=== PATIENT | female | born 1955 | race Caucasian/White ===

== ENCOUNTER 2019-12-06 20:13 | Emergency (ER) | payer OTHER, SELFPAY ==
[2019-12-06 20:30] VITALS: BP 156/89; PULSE 98; RESP 18; TEMP 37.1; O2SAT 97; BMI 39.6
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
== END 2019-12-06 22:05 | disposition home or self-care (01) ==
LOC: HO.ED 21:39
PROVIDERS: Emergency Provider Emergency Medicine; PCP Internal Medicine Medical Oncology
DX: Z04.1 Encounter for examination and observation following transport accident (principal); E11.9 Type 2 diabetes mellitus without complications; I10 Essential (primary) hypertension
CPT/HCPCS: 99282; 99284

== ENCOUNTER 2020-11-05 08:50 | Outpatient (REF) | payer MEDICARE, SELFPAY ==
[2020-11-05 09:28] LABS: MANUAL DIFF FLAG NO
[2020-11-05 09:35] LABS: Basophils Absolute Auto 0.1 X10*3/uL (0.0-0.2); Basophils Percent Auto 0.8 % (0-2); Eosinophils Absolute Auto 0.4 X10*3/uL (0.0-0.4); Eosinophils Percent Auto 5.4 % (0-4); Hematocrit 39.8 % (37-47); Hemoglobin 12.9 g/dl (12.0-16.0); Imm Gran Abs Auto 0.06 X10*3/uL (0.00-0.03); Imm Gran Pct Auto 0.9 % (0.0-0.4); Lymphocytes Absolute Auto 1.8 X10*3/uL (1.2-4.9); Lymphocytes Percent Auto 27.5 % (20-40); Mean Corpuscular HGB Conc 32.4 g/dl (31.0-35.0); Mean Corpuscular Hemoglobin 29.9 pg (27.0-33.0); Mean Corpuscular Volume 92.3 fL (80-98); Mean Platelet Volume 9.6 fL (9.4-12.3); Monocytes Absolute Auto 0.8 X10*3/uL (0.1-1.2); Monocytes Percent Auto 11.6 % (2-11); Neutrophils Absolute Auto 3.6 X10*3/uL (2.0-8.3); Neutrophils Percent Auto 53.8 % (45-73); Platelet Count 270 X10*3/uL (160-400); Red Blood Count 4.31 X10*6/uL (4.20-5.50); Red Cell Distribution Width 12.9 % (11.0-16.0); White Blood Count 6.6 X10*3/uL (4.8-10.8)
[2020-11-05 09:52] LABS: Alanine Aminotransferase 41 U/L (0-31); Alkaline Phosphatase 96 U/L (39-117); Anion Gap 12 (12-20); Aspartate Amino Transferase 32 U/L (5-31); Bilirubin Total 0.5 mg/dL (0.0-1.0); Blood Urea Nitrogen 18 mg/dL (9-16); Calcium 9.7 mg/dL (8.4-10.2); Carbon Dioxide 27 mmol/L (22-29); Chloride 106 mmol/L (96-108); Cholesterol 277 mg/dL; Estimated Glomerular Filt Rate 45; Glucose Random 110 mg/dL (60-115); HDL Cholesterol 52 mg/dL; LDL Cholesterol Calculated 196 mg/dl; Potassium 4.9 mmol/L (3.3-5.1); Sodium 140 mmol/L (135-145); Total Protein 6.7 g/dL (6.5-8.0); Triglycerides 146 mg/dL
[2020-11-05 10:06] LABS: Free T4 (Free Thyroxine) 1.02 ng/dL (0.71-1.85); Thyroid Stimulating Hormone 2.53 uIU/mL (0.32-4.0)
[2020-11-05 10:08] LABS: Creatinine Urine 146.55 mg/dL
[2020-11-05 10:16] LABS: Estimated Average Glucose 315 mg/dL; Hemoglobin A1c % 12.6 %
[2020-11-05 10:20] LABS: Microalbum/Creatinine Ratio Ur 671.4 ug/mg cr
== END 2020-11-05 08:51 | disposition home or self-care (01) ==
LOC: HO.LAB 08:50
PROVIDERS: PCP Internal Medicine Medical Oncology; Visit Provider Internal Medicine Medical Oncology
DX: E11.9 Type 2 diabetes mellitus without complications (principal); E03.9 Hypothyroidism, unspecified; I10 Essential (primary) hypertension; E78.2 Mixed hyperlipidemia
CPT/HCPCS: 36415; 80053; 80061; 82043; 83036; 84439; 84443; 85025

== ENCOUNTER 2021-02-19 08:21 | Outpatient (REF) | payer MEDICARE, SELFPAY ==
[2021-02-19 08:39] LABS: MANUAL DIFF FLAG NO
[2021-02-19 09:24] LABS: Basophils Absolute Auto 0.1 X10*3/uL (0.0-0.2); Basophils Percent Auto 0.9 % (0-2); Eosinophils Absolute Auto 0.4 X10*3/uL (0.0-0.4); Eosinophils Percent Auto 6.3 % (0-4); Hematocrit 40.6 % (37.0-47.0); Hemoglobin 13.6 g/dl (12.0-16.0); Imm Gran Abs Auto 0.03 X10*3/uL (0.00-0.03); Imm Gran Pct Auto 0.4 % (0.0-0.4); Lymphocytes Absolute Auto 1.7 X10*3/uL (1.2-4.9); Lymphocytes Percent Auto 25.1 % (20-40); Mean Corpuscular HGB Conc 33.5 g/dl (31.0-35.0); Mean Corpuscular Hemoglobin 29.6 pg (27.0-33.0); Mean Corpuscular Volume 88.3 fL (80.0-98.0); Mean Platelet Volume 10.3 fL (9.4-12.3); Monocytes Absolute Auto 0.7 X10*3/uL (0.1-1.2); Monocytes Percent Auto 9.5 % (2-11); Neutrophils Percent Auto 57.8 % (45-73); Platelet Count 262 X10*3/uL (160-400); White Blood Count 6.9 X10*3/uL (4.8-10.8)
[2021-02-19 09:43] LABS: Estimated Average Glucose 220 mg/dL; Hemoglobin A1c % 9.3 %
[2021-02-19 09:49] LABS: Alanine Aminotransferase 27 U/L (0-31); Albumin Level 4.1 g/dL (3.5-5.0); Alkaline Phosphatase 114 U/L (39-117); Anion Gap 15 (12-20); Aspartate Amino Transferase 22 U/L (5-31); Bilirubin Total 0.6 mg/dL (0.0-1.0); Blood Urea Nitrogen 28 mg/dL (9-16); Carbon Dioxide 26 mmol/L (22-29); Chloride 101 mmol/L (96-108); Cholesterol 184 mg/dL; Estimated Glomerular Filt Rate 35; Glucose Fasting 406 mg/dL (60-99); HDL Cholesterol 44 mg/dL; LDL Cholesterol Calculated 107 mg/dl; Sodium 137 mmol/L (135-145); Triglycerides 167 mg/dL
== END 2021-02-19 08:22 | disposition home or self-care (01) ==
LOC: HO.LAB 08:21
PROVIDERS: PCP Internal Medicine Medical Oncology; Visit Provider Internal Medicine Medical Oncology
DX: E11.9 Type 2 diabetes mellitus without complications (principal); E78.2 Mixed hyperlipidemia
CPT/HCPCS: 36415; 80053; 80061; 83036; 85025

== ENCOUNTER 2021-07-29 07:39 | Outpatient (REF) | payer MEDICARE, SELFPAY ==
[2021-07-29 08:02] LABS: MANUAL DIFF FLAG NO
[2021-07-29 08:27] LABS: Basophils Absolute Auto 0.1 X10*3/uL (0.0-0.2); Basophils Percent Auto 0.7 % (0-2); Eosinophils Absolute Auto 0.4 X10*3/uL (0.0-0.4); Eosinophils Percent Auto 5.9 % (0-4); Hematocrit 39.1 % (37.0-47.0); Hemoglobin 13.2 g/dl (12.0-16.0); Imm Gran Abs Auto 0.03 X10*3/uL (0.00-0.03); Imm Gran Pct Auto 0.4 % (0.0-0.4); Lymphocytes Percent Auto 27.7 % (20-40); Mean Corpuscular HGB Conc 33.8 g/dl (31.0-35.0); Mean Corpuscular Hemoglobin 30.4 pg (27.0-33.0); Mean Corpuscular Volume 90.1 fL (80.0-98.0); Mean Platelet Volume 10.1 fL (9.4-12.3); Monocytes Absolute Auto 0.8 X10*3/uL (0.1-1.2); Monocytes Percent Auto 10.9 % (2-11); Neutrophils Percent Auto 54.4 % (45-73); Platelet Count 269 X10*3/uL (160-400); Red Blood Count 4.34 X10*6/uL (4.20-5.50); Red Cell Distribution Width 12.3 % (11.0-16.0); White Blood Count 7.3 X10*3/uL (4.8-10.8)
[2021-07-29 08:44] LABS: Alanine Aminotransferase 25 U/L (0-31); Albumin Level 3.8 g/dL (3.5-5.0); Alkaline Phosphatase 97 U/L (39-117); Anion Gap 12 (12-20); Aspartate Amino Transferase 20 U/L (5-31); Bilirubin Total 0.5 mg/dL (0.0-1.0); Blood Urea Nitrogen 29 mg/dL (9-16); Calcium 9.8 mg/dL (8.4-10.2); Carbon Dioxide 24 mmol/L (22-29); Chloride 107 mmol/L (96-108); Cholesterol 237 mg/dL; Estimated Glomerular Filt Rate 36; Glucose Fasting 104 mg/dL (60-99); HDL Cholesterol 46 mg/dL; LDL Cholesterol Calculated 162 mg/dl; Potassium 4.3 mmol/L (3.3-5.1); Sodium 139 mmol/L (135-145); Total Protein 6.6 g/dL (6.5-8.0); Triglycerides 147 mg/dL
[2021-07-29 08:48] LABS: Estimated Average Glucose 220 mg/dL; Hemoglobin A1c % 9.3 %
[2021-07-29 09:04] LABS: Free T4 (Free Thyroxine) 0.95 ng/dL (0.71-1.85); Thyroid Stimulating Hormone 4.42 uIU/mL (0.32-4.0)
[2021-07-29 10:34] LABS: Creatinine Urine 164.96 mg/dL
[2021-07-29 11:10] LABS: Microalbum/Creatinine Ratio Ur 1049.9 ug/mg cr
== END 2021-07-29 07:40 | disposition home or self-care (01) ==
LOC: HO.LAB 07:39
PROVIDERS: PCP Internal Medicine Medical Oncology; Visit Provider Internal Medicine Medical Oncology
DX: E11.9 Type 2 diabetes mellitus without complications (principal); E03.9 Hypothyroidism, unspecified; I10 Essential (primary) hypertension; E78.2 Mixed hyperlipidemia
CPT/HCPCS: 36415; 80053; 80061; 82043; 83036; 84439; 84443; 85025

== ENCOUNTER 2021-08-19 09:59 | Outpatient (REF) | payer MEDICARE, SELFPAY ==
--- NOTE | ~2021-08-19 | XR_ITS ---
EXAMINATION: XR KNEE, RIGHT CLINICAL INFORMATION: Pain right knee COMPARISON: None TECHNIQUE: Four views of the right knee. FINDINGS: No fracture or dislocation or destructive process. There is mild narrowing medial knee joint compartment with borderline spurring medial femoral condyle and tibial plateau. No erosive change or visible chondrocalcinosis. There is small suprapatellar effusion. Hoffa's fat pad appears normal. Axial view patella shows no lateralization or tilting. Spurring is present at the quadriceps insertion patella, origin patellar tendon, and insertion patella tendon. Deep infrapatellar recess appears preserved. XR/XR knee RT 4V IMPRESSION: -Mild degenerative change medial knee joint compartment. Small suprapatellar effusion. -Spurring extensor mechanism at insertion quadriceps tendon, origin and insertion patella tendon.
== END 2021-08-19 10:00 | disposition home or self-care (01) ==
LOC: HO.XRAY 09:59
PROVIDERS: PCP Internal Medicine Medical Oncology; Visit Provider Internal Medicine Medical Oncology
DX: M25.561 Pain in right knee (principal)
CPT/HCPCS: 73564

== ENCOUNTER 2021-11-12 08:11 | Outpatient (REF) | payer MEDICARE, SELFPAY ==
[2021-11-12 08:34] LABS: MANUAL DIFF FLAG NO
[2021-11-12 09:07] LABS: Basophils Absolute Auto 0.1 X10*3/uL (0.0-0.2); Basophils Percent Auto 0.6 % (0-2); Eosinophils Absolute Auto 0.5 X10*3/uL (0.0-0.4); Eosinophils Percent Auto 6.5 % (0-4); Hematocrit 39.8 % (37.0-47.0); Imm Gran Abs Auto 0.05 X10*3/uL (0.00-0.03); Imm Gran Pct Auto 0.6 % (0.0-0.4); Lymphocytes Percent Auto 25.3 % (20-40); Mean Corpuscular HGB Conc 32.7 g/dl (31.0-35.0); Mean Corpuscular Volume 88.6 fL (80.0-98.0); Mean Platelet Volume 10.1 fL (9.4-12.3); Monocytes Absolute Auto 0.7 X10*3/uL (0.1-1.2); Monocytes Percent Auto 9.6 % (2-11); Neutrophils Absolute Auto 4.4 x10*3/uL (2.0-8.3); Neutrophils Percent Auto 57.4 % (45-73); Platelet Count 254 X10*3/uL (160-400); Red Blood Count 4.49 X10*6/uL (4.20-5.50); Red Cell Distribution Width 12.6 % (11.0-16.0); White Blood Count 7.7 X10*3/uL (4.8-10.8)
[2021-11-12 09:14] LABS: Estimated Average Glucose 240 mg/dL
[2021-11-12 09:40] LABS: Alanine Aminotransferase 21 U/L (0-31); Albumin Level 3.8 g/dL (3.5-5.0); Alkaline Phosphatase 99 U/L (39-117); Anion Gap 15 (12-20); Aspartate Amino Transferase 19 U/L (5-31); Bilirubin Total 0.4 mg/dL (0.0-1.0); Blood Urea Nitrogen 31 mg/dL (9-16); Calcium 9.5 mg/dL (8.4-10.2); Carbon Dioxide 26 mmol/L (22-29); Chloride 103 mmol/L (96-108); Cholesterol 227 mg/dL; Estimated Glomerular Filt Rate 38; Glucose Random 111 mg/dL (60-115); HDL Cholesterol 47 mg/dL; LDL Cholesterol Calculated 155 mg/dl; Potassium 4.4 mmol/L (3.3-5.1); Sodium 140 mmol/L (135-145); Total Protein 6.6 g/dL (6.5-8.0); Triglycerides 128 mg/dL
== END 2021-11-12 08:12 | disposition home or self-care (01) ==
LOC: HO.LAB 08:11
PROVIDERS: PCP Internal Medicine Medical Oncology; Visit Provider Internal Medicine Medical Oncology
DX: I10 Essential (primary) hypertension (principal); E11.9 Type 2 diabetes mellitus without complications; E78.2 Mixed hyperlipidemia
CPT/HCPCS: 36415; 80053; 80061; 83036; 85025

== ENCOUNTER 2022-01-13 07:56 | Outpatient (REF) | payer MEDICARE, SELFPAY ==
[2022-01-13 08:04] LABS: MANUAL DIFF FLAG NO
[2022-01-13 08:21] LABS: Basophils Absolute Auto 0.1 X10*3/uL (0.0-0.2); Basophils Percent Auto 1.1 % (0-2); Eosinophils Absolute Auto 0.4 X10*3/uL (0.0-0.4); Hematocrit 42.2 % (37.0-47.0); Hemoglobin 13.8 g/dl (12.0-16.0); Imm Gran Abs Auto 0.02 X10*3/uL (0.00-0.03); Imm Gran Pct Auto 0.3 % (0.0-0.4); Lymphocytes Absolute Auto 1.4 X10*3/uL (1.2-4.9); Lymphocytes Percent Auto 19.4 % (20-40); Mean Corpuscular HGB Conc 32.7 g/dl (31.0-35.0); Mean Corpuscular Hemoglobin 29.2 pg (27.0-33.0); Mean Corpuscular Volume 89.4 fL (80.0-98.0); Mean Platelet Volume 10.3 fL (9.4-12.3); Monocytes Absolute Auto 0.7 X10*3/uL (0.1-1.2); Monocytes Percent Auto 9.6 % (2-11); Neutrophils Absolute Auto 4.7 x10*3/uL (2.0-8.3); Neutrophils Percent Auto 63.6 % (45-73); Platelet Count 267 X10*3/uL (160-400); Red Blood Count 4.72 X10*6/uL (4.20-5.50); Red Cell Distribution Width 12.4 % (11.0-16.0); White Blood Count 7.4 X10*3/uL (4.8-10.8)
[2022-01-13 08:47] LABS: Alanine Aminotransferase 22 U/L (0-31); Albumin Level 3.8 g/dL (3.5-5.0); Alkaline Phosphatase 115 U/L (39-117); Anion Gap 14 (12-20); Aspartate Amino Transferase 20 U/L (5-31); Bilirubin Total 0.3 mg/dL (0.0-1.0); Blood Urea Nitrogen 27 mg/dL (9-16); Calcium 9.2 mg/dL (8.4-10.2); Carbon Dioxide 26 mmol/L (22-29); Chloride 103 mmol/L (96-108); Estimated Glomerular Filt Rate 34; Glucose Fasting 185 mg/dL (60-99); Potassium 4.5 mmol/L (3.3-5.1); Sodium 138 mmol/L (135-145); Total Protein 6.7 g/dL (6.5-8.0)
[2022-01-13 08:48] LABS: Estimated Average Glucose 235 mg/dL; Hemoglobin A1c % 9.8 %
== END 2022-01-13 07:57 | disposition home or self-care (01) ==
LOC: HO.LAB 07:56
PROVIDERS: PCP Internal Medicine Medical Oncology; Visit Provider Internal Medicine Medical Oncology
DX: Z00.00 Encounter for general adult medical examination without abnormal findings (principal); E11.9 Type 2 diabetes mellitus without complications; E78.5 Hyperlipidemia, unspecified; E66.01 Morbid (severe) obesity due to excess calories
CPT/HCPCS: 36415; 80053; 83036; 85025

== ENCOUNTER 2022-04-08 08:04 | Outpatient (REF) | payer MEDICARE, SELFPAY ==
[2022-04-08 08:18] LABS: MANUAL DIFF FLAG NO
[2022-04-08 08:58] LABS: Basophils Absolute Auto 0.1 X10*3/uL (0.0-0.2); Basophils Percent Auto 0.9 % (0-2); Eosinophils Absolute Auto 0.5 X10*3/uL (0.0-0.4); Eosinophils Percent Auto 6.3 % (0-4); Hematocrit 41.4 % (37.0-47.0); Hemoglobin 13.9 g/dl (12.0-16.0); Imm Gran Abs Auto 0.05 X10*3/uL (0.00-0.03); Imm Gran Pct Auto 0.7 % (0.0-0.4); Lymphocytes Absolute Auto 2.1 X10*3/uL (1.2-4.9); Lymphocytes Percent Auto 27.8 % (20-40); Mean Corpuscular HGB Conc 33.6 g/dl (31.0-35.0); Mean Corpuscular Hemoglobin 29.5 pg (27.0-33.0); Mean Corpuscular Volume 87.9 fL (80.0-98.0); Mean Platelet Volume 10.4 fL (9.4-12.3); Monocytes Absolute Auto 0.8 X10*3/uL (0.1-1.2); Neutrophils Absolute Auto 4.1 x10*3/uL (2.0-8.3); Neutrophils Percent Auto 54.3 % (45-73); Platelet Count 283 X10*3/uL (160-400); Red Blood Count 4.71 X10*6/uL (4.20-5.50); Red Cell Distribution Width 12.5 % (11.0-16.0); White Blood Count 7.5 X10*3/uL (4.8-10.8)
[2022-04-08 09:15] LABS: Estimated Average Glucose 298 mg/dL
[2022-04-08 09:24] LABS: Alanine Aminotransferase 25 U/L (0-31); Albumin Level 3.9 g/dL (3.5-5.0); Alkaline Phosphatase 101 U/L (39-117); Anion Gap 16 (12-20); Aspartate Amino Transferase 23 U/L (5-31); Bilirubin Total 0.4 mg/dL (0.0-1.0); Blood Urea Nitrogen 31 mg/dL (9-16); Calcium 9.7 mg/dL (8.4-10.2); Carbon Dioxide 25 mmol/L (22-29); Chloride 104 mmol/L (96-108); Estimated Glomerular Filt Rate 42; Glucose Fasting 85 mg/dL (60-99); Sodium 141 mmol/L (135-145); Total Protein 6.4 g/dL (6.5-8.0)
[2022-04-08 09:30] LABS: Creatinine Urine 120.46 mg/dL
[2022-04-08 09:40] LABS: Microalbum/Creatinine Ratio Ur 1660.3 ug/mg cr; Microalbumin Urine > 2000.0 mg/L
[2022-04-08 09:41] LABS: Free T4 (Free Thyroxine) 0.83 ng/dL (0.71-1.85); Thyroid Stimulating Hormone 3.96 uIU/mL (0.32-4.0)
== END 2022-04-08 08:05 | disposition home or self-care (01) ==
LOC: HO.LAB 08:04
PROVIDERS: PCP Internal Medicine Medical Oncology; Visit Provider Internal Medicine Medical Oncology
DX: E03.9 Hypothyroidism, unspecified (principal); I10 Essential (primary) hypertension; E66.01 Morbid (severe) obesity due to excess calories; E11.9 Type 2 diabetes mellitus without complications
CPT/HCPCS: 36415; 80053; 82043; 83036; 84439; 84443; 85025

== ENCOUNTER 2022-06-29 01:54 | Inpatient (IN) | payer MEDICARE, SELFPAY ==
[2022-06-29] VITALS (41 sets, daily range): BP systolic 106–248; BP diastolic 46–110; PULSE 67–116; RESP 13–20; TEMP 36.4–37.3; O2SAT 90–97; BMI 43.2; BMI 43.5
--- NOTE | 2022-06-29 | ECG_ITS ---
Test Reason : chest pain Blood Pressure : / mmHG Vent. Rate : 098 BPM Atrial Rate : 098 BPM P-R Int : 184 ms QRS Dur : 072 ms QT Int : 384 ms P-R-T Axes : 051 079 023 degrees QTc Int : 490 ms Sinus rhythm with Premature atrial complexes Prolonged QT Abnormal ECG When compared with ECG of 29-JUN-2022 02:32, Premature atrial complexes are now Present Referred By: Chris Ceron Electronically Signed By:AGUSTIN WHITEHEAD MD
--- NOTE | ~2022-06-29 | CT_ITS ---
EXAMINATION: CT HEAD WITHOUT CONTRAST CLINICAL INFORMATION: Stroke protocol . Left hemiparesis. COMPARISON: None. TECHNIQUE: Contiguous axial imaging was performed from the skull base to vertex without intravenous contrast. This CT examination was performed using dose optimization techniques as appropriate, variously including the following: * Automated exposure control * Adjustment of mA and/or kV according to patient size (this includes techniques or standardized protocols for targeted exams where dose is matched to indication/reason for exam; i.e. extremities or head) Use of iterative reconstruction technique DLP: 569 mGy-cm. FINDINGS: There is no evidence of acute intracranial hemorrhage or territorial infarction. No abnormal mass effect or midline shift is seen. Abreu to white matter differentiation is well preserved. No extra-axial fluid collections are identified. No hydrocephalus. Proportional prominence of the ventricles and sulcal spaces is consistent with mild volume loss. Patchy periventricular and deep white matter hypoattenuation is consistent with mild small vessel ischemic changes. The osseous structures and soft tissues are normal. The mastoid air cells and visualized portions of the paranasal sinuses are well aerated. CT/CT head for stroke IMPRESSION: No acute intracranial pathology. Mild volume loss with small vessel ischemic change. This critical result was discussed with Chris Ceron MD by telephone at 06/29/2022 2:08 AM and it was ascertained that the content and urgency of the report was understood at the time of direct communication.
--- NOTE | ~2022-06-29 | CT_ITS ---
EXAMINATION: CTA OF THE HEAD/NECK CLINICAL INFORMATION: CTA stroke. Left hemiparesis. COMPARISON: None. TECHNIQUE: A routine non contrast head CT was performed immediately prior. This was followed by a 70 mL bolus of Omnipaque 350. Subsequent multidetector helical imaging was performed of the head and neck. Delayed post contrast imaging was also performed through the head. Multiplanar reformats and MIP were also obtained. Internal carotid artery stenoses are assessed in accordance with NASCET criteria unless otherwise indicated. This CT examination was performed using dose optimization techniques as appropriate, variously including the following: *Automated exposure control *Adjustment of mA and/or kV according to patient size (this includes techniques or standardized protocols for targeted exams where dose is matched to indication/reason for exam; i.e. extremities or head) *Use of iterative reconstruction technique DLP: 1425 mGy-cm. FINDINGS: CT HEAD: There is no evidence of acute intracranial hemorrhage or territorial infarction. No abnormal mass effect or midline shift is seen. Abreu to white matter differentiation is well preserved. No extra-axial fluid collections are identified. No suspicious leptomeningeal or parenchymal enhancement on the post-contrast images. No hydrocephalus. Proportional prominence of the ventricles and sulcal spaces is consistent with mild volume loss. Patchy periventricular and deep white matter hypoattenuation is consistent with mild small vessel ischemic changes. The osseous structures and soft tissues are normal. The mastoid air cells and visualized portions of the paranasal sinuses are well aerated. CTA NECK: The aortic arch is of normal caliber and the origins of the great vessels are patent without evidence of significant stenosis. The cervical portion of the vertebral arteries are patent bilaterally. No luminal irregularities in the common carotid arteries and the carotid bifurcations are patent bilaterally. There is some calcified and noncalcified plaque at the origin of both internal carotid arteries, without flow-limiting stenosis. The cervical portion of the internal carotid arteries are of normal caliber. The laryngeal structures and pharyngeal mucosal spaces are unremarkable. The oral cavity appears normal. The parotid and submandibular glands are normal. No pathologically enlarged lymph nodes. The thyroid gland is unremarkable. The lung apices are clear without evidence of pneumothorax. Spinal alignment is maintained. Mild cervical spondylosis is noted. CTA HEAD: The intradural portion of the vertebral arteries are of normal caliber. The basilar, superior cerebellar, and posterior communicating arteries are patent. The posterior, middle, and anterior cerebral arteries are of normal caliber without evidence of significant luminal irregularity. No definite intracranial aneurysms. CT/CT angio head neck stroke IMPRESSION: 1. No acute intracranial finding. 2. No large vessel occlusion or flow-limiting stenosis. This critical result was discussed with Chris Ceron MD by telephone at 06/29/2022 2:28 AM and it was ascertained that the content and urgency of the report was understood at the time of direct communication.
--- NOTE | ~2022-06-29 | MR_ITS ---
EXAMINATION: MR BRAIN WITHOUT CONTRAST CLINICAL INFORMATION: Acute right MCA stroke, status post tPA. COMPARISON: Head CT from 06/29/2022. TECHNIQUE: Multiplanar, multisequence imaging of the brain was performed without contrast. FINDINGS: There is restricted diffusion from an acute infarct involving the right frontoparietal lobes and right insular cortex without hemorrhagic conversion. No significant mass effect or midline shift is seen. Corresponding mild T2 hyperintense signal change noted at this site as well. The ventricles are normal in size. No extra-axial fluid collections are seen. The brainstem and cerebellum are normal. Nonspecific mild scattered white matter signal changes may be due to chronic microangiopathy. The craniovertebral junction, marrow signal, and midline structures are normal. The major intracranial flow voids at the level of the [place] are preserved. The dural venous sinus flow voids are maintained. The mastoid air cells and paranasal sinuses are well aerated. MR/MR head/brain wo con IMPRESSION: Acute right MCA territorial infarction without significant mass effect, midline shift, or hemorrhagic conversion.
--- NOTE | ~2022-06-29 | XR_ITS ---
EXAMINATION: XR CHEST CLINICAL INFORMATION: Change in breathing pattern COMPARISON: None available. TECHNIQUE: Frontal view of the chest was obtained. FINDINGS: Cardiac leads overlie the chest. The lungs are well expanded. Patchy opacity at the left base. No pleural effusion or pneumothorax. The cardiomediastinal silhouette is prominent, with a calcified aorta. XR/XR chest 1V IMPRESSION: 1. Patchy opacity at the left base could represent atelectasis or pneumonia. 2. Prominent cardiac silhouette.
--- NOTE | ~2022-06-29 | CT_ITS ---
EXAMINATION: CT HEAD WITHOUT CONTRAST CLINICAL INFORMATION: Headache post TPA. COMPARISON: 06/29/2022 TECHNIQUE: Contiguous axial imaging was performed from the skull base to vertex without intravenous contrast. This CT examination was performed using dose optimization techniques as appropriate, variously including the following: * Automated exposure control * Adjustment of mA and/or kV according to patient size (this includes techniques or standardized protocols for targeted exams where dose is matched to indication/reason for exam; i.e. extremities or head) Use of iterative reconstruction technique DLP: 609 mGy-cm. FINDINGS: There is no evidence of acute intracranial hemorrhage or territorial infarction. No abnormal mass effect or midline shift is seen. Abreu to white matter differentiation is well preserved. No extra-axial fluid collections are identified. No hydrocephalus. Proportional prominence of the ventricles and sulcal spaces is consistent with mild volume loss. Patchy periventricular and deep white matter hypoattenuation is consistent with mild small vessel ischemic changes. The osseous structures and soft tissues are normal. The mastoid air cells and visualized portions of the paranasal sinuses are well aerated. CT/CT head/brain wo IV con IMPRESSION: No acute intracranial pathology.
--- NOTE | 2022-06-29 01:56 | ECG_ITS ---
Test Reason : stroke Blood Pressure : / mmHG Vent. Rate : 104 BPM Atrial Rate : 104 BPM P-R Int : 172 ms QRS Dur : 076 ms QT Int : 368 ms P-R-T Axes : 062 076 041 degrees QTc Int : 483 ms Sinus tachycardia with Premature atrial complexes Otherwise normal ECG No previous ECGs available Referred By: Chris Ceron Electronically Signed By:AGUSTIN WHITEHEAD MD
--- NOTE | 2022-06-29 01:58 | ED_ITS ---
HPI - Neuro Symptoms/Deficit General Chief Complaint: Stroke Stated Complaint: stroke alert Time Seen by Provider: 06/29/22 01:56 Source: patient and EMS Mode of arrival: EMS Limitations: no limitations History of Present Illness HPI Narrative: Patient history of hypertension went to sleep at 23:00 woke up at 01:00 with dizziness while getting out of the bed felt left-sided week and fell without significant injuries had dizziness blurred vision noticed significant weakness in left arm and heaviness in the left leg no speech problem no facial symmetry blood pressure was 248/110 by EMS. Patient not on any blood thinner Related Data Allergies Allergy/AdvReac Type Severity Reaction Status Date / Time No Known Allergies Allergy Verified 12/06/19 20:33 Review of Systems Review of Systems: Yes all other systems are reviewed and are negative [facility] Past Medical History Medical History Appendicitis Asthma Diabetes High cholesterol HTN (hypertension) Surgical History History of appendectomy Hx of appendectomy Social History Social History Household Members: Family Alcohol intake: never Advance Directives: No Advance Directives Information Provided: No Physical Exam Vital Signs: Vital Signs: Last Vital Signs Temp 97.9 F 06/29/22 02:18 Pulse 96 06/29/22 02:18 Resp 18 06/29/22 02:18 BP 197/71 H 06/29/22 03:23 Pulse Ox 95 06/29/22 02:18 O2 Del Method Room Air 06/29/22 02:18 BMI result Body Mass Index 43.2 Appearance: Alert. Oriented X3. No acute distress. Eyes: PERRLA, No Nystagmus ENT: Pharynx normal. Oral Mucosa moist Neck: Normal inspection. Neck supple. CVS: Normal heart rate and rhythm. Pulses normal. Respiratory: No respiratory distress. Equal air entry bilateral, no wheezing/rales/rhonchi Abdomen: Soft and nontender. Bowel sounds are present, no mass palpable, no CVA tenderness Skin: Skin warm and dry. Normal skin color. Normal skin turgor. Extremities: No lower extremity edema. No calf tenderness Neuro: Oriented X 3. Significant weakness left arm 3/ 5 left leg 4/5 No sensory deficit.No cerebellar signs , cranial nerves II-XII intact speech is normal Course Reevaluation(s) Reevaluation #1: Patient received tPA re-examination revaled patient has left facial droop slight slurred speech also complaining of mild headache on the right side give her Tylenol re-evaluate plan to admit ICU Time: 03:44 Medications Administered Discontinued Medications Generic Name Dose Route Start Last Admin Trade Name Simonq PRN Reason Stop Dose Admin Alteplase, Recombinant 90 mg 06/29/22 02:47 06/29/22 02:53 Alteplase 100 Mg Vial IV 06/29/22 02:48 90 mg ONCE ONE Administration Labetalol HCl 10 mg 06/29/22 02:59 06/29/22 03:02 Labetalol Hcl 100 Mg/20 Ml Vial IVPUSH 06/29/22 03:00 10 mg ONCE ONE Administration Medical Decision Making Medical Decision Making [facility] Narrative: Patient with acute left-sided hemiparesis CT H and CTA head neck was negative for LVO case d/w with Dr. Garcia advised to give tPA in case patient has significant weakness initially patient had only left arm weakness and was told that weakness started at 11:00 infact was 23:00. Hence delay in tPA, re- evaluation revealed and after discussing with patient's son the patient has dysarthria and slight weakness on the left side when she ambulated patient feels that left side is heavy hence tPA was given Lab Data [facility] Lab Attestation statement: I reviewed the patient's lab results. 06/29/22 02:12 06/29/22 02:12 Labs: Lab Results 06/29/22 06/29/22 06/29/22 Range/Units 01:57 01:58 02:12 WBC 8.4 (4.8-10.8) X10*3/uL RBC 4.34 (4.20-5.50) X10*6/uL Hgb 12.7 (12.0-16.0) g/dl Hct 37.8 (37.0-47.0) % MCV 87.1 (80.0-98.0) fL MCH 29.3 (27.0-33.0) pg MCHC 33.6 (31.0-35.0) g/dl RDW 12.6 (11.0-16.0) % Plt Count 293 (160-400) X10*3/uL MPV 9.8 (9.4-12.3) fL Immature Gran % (Auto) 0.2 (0.0-0.4) % Neut % (Auto) 69.5 (45-73) % Lymph % (Auto) 20.4 (20-40) % [place] % (Auto) 7.6 (2-11) % Eos % (Auto) 1.8 (0-4) % Baso % (Auto) 0.5 (0-2) % Lymph # (Auto) 1.7 (1.2-4.9) X10*3/uL [place] # (Auto) 0.6 (0.1-1.2) X10*3/uL Eos # (Auto) 0.2 (0.0-0.4) X10*3/uL Baso # (Auto) 0.0 (0.0-0.2) X10*3/uL Abs Immat Gran (auto) 0.02 (0.00-0.03) X10*3/uL Absolute Neuts (auto) 5.9 (2.0-8.3) x10*3/uL Absolute Nucleated RBC 0.000 (0.0-0.012) X10*3/uL Nucleated RBC % (auto) 0.0 (0.0-0.2) /100WBC PT (10.0-13.1) SEC Whole Blood PT 10.7 L (11.1-13.5) sec INR (0.9-1.1) Whole Blood INR 0.9 (0.9-1.1) APTT (26.0-36.4) SEC Sodium (135-145) mmol/L Potassium (3.3-5.1) mmol/L Chloride (96-108) mmol/L Carbon Dioxide (22-29) mmol/L Anion Gap (12-20) BUN (9-16) mg/dL Creatinine (0.5-1.4) mg/dL Estim Creat Clear Calc Estimated GFR POC Glucose 320 H (60-115) mg/dL Random Glucose (60-115) mg/dL Calcium (8.4-10.2) mg/dL Total Creatine Kinase (26-140) U/L 06/29/22 06/29/22 Range/Units 02:12 02:12 WBC (4.8-10.8) X10*3/uL RBC (4.20-5.50) X10*6/uL Hgb (12.0-16.0) g/dl Hct (37.0-47.0) % MCV (80.0-98.0) fL MCH (27.0-33.0) pg MCHC (31.0-35.0) g/dl RDW (11.0-16.0) % Plt Count (160-400) X10*3/uL MPV (9.4-12.3) fL Immature Gran % (Auto) (0.0-0.4) % Neut % (Auto) (45-73) % Lymph % (Auto) (20-40) % [place] % (Auto) (2-11) % Eos % (Auto) (0-4) % Baso % (Auto) (0-2) % Lymph # (Auto) (1.2-4.9) X10*3/uL [place] # (Auto) (0.1-1.2) X10*3/uL Eos # (Auto) (0.0-0.4) X10*3/uL Baso # (Auto) (0.0-0.2) X10*3/uL Abs Immat Gran (auto) (0.00-0.03) X10*3/uL Absolute Neuts (auto) (2.0-8.3) x10*3/uL Absolute Nucleated RBC (0.0-0.012) X10*3/uL Nucleated RBC % (auto) (0.0-0.2) /100WBC PT 10.5 (10.0-13.1) SEC Whole Blood PT (11.1-13.5) sec INR 0.9 (0.9-1.1) Whole Blood INR (0.9-1.1) APTT 27.6 (26.0-36.4) SEC Sodium 139 (135-145) mmol/L Potassium 3.9 (3.3-5.1) mmol/L Chloride 105 (96-108) mmol/L Carbon Dioxide 24 (22-29) mmol/L Anion Gap 14 (12-20) BUN 27 H (9-16) mg/dL Creatinine 1.44 H (0.5-1.4) mg/dL Estim Creat Clear Calc 42.4 Estimated GFR 36 POC Glucose (60-115) mg/dL Random Glucose 325 H (60-115) mg/dL Calcium 9.4 (8.4-10.2) mg/dL Total Creatine Kinase 326 H (26-140) U/L NIH Stroke Scale Internal: Initial- Upon Arrival Level of Consciousness: Alert Level of Consciousness Questions: Answers both questions correctly Level of Consciousness Commands: Performs both tasks correctly Best Gaze: Normal Visual: No visual loss Facial Palsy: Normal Motor Arm (Right): No drift Motor Arm (Left): Some effort against gravity Motor Leg (Right): No drift Motor Leg (Left): Drift Limb Ataxia: Absent Sensory: Normal Best Language: No aphasia Dysarthia: Normal Extinction and Inattention: No abnormality Score: 3 Discharge Plan Discharge Clinical Impression: Cerebrovascular accident Patient Disposition: Admitted As Inpatient
[2022-06-29 02:02] LABS: Prothrombin Time Whole Bld POC 10.7 sec (11.1-13.5); ~PT, ~INR - Anti Coag Clinic 0.9 (0.9-1.1)
[2022-06-29 02:02] LABS: Glucose, Whole Blood 320 mg/dL (60-115)
[2022-06-29 02:20] LABS: MANUAL DIFF FLAG NO
[2022-06-29 02:21] LABS: Stroke Lab Use COMPLETE
[2022-06-29 02:22] LABS: Basophils Percent Auto 0.5 % (0-2); Eosinophils Absolute Auto 0.2 X10*3/uL (0.0-0.4); Eosinophils Percent Auto 1.8 % (0-4); Hematocrit 37.8 % (37.0-47.0); Hemoglobin 12.7 g/dl (12.0-16.0); Imm Gran Abs Auto 0.02 X10*3/uL (0.00-0.03); Imm Gran Pct Auto 0.2 % (0.0-0.4); Lymphocytes Absolute Auto 1.7 X10*3/uL (1.2-4.9); Lymphocytes Percent Auto 20.4 % (20-40); Mean Corpuscular HGB Conc 33.6 g/dl (31.0-35.0); Mean Corpuscular Hemoglobin 29.3 pg (27.0-33.0); Mean Corpuscular Volume 87.1 fL (80.0-98.0); Mean Platelet Volume 9.8 fL (9.4-12.3); Monocytes Absolute Auto 0.6 X10*3/uL (0.1-1.2); Monocytes Percent Auto 7.6 % (2-11); Neutrophils Absolute Auto 5.9 x10*3/uL (2.0-8.3); Neutrophils Percent Auto 69.5 % (45-73); Platelet Count 293 X10*3/uL (160-400); Red Blood Count 4.34 X10*6/uL (4.20-5.50); Red Cell Distribution Width 12.6 % (11.0-16.0); White Blood Count 8.4 X10*3/uL (4.8-10.8)
[2022-06-29 02:28] LABS: INTERNATIONAL NORM RATIO 0.9 (0.9-1.1); Prothrombin Time 10.5 SEC (10.0-13.1)
[2022-06-29 02:31] LABS: Partial Thromboplastin Time 27.6 SEC (26.0-36.4)
[2022-06-29 02:52] LABS: Anion Gap 14 (12-20); Blood Urea Nitrogen 27 mg/dL (9-16); Calcium 9.4 mg/dL (8.4-10.2); Carbon Dioxide 24 mmol/L (22-29); Chloride 105 mmol/L (96-108); Creatinine Clr Calc Pharmacy 42.4; Estimated Glomerular Filt Rate 36; Glucose Random 325 mg/dL (60-115); Potassium 3.9 mmol/L (3.3-5.1); Sodium 139 mmol/L (135-145)
[2022-06-29] MEDS: Labetalol HCL 100 MG/20 ML VIAL 10 MG IVPUSH ×2 (03:02→06:15)
--- NOTE | 2022-06-29 03:32 | PC.NURSE ---
pt arnoldo as a stroke alert - pt reports she went to bed at 11pm and felt fine, woke up at 0100 am, got out of bed, went to bathroom, felt dizzy and fell to ground. also noticed blurred vision and L sided weakness that was not there when she went to bed per pt. pt also tells this RN that her son said she was talking funny and seemed slightly disoriented. pt went straight to CT scan upon arrival - CTA head/neck done. iv line placed, labs sent, ekg done. pt placed on surveillance system monitor and tpa administered with 2 RN witnesses at bedside. labetalol iv given for BP 220/74. pt speaking clear full sentences, in no apparent distress and offers no current complaints at this time. no slurred speech or facial droop noted. denies dizziness, denies headache, denies blurred vision at this time. only feels dizzy when she gets up to walk. L sided weakness to U/L extremities apparent during assessment. will CTM.
[2022-06-29] MEDS: Acetaminophen 325 MG TABLET 650 MG PO (04:00)
--- NOTE | 2022-06-29 04:12 | PC.NURSE ---
upon reassessment, blood pressure improving but facial droop now more evident. asymmetrical smile noted, pt now leaning toward L side at rest. also now reporting new onset of Right sided headache. MD Ceron notified. tylenol po administered. TPA finished infusing. pt passed swallow eval. will CTM
[2022-06-29 05:27] LABS: Troponin-I High Sensitivity 17.6 ng/L (<3.5-17.0)
[2022-06-29] MEDS: Insulin Lispro 100 UNIT/ML 3 ML VIAL 10 UNIT SUBCUT (06:14)
[2022-06-29 06:16] LABS: Glucose, Whole Blood 314 mg/dL (60-115)
--- NOTE | 2022-06-29 07:00 | CA_ITS ---
Transthoracic Echocardiogram Patient (Last, First, Middle): Kasey Mckeon M Gender: Female Date of : 1955 Age: 67 Procedure Date: 06/29/2022 Procedure Type: Transthoracic Echocardiogram Location: ICU Height: 157.48 cm Weight: 107.5 kg BSA: 2.05 m2 Heart Rate: 71 bpm BP: 144 / 60 mmHg Lye Bath Operator: SB Referring MD: Nelson Liriano MD Prize Fighter: Azam Henley MD Symptoms: s/p CVA Study Quality: Adequate w contrast ECG Rhythm: Sinus Conclusions: - 1. Technically limited study despite use of contrast agent 2. Hyperdynamic LV ejection fraction greater than 70% with suggestion of increased filling pressures 3. Calcific aortic valve changes as well as mitral and calcification noted with increased gradients across aortic valve which could represent mild obstruction either at the LVOT or aortic valve level, unclear on this study Findings Procedure Information Contrast agent, definity, is being given per protocol without apparent complications. The quality of the study was technically difficult. The study quality is limited by patients body habitus. Left Ventricle Normal left ventricular size, thickness, and systolic function. The visually estimated ejection fraction is >70%. Spectral Doppler is indicative of an impaired relaxation filling pattern. Elevated filling pressures. E/E prime ratio is >15, consistent with elevated filling pressures. Right Ventricle The right ventricle was not well visualized. Atria The left atrium is likely dilated. Interatrial shunt cannot be excluded. The right atrium was not well visualized. Aortic Valve There is mild calcification of the aortic valve. There is mild thickening of the aortic valve. The peak aortic gradient is 17 mmHg.The mean gradient is 9 mmHg. Increased gradient through the aortic valve, causing at least mild obstructive physiology, with normal aortic valve opening. Subaortic obstruction cannot be entirely ruled out. Mitral Valve There is mild anterior and posterior mitral leaflet thickening. There is mild mitral annular calcification. There is trace mitral valve regurgitation. There is no mitral valve stenosis. Pulmonic Valve The pulmonic valve was not well visualized. Tricuspid Valve The tricuspid valve was not well visualized. Tricuspid regurgitation envelope is inadequate for calculation of right ventricular systolic pressure. Normal right atrial pressure. Great Vessels The aorta was not well visualized. The pulmonary artery was not well visualized. Venous The inferior vena cava is normal in size and collapses greater than 50% with inspiration. Pericardium/Pleural The pericardium was not well visualized. Prior Study Comparison No prior study available for comparison. Recommendations, Care & Conclusions Consider a LORI if clinically appropriate. Measurements 2D Linear Measurements IVSd: 1.42 0.6-0.9/0.6-1.0 cm LVIDd: 4.40 3.9-5.3/4.2-5.9 cm LVIDd Index: 2.15 2.4-3.2/2.2-3.1 cm/m2 LVIDs: 2.54 2.0-3.6 cm LVPWd: 1.03 0.7-1.1 cm LA Diam: 3.70 2.7-3.8/3.0-4.0 cm LAIDs Index: 1.80 1.5-2.3 cm/m2 LV Mass: 245.68 67-162/88-224 g LV Mass Index: 119.85 43-95/49-115 g/m2 LVOT Diam: 1.80 3.0+(-)1.3 cm 2D Systolic Function EF 4C: 74.70 >55% EF 2C: 78.50 >55% EF BiP: 76.10 >55% Mitral Valve MV Pk E: 1.14 MV PK A: 1.24 MV Decel Time: 201.00 E/A: 0.90 E'Lateral: 4.68 E'Medial: 5.11 E/E' Med: 22.30 E/E' Lat: 24.40 PHT: 59.00 MVA PHT: 3.73 Decel [place]: 5.67 Aortic Valve AoV Pk Sancho: 2.05 AoV Mn Sancho: 1.41 AoV VTI: 0.47 AoV Pk Grad: 17.00 Aov Mn Grad: 9.00 JACQUELINE Cont.VTI: 1.61 LVOT LVOT Pk Sancho: 1.20 LVOT Mn Sancho: 0.88 LVOT VTI: 0.30 LVOT Pk Grad: 6.00 LVOT Mn Grad: 4.00 LVOT Diam: 1.80 LVOT Area: 2.54 Diastolic Function MV Pk E: 1.14 MV Pk A: 1.24 E/A: 0.90 E'Medial: 5.11 E/E' Med: 22.30 E' Laterial: 4.68 E/E' Lat: 24.40 Right Ventricle TAPSE (mm): 16.50 TVS' Sancho: 10.70 Tricuspid Valve RA Press: 3.00 Great Vessels Aorta Sinus of Valsalva: 2.50 2.0-3.5 cm Ao Asc: 2.80 2.1-3.4 cm Pulmonary Veins Pulm Vein S/D 1.40 Pulmonary Valve PV Pk Sancho: 1.09 Peak PV Grad: 5.00 Updated in Other Vendor System with Status of Final Azam Henley MD electronically signed on 06/29/2022 4:14:53 PM with status of Final
[2022-06-29 07:33] LABS: Glucose, Whole Blood 290 mg/dL (60-115)
--- NOTE | 2022-06-29 08:14 | PC.NURSE ---
Pt on stretcher, airway open and patent, no obvious signs of distress, no difficulty/labored breathing. Pt a&ox4, skin normal for ethnicity, warm, and dry. Lung sounds clr and equal bilaterally. Heart sounds normal, normal sinus on monitor. Bowel sounds present all gore, abdomen soft, non-tender. Pt has swelling in left wrist and hand with petechiae, warm to touch. Pt has notable left sided facial droop, clear speech but sounds like thick tongue, left sided weakness. Pt unable to move left side completely, no motor activity. Pt denies having any pain. Daughter at bedside. Keeping pt NPO at this time due to TPA administration.
--- NOTE | 2022-06-29 08:27 | P.CNNE_ITS ---
History of Present Illness Data of Consult Service Date: 06/29/22 Primary Care Provider: Mata Kelley MD HPI Reason for consult: Stroke 67 years old woman with uncontrolled hypertension came to hospital with sudden onset of left-sided weakness. This happened about 1-2 hours before she came to hospital and she was evaluated for acute stroke but her initial systolic blood pressure was 220. Blood pressure management took some time but ultimately, because of persistent left-sided weakness, she was treated with intravenous tPA. CTA did not reveal any significant vascular lesion. There was no headache nausea or vomiting. After tPA age she did not seem to have improved and a CT was done to rule out any complication, which was negative. Review of Systems Review of Systems: No recent cold or flu-like illness or headache PMFSH Past Medical History Medical History Appendicitis Asthma Diabetes High cholesterol HTN (hypertension) Surgical History Surgical History History of appendectomy Hx of appendectomy Social History Social History Household Members: Family Alcohol intake: never Advance Directives: No Advance Directives Information Provided: No Meds Allergies Allergy/AdvReac Type Severity Reaction Status Date / Time No Known Allergies Allergy Verified 12/06/19 20:33 Active Medications: Current Medications Sodium Chloride (0.9 % Sodium Chloride Flush 3 Ml Syringe) 3 ml IVFLUSH QSHIFT JONO Physical Exam Vital Signs: Vital Signs: Last Vital Signs Temp 99.1 F 06/29/22 07:34 Pulse 81 06/29/22 07:34 Resp 20 06/29/22 07:34 BP 161/59 H 06/29/22 07:34 Pulse Ox 94 06/29/22 07:34 O2 Del Method Room Air 06/29/22 07:34 BMI result Body Mass Index 43.2 Neuro: Other: Alert and awake with normal spontaneity of speech fluency comprehension and flat affect. There is moderate left hemiparesis including face arm and leg. Face and arm I involved more than leg. There is no neglect. Visual gore okay. Tongue is slightly deviated to left. But double simultaneous stimulation, she did not perceive on the left side. Plantars are equivocal. Speech is normal. Results Labs 06/29/22 02:12 06/29/22 02:12 Labs: Short CBC 06/29/22 Range/Units 02:12 WBC 8.4 (4.8-10.8) X10*3/uL Hgb 12.7 (12.0-16.0) g/dl Hct 37.8 (37.0-47.0) % Plt Count 293 (160-400) X10*3/uL BMP 06/29/22 02:12 Sodium 139 Potassium 3.9 Chloride 105 Carbon Dioxide 24 BUN 27 H Creatinine 1.44 H Calcium 9.4 Cardiac Enzymes 06/29/22 Range/Units 02:12 Total Creatine Kinase 326 H (26-140) U/L noncontrast head CT did not reveal any significant abnormality. CTA did not reveal any vascular lesion. Blood pressure now was 161/59. Assessment and Plan (1) Acute cerebral infarction: Status: Acute 67 years old woman with uncontrolled hypertension came to hospital with sudden onset of left hemiparesis and was treated with intravenous tPA. Unfortunately recurred, response to tPA was limited and she continues to have of the he miparesis. 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 Mainstay of management at this time is admission to ICU for management of blood pressure and following tPA protocol. Starting tomorrow, anti-platelet agent, statin, and blood pressure control are recommended. An echocardiogram is also recommended. PT OT consultation should be in place Time Spent With Patient Time: Total time managing care of this patient today ____ minutes. Procedures Date of Service Date of Service: 06/29/22
--- NOTE | 2022-06-29 08:56 | PC.NURSE ---
report given to it intern and it intern is taking the pt to mri then straight to icu
[2022-06-29 10:30] LABS: Glucose, Whole Blood 231 mg/dL (60-115)
[2022-06-29] MEDS: Labetalol HCL 100 MG/20 ML VIAL 20 MG IVPUSH ×6 (10:48→20:50)
--- NOTE | 2022-06-29 11:34 | PM.CCHP ---
History of Present Illness Date of Service: 06/29/22 Chief Complaint: CVA status post tPA 67-year-old lady with underlying history of hypertension, hyperlipidemia, diabetes mellitus, asthma admitted on 06/29/2022 with acute onset of left-sided weakness, last known well time at 23:00 on the night before admission, CT head negative for bleed, tPA administered at 4 a.m. Post tPA patient with persistent left-sided paresis. MRI with right MCA CVA. Evaluated by neurology service. Review of Systems Constitutional: Constitutional: Denies daytime sleepiness, Denies excessive sweating, Denies fatigue, Denies fever(s), Denies lethargy, Denies malaise, Denies night sweats, Denies snoring and Denies weight loss ENT: Reports dizziness, Denies nasal congestion, Denies post nasal drip, Denies sinus pain, Denies sinus pressure and Denies other ( Thrush) Cardiovascular: Cardiovascular: Denies chest pain, Denies pedal edema, Denies dyspnea, Denies orthopnea and Denies paroxysmal nocturnal dyspnea Respiratory: Respiratory: Denies cough, Denies hemoptysis, Denies excessive phlegm production, Denies dyspnea, Denies snoring and Denies wheezing Gastrointestinal: Gastrointestinal: Denies abdominal pain and Denies heartburn Musculoskeletal: Musculoskeletal: Denies myalgias, Denies arthralgias and Denies joint swelling Integumentary/Breasts: Skin/Breast: Denies rash Neurologic: Reports dizziness, Reports focal weakness ( Left-sided) and Reports other ( pleural vision on the left) Psychiatric: Psychiatric: Denies abnormal sleep pattern and Denies anxiety Endocrine: Endocrine: Denies excessive sweating, Denies fatigue and Denies heat intolerance Hematologic/Lymphatic: Hematologic/Lymphatic: Denies easy bruising Allergic/Immunologic: Allergic/Immunologic: Denies seasonal rhinorrhea and Denies wheezing PMFSH Past Medical History Medical History (Updated 06/29/22 @ 11:41 by Nelson Liriano MD) Appendicitis Asthma Diabetes High cholesterol HTN (hypertension) Surgical History Surgical History History of appendectomy Hx of appendectomy Social History Social History Household Members: Family Alcohol intake: never Patient Tobacco Use Status: Never used Tobacco Advance Directives: No Advance Directives Information Provided: No Nutrition Risks: On aspiration precautions Meds Allergies Allergy/AdvReac Type Severity Reaction Status Date / Time No Known Allergies Allergy Verified 12/06/19 20:33 Active Medications: Current Medications Fentanyl (Fentanyl Citrate/Pf 100 Mcg/2 Ml Vial) 25 mcg IVPUSH Q2H PRN; Protocol PRN Reason: Pain, Moderate (Pain Scale 4-6 Nicardipine HCl 25 mg/ Sodium (Chloride) 260 mls @ 0 mls/hr IVCONT .Q0M [facility]; Protocol Labetalol HCl (Labetalol Hcl 100 Mg/20 Ml Vial) 20 mg IVPUSH Q10M PRN PRN Reason: SBP > 160 Last Admin: 06/29/22 11:06 Dose: 20 mg Sodium Chloride (0.9 % Sodium Chloride Flush 3 Ml Syringe) [facility] Medications Medication Instructions Recorded Confirmed Last Taken Type insulin glargine 100 unit/mL (3 80 unit subcut BEDTIME 06/29/22 Unknown History mL) subcutaneous pen (Lantus Solostar U-100 Insulin) rosuvastatin 40 mg tablet 40 mg PO DAILY 06/29/22 Unknown History triamcinolone acetonide 0.1 % 1 appl topical BID 06/29/22 Unknown History topical cream Physical Exam Vital Signs: Vital Signs: Last Vital Signs Temp 97.5 F 06/29/22 10:30 Pulse 71 06/29/22 11:29 Resp 18 06/29/22 11:29 BP 160/74 H 06/29/22 11:29 Pulse Ox 95 06/29/22 11:29 O2 Del Method Room Air 06/29/22 11:29 BMI result Body Mass Index 43.2 Const: General: no acute distress, alert and awake HEENT: Head: Yes atraumatic Mouth: no other ( thrush) Throat: No postnasal drainage Eyes: General: appearance normal, both eyes and all related structures Sclerae: sclerae normal EOM: EOMs intact bilaterally Neck: Neck: Yes supple Lymphatic: no lymphadenopathy noted Resp: Effort & Inspection: normal respiratory effort and no use of accessory muscles Auscultation: clear to auscultation bilaterally Cardio: Rate: regular rate Rhythm: regular rhythm Heart sounds: no gallops, no murmurs and no rubs GI: Palpation (GI): Soft to palpation and Other GI palpation findings present ( nontender) Skin: General skin exam: other ( warm) Rashes: no rashes Neuro: Cranial nerves: Yes Other cranial nerve findings present ( tongue deviates to the left) Motor exam (neuro): Other motor observations present ( left-sided paresis, right side 5/5) Extrem: General: No clubbing, No cyanosis and No edema Results Labs 06/29/22 02:12 06/29/22 02:12 Labs: Laboratory Results - last 24 hr 06/29/22 06/29/22 06/29/22 01:57 01:58 02:12 MCV 87.1 MCH 29.3 MCHC 33.6 RDW 12.6 Plt Count 293 MPV 9.8 Immature Gran % (Auto) 0.2 Neut % (Auto) 69.5 Lymph % (Auto) 20.4 Harney % (Auto) 7.6 Eos % (Auto) 1.8 Baso % (Auto) 0.5 Lymph # (Auto) 1.7 Harney # (Auto) 0.6 Eos # (Auto) 0.2 Baso # (Auto) 0.0 Abs Immat Gran (auto) 0.02 Absolute Neuts (auto) 5.9 Absolute Nucleated RBC 0.000 Nucleated RBC % (auto) 0.0 PT Whole Blood PT 10.7 L INR Whole Blood INR 0.9 APTT Anion Gap Estim Creat Clear Calc Estimated GFR POC Glucose 320 H Random Glucose Calcium Total Creatine Kinase Troponin I High Sens 06/29/22 06/29/22 06/29/22 02:12 02:12 05:00 MCV MCH MCHC RDW Plt Count MPV Immature Gran % (Auto) Neut % (Auto) Lymph % (Auto) Harney % (Auto) Eos % (Auto) Baso % (Auto) Lymph # (Auto) Harney # (Auto) Eos # (Auto) Baso # (Auto) Abs Immat Gran (auto) Absolute Neuts (auto) Absolute Nucleated RBC Nucleated RBC % (auto) PT 10.5 Whole Blood PT INR 0.9 Whole Blood INR APTT 27.6 Anion Gap 14 Estim Creat Clear Calc 42.4 Estimated GFR 36 POC Glucose Random Glucose 325 H Calcium 9.4 Total Creatine Kinase 326 H Troponin I High Sens 17.6 H 06/29/22 06/29/22 06/29/22 06:12 07:30 10:27 MCV MCH MCHC RDW Plt Count MPV Immature Gran % (Auto) Neut % (Auto) Lymph % (Auto) [place]ney % (Auto) Eos % (Auto) Baso % (Auto) Lymph # (Auto) Harney # (Auto) Eos # (Auto) Baso # (Auto) Abs Immat Gran (auto) Absolute Neuts (auto) Absolute Nucleated RBC Nucleated RBC % (auto) PT Whole Blood PT INR Whole Blood INR APTT Anion Gap Estim Creat Clear Calc Estimated GFR POC Glucose 314 H 290 H 231 H Random Glucose Calcium Total Creatine Kinase Troponin I High Sens Imaging Radiologist's Impressions: Impressions Head CT 06/29/22 02:06 IMPRESSION: No acute intracranial pathology. Mild volume loss with small vessel ischemic change. This critical result was discussed with Chris Ceron MD by telephone at 06/29/2022 2:08 AM and it was ascertained that the content and urgency of the report was understood at the time of direct communication. Head/Neck CTA 06/29/22 02:25 IMPRESSION: 1. No acute intracranial finding. 2. No large vessel occlusion or flow-limiting stenosis. This critical result was discussed with Chris Ceron MD by telephone at 06/29/2022 2:28 AM and it was ascertained that the content and urgency of the report was understood at the time of direct communication. Head CT 06/29/22 04:56 IMPRESSION: No acute intracranial pathology. Chest X-Ray 06/29/22 06:50 IMPRESSION: 1. Patchy opacity at the left base could represent atelectasis or pneumonia. 2. Prominent cardiac silhouette. Brain MRI 06/29/22 09:52 IMPRESSION: Acute right MCA territorial infarction without significant mass effect, midline shift, or hemorrhagic conversion. Assessment and Plan (1) Cerebrovascular accident: Status: Acute (2) Diabetes: Status: Acute (3) High cholesterol: Status: Acute (4) HTN (hypertension): Status: Acute Plan Assessment: 67-year-old lady admitted with acute CVA, now status post tPA with residual left-sided paresis Plan: Neuro: acute CVA, now status post tPA with residual left-sided paresis. neurology service care appreciated. PT, OT, speech evaluation. MRI with the right MCA territory stroke. Cardiac: No acute issues. Pulmonary: No acute issues. Renal: No acute issues. Endo: No acute issues. Underlying diabetes mellitus. GI: No acute issues. ID: No acute issues Heme/Onc: No acute issues. Psych: No acute issues. Miscellaneous: No acute issues. Prophylaxis: pneumatic compression Diet: pending swallow evaluation Time Spent With Patient Time: Total time managing care of this patient today ____ minutes.
[2022-06-29] MEDS: fentaNYL citrate/PF 100 MCG/2 ML VIAL 25 MCG IVPUSH ×2 (11:49→16:43)
--- NOTE | 2022-06-29 12:04 | MHC.SL.SWA ---
Speech Pathologist Impression: Oral phase dysphagia Risk of Aspiration Due to: Neurological Condition Dysphasia Diet Status: Upgrade from NPO, start on NDD3/thin Liquid Consistency and Strategies for Safe Swallow: Liquid Intake Recommendation: Thin Liquid Intake Strategies: Small Sips No Straws Solid Food Consistency: Dietary Recommendations: Chopped/Advanced (NDD3) Additional Modifications to Solid Foods: Recommend UPGRADE from NPO, start on CHOPPED/ADVANCED (NDD3) solids and THIN liquids (no straws), pills WHOLE in PUREE. 1:1 supervision, assist with tray set up, opening containers, feeding throughout meal as needed. Recommendations written on whiteboard in pt's room, discussed with RN on unit. ORNAMENT STAPLER sent [place] Message w/ update to care Team. ORNAMENT STAPLER will f/u to monitor tolerance, re-assess for potential upgrade. Oral Medication Intake: Whole with Puree Please contact the pharmacy regarding appropriate crushable or liquid drug formulations that are available whenever modified delivery is recommended. Compensatory Strategies and Precautions to be Taken for Safe Swallow: Sitting Upright (90 deg) No Straw Small Bites and Sips Alternate Liquids/Solids Rate of Ingestion Change Oral Check Avoid Specific Foods Supervision While Eating and Drinking for Safe Swallow: Total Supervision (1:1) Foods to Avoid: Hard, tough to chew solids Swallowing Recommended Treatments: Compens. Strategy Educat. Recommendation for Speech: Inpatient Speech Therapy Comment: ORNAMENT STAPLER to f/u as needed Fill Manager Clinican/Clinical Fellow: No Supervisory Statement: I have reviewed and agree with the student/clinical fellow's documentation: N/A Speech Language Pathologist: Catherine Ramírez M.A., CCC-ORNAMENT STAPLER
[2022-06-29 12:07] LABS: Glucose, Whole Blood 232 mg/dL (60-115)
--- NOTE | 2022-06-29 12:07 | PHA.MEDREC ---
Pharmacy Consult ? Medication Reconciliation Pharmacy has completed the medication reconciliation.
[2022-06-29] MEDS: Insulin Lispro 100 UNIT/ML 3 ML VIAL SUBCUT ×2 (12:11→18:21)
--- NOTE | 2022-06-29 14:21 | MHC.STROKE ---
Addendum entered by Asha Manzano RN 07/07/22 12:22: I SPOKE WITH ED MD TO REVIEW DTN > 30, 45 MINUTES, AND HE CONFIRMED THE DELAY WAS DUE TO NEED FOR GETTING HER BP MANAGED PRIOR TO TPA ADMINISTRATION. I MET WITH THE PATIENT TODAY PRIOR TO DISCHARGE AND REOMFPRCED STROKE EDUCATION. SHE IS MUCH MORE AWAKE AND ABLE TO COMMUNICATE. Addendum entered by Asha Manzano RN 06/30/22 13:31: TODAY I MET WITH THE PATIENT AND HER FAMILY, SHE IS VERY SOMNOLENT BUT WAS TAKING IN SOME LIQUIDS BUT FED BY THE NIECE. I REVIEWED HER DIAGNOSIS, AND DEMONSTRATED THE LOCATION OF THE STROKE USING AN MRI SCREENSHOT AND CORRELATING THE LOCATION AND SYMPTOMS WITH DIAGRAMS. I REVIEWED S&S OF STROKE, CALLING 911, THE TPA-ALTEPLASE THAT WAS GIVEN AND WHY. I REVIEWED HER INDIVIDUAL RISK FACTORS, REHAB OPTIONS, WELL SUPPORT AND MOTIVATING HER WHEN IT'S TIME FOR HER REHAB STAY. I ANSWERED ALL OF THEIR QUESTIONS AND REVIEWED THE STROKE EDUCATION BOOKLET AND HANDOUTS. I WILL CONTINUE TO FOLLOW. Original Note: 06/29/22 0149 EMS PRE-NOTIFIED STROKE ALERT . ARRIVED AT [facility] 0154. LEFT SIDED WEAKNESS AND ELEVATED BP. LKW 06/28/22 2300, DISCOVERY OF SYMPTOMS 06/29/22 AT 0100. EXAMINED BY PROVIDER AT 0156 NIHSS = 3, DIRECT TO CT AND CTA, NO BLEED, NO LVO. CASE DISCUSSED WITH NEUROLOGIST, SEE ED MD NOTE. RECEIVED TPA-ALTEPLASE WITHIN 4.5 FROM ONSET. REPEAT CTH FOR NUNEZ, NO BLEED. INITIALLY FAILED SWALLOW SCREEN, THEN PASSED. TRANSFERRED TO ICU. MRI DONE +RIGHT MCA TERRITORY ISCHEMIC STROKE. SEEN BY NEUROLOGY, PT/OT/SPEECH, ECHO DONE. I BRIEFLY MET WITH THE DAUGHTER AND INITIATED STROKE EDUCATION. I HAD GONE BACK TO EDUCATE THE PATIENT SEVERAL TIMES AND I WAS UNABLE TO SEE HER, THE LAST TIME I WENT SHE WAS FAST ASLEEP. I WILL CONTINUE TO FOLLOW AND PROVIDE DETAILED STROKE EDUCATION TOMORROW.
[2022-06-29] MEDS: 0.9 % Sodium Chloride Flush 3 ML SYRINGE IVFLUSH (15:51)
[2022-06-29] MEDS: niCARdipine HCL 25 MG in 0.9 % Sodium Chloride 250 ML 52 MG IVCONT (17:44)
[2022-06-29 17:56] LABS: Glucose, Whole Blood 187 mg/dL (60-115)
[2022-06-30] VITALS (14 sets, daily range): BP systolic 123–186; BP diastolic 53–113; PULSE 86–101; RESP 16–22; TEMP 36.7–38; O2SAT 91–95; BMI 44.8
[2022-06-30] MEDS: Insulin Lispro 100 UNIT/ML 3 ML VIAL SUBCUT ×4 (00:16→21:57)
[2022-06-30] MEDS: niCARdipine HCL 25 MG in 0.9 % Sodium Chloride 250 ML 26 MG IVCONT (00:17)
[2022-06-30 00:18] LABS: Glucose, Whole Blood 287 mg/dL (60-115)
[2022-06-30] MEDS: 0.9 % Sodium Chloride Flush 3 ML SYRINGE IVFLUSH ×3 (00:27→21:57)
--- NOTE | 2022-06-30 05:19 | PC.NURSE ---
ASSUMED CARE OF PT AT 2300. PT IS ORIENTED X. SHE IS DROWSY BUT AROUSABLE TO NAME. LEFT HEMIPARESIS NOTED. VERY SLIGHT MOVEMENT OF LEFT LEG. SPEECH IS SLURRED BUT UNDERSTANDABLE. LEFT SIDED FACIAL DROOP NOTED. PERRLA. S/P TPA JUST OVER 24 HOURS AGO. NO S/S OF BLEEDING. ON CARDENE DRIP FOR HIGH BP; WAS AT 5 MG/HR BUT DECREASED TO 2.5 MG/HR. BP CURRENTLY 155/59. TURNED AND REPOS Q2HRS. PURE WICK IN PLACE WITH APPROX 400 ML CLEAR URINE. SKIN IS INTACT.
[2022-06-30 05:34] LABS: MANUAL DIFF FLAG NO
[2022-06-30 05:45] LABS: Basophils Absolute Auto 0.1 X10*3/uL (0.0-0.2); Basophils Percent Auto 0.5 % (0-2); Eosinophils Percent Auto 0.3 % (0-4); Imm Gran Abs Auto 0.04 X10*3/uL (0.00-0.03); Imm Gran Pct Auto 0.4 % (0.0-0.4); Lymphocytes Absolute Auto 1.6 X10*3/uL (1.2-4.9); Lymphocytes Percent Auto 14.9 % (20-40); Mean Corpuscular HGB Conc 33.3 g/dl (31.0-35.0); Mean Corpuscular Hemoglobin 29.3 pg (27.0-33.0); Mean Platelet Volume 9.7 fL (9.4-12.3); Monocytes Percent Auto 9.2 % (2-11); Neutrophils Absolute Auto 7.9 x10*3/uL (2.0-8.3); Neutrophils Percent Auto 74.7 % (45-73); Platelet Count 279 X10*3/uL (160-400); Red Blood Count 4.09 X10*6/uL (4.20-5.50); White Blood Count 10.5 X10*3/uL (4.8-10.8)
[2022-06-30 06:13] LABS: Albumin Level 3.2 g/dL (3.5-5.0); Anion Gap 13 (12-20); Blood Urea Nitrogen 22 mg/dL (9-16); Calcium 9.4 mg/dL (8.4-10.2); Carbon Dioxide 24 mmol/L (22-29); Chloride 108 mmol/L (96-108); Creatinine Clr Calc Pharmacy 46.9; Estimated Glomerular Filt Rate 40; Glucose Random 236 mg/dL (60-115); Phosphorus 3.8 mg/dL (2.7-4.5); Potassium 4.3 mmol/L (3.3-5.1); Sodium 141 mmol/L (135-145)
[2022-06-30 06:16] LABS: Cholesterol 336 mg/dL; HDL Cholesterol 47 mg/dL; LDL Cholesterol Calculated 256 mg/dl; Triglycerides 169 mg/dL
[2022-06-30] MEDS: amLODIPine Besylate 10 MG TABLET PO (08:38)
[2022-06-30] MEDS: Insulin Glargine,Hum.rec.anlog 100 UNIT/ML 10 ML VIAL 30 UNIT SUBCUT (08:38)
--- NOTE | 2022-06-30 09:59 | MHC.CM.PN ---
Pt ready to transfer from ICU to C: s/p tPA for CVA: pt somewhat sleepy and responses are slow and a bit muffled. Pt lives w/adult son and has a dtr Mary Ellen who assists with all transportation and care needs. No services or DME used at this time. Pt's functional abilities are not yet known: pt may require STR - offered no specific choices if needed. Referred to [facility] should pt be able to d/c to home. PLAN: Await PT eval and refer to STR if needed: HCP form on chart waiting for pt signature (was in the process of transfer [place] [facility] and didn't sign)
[2022-06-30 11:37] LABS: Glucose, Whole Blood 247 mg/dL (60-115)
--- NOTE | 2022-06-30 12:38 | P.PNCC_ITS ---
Subjective Subjective Date of Service: 06/30/22 Interval History: 67-year-old lady with underlying history of hypertension, hyperlipidemia, diabetes mellitus, asthma admitted on 06/29/2022 with acute onset of left-sided weakness, last known well time at 23:00 on the night before admission, CT head negative for bleed, tPA administered at 4 a.m. Post tPA patient with persistent left-sided paresis. MRI with right MCA CVA. Evaluated by neurology service. Passed swallow evaluation. No events overnight. Titrated off Cardene drip. Critical Care Time (minutes): 0 Physical Exam Vital Signs: Vital Signs: Last Vital Signs Temp 98.8 F 06/30/22 11:27 Pulse 95 06/30/22 11:27 Resp 16 06/30/22 11:27 BP 146/62 H 06/30/22 11:27 Pulse Ox 92 06/30/22 11:27 O2 Del Method Room Air 06/30/22 11:27 BMI result Body Mass Index 44.8 Const: General: no acute distress, alert and awake Eyes: Sclerae: sclerae normal EOM: EOMs intact bilaterally Neck: Neck: Yes no lymphadenopathy, Yes trachea midline and Yes supple Resp: Effort & Inspection: normal respiratory effort and no respiratory distress Auscultation: clear to auscultation bilaterally Cardio: Rate: regular rate Rhythm: regular rhythm Heart sounds: no gallops, no murmurs and no rubs GI: Palpation (GI): Soft to palpation and Other GI palpation findings present ( Nontender) Auscultation: normal bowel sounds Neuro: General: other (left-sided paresis, right-sided 5/5 motor strength) Extrem: General: Yes no pedal edema, No clubbing and No cyanosis Objective Data Labs 06/30/22 05:26 06/30/22 05:26 Labs: Laboratory Results - last 24 hr 06/29/22 06/30/22 06/30/22 17:52 00:12 05:26 WBC RBC Hgb Hct MCV MCH MCHC RDW Plt Count MPV Immature Gran % (Auto) Neut % (Auto) Lymph % (Auto) [place] % (Auto) Eos % (Auto) Baso % (Auto) Lymph # (Auto) [place] # (Auto) Eos # (Auto) Baso # (Auto) Abs Immat Gran (auto) Absolute Neuts (auto) Absolute Nucleated RBC Nucleated RBC % (auto) Sodium Potassium Chloride Carbon Dioxide Anion Gap BUN Creatinine Estim Creat Clear Calc Estimated GFR POC Glucose 187 H 287 H Random Glucose Calcium Phosphorus Magnesium Albumin Triglycerides 169 Cholesterol 336 LDL Cholesterol, Calc 256 HDL Cholesterol 47 06/30/22 06/30/22 06/30/22 05:26 05:26 11:26 WBC 10.5 RBC 4.09 L Hgb 12.0 Hct 36.0 L MCV 88.0 MCH 29.3 MCHC 33.3 RDW 13.0 Plt Count 279 MPV 9.7 Immature Gran % (Auto) 0.4 Neut % (Auto) 74.7 H Lymph % (Auto) 14.9 L [place] % (Auto) 9.2 Eos % (Auto) 0.3 Baso % (Auto) 0.5 Lymph # (Auto) 1.6 [place] # (Auto) 1.0 Eos # (Auto) 0.0 Baso # (Auto) 0.1 Abs Immat Gran (auto) 0.04 H Absolute Neuts (auto) 7.9 Absolute Nucleated RBC 0.000 Nucleated RBC % (auto) 0.0 Sodium 141 Potassium 4.3 Chloride 108 Carbon Dioxide 24 Anion Gap 13 BUN 22 H Creatinine 1.33 Estim Creat Clear Calc 46.9 Estimated GFR 40 POC Glucose 247 H Random Glucose 236 H Calcium 9.4 Phosphorus 3.8 Magnesium 2.0 Albumin 3.2 L Triglycerides Cholesterol LDL Cholesterol, Calc HDL Cholesterol Progress Note: A&P Assessment and plan (1) HTN (hypertension): Status: Acute (2) High cholesterol: Status: Acute (3) Diabetes: Status: Acute (4) Cerebrovascular accident: Status: Acute Plan Assessment: 67-year-old lady admitted with acute CVA, now status post tPA with residual left-sided paresis Plan: Neuro: acute CVA, now status post tPA with residual left-sided paresis. neurology service care appreciated. PT, OT, speech evaluation. MRI with the right MCA territory stroke. Start aspirin today. Passed swallow evaluation. Cardiac: No acute issues. Pulmonary: No acute issues. Renal: No acute issues. Endo: No acute issues. Underlying diabetes mellitus. GI: No acute issues. ID: No acute issues Heme/Onc: No acute issues. Psych: No acute issues. Miscellaneous: No acute issues. Prophylaxis: pneumatic compression Diet: Ground/diabetic At this time patient is stable for transfer to telemetry wagner. Transfer discussed with Dr. Mckeon. Quality Stroke Does the patient have a stroke diagnosis?: Yes Reason for No Anti-thrombotic by Day Two: N/A - Med Ordered VTE Prior VTE?: No VTE Risk Level:: Medical - moderate - high VTE Device Contraindication: N/A - Device Ordered VTE Drug Contraindication: N/A - Med Ordered
--- NOTE | 2022-06-30 13:08 | P.CDIM_ITS ---
PROVIDER RESPONSE TEXT: To clarify, the appropriate diagnosis supported by the clinical indicators: Obesity Due to excess calories QUERY TEXT: PHYSICIAN'S DOCUMENTATION REQUEST Date of Query: 06/30/2022 08:56 AM EDT Patient Name: Kasey Mckeon Admit Date: 06/29/2022 Dear Nelson Liriano, A review of the medical record indicates additional documentation may be needed. Please review below and update the documentation accordingly. Clinical Indicators: Height: ( ) 5'2 Weight: ( ) 111.2 kg BMI: ( ) 44.8 Other Clinical Notes Supporting Significance of the BMI: If possible, please provide an associated diagnosis related to the abnormal BMI, such as: Overweight Obesity Due to excess calories Obesity Drug induced Obesity Due to other cause Specify the other cause Severe or Morbid Obesity With alveolar hypoventilation Severe or Morbid Obesity Without alveolar hypoventilation BMI is not significant Other (explain) Clinically unable to determine (explain) Thank you, Gabriela Barry RN Use of terms such as suspected, likely, concern for, or probable (associated with a specific diagnosi s that is being evaluated, monitored, or treated as if it exists) are acceptable and can be coded in the inpatient se tting, when documented at the time of discharge. Please use your independent medical judgment in providing your response. THIS QUERY IS PART OF THE PERMANENT MEDICAL RECORD
[2022-06-30] MEDS: Aspirin Enteric Coated 81 MG TABLET.DR PO (13:29)
[2022-06-30 15:39] LABS: Glucose, Whole Blood 255 mg/dL (60-115)
[2022-06-30 21:00] LABS: Glucose, Whole Blood 340 mg/dL (60-115)
[2022-06-30] MEDS: Atorvastatin Calcium 80 MG TABLET PO (21:57)
[2022-07-01] VITALS (7 sets, daily range): BP systolic 138–197; BP diastolic 56–86; PULSE 78–96; RESP 14–20; TEMP 36.1–37.6; O2SAT 91–94
[2022-07-01] MEDS: fentaNYL citrate/PF 100 MCG/2 ML VIAL 25 MCG IVPUSH (00:46)
[2022-07-01 01:10] LABS: Glucose, Whole Blood 221 mg/dL (60-115)
[2022-07-01 06:53] LABS: Glucose, Whole Blood 275 mg/dL (60-115)
[2022-07-01 08:06] LABS: Glucose, Whole Blood 290 mg/dL (60-115)
[2022-07-01 08:21] LABS: MANUAL DIFF FLAG NO
[2022-07-01 08:26] LABS: Basophils Absolute Auto 0.1 X10*3/uL (0.0-0.2); Basophils Percent Auto 0.5 % (0-2); Eosinophils Absolute Auto 0.1 X10*3/uL (0.0-0.4); Hematocrit 37.1 % (37.0-47.0); Hemoglobin 12.4 g/dl (12.0-16.0); Imm Gran Abs Auto 0.12 X10*3/uL (0.00-0.03); Lymphocytes Absolute Auto 1.8 X10*3/uL (1.2-4.9); Lymphocytes Percent Auto 15.6 % (20-40); Mean Corpuscular HGB Conc 33.4 g/dl (31.0-35.0); Mean Corpuscular Volume 89.6 fL (80.0-98.0); Mean Platelet Volume 10.2 fL (9.4-12.3); Monocytes Absolute Auto 1.3 X10*3/uL (0.1-1.2); Monocytes Percent Auto 11.6 % (2-11); Neutrophils Absolute Auto 8.1 x10*3/uL (2.0-8.3); Neutrophils Percent Auto 70.3 % (45-73); Platelet Count 290 X10*3/uL (160-400); Red Blood Count 4.14 X10*6/uL (4.20-5.50); Red Cell Distribution Width 12.8 % (11.0-16.0); White Blood Count 11.5 X10*3/uL (4.8-10.8)
[2022-07-01 08:40] LABS: Anion Gap 11 (12-20); Blood Urea Nitrogen 20 mg/dL (9-16); Carbon Dioxide 27 mmol/L (22-29); Chloride 104 mmol/L (96-108); Creatinine Clr Calc Pharmacy 44.6; Estimated Glomerular Filt Rate 37; Glucose Random 284 mg/dL (60-115); Phosphorus 3.6 mg/dL (2.7-4.5); Potassium 4.1 mmol/L (3.3-5.1); Sodium 138 mmol/L (135-145)
[2022-07-01] MEDS: Insulin Glargine,Hum.rec.anlog 100 UNIT/ML 10 ML VIAL 30 UNIT SUBCUT (09:25)
[2022-07-01] MEDS: 0.9 % Sodium Chloride Flush 3 ML SYRINGE IVFLUSH (09:26)
[2022-07-01] MEDS: Aspirin Enteric Coated 81 MG TABLET.DR PO (09:26)
[2022-07-01] MEDS: Insulin Lispro 100 UNIT/ML 3 ML VIAL SUBCUT ×4 (09:26→20:57)
[2022-07-01] MEDS: amLODIPine Besylate 10 MG TABLET PO (09:26)
[2022-07-01 12:00] LABS: Glucose, Whole Blood 252 mg/dL (60-115)
[2022-07-01] MEDS: Acetaminophen 325 MG TABLET 650 MG PO (12:25)
--- NOTE | 2022-07-01 13:29 | MHC.SL.SWA ---
Speech Pathologist Impression: Oral phase dysphagia Risk of Aspiration Due to: Neurological Condition Dysphasia Diet Status: DOWNGRADE solids Liquid Consistency and Strategies for Safe Swallow: Liquid Intake Recommendation: Thin Liquid Intake Strategies: Small Sips Solid Food Consistency: Dietary Recommendations: Grnd/Mech Altered (NDD2) Additional Modifications to Solid Foods: Avoid hard or tough to chew solids Oral Medication Intake: Whole with Puree Please contact the pharmacy regarding appropriate crushable or liquid drug formulations that are available whenever modified delivery is recommended. Compensatory Strategies and Precautions to be Taken for Safe Swallow: Sitting Upright (90 deg) Small Bites and Sips Alternate Liquids/Solids Oral Check Avoid Specific Foods Supervision While Eating and Drinking for Safe Swallow: Total Assistance (1:1) Foods to Avoid: Hard, tough to chew solids Swallowing Recommended Treatments: Compens. Strategy Educat. Recommendation for Speech: Inpatient Speech Therapy Pt presents w/ mild oral phase dysphagia and w/ tongue sounding heavy. Pt presented with difficulty chewing chopped pork chops; spit out onto tray. Recommend DOWNGRADE to GROUND/MECH ALTERED solids (NDD2). Continue with THIN liquids. Pt requires 1-1 assistance for feeding and cueing to chew well and swallow. Do not feed if pt is too lethargic and/or not engaging with PO. RN updated on floor. RN, MD, and RD updated via [employer]. Pt's board in room updated. Conduit Worker Clinican/Clinical Fellow: No Supervisory Statement: I have reviewed and agree with the student/clinical fellow's documentation: N/A Speech Language Pathologist: Nereida Dinh M.A., SENIOR HRIS ANALYST
--- NOTE | 2022-07-01 13:53 | P.PNIM_ITS ---
Subjective Subjective Date of Service: 07/01/22 Interval History: Seen and evaluated this morning alert and interactive left sided weakness Tolerating diet No reported overnight events Review of Systems Review of Systems: Yes all other systems are reviewed and are negative Physical Exam Vital Signs: Vital Signs: Last Vital Signs Temp 98.6 F 07/01/22 11:53 Pulse 92 07/01/22 11:53 Resp 20 07/01/22 11:53 BP 167/76 H 07/01/22 11:53 Pulse Ox 94 07/01/22 11:53 O2 Del Method Room Air 07/01/22 11:53 BMI result Body Mass Index 44.8 Const: Other: Constitutional : Awake, interactive with stimulation, not in distress Neck : Normal inspection, Supple Cardiovascular : RRR, no JVP, no lower extremity edema Respiratory : good bilateral air entry, no crackles, wheezes or rhonchi Gastrointestinal: soft, lax, Normal bowel sounds, Non tender Skin : Warm, Dry Neurological : Alert & oriented x3, left sided hemiparesis more noted in upper extremity Objective Data Active Medications Acetaminophen (Acetaminophen 325 Mg Tablet) 650 mg PO Q6H PRN PRN Reason: Headache Last Admin: 07/01/22 12:25 Dose: 650 mg Documented By: PAULA Amlodipine Besylate (Amlodipine Besylate 10 Mg Tablet) 10 mg PO DAILY [facility]; Protocol Last Admin: 07/01/22 09:26 Dose: 10 mg Documented By: PAULA Aspirin (Aspirin Enteric Coated 81 Mg Tablet.) 81 mg PO DAILY [facility] Last Admin: 07/01/22 09:26 Dose: 81 mg Documented By: PAULA Atorvastatin Calcium (Atorvastatin Calcium 80 Mg Tablet) 80 mg PO BEDTIME [facility] Last Admin: 06/30/22 21:57 Dose: 80 mg Documented By: JONH Fentanyl (Fentanyl Citrate/Pf 100 Mcg/2 Ml Vial) 25 mcg IVPUSH Q2H PRN; Protocol PRN Reason: Pain, Moderate(Pain Scale 4-6) Last Admin: 07/01/22 00:46 Dose: 25 mcg Documented By: JONH Insulin Glargine (Insulin Glargine,Hum.Rec.Anlog 100 Unit/Ml 10 Ml Vial) 30 unit SUBCUT DAILY [facility] Last Admin: 07/01/22 09:25 Dose: 30 unit Documented By: PAULA Insulin Human Lispro (Insulin Lispro 100 Unit/Ml 3 Ml Vial) 0 unit SUBCUT QIDACHS [facility]; Protocol Last Admin: 07/01/22 12:25 Dose: 6 unit Documented By: PAULA Labetalol HCl (Labetalol Hcl 100 Mg/20 Ml Vial) 20 mg IVPUSH Q10M PRN PRN Reason: SBP > 160 Last Admin: 06/29/22 20:50 Dose: 20 mg Documented By: ANIKET Comments: SBP 190's Sodium Chloride (0.9 % Sodium Chloride Flush 3 Ml Syringe) 3 ml IVFLUSH PSYCHIATRIC Last Admin: 07/01/22 09:26 Dose: 3 ml Documented By: PAULA Labs 07/01/22 07:46 07/01/22 07:46 Labs: Laboratory Results - last 24 hr 06/30/22 06/30/22 07/01/22 15:35 20:13 01:02 MCV MCH MCHC RDW Plt Count MPV Immature Gran % (Auto) Neut % (Auto) Lymph % (Auto) [place] % (Auto) Eos % (Auto) Baso % (Auto) Lymph # (Auto) [place] # (Auto) Eos # (Auto) Baso # (Auto) Abs Immat Gran (auto) Absolute Neuts (auto) Absolute Nucleated RBC Nucleated RBC % (auto) Anion Gap Estim Creat Clear Calc Estimated GFR POC Glucose 255 H 340 H 221 H Random Glucose Calcium Phosphorus Magnesium 07/01/22 07/01/22 07/01/22 06:47 07:46 07:46 MCV 89.6 MCH 30.0 MCHC 33.4 RDW 12.8 Plt Count 290 MPV 10.2 Immature Gran % (Auto) 1.0 H Neut % (Auto) 70.3 Lymph % (Auto) 15.6 L [place] % (Auto) 11.6 H Eos % (Auto) 1.0 Baso % (Auto) 0.5 Lymph # (Auto) 1.8 [place] # (Auto) 1.3 H Eos # (Auto) 0.1 Baso # (Auto) 0.1 Abs Immat Gran (auto) 0.12 H Absolute Neuts (auto) 8.1 Absolute Nucleated RBC 0.000 Nucleated RBC % (auto) 0.0 Anion Gap 11 L Estim Creat Clear Calc 44.6 Estimated GFR 37 POC Glucose 275 H Random Glucose 284 H Calcium 9.0 Phosphorus 3.6 Magnesium 2.0 07/01/22 07/01/22 07:54 11:52 MCV MCH MCHC RDW Plt Count MPV Immature Gran % (Auto) Neut % (Auto) Lymph % (Auto) [place] % (Auto) Eos % (Auto) Baso % (Auto) Lymph # (Auto) [place] # (Auto) Eos # (Auto) Baso # (Auto) Abs Immat Gran (auto) Absolute Neuts (auto) Absolute Nucleated RBC Nucleated RBC % (auto) Anion Gap Estim Creat Clear Calc Estimated GFR POC Glucose 290 H 252 H Random Glucose Calcium Phosphorus Magnesium Assessment and Plan (1) Acute cerebral infarction: Status: Acute Plan 67-year-old lady with underlying history of hypertension, hyperlipidemia, diabetes mellitus, asthma admitted on 06/29/2022 with acute onset of left-sided weakness, last known well time at 23:00 on the night before admission, CT head negative for bleed, tPA administered at 4 a.m. Post tPA patient with persistent left-sided paresis.? MRI with right MCA CVA.? 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 Quality Stroke Does the patient have a stroke diagnosis?: Yes Reason for No Anti-thrombotic by Day Two: N/A - Med Ordered VTE Prior VTE?: No VTE Risk Level:: Medical - moderate - high VTE Device Contraindication: N/A - Device Ordered VTE Drug Contraindication: N/A - Med Ordered
--- NOTE | 2022-07-01 13:57 | MHC.CM.PN ---
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 RESPIRATORY ALSO CAME TO CM OFFICE TO REPORT PT WAS GOING TO BE TRANSFERRED BACK TO ICU. [facility] UPDATED VIA [facility]. CM WILL CONT TO FOLLOW D/C NEEDS.
--- NOTE | 2022-07-01 14:18 | MHC.CM.PN ---
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 CM ALSO MET W/PT TO COMPLETE A HCP, PT NAMED HER DTR JUANCHO HOOKS [phone] HER [facility], NO ALTERNATE AT THIS TIME, PT PROVIDED W/EDUCATIONAL HANDOUT, ORIGINAL AND 2 COPIES, COPY UPLOADED TO [facility] AND PLACED IN CHART.
[2022-07-01 16:39] LABS: Glucose, Whole Blood 237 mg/dL (60-115)
[2022-07-01] MEDS: Enoxaparin Sodium 40 MG/0.4 ML SYRINGE SUBCUT (16:44)
[2022-07-01] MEDS: Atorvastatin Calcium 80 MG TABLET PO (19:45)
[2022-07-01 20:42] LABS: Glucose, Whole Blood 248 mg/dL (60-115)
[2022-07-02] MEDS: hydrALAZINE HCl 20 MG/ML VIAL 5 MG IVPUSH (00:24)
[2022-07-02] MEDS: Acetaminophen 325 MG TABLET 650 MG PO ×3 (00:29→16:58)
[2022-07-02 00:40] LABS: Glucose, Whole Blood 204 mg/dL (60-115)
[2022-07-02 01:59] VITALS: BP 146/62
[2022-07-02 04:00] VITALS: BP 161/66; PULSE 87; RESP 18; TEMP 36.8; O2SAT 93
[2022-07-02 06:00] VITALS: BMI 45.3
[2022-07-02 06:07] LABS: Glucose, Whole Blood 257 mg/dL (60-115)
[2022-07-02 08:00] VITALS: BP 181/78; PULSE 88; RESP 17; TEMP 36.4; O2SAT 94
[2022-07-02 08:07] LABS: Glucose, Whole Blood 300 mg/dL (60-115)
[2022-07-02] MEDS: Losartan Potassium 25 MG TABLET PO (08:58)
[2022-07-02] MEDS: 0.9 % Sodium Chloride Flush 3 ML SYRINGE IVFLUSH ×3 (08:58→19:48)
[2022-07-02] MEDS: amLODIPine Besylate 10 MG TABLET PO (08:58)
[2022-07-02] MEDS: Aspirin Enteric Coated 81 MG TABLET.DR PO (08:58)
[2022-07-02] MEDS: Insulin Lispro 100 UNIT/ML 3 ML VIAL SUBCUT ×4 (08:58→19:48)
[2022-07-02] MEDS: Insulin Glargine,Hum.rec.anlog 100 UNIT/ML 10 ML VIAL 45 UNIT SUBCUT (08:59)
[2022-07-02 09:15] LABS: Hematocrit 42.2 % (37.0-47.0); Hemoglobin 14.2 g/dl (12.0-16.0); Mean Corpuscular HGB Conc 33.6 g/dl (31.0-35.0); Mean Corpuscular Hemoglobin 29.5 pg (27.0-33.0); Mean Corpuscular Volume 87.7 fL (80.0-98.0); Mean Platelet Volume 10.4 fL (9.4-12.3); Platelet Count 263 X10*3/uL (160-400); Red Blood Count 4.81 X10*6/uL (4.20-5.50); Red Cell Distribution Width 12.6 % (11.0-16.0); White Blood Count 9.9 X10*3/uL (4.8-10.8)
[2022-07-02 11:42] LABS: Glucose, Whole Blood 283 mg/dL (60-115)
[2022-07-02 11:50] VITALS: BP 133/64; PULSE 82; RESP 17; TEMP 37.1; O2SAT 95
[2022-07-02 12:29] LABS: Anion Gap 12 (12-20); Blood Urea Nitrogen 23 mg/dL (9-16); Calcium 8.8 mg/dL (8.4-10.2); Carbon Dioxide 25 mmol/L (22-29); Chloride 101 mmol/L (96-108); Creatinine Clr Calc Pharmacy 45.2; Estimated Glomerular Filt Rate 38; Glucose Random 297 mg/dL (60-115); Potassium 4.5 mmol/L (3.3-5.1); Sodium 133 mmol/L (135-145)
--- NOTE | 2022-07-02 13:06 | PC.NURSE ---
Patient A&OX3 speech clear soft spoken, left droop and tongue deviation noted. Flat affect noted. MUELLER RUE 4/5, RLE 3/5, right side 1/5 to tactile stimuli, +pp bilat feet. LUE hand with edema and dark purple ecchymosis and varying to upper arm from dark purple to light green. Bilat upper extremities elevated on pillows. Left neglect noted. c/o headache 09/07 this am medicated with tylenol with good effect. Denies dizziness or vision changes pupils PERRL 4B left field cut noted. LSCTA denies chest pain or shortness of breath. NSR on tele. BS+X4 abdomen soft non-tender denies nausea/vomiting. Purewick in place with concentrated urine. 1:1 with meals fair appetite. Repos side to side for comfort. Awaiting insurance for rehab transfer, daughter updated this am. Will continue to monitor and report changes
--- NOTE | 2022-07-02 14:35 | HO.PM.IMPN ---
Subjective Subjective Date of Service: 07/02/22 Interval History: Seen and evaluated this morning more alert and interactive significant left sided weakness Tolerating diet No reported overnight events Review of Systems Review of Systems: Yes all other systems are reviewed and are negative Physical Exam Vital Signs: Vital Signs: Last Vital Signs Temp 98.7 F 07/02/22 11:50 Pulse 82 07/02/22 11:50 Resp 17 07/02/22 11:50 BP 133/64 07/02/22 11:50 Pulse Ox 95 07/02/22 11:50 O2 Del Method Room Air 07/02/22 11:50 BMI result Body Mass Index 45.3 Const: Other: Constitutional : Awake, interactive with stimulation, not in distress Neck : Normal inspection, Supple Cardiovascular : RRR, no JVP, no lower extremity edema Respiratory : good bilateral air entry, no crackles, wheezes or rhonchi Gastrointestinal: soft, lax, Normal bowel sounds, Non tender Skin : Warm, Dry Neurological : Alert & oriented x3, left sided hemiparesis more noted in upper extremity, 4-/5 LLE, normal speech, mild left sided facial drop Objective Data Active Medications Acetaminophen (Acetaminophen 325 Mg Tablet) 650 mg PO Q6H PRN PRN Reason: Headache Last Admin: 07/02/22 09:42 Dose: 650 mg Documented By: ELMIRA Amlodipine Besylate (Amlodipine Besylate 10 Mg Tablet) 10 mg PO DAILY [facility]; Protocol Last Admin: 07/02/22 08:58 Dose: 10 mg Documented By: ELMIRA Aspirin (Aspirin Enteric Coated 81 Mg Tablet.) 81 mg PO DAILY [facility] Last Admin: 07/02/22 08:58 Dose: 81 mg Documented By: ELMIRA Atorvastatin Calcium (Atorvastatin Calcium 80 Mg Tablet) 80 mg PO BEDTIME [facility] Last Admin: 07/01/22 19:45 Dose: 80 mg Documented By: ROD Enoxaparin Sodium (Enoxaparin Sodium 40 Mg/0.4 Ml Syringe) 40 mg SUBCUT Q24H [facility] Last Admin: 07/01/22 16:44 Dose: 40 mg Documented By: PAULA Insulin Glargine (Insulin Glargine,Hum.Rec.Anlog 100 Unit/Ml 10 Ml Vial) 45 unit SUBCUT DAILY [facility] Last Admin: 07/02/22 08:59 Dose: 45 unit Documented By: ELMIRA Insulin Human Lispro (Insulin Lispro 100 Unit/Ml 3 Ml Vial) 0 unit SUBCUT QIDACHS [facility]; Protocol Last Admin: 07/02/22 12:12 Dose: 6 unit Documented By: ELMIRA Losartan Potassium (Losartan Potassium 25 Mg Tablet) 25 mg PO DAILY [facility]; Protocol Last Admin: 07/02/22 08:58 Dose: 25 mg Documented By: ELMIRA Sodium Chloride (0.9 % Sodium Chloride Flush 3 Ml Syringe) 3 ml IVFLUSH QSHIFT [facility] Last Admin: 07/02/22 08:58 Dose: 3 ml Documented By: ELMIRA Labs 07/02/22 08:58 07/02/22 08:24 Labs: Laboratory Results - last 24 hr 07/01/22 07/01/22 07/02/22 16:35 20:39 00:34 MCV MCH MCHC RDW Plt Count MPV Absolute Nucleated RBC Nucleated RBC % (auto) Anion Gap Estim Creat Clear Calc Estimated GFR POC Glucose 237 H 248 H 204 H Random Glucose Calcium 07/02/22 07/02/22 07/02/22 05:59 07:38 08:24 MCV MCH MCHC RDW Plt Count MPV Absolute Nucleated RBC Nucleated RBC % (auto) Anion Gap 12 Estim Creat Clear Calc 45.2 Estimated GFR 38 POC Glucose 257 H 300 H Random Glucose 297 H Calcium 8.8 07/02/22 07/02/22 08:58 11:27 MCV 87.7 MCH 29.5 MCHC 33.6 RDW 12.6 Plt Count 263 MPV 10.4 Absolute Nucleated RBC 0.000 Nucleated RBC % (auto) 0.0 Anion Gap Estim Creat Clear Calc Estimated GFR POC Glucose 283 H Random Glucose Calcium Assessment and Plan (1) HTN (hypertension): Status: Acute (2) Acute cerebral infarction: Status: Acute Plan 67-year-old lady with underlying history of hypertension, hyperlipidemia, diabetes mellitus, asthma admitted on 06/29/2022 with acute onset of left-sided weakness, last known well time at 23:00 on the night before admission, CT head negative for bleed, tPA administered at 4 a.m. Post tPA patient with persistent left-sided paresis.? MRI with right MCA CVA.? 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 Quality Stroke Does the patient have a stroke diagnosis?: Yes Reason for No Anti-thrombotic by Day Two: N/A - Med Ordered VTE Prior VTE?: No VTE Risk Level:: Medical - moderate - high VTE Device Contraindication: N/A - Device Ordered VTE Drug Contraindication: N/A - Med Ordered
[2022-07-02 15:31] VITALS: BP 150/70; PULSE 76; RESP 14; TEMP 36.1; O2SAT 98
[2022-07-02] MEDS: Enoxaparin Sodium 40 MG/0.4 ML SYRINGE SUBCUT (16:19)
[2022-07-02 16:46] LABS: Glucose, Whole Blood 234 mg/dL (60-115)
[2022-07-02 19:39] LABS: Glucose, Whole Blood 227 mg/dL (60-115)
[2022-07-02] MEDS: Atorvastatin Calcium 80 MG TABLET PO (19:48)
[2022-07-02 20:00] VITALS: BP 129/59; PULSE 73; RESP 13; TEMP 37.1; O2SAT 93
[2022-07-03] VITALS (9 sets, daily range): BP systolic 147–197; BP diastolic 54–87; PULSE 75–90; RESP 14–20; TEMP 36.2–37.1; O2SAT 93–97; BMI 44.3
[2022-07-03 00:25] LABS: Glucose, Whole Blood 197 mg/dL (60-115)
[2022-07-03] MEDS: Acetaminophen 325 MG TABLET 650 MG PO ×3 (03:51→23:39)
[2022-07-03 05:48] LABS: Glucose, Whole Blood 200 mg/dL (60-115)
[2022-07-03] MEDS: Insulin Glargine,Hum.rec.anlog 100 UNIT/ML 10 ML VIAL 45 UNIT SUBCUT (08:53)
[2022-07-03] MEDS: Insulin Lispro 100 UNIT/ML 3 ML VIAL SUBCUT ×4 (08:54→21:12)
[2022-07-03] MEDS: Aspirin Enteric Coated 81 MG TABLET.DR PO (08:57)
[2022-07-03] MEDS: 0.9 % Sodium Chloride Flush 3 ML SYRINGE IVFLUSH (08:57)
[2022-07-03] MEDS: Losartan Potassium 25 MG TABLET PO (08:57)
[2022-07-03] MEDS: amLODIPine Besylate 10 MG TABLET PO (08:58)
--- NOTE | 2022-07-03 09:08 | MHC.CM.PN ---
Addendum entered by Sandra Resendiz RN 07/03/22 11:19: [facility] REQUESTING PEER TO PEER FROM [facility], INFOMATION SENT TO [facility] VIA [employer]. Original Note: EMR REVIEWED, CM RECEIVED MESSAGE FROM [facility] WHO REPORTED PT'S INSURANCE HAS BEEN TAKING ABOUT 3 DAYS TO GIVE AUTH, ANTIC PT WILL D/C LATER TODAY VS OVER W/E, CM WILL CONT TO FOLLOW D/C NEEDS. DTR/HCP JUANCHO [phone] WILL BE UPDATED ONCE AUTH IS RECEIVED.
[2022-07-03 12:04] LABS: Glucose, Whole Blood 229 mg/dL (60-115)
--- NOTE | 2022-07-03 12:28 | MHC.CM.PN ---
PT'S [employer] REFUSING AUTH FOR ACUTE REHAB EVEN AFTER PEER TO PEER, CM CONTACTED PT'S DTR JUANCHO TO DISCUSS DISPO AND SNF REFERRALS SENT TO [facility], [facility]... CM WILL REVIEW BED OFFERS W/JUANCHO ONCE RECEIVED.
[2022-07-03] MEDS: Lactulose 20 GM/30 ML SOLUTION PO ×2 (12:32→21:12)
--- NOTE | 2022-07-03 13:50 | HO.PM.IMPN ---
Subjective Subjective Date of Service: 07/03/22 Interval History: Seen and evaluated this morning more alert and interactive significant left sided weakness with twitching movement to LLE Tolerating diet No reported overnight events Review of Systems Review of Systems: Yes all other systems are reviewed and are negative Physical Exam Vital Signs: Vital Signs: Last Vital Signs Temp 97.9 F 07/03/22 12:00 Pulse 90 07/03/22 12:00 Resp 20 07/03/22 12:00 BP 168/73 H 07/03/22 12:00 Pulse Ox 96 07/03/22 12:00 O2 Del Method Room Air 07/03/22 12:00 BMI result Body Mass Index 44.3 Const: Other: Constitutional : Awake, interactive with stimulation, not in distress Neck : Normal inspection, Supple Cardiovascular : RRR, no JVP, no lower extremity edema Respiratory : good bilateral air entry, no crackles, wheezes or rhonchi Gastrointestinal: soft, lax, Normal bowel sounds, Non tender Skin : Warm, Dry Neurological : Alert & oriented x3, left sided hemiparesis more noted in upper extremity, 4-/5 LLE, normal speech, mild left sided facial drop Objective Data Active Medications Acetaminophen (Acetaminophen 325 Mg Tablet) 650 mg PO Q6H PRN PRN Reason: Headache Last Admin: 07/03/22 12:33 Dose: 650 mg Documented By: ELMIRA Amlodipine Besylate (Amlodipine Besylate 10 Mg Tablet) 10 mg PO DAILY [facility]; Protocol Last Admin: 07/03/22 08:58 Dose: 10 mg Documented By: ELMIRA Aspirin (Aspirin Enteric Coated 81 Mg Tablet.) 81 mg PO DAILY [facility] Last Admin: 07/03/22 08:57 Dose: 81 mg Documented By: ELMIRA Atorvastatin Calcium (Atorvastatin Calcium 80 Mg Tablet) 80 mg PO BEDTIME [facility] Last Admin: 07/02/22 19:48 Dose: 80 mg Documented By: FRANKO Enoxaparin Sodium (Enoxaparin Sodium 40 Mg/0.4 Ml Syringe) 40 mg SUBCUT Q24H [facility] Last Admin: 07/02/22 16:19 Dose: 40 mg Documented By: ELMIRA Insulin Glargine (Insulin Glargine,Hum.Rec.Anlog 100 Unit/Ml 10 Ml Vial) 45 unit SUBCUT DAILY [facility] Last Admin: 07/03/22 08:53 Dose: 45 unit Documented By: ELMIRA Insulin Human Lispro (Insulin Lispro 100 Unit/Ml 3 Ml Vial) 0 unit SUBCUT QIDACHS [facility]; Protocol Last Admin: 07/03/22 12:32 Dose: 4 unit Documented By: ELMIRA Lactulose (Lactulose 20 Gm/30 Ml Solution) 20 gm PO BID [facility] Last Admin: 07/03/22 12:32 Dose: 20 gm Documented By: ELMIRA Losartan Potassium (Losartan Potassium 25 Mg Tablet) 25 mg PO DAILY [facility]; Protocol Last Admin: 07/03/22 08:57 Dose: 25 mg Documented By: ELMIRA Sodium Chloride (0.9 % Sodium Chloride Flush 3 Ml Syringe) 3 ml IVFLUSH QSHIFT [facility] Last Admin: 07/03/22 08:57 Dose: 3 ml Documented By: ELMIRA Labs 07/02/22 08:58 07/02/22 08:24 Labs: Laboratory Results - last 24 hr 07/02/22 07/02/22 07/03/22 16:42 19:35 00:20 POC Glucose 234 H 227 H 197 H 07/03/22 07/03/22 05:44 11:56 POC Glucose 200 H 229 H Assessment and Plan (1) Acute cerebral infarction: Status: Acute Plan 67-year-old lady with underlying history of hypertension, hyperlipidemia, diabetes mellitus, asthma admitted on 06/29/2022 with acute onset of left-sided weakness, last known well time at 23:00 on the night before admission, CT head negative for bleed, tPA administered at 4 a.m. Post tPA patient with persistent left-sided paresis.? MRI with right MCA CVA.? 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 Quality Stroke Does the patient have a stroke diagnosis?: Yes Reason for No Anti-thrombotic by Day Two: N/A - Med Ordered VTE Prior VTE?: No VTE Risk Level:: Medical - moderate - high VTE Device Contraindication: N/A - Device Ordered VTE Drug Contraindication: N/A - Med Ordered
--- NOTE | 2022-07-03 15:13 | MHC.CM.PN ---
PT/DTR ACCEPTING BED AT [facility], [facility] TO GO FOR INS AUTH AND WILL TAKE PT ONCE AUTH GRANTED, CM WILL CONT TO FOLLOW D/C NEEDS.
[2022-07-03 16:16] LABS: Glucose, Whole Blood 290 mg/dL (60-115)
[2022-07-03] MEDS: Enoxaparin Sodium 40 MG/0.4 ML SYRINGE SUBCUT (16:51)
--- NOTE | 2022-07-03 18:22 | MHC.SLORD ---
Speech Language Pathology Order Status: Pt not seen this date by [facility] [employer] d/t reported d/c. Per RN, pt tolerating diet of ground solids (NDD2) and thin liquids. Pt continues to require 1-1 feed. [employer] [employer] to continue to follow.
[2022-07-03 20:25] LABS: Glucose, Whole Blood 219 mg/dL (60-115)
[2022-07-03] MEDS: Atorvastatin Calcium 80 MG TABLET PO (21:12)
[2022-07-03 23:55] LABS: Glucose, Whole Blood 222 mg/dL (60-115)
[2022-07-04] MEDS: 0.9 % Sodium Chloride Flush 3 ML SYRINGE IVFLUSH ×4 (01:06→21:21)
[2022-07-04 03:38] VITALS: BP 142/80; PULSE 75; RESP 20; TEMP 37.1; O2SAT 94
[2022-07-04 06:00] VITALS: BMI 45.2
[2022-07-04 06:34] LABS: Glucose, Whole Blood 204 mg/dL (60-115)
[2022-07-04 07:45] VITALS: BP 147/60; PULSE 81; RESP 16; TEMP 37.3; O2SAT 92
[2022-07-04] MEDS: Insulin Glargine,Hum.rec.anlog 100 UNIT/ML 10 ML VIAL 45 UNIT SUBCUT (09:35)
[2022-07-04] MEDS: Aspirin Enteric Coated 81 MG TABLET.DR PO (09:36)
[2022-07-04] MEDS: amLODIPine Besylate 10 MG TABLET PO (09:36)
[2022-07-04] MEDS: Losartan Potassium 25 MG TABLET PO (09:36)
[2022-07-04] MEDS: Lactulose 20 GM/30 ML SOLUTION PO ×2 (09:36→21:14)
--- NOTE | 2022-07-04 11:08 | HO.PM.IMPN ---
Subjective Subjective Date of Service: 07/04/22 Interval History: Seen and evaluated this morning alert and interactive significant left sided weakness with twitching movement to LLE Tolerating diet No reported overnight events Review of Systems Review of Systems: Yes all other systems are reviewed and are negative Physical Exam Vital Signs: Vital Signs: Last Vital Signs Temp 99.1 F 07/04/22 07:45 Pulse 81 07/04/22 07:45 Resp 16 07/04/22 07:45 BP 147/60 H 07/04/22 07:45 Pulse Ox 92 07/04/22 07:45 O2 Del Method Room Air 07/04/22 07:45 BMI result Body Mass Index 45.2 Const: Other: Constitutional : Awake, interactive with stimulation, not in distress Neck : Normal inspection, Supple Cardiovascular : RRR, no JVP, no lower extremity edema Respiratory : good bilateral air entry, no crackles, wheezes or rhonchi Gastrointestinal: soft, lax, Normal bowel sounds, Non tender Skin : Warm, Dry Neurological : Alert & oriented x3, left sided hemiparesis more noted in upper extremity, 4-/5 LLE, normal speech, mild left sided facial drop Objective Data Active Medications Acetaminophen (Acetaminophen 325 Mg Tablet) 650 mg PO Q6H PRN PRN Reason: Headache Last Admin: 07/03/22 23:39 Dose: 650 mg Documented By: LESLIE Amlodipine Besylate (Amlodipine Besylate 10 Mg Tablet) 10 mg PO DAILY [facility]; Protocol Last Admin: 07/04/22 09:36 Dose: 10 mg Documented By: LEÓN Aspirin (Aspirin Enteric Coated 81 Mg Tablet.) 81 mg PO DAILY [facility] Last Admin: 07/04/22 09:36 Dose: 81 mg Documented By: LEÓN Atorvastatin Calcium (Atorvastatin Calcium 80 Mg Tablet) 80 mg PO BEDTIME [facility] Last Admin: 07/03/22 21:12 Dose: 80 mg Documented By: LESLIE Enoxaparin Sodium (Enoxaparin Sodium 40 Mg/0.4 Ml Syringe) 40 mg SUBCUT Q24H [facility] Last Admin: 07/03/22 16:51 Dose: 40 mg Documented By: ELMIRA Insulin Glargine (Insulin Glargine,Hum.Rec.Anlog 100 Unit/Ml 10 Ml Vial) 45 unit SUBCUT DAILY [facility] Last Admin: 07/04/22 09:35 Dose: 45 unit Documented By: LEÓN Insulin Human Lispro (Insulin Lispro 100 Unit/Ml 3 Ml Vial) 0 unit SUBCUT QIDACHS [facility]; Protocol Last Admin: 07/04/22 07:44 Dose: Not Given Documented By: LEÓN Non-Admin Reason: Not In Room Comments: poc 134 Lactulose (Lactulose 20 Gm/30 Ml Solution) 20 gm PO BID [facility] Last Admin: 07/04/22 09:36 Dose: 20 gm Documented By: LEÓN Losartan Potassium (Losartan Potassium 25 Mg Tablet) 25 mg PO DAILY [facility]; Protocol Last Admin: 07/04/22 09:36 Dose: 25 mg Documented By: LEÓN Sodium Chloride (0.9 % Sodium Chloride Flush 3 Ml Syringe) 3 ml IVFLUSH QSHIFT [facility] Last Admin: 07/04/22 09:36 Dose: 3 ml Documented By: LEÓN Labs 07/02/22 08:58 07/02/22 08:24 Labs: Laboratory Results - last 24 hr 07/03/22 07/03/22 07/03/22 11:56 16:12 19:51 POC Glucose 229 H 290 H 219 H 07/03/22 07/04/22 23:26 06:25 POC Glucose 222 H 204 H Assessment and Plan (1) HTN (hypertension): Status: Acute (2) Acute cerebral infarction: Status: Acute Plan 67-year-old lady with underlying history of hypertension, hyperlipidemia, diabetes mellitus, asthma admitted on 06/29/2022 with acute onset of left-sided weakness, last known well time at 23:00 on the night before admission, CT head negative for bleed, tPA administered at 4 a.m. Post tPA patient with persistent left-sided paresis.? MRI with right MCA CVA.? 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 Quality Stroke Does the patient have a stroke diagnosis?: Yes Reason for No Anti-thrombotic by Day Two: N/A - Med Ordered VTE Prior VTE?: No VTE Risk Level:: Medical - moderate - high VTE Device Contraindication: N/A - Device Ordered VTE Drug Contraindication: N/A - Med Ordered
[2022-07-04 11:17] LABS: Glucose, Whole Blood 313 mg/dL (60-115)
--- NOTE | 2022-07-04 11:17 | P.DS_ITS ---
DS: Providers Provider Date of Service: 07/07/22 Date of admission: 06/29/22 08:22 Primary care physician: Mata Kelley MD Consults: 06/29/22 08:22 Consult to Neurology Routine Consulting Provider: [facility] Reason for consultation: CVA s/p tPA Has provider been notified: No DS: Diagnosis Discharge Diagnosis (1) HTN (hypertension): Status: Acute (2) Acute cerebral infarction: Status: Acute DS: Summary Hospital Course Hospital Course: Admission note HPI from ICU provider ?67-year-old lady with underlying history of hypertension, hyperlipidemia, diabetes mellitus, asthma admitted on 06/29/2022 with acute onset of left-sided weakness, last known well time at 23:00 on the night before admission, CT head negative for bleed, tPA administered at 4 a.m. Post tPA patient with persistent left-sided paresis.? MRI with right MCA CVA.? Evaluated by neurology service. Hospital course The patient was admitted to ICU post tPA for Acute stroke w left sided Hemiparesis with no speech abnormalities. residual left sided paresis as the patient was evaluated by Neurology who recommended ASA, statin, BP control. allowed permissve hypertension first 48 hours with no notable improvement in weakness. MRI showed an evidence of right MCA territory stroke. evaluated by PT\OT who recommended STR. speech team following, recommended modified diet of NDD2 with thin liquids ordered. Started on Amlodipine and Losartan with fair BP control. Noted to have acute kidney injury with Cr of 2.3 from baseline of 1.4. likely prerenal with decrease fluid intake after stroke. Losartan was discontinued as BP was better controlled. Started on IVF with good response as Xr improved down to 2. advised to increase water intake and to repeat the test as outpatient in 1 week. Continue ASA and Atorvastatin as prescribed Start Amlodipine and Monitor BP and report 1 week readings to PCP continue physical therapy To repeat kidney function test as outpatient Follow with dr Garcia from neurology as outpatient Time Spent with Patient Time attestation: Total time managing care of this patient today ____ minutes. Discharge coordination time: Greater than 30 minutes Quality: Safe Use of Opioids Does Pt have an Active Cancer Diagnosis on the Problem List?: No Quality: Stroke Does the patient have a stroke diagnosis?: Yes Reason for No Anti-thrombotic at DC: N/A - Med Ordered Reason for No Anticoagulant at DC: Not indicated Reason Not Initiating IV-Tpa: N/A - Med Ordered Reason for No Anti-thrombotic by Day Two: N/A - Med Ordered Reason for No Statin at DC: N/A - Med Ordered Physical Exam Vital Signs: Vital Signs: Last Vital Signs Temp 99.1 F 07/04/22 07:45 Pulse 81 07/04/22 07:45 Resp 16 07/04/22 07:45 BP 147/60 H 07/04/22 07:45 Pulse Ox 92 07/04/22 07:45 O2 Del Method Room Air 07/04/22 07:45 BMI result Body Mass Index 45.2 Const: Other: Constitutional : Awake, interactive with stimulation, not in distress Neck : Normal inspection, Supple Cardiovascular : RRR, no JVP, no lower extremity edema Respiratory : good bilateral air entry, no crackles, wheezes or rhonchi Gastrointestinal: soft, lax, Normal bowel sounds, Non tender Skin : Warm, Dry Neurological : Alert & oriented x3, left sided hemiparesis more noted in upper extremity, 4-/5 LLE, normal speech, mild left sided facial drop DS: Data Data Completed and Pending Labs on day of discharge: Laboratory Results - last 24 hr 07/03/22 07/03/22 07/03/22 11:56 16:12 19:51 POC Glucose 229 H 290 H 219 H 07/03/22 07/04/22 23:26 06:25 POC Glucose 222 H 204 H Imaging MRI - head: Radiologist's impression: ITS Impressions Head CT 06/29/22 02:06 IMPRESSION: No acute intracranial pathology. Mild volume loss with small vessel ischemic change. This critical result was discussed with Chris Ceron MD by telephone at 06/29/2022 2:08 AM and it was ascertained that the content and urgency of the report was understood at the time of direct communication. Head/Neck CTA 06/29/22 02:25 IMPRESSION: 1. No acute intracranial finding. 2. No large vessel occlusion or flow-limiting stenosis. This critical result was discussed with Chris Ceron MD by telephone at 06/29/2022 2:28 AM and it was ascertained that the content and urgency of the report was understood at the time of direct communication. Head CT 06/29/22 04:56 IMPRESSION: No acute intracranial pathology. Chest X-Ray 06/29/22 06:50 IMPRESSION: 1. Patchy opacity at the left base could represent atelectasis or pneumonia. 2. Prominent cardiac silhouette. Brain MRI 06/29/22 09:52 IMPRESSION: Acute right MCA territorial infarction without significant mass effect, midline shift, or hemorrhagic conversion. Discharge Plan Discharge Anticipated Discharge Date/Time: 07/04/22 11:20 Patient Disposition: Xfer SNF Discharge Diagnosis: Acute stroke with left sided weakness Acute kidney injury Referrals: Mata Kelley MD [Primary Care Provider] - 1 Week Discharge Medications: New atorvastatin 80 mg Tablet 80 mg PO BEDTIME Qty: 30 0RF aspirin 81 mg Tablet,Delayed Release (Dr/Ec) 81 mg PO DAILY Qty: 30 0RF amlodipine 10 mg Tablet 10 mg PO DAILY Qty: 30 0RF Protocol: Hold for SBP< HOLD for SBP < : 90 Continued triamcinolone acetonide 0.1 % cream 1 appl topical BID Changed insulin glargine [Lantus Solostar U-100 Insulin] 100 unit/mL (3 mL) insulin pen 70 unit subcut BEDTIME Qty: 15 0RF Discontinued rosuvastatin 40 mg tablet 40 mg PO DAILY Discharge Orders: Discharge Order (Routine); Ordered 07/07/22 Ordered By: Luisa Davidson Diet: NDD2 diet w thin liquids Activity on Discharge: As tolerated Stand Alone Forms: Patient Portal Discharge page Other Ambulatory Orders: Basic Metabolic Panel (Routine) Timeframe: 1 Week Facility: [facility] - Location: Laboratory Ordered By: Luisa Davidson Care Plan Goals: Read below Health Concerns: Read below Plan of Treatment: Read below Assessment: You were admitted for evaluation of left sided weakness. received tPA with no significant improvement in weakness as you were evaluated by neurology team who recommended Aspirin, statin and better blood pressure control. Started on Amlodipine and Losartan with fair BP control. Continue ASA and Atorvastatin as prescribed Start Amlodipine and Monitor BP and report 1 week readings to PCP continue physical therapy To repeat kidney function test as outpatient Follow with dr Garcia from neurology as outpatient
[2022-07-04 11:21] VITALS: BP 142/62; PULSE 86; RESP 16; TEMP 37; O2SAT 91
[2022-07-04] MEDS: Insulin Lispro 100 UNIT/ML 3 ML VIAL SUBCUT ×3 (11:50→23:29)
[2022-07-04] MEDS: Acetaminophen 325 MG TABLET 650 MG PO ×2 (12:19→19:32)
[2022-07-04] MEDS: ondansetron HCL 4 MG/2 ML VIAL IVPUSH (14:44)
[2022-07-04] MEDS: Enoxaparin Sodium 40 MG/0.4 ML SYRINGE SUBCUT (14:45)
[2022-07-04 15:07] VITALS: BP 131/60; PULSE 82; RESP 20; TEMP 36.7; O2SAT 98
[2022-07-04 16:24] LABS: Glucose, Whole Blood 248 mg/dL (60-115)
[2022-07-04 20:00] VITALS: BP 157/72; PULSE 82; RESP 20; TEMP 36.4; O2SAT 94
[2022-07-04] MEDS: Atorvastatin Calcium 80 MG TABLET PO (21:14)
[2022-07-04 22:35] LABS: Glucose, Whole Blood 258 mg/dL (60-115)
[2022-07-04 23:33] VITALS: BP 166/72; PULSE 79; RESP 18; TEMP 36.2; O2SAT 94
[2022-07-05] MEDS: oxyCODONE HCl Immed Release 5 MG TABLET PO (00:13)
[2022-07-05] MEDS: ondansetron HCL 4 MG/2 ML VIAL IVPUSH ×2 (00:57→11:36)
[2022-07-05 02:23] LABS: Glucose, Whole Blood 199 mg/dL (60-115)
[2022-07-05 02:51] VITALS: BP 153/68; PULSE 75; RESP 18; TEMP 36.6; O2SAT 92
[2022-07-05 08:00] VITALS: BP 144/61; PULSE 86; RESP 20; TEMP 36.7; O2SAT 95
[2022-07-05 08:08] LABS: Glucose, Whole Blood 183 mg/dL (60-115)
[2022-07-05] MEDS: Lactulose 20 GM/30 ML SOLUTION PO ×2 (08:47→21:18)
[2022-07-05] MEDS: 0.9 % Sodium Chloride Flush 3 ML SYRINGE IVFLUSH ×2 (08:47→17:15)
[2022-07-05] MEDS: amLODIPine Besylate 10 MG TABLET PO (08:50)
[2022-07-05] MEDS: Insulin Lispro 100 UNIT/ML 3 ML VIAL SUBCUT ×4 (08:50→21:18)
[2022-07-05] MEDS: Acetaminophen 325 MG TABLET 650 MG PO ×2 (08:50→17:14)
[2022-07-05] MEDS: Insulin Glargine,Hum.rec.anlog 100 UNIT/ML 10 ML VIAL 45 UNIT SUBCUT (08:51)
[2022-07-05] MEDS: Aspirin Enteric Coated 81 MG TABLET.DR PO (08:51)
[2022-07-05] MEDS: Losartan Potassium 25 MG TABLET PO (08:51)
--- NOTE | 2022-07-05 10:09 | HO.PM.IMPN ---
Subjective Subjective Date of Service: 07/05/22 Interval History: Seen and evaluated this morning alert and interactive significant left sided weakness with twitching movement to LLE Tolerating diet No reported overnight events Physical Exam Vital Signs: Vital Signs: Last Vital Signs Temp 98.1 F 07/05/22 08:00 Pulse 86 07/05/22 08:00 Resp 20 07/05/22 08:00 BP 144/61 H 07/05/22 08:00 Pulse Ox 95 07/05/22 08:00 O2 Del Method Room Air 07/05/22 08:00 BMI result Body Mass Index 45.2 Const: Other: Constitutional : Awake, interactive with stimulation, not in distress Neck : Normal inspection, Supple Cardiovascular : RRR, no JVP, no lower extremity edema Respiratory : good bilateral air entry, no crackles, wheezes or rhonchi Gastrointestinal: soft, lax, Normal bowel sounds, Non tender Skin : Warm, Dry Neurological : Alert & oriented x3, left sided hemiparesis more noted in upper extremity, 4-/5 LLE, normal speech, mild left sided facial drop Objective Data Active Medications Acetaminophen (Acetaminophen 325 Mg Tablet) 650 mg PO Q6H PRN PRN Reason: Headache Last Admin: 07/05/22 08:50 Dose: 650 mg Documented By: LEÓN Amlodipine Besylate (Amlodipine Besylate 10 Mg Tablet) 10 mg PO DAILY [facility]; Protocol Last Admin: 07/05/22 08:50 Dose: 10 mg Documented By: LEÓN Aspirin (Aspirin Enteric Coated 81 Mg Tablet.) 81 mg PO DAILY [facility] Last Admin: 07/05/22 08:51 Dose: 81 mg Documented By: LEÓN Atorvastatin Calcium (Atorvastatin Calcium 80 Mg Tablet) 80 mg PO BEDTIME [facility] Last Admin: 07/04/22 21:14 Dose: 80 mg Documented By: LESLIE Enoxaparin Sodium (Enoxaparin Sodium 40 Mg/0.4 Ml Syringe) 40 mg SUBCUT Q24H [facility] Last Admin: 07/04/22 14:45 Dose: 40 mg Documented By: LEÓN Insulin Glargine (Insulin Glargine,Hum.Rec.Anlog 100 Unit/Ml 10 Ml Vial) 45 unit SUBCUT DAILY [facility] Last Admin: 07/05/22 08:51 Dose: 45 unit Documented By: LEÓN Insulin Human Lispro (Insulin Lispro 100 Unit/Ml 3 Ml Vial) 0 unit SUBCUT QIDACHS [facility]; Protocol Last Admin: 07/05/22 08:50 Dose: 2 unit Documented By: LEÓN Lactulose (Lactulose 20 Gm/30 Ml Solution) 20 gm PO BID [facility] Last Admin: 07/05/22 08:47 Dose: 20 gm Documented By: LEÓN Losartan Potassium (Losartan Potassium 25 Mg Tablet) 25 mg PO DAILY [facility]; Protocol Last Admin: 07/05/22 08:51 Dose: 25 mg Documented By: LEÓN Ondansetron HCl (Ondansetron Hcl 4 Mg/2 Ml Vial) 4 mg IVPUSH Q8H PRN PRN Reason: Nausea and Vomiting Last Admin: 07/05/22 00:57 Dose: 4 mg Documented By: LESLIE Sodium Chloride (0.9 % Sodium Chloride Flush 3 Ml Syringe) 3 ml IVFLUSH QSHIFT [facility] Last Admin: 07/05/22 08:47 Dose: 3 ml Documented By: LEÓN Labs 07/02/22 08:58 07/02/22 08:24 Labs: Laboratory Results - last 24 hr 07/04/22 07/04/22 07/04/22 11:05 16:10 22:31 POC Glucose 313 H 248 H 258 H 07/05/22 07/05/22 02:19 08:04 POC Glucose 199 H 183 H Assessment and Plan (1) Acute cerebral infarction: Status: Acute Plan 67-year-old lady with underlying history of hypertension, hyperlipidemia, diabetes mellitus, asthma admitted on 06/29/2022 with acute onset of left-sided weakness, last known well time at 23:00 on the night before admission, CT head negative for bleed, tPA administered at 4 a.m. Post tPA patient with persistent left-sided paresis.? MRI with right MCA CVA.? 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 Quality Stroke Does the patient have a stroke diagnosis?: Yes Reason for No Anti-thrombotic by Day Two: N/A - Med Ordered VTE Prior VTE?: No VTE Risk Level:: Medical - moderate - high VTE Device Contraindication: N/A - Device Ordered VTE Drug Contraindication: N/A - Med Ordered
[2022-07-05 11:31] VITALS: BP 163/69; PULSE 84; RESP 20; TEMP 36.5; O2SAT 92
[2022-07-05 11:41] LABS: Glucose, Whole Blood 245 mg/dL (60-115)
--- NOTE | 2022-07-05 14:37 | MHC.CM.PN ---
[facility] REVIEWED, CM RECEIVED MESSAGE FROM [facility] REPORTING THEY ARE STILL WAITING FOR INSURANCE AUTH, CM WILL CONT TO FOLLOW.
[2022-07-05 15:49] VITALS: BP 148/67; PULSE 78; RESP 19; TEMP 37.7; O2SAT 92
[2022-07-05 16:26] LABS: Glucose, Whole Blood 245 mg/dL (60-115)
[2022-07-05] MEDS: Enoxaparin Sodium 40 MG/0.4 ML SYRINGE SUBCUT (17:15)
[2022-07-05 20:00] VITALS: BP 155/69; PULSE 83; RESP 21; TEMP 37.7; O2SAT 94
[2022-07-05 20:08] LABS: Glucose, Whole Blood 245 mg/dL (60-115)
[2022-07-05 21:00] LABS: Glucose, Whole Blood 236 mg/dL (60-115)
[2022-07-05] MEDS: Atorvastatin Calcium 80 MG TABLET PO (21:18)
[2022-07-05 23:49] VITALS: BP 169/73; PULSE 84; RESP 18; TEMP 36.9; O2SAT 91
[2022-07-05 23:55] LABS: Glucose, Whole Blood 212 mg/dL (60-115)
[2022-07-06] VITALS (7 sets, daily range): BP systolic 122–183; BP diastolic 50–76; PULSE 70–87; RESP 14–20; TEMP 36.1–36.9; O2SAT 91–94; BMI 46.0
[2022-07-06] MEDS: 0.9 % Sodium Chloride Flush 3 ML SYRINGE IVFLUSH ×3 (00:04→20:53)
[2022-07-06] MEDS: Acetaminophen 325 MG TABLET 650 MG PO (04:32)
--- NOTE | 2022-07-06 06:39 | PC.NURSE ---
Pt c/o itchiness all over her body. MD notified.
[2022-07-06 06:55] LABS: Hematocrit 36.4 % (37.0-47.0); Hemoglobin 12.2 g/dl (12.0-16.0); Mean Corpuscular HGB Conc 33.5 g/dl (31.0-35.0); Mean Corpuscular Hemoglobin 29.5 pg (27.0-33.0); Mean Corpuscular Volume 88.1 fL (80.0-98.0); Mean Platelet Volume 10.6 fL (9.4-12.3); Platelet Count 351 X10*3/uL (160-400); Red Blood Count 4.13 X10*6/uL (4.20-5.50); Red Cell Distribution Width 12.5 % (11.0-16.0); White Blood Count 16.1 X10*3/uL (4.8-10.8)
[2022-07-06 07:26] LABS: Anion Gap 16 (12-20); Blood Urea Nitrogen 57 mg/dL (9-16); Calcium 8.8 mg/dL (8.4-10.2); Carbon Dioxide 24 mmol/L (22-29); Chloride 95 mmol/L (96-108); Glucose Random 198 mg/dL (60-115); Potassium 4.6 mmol/L (3.3-5.1); Sodium 130 mmol/L (135-145)
[2022-07-06 07:44] LABS: Creatinine Clr Calc Pharmacy 26.9; Estimated Glomerular Filt Rate 21
[2022-07-06 07:57] LABS: Glucose, Whole Blood 197 mg/dL (60-115)
[2022-07-06] MEDS: 0.9 % Sodium Chloride 1,000 ML 125 ML IVCONT ×2 (08:19→17:44)
[2022-07-06] MEDS: Insulin Lispro 100 UNIT/ML 3 ML VIAL SUBCUT ×4 (08:20→21:20)
[2022-07-06] MEDS: Insulin Glargine,Hum.rec.anlog 100 UNIT/ML 10 ML VIAL 60 UNIT SUBCUT (08:20)
[2022-07-06] MEDS: Aspirin Enteric Coated 81 MG TABLET.DR PO (08:21)
[2022-07-06] MEDS: Lactulose 20 GM/30 ML SOLUTION PO ×2 (08:21→20:57)
[2022-07-06] MEDS: amLODIPine Besylate 10 MG TABLET PO (08:21)
--- NOTE | 2022-07-06 09:20 | P.PNIM_ITS ---
Subjective Subjective Date of Service: 07/06/22 Interval History: Seen and evaluated this morning alert and interactive Cr went up to 2.3 , decreased PO water intake still with significant left sided weakness with weak movement to LLE Tolerating diet No reported overnight events Review of Systems Review of Systems: Yes all other systems are reviewed and are negative Physical Exam Vital Signs: Vital Signs: Last Vital Signs Temp 98.3 F 07/06/22 07:45 Pulse 83 07/06/22 07:45 Resp 20 07/06/22 07:45 BP 136/62 07/06/22 07:45 Pulse Ox 92 07/06/22 07:45 O2 Del Method Room Air 07/06/22 07:45 BMI result Body Mass Index 46.0 Const: Other: Constitutional : Awake, interactive with stimulation, not in distress Neck : Normal inspection, Supple Cardiovascular : RRR, no JVP, no lower extremity edema Respiratory : good bilateral air entry, no crackles, wheezes or rhonchi Gastrointestinal: soft, lax, Normal bowel sounds, Non tender Skin : Warm, Dry Neurological : Alert & oriented x3, left sided hemiparesis more noted in upper extremity, 4-/5 LLE, normal speech, mild left sided facial drop Objective Data Active Medications Acetaminophen (Acetaminophen 325 Mg Tablet) 650 mg PO Q6H PRN PRN Reason: Headache Last Admin: 07/06/22 04:32 Dose: 650 mg Documented By: JAILENE Amlodipine Besylate (Amlodipine Besylate 10 Mg Tablet) 10 mg PO DAILY [facility]; Protocol Last Admin: 07/06/22 08:21 Dose: 10 mg Documented By: DUSTIN Aspirin (Aspirin Enteric Coated 81 Mg Tablet.) 81 mg PO DAILY [facility] Last Admin: 07/06/22 08:21 Dose: 81 mg Documented By: DUSTIN Atorvastatin Calcium (Atorvastatin Calcium 80 Mg Tablet) 80 mg PO BEDTIME [facility] Last Admin: 07/05/22 21:18 Dose: 80 mg Documented By: JAILENE Enoxaparin Sodium (Enoxaparin Sodium 40 Mg/0.4 Ml Syringe) 40 mg SUBCUT Q24H [facility] Last Admin: 07/05/22 17:15 Dose: 40 mg Documented By: LEÓN Sodium Chloride (Ns) 1,000 mls @ 125 mls/hr IVCONT .Q8H [facility] Last Admin: 07/06/22 08:19 Dose: 125 mls/hr Documented By: DUSTIN Insulin Glargine (Insulin Glargine,Hum.Rec.Anlog 100 Unit/Ml 10 Ml Vial) 60 unit SUBCUT DAILY [facility] Last Admin: 07/06/22 08:20 Dose: 60 unit Documented By: DUSTIN Insulin Human Lispro (Insulin Lispro 100 Unit/Ml 3 Ml Vial) 0 unit SUBCUT QIDACHS [facility]; Protocol Last Admin: 07/06/22 08:20 Dose: 2 unit Documented By: DUSTIN Lactic Acid (Ammonium Lactate 12 % Lotion 226 Gm Bottle) 1 appl TOPICAL BID [facility]; Protocol Lactulose (Lactulose 20 Gm/30 Ml Solution) 20 gm PO BID [facility] Last Admin: 07/06/22 08:21 Dose: 20 gm Documented By: DUSTIN Losartan Potassium (Losartan Potassium 25 Mg Tablet) 25 mg PO DAILY [facility]; Protocol Last Admin: 07/05/22 08:51 Dose: 25 mg Documented By: LEÓN Ondansetron HCl (Ondansetron Hcl 4 Mg/2 Ml Vial) 4 mg IVPUSH Q8H PRN PRN Reason: Nausea and Vomiting Last Admin: 07/05/22 11:36 Dose: 4 mg Documented By: LEÓN Sodium Chloride (0.9 % Sodium Chloride Flush 3 Ml Syringe) 3 ml IVFLUSH QSHIFT [facility] Last Admin: 07/06/22 08:21 Dose: 3 ml Documented By: DUSTIN Labs 07/06/22 06:39 07/06/22 06:39 Labs: Laboratory Results - last 24 hr 07/05/22 07/05/22 07/05/22 11:33 16:11 19:08 MCV MCH MCHC RDW Plt Count MPV Absolute Nucleated RBC Nucleated RBC % (auto) Anion Gap Estim Creat Clear Calc Estimated GFR POC Glucose 245 H 245 H 245 H Random Glucose Calcium 07/05/22 07/05/22 07/06/22 20:51 23:51 06:39 MCV 88.1 MCH 29.5 MCHC 33.5 RDW 12.5 Plt Count 351 D MPV 10.6 Absolute Nucleated RBC 0.000 Nucleated RBC % (auto) 0.0 Anion Gap Estim Creat Clear Calc Estimated GFR POC Glucose 236 H 212 H Random Glucose Calcium 07/06/22 07/06/22 06:39 07:48 MCV MCH MCHC RDW Plt Count MPV Absolute Nucleated RBC Nucleated RBC % (auto) Anion Gap 16 Estim Creat Clear Calc 26.9 Estimated GFR 21 POC Glucose 197 H Random Glucose 198 H Calcium 8.8 Assessment and Plan (1) Acute kidney injury: Status: Acute (2) Acute cerebral infarction: Status: Acute (3) Leukocytosis: Status: Acute Plan 67-year-old lady with underlying history of hypertension, hyperlipidemia, diabetes mellitus, asthma admitted on 06/29/2022 with acute onset of left-sided weakness, last known well time at 23:00 on the night before admission, CT head negative for bleed, tPA administered at 4 a.m. Post tPA patient with persistent left-sided paresis.? MRI with right MCA CVA.? 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 Quality Stroke Does the patient have a stroke diagnosis?: Yes Reason for No Anti-thrombotic by Day Two: N/A - Med Ordered VTE Prior VTE?: No VTE Risk Level:: Medical - moderate - high VTE Device Contraindication: N/A - Device Ordered VTE Drug Contraindication: N/A - Med Ordered
[2022-07-06 11:46] LABS: Glucose, Whole Blood 269 mg/dL (60-115)
--- NOTE | 2022-07-06 11:52 | MHC.SL.SWA ---
Speech Pathologist Impression: Oral phase dysphagia, risk of aspiration Risk of Aspiration Due to: Neurological Condition Dysphasia Diet Status: Pt presents w/ mild oral phase dysphagia and w/ tongue sounding heavy. Recommend continue on GROUND/MECH ALTERED solids NDD2) and THIN liquids. Pt requires 1-1 assistance for feeding and cueing to chew well and swallow. Do not feed if pt is too lethargic and/or not engaging with PO. Liquid Consistency and Strategies for Safe Swallow: Liquid Intake Recommendation: Thin Liquid Intake Strategies: Small Sips Solid Food Consistency: Dietary Recommendations: Grnd/Mech Altered (NDD2) Additional Modifications to Solid Foods: Avoid hard or tough to chew solids Oral Medication Intake: Whole with Puree Please contact the pharmacy regarding appropriate crushable or liquid drug formulations that are available whenever modified delivery is recommended. Compensatory Strategies and Precautions to be Taken for Safe Swallow: Sitting Upright (90 deg) Small Bites and Sips Alternate Liquids/Solids Oral Check Avoid Specific Foods Supervision While Eating and Drinking for Safe Swallow: Total Assistance (1:1) Foods to Avoid: Hard, tough to chew solids Swallowing Recommended Treatments: Compens. Strategy Educat. Recommendation for Speech: Inpatient Speech Therapy Comment: CONTINUOUS MINER OPERATOR to f/u to monitor tolerance and re-assess for potential upgrade in solid textures Tailor Helper Clinican/Clinical Fellow: No Supervisory Statement: I have reviewed and agree with the student/clinical fellow's documentation: N/A Speech Language Pathologist: Catherine Ramírez M.A., [facility]-CONTINUOUS MINER OPERATOR
[2022-07-06] MEDS: Enoxaparin Sodium 40 MG/0.4 ML SYRINGE SUBCUT (14:06)
[2022-07-06] MEDS: Labetalol HCL 100 MG TABLET PO (14:06)
[2022-07-06] MEDS: Ammonium Lactate 12 % Lotion 226 GM BOTTLE 1 APPL TOPICAL ×2 (14:06→20:56)
--- NOTE | 2022-07-06 15:02 | MHC.CM.PN ---
EMR REVIEWED AND PER MD ROUNDS, PT NOT MEDICALLY CLEARED FOR DC. [facility] HAS OBTAINED INSURANCE AUTH AND IT WILL BE GOOD FOR 07/07, PER LIAISON, THEY WILL HOLD THE BED FOR 07/07 ADMISSION IF READY. CM WILL CONTINUE TO FOLLOW FOR DC NEEDS.
[2022-07-06 17:09] LABS: Glucose, Whole Blood 195 mg/dL (60-115)
[2022-07-06] MEDS: diphenhydrAMINE HCL 50 MG/ML VIAL IVPUSH (20:53)
[2022-07-06] MEDS: Atorvastatin Calcium 80 MG TABLET PO (20:59)
[2022-07-06 21:16] LABS: Glucose, Whole Blood 171 mg/dL (60-115)
[2022-07-07 00:12] LABS: Glucose, Whole Blood 124 mg/dL (60-115)
[2022-07-07] MEDS: ondansetron HCL 4 MG/2 ML VIAL IVPUSH (00:36)
[2022-07-07] MEDS: 0.9 % Sodium Chloride 1,000 ML 125 ML IVCONT ×2 (00:39→10:16)
[2022-07-07 03:59] LABS: Hematocrit 36.2 % (37.0-47.0); Hemoglobin 12.1 g/dl (12.0-16.0); Mean Corpuscular HGB Conc 33.4 g/dl (31.0-35.0); Mean Corpuscular Hemoglobin 29.3 pg (27.0-33.0); Mean Corpuscular Volume 87.7 fL (80.0-98.0); Mean Platelet Volume 10.4 fL (9.4-12.3); Platelet Count 358 X10*3/uL (160-400); Red Blood Count 4.13 X10*6/uL (4.20-5.50); Red Cell Distribution Width 12.6 % (11.0-16.0); White Blood Count 14.5 X10*3/uL (4.8-10.8)
[2022-07-07 04:00] VITALS: BP 138/62; PULSE 86; RESP 18; TEMP 36.9; O2SAT 96
[2022-07-07 04:15] LABS: Anion Gap 15 (12-20); Blood Urea Nitrogen 60 mg/dL (9-16); Calcium 8.2 mg/dL (8.4-10.2); Carbon Dioxide 23 mmol/L (22-29); Chloride 102 mmol/L (96-108); Creatinine Clr Calc Pharmacy 31.7; Estimated Glomerular Filt Rate 25; Glucose Random 132 mg/dL (60-115); Potassium 4.7 mmol/L (3.3-5.1); Sodium 135 mmol/L (135-145)
[2022-07-07] MEDS: diphenhydrAMINE HCL 50 MG/ML VIAL IVPUSH (04:49)
[2022-07-07 05:59] VITALS: BMI 45.5
[2022-07-07 06:02] LABS: Glucose, Whole Blood 112 mg/dL (60-115)
[2022-07-07 07:12] LABS: Glucose, Whole Blood 138 mg/dL (60-115)
[2022-07-07 07:16] VITALS: BP 143/65; PULSE 81; RESP 20; TEMP 37; O2SAT 94
[2022-07-07] MEDS: amLODIPine Besylate 10 MG TABLET PO (10:16)
[2022-07-07] MEDS: Aspirin Enteric Coated 81 MG TABLET.DR PO (10:16)
[2022-07-07] MEDS: Lactulose 20 GM/30 ML SOLUTION PO (10:17)
[2022-07-07] MEDS: Insulin Glargine,Hum.rec.anlog 100 UNIT/ML 10 ML VIAL 60 UNIT SUBCUT (10:17)
--- NOTE | 2022-07-07 10:27 | MHC.CM.PN ---
EMR REVIEWED, PER HOSPITALIST PT WILL NEED AN ADDITIONAL LAB DRAW AROUND NOON PRIOR TO BEING CLEARED FOR D/C, TRANSPORT RESCHEDULED FOR 4PM PER [facility]. PT'S DTR/HCP JUANCHO [phone] NOTIFIED OF POSSIBLE D/C, CM WILL CONT TO FOLLOW.
[2022-07-07] MEDS: Acetaminophen 325 MG TABLET 650 MG PO (10:48)
[2022-07-07 11:18] LABS: Glucose, Whole Blood 246 mg/dL (60-115)
[2022-07-07 11:22] LABS: Anion Gap 14 (12-20); Blood Urea Nitrogen 61 mg/dL (9-16); Calcium 8.1 mg/dL (8.4-10.2); Carbon Dioxide 22 mmol/L (22-29); Chloride 103 mmol/L (96-108); Creatinine Clr Calc Pharmacy 30.4; Estimated Glomerular Filt Rate 24; Glucose Random 254 mg/dL (60-115); Potassium 4.7 mmol/L (3.3-5.1); Sodium 134 mmol/L (135-145)
[2022-07-07 11:31] VITALS: BP 136/63; PULSE 85; RESP 20; TEMP 37.1; O2SAT 92
--- NOTE | 2022-07-07 11:50 | MHC.CM.PN ---
PT MEDICALLY CLEARED FOR D/C TO STR AT [facility], [facility] FOR TRANSPORT AT 4PM, DTR/HCP JUANCHO AWARE AND IMM DELIVERED TO BEDSIDE.
[2022-07-07] MEDS: Insulin Lispro 100 UNIT/ML 3 ML VIAL SUBCUT (12:34)
[2022-07-07] MEDS: Enoxaparin Sodium 40 MG/0.4 ML SYRINGE SUBCUT (14:10)
[2022-07-07 14:23] LABS: COVID-19 Test Negative (Negative); IDNOW Serial# 9DB6401D
== END 2022-07-07 16:20 | disposition skilled nursing facility (03) | DRG 62 ==
LOC: HO.ED 03:46 → HO.EDOVER 08:30 → HO.ICU 10:38 → HO.IMC 06-30 09:00
PROVIDERS: Internal Medicine; Admitting Provider Internal Medicine Pulmonary Disease; Emergency Provider Internal Medicine; PCP Internal Medicine Medical Oncology; Visit Provider Student in an Organized Health Care Education/Training Program
DX: I63.513 Cerebral infarction due to unspecified occlusion or stenosis of bilateral middle cerebral arteries (principal); G81.94 Hemiplegia, unspecified affecting left nondominant side; Z68.42 Body mass index [BMI] 45.0-49.9, adult; N17.9 Acute kidney failure, unspecified; E86.0 Dehydration; E66.09 Other obesity due to excess calories; R29.703 NIHSS score 3; E78.5 Hyperlipidemia, unspecified; J45.909 Unspecified asthma, uncomplicated; I10 Essential (primary) hypertension; Z79.4 Long term (current) use of insulin
CPT/HCPCS: 36415; 70450; 70496; 70498; 70551; 71045; 80048; 80061; 82040; 82550; 82947; 83735; 84100; 84484; 85025; 85027; 85610; 85730; 87635; 92526; 92610; 93005; 93306; 97112; 97162; 97166; 97530; 99285; J1200; J1650; J2405; J2997; J3010

== ENCOUNTER 2023-08-03 13:49 | Emergency (ER) | payer MEDICARE, SELFPAY ==
[2023-08-03 13:51] VITALS: BP 102/56; PULSE 92; O2SAT 94
[2023-08-03 14:09] VITALS: BP 115/45; PULSE 95; RESP 18; TEMP 36.7; O2SAT 97; BMI 32.7
--- NOTE | 2023-08-03 14:30 | ED_ITS ---
HPI - General Adult General Chief complaint: Wound/Laceration Stated complaint: WOUNDS ON COCCYX PER EMS Time Seen by Provider: 08/03/23 14:30 History of Present Illness HPI narrative: The patient is a 68-year-old female with a history of a stroke that left her with left-sided weakness. The stroke occurred in June of 2022, approximately 1 year ago. She was treated with thrombolytic therapy of the time but nevertheless was left with significant left-sided hemiparesis. She went to a nursing facility after her acute your hospitalization. She was in a senior care until about a month ago when she returned home where her son has been looking after her with visiting nurses. According to the patient's daughter the patient had initially been receiving physical therapy at the rehab facility but physical therapy was discontinued and for several months the patient was merely receiving nursing care. It was apparently the patient's decision to leave the nursing facility. She wanted to return home to her condominium even though she has remained bedridden since the stroke. Her son moved into her condominium to help look after her. Visiting nurses as well as occupational and physical therapy has been engaged for help at home. Today an occupational therapist and a physical therapist arrived to do work with the patient found the patient to have a soiled diaper. In addressing the soiled diaper they discovered some very mild skin breakdown in the region of the left sacral skin. They contacted the patient's PCP who contacted the patient's daughter. Ultimately the patient's PCP advised the daughter to have the patient seen in the emergency room and an ambulance was called and she was brought here. The daughter says that her brother must have failed to change the diaper this morning. The patient denies any chest pain or shortness of breath. No cough or sputum. The patient thinks that she might have had a fever 2 days ago but has not had persistent symptoms. No abdominal pain. No urinary discomfort. She reports some discomfort with stooling. The patient reports that she has a essentially no function of the left arm or the left leg and that this has been the case since the stroke. Related Data Home Medications ?Medication ?Instructions ?Recorded ?Confirmed triamcinolone acetonide 0.1 % 1 appl topical BID 06/29/22 06/29/22 topical cream Previous Rx's ?Medication ?Instructions ?Recorded amlodipine 10 mg tablet 10 mg PO DAILY #30 tabs 07/04/22 aspirin 81 mg tablet,delayed 81 mg PO DAILY #30 tabs 07/04/22 release atorvastatin 80 mg tablet 80 mg PO BEDTIME #30 tabs 07/04/22 insulin glargine 100 unit/mL (3 70 unit (0.7 mL) subcut BEDTIME 07/07/22 mL) subcutaneous pen (Lantus #15 mL Solostar U-100 Insulin) Allergies Allergy/AdvReac Type Severity Reaction Status Date / Time No Known Allergies Allergy Verified 08/03/23 14:20 Review of Systems 2 Review of Systems: Yes all other systems are reviewed and are negative [facility] Past Medical History Medical History (Updated 08/03/23 @ 19:07 by Dk Smiley MD) Acute cerebral infarction Cerebrovascular accident Appendicitis Asthma HTN (hypertension) High cholesterol Diabetes Surgical History History of appendectomy Hx of appendectomy Social History Social History Household Members: Children Household Members Other:: Son Housing: House Do you presently have visiting nurse or other home services: No Alcohol intake: never Patient Tobacco Use Status: Never used Tobacco Advance Directives: Yes Advance Directives Information Provided: Yes Advance Directives on File: No service: No Current occupational status: unemployed Physical Exam ED Vital Signs: Vital Signs - 24 hr 08/03/23 14:09 08/03/23 17:36 08/03/23 20:09 Temperature 98.0 F 98.5 F Pulse Rate 95 82 82 Respiratory Rate 18 16 18 Blood Pressure 115/45 L 136/54 L 145/57 H Pulse Oximetry 97 98 95 Oxygen Delivery Method Room Air Room Air Room Air BMI result Body Mass Index 32.7 Const Other: The patient is awake and alert. She looks somewhat chronically ill but not obviously acutely ill. She has obvious left-sided weakness. She is well- groomed and looks well cared for. HENMT Other: There is some mild left-sided facial weakness. Mucous membranes moist. Eyes Other: Pupils are round equal, conjunctivae are clear, extraocular movements intact Neck Other: No JVD Resp Effort & Inspection: normal respiratory effort Auscultation: clear to auscultation bilaterally Cardio Rate: regular rate Rhythm: regular rhythm Heart sounds: S1 normal heart sound present and S2 normal heart sound present GI Other: The abdomen is soft and nontender. The patient had a fair amount of stool in the rectum. No particular tenderness. Back/Spine/Pelvis Other: The patient has a small area of mild skin breakdown in the left sacral area. Skin Other: There is some mild generalized erythema to the lower back and upper buttocks. Within this generalized area of erythema there is some minimal focal very mild skin breakdown in the region of the left sacrum. Neuro Other: The patient is awake and alert. She has some mild left-sided facial weakness. She has profound weakness of the left arm in the left leg. The left arm seems contracted. She does not really seem to have any strength in the left arm or the left leg. Extrem Other: The left arm is contracted with the left arm bent at the elbow. There is no calf swelling or tenderness or asymmetry. No pitting edema. Medications Administered Discontinued Medications Generic Name Dose Route Start Last Admin Trade Name Freq PRN Reason Stop Dose Admin Bisacodyl 10 mg 08/03/23 15:21 08/03/23 15:36 Bisacodyl 10 Mg Supp.Rect TN 08/03/23 15:22 10 mg ONCE ONE Administration Sodium Biphosphate/Sodium Phosphate 133 ml 08/03/23 15:19 08/03/23 15:28 Sodium Phosphate,Tyrrell-Dibasic 133 Ml Enema TN 08/03/23 15:20 Not Given ONCE ONE Medical Decision Making Medical Decision Making MDM Narrative: The patient is a 68-year-old woman who has been bed ridden since his stroke a year ago. She has had left-sided weakness. The patient seems to have ongoing profound weakness of the left arm in the left leg. On exam her skin breakdown is mild and in a very small area on the left sacral skin. She also seemed to be possibly mildly constipated. The patient's labs are unremarkable. She does not seem toxic or septic in any way. The patient was given a Dulcolax suppository after which she had a big bowel movement. I consulted case management. We agree that the patient's skin condition seems non severe and that home with ongoing VNA services to focus on positioning in the bed is probably the most appropriate initial step. The daughter was comfortable with the patient returning home. Lab Data 08/03/23 15:35 06/04/24 15:35 Labs: Lab Results 08/03/23 Range/Units 15:35 WBC 8.2 (4.8-10.8) X10*3/uL RBC 3.97 L (4.20-5.50) X10*6/uL Hgb 12.3 (12.0-16.0) g/dl Hct 36.7 L (37.0-47.0) % MCV 92.4 (80.0-98.0) fL MCH 31.0 (27.0-33.0) pg MCHC 33.5 (31.0-35.0) g/dl RDW 12.3 (11.0-16.0) % Plt Count 331 (160-400) X10*3/uL MPV 9.4 (9.4-12.3) fL Immature Gran % (Auto) 0.2 (0.0-0.4) % Neut % (Auto) 54.1 (45-73) % Lymph % (Auto) 25.4 (20-40) % Tyrrell % (Auto) 10.7 (2-11) % Eos % (Auto) 8.9 H (0-4) % Baso % (Auto) 0.7 (0-2) % Lymph # (Auto) 2.1 (1.2-4.9) X10*3/uL Tyrrell # (Auto) 0.9 (0.1-1.2) X10*3/uL Eos # (Auto) 0.7 H (0.0-0.4) X10*3/uL Baso # (Auto) 0.1 (0.0-0.2) X10*3/uL Abs Immat Gran (auto) 0.02 (0.00-0.03) X10*3/uL Absolute Neuts (auto) 4.5 (2.0-8.3) x10*3/uL Absolute Nucleated RBC 0.000 (0.0-0.012) X10*3/uL Nucleated RBC % (auto) 0.0 (0.0-0.2) /100WBC Sodium 142 (135-145) mmol/L Potassium 3.9 (3.3-5.1) mmol/L Chloride 108 (96-108) mmol/L Carbon Dioxide 28 (22-29) mmol/L Anion Gap 10 L (12-20) BUN 22 H (9-16) mg/dL Creatinine 0.97 (0.5-1.4) mg/dL Estim Creat Clear Calc 53.2 Estimated GFR 57 Random Glucose 89 (60-115) mg/dL Calcium 10.5 H D (8.4-10.2) mg/dL Total Bilirubin 0.2 (0.0-1.0) mg/dL Direct Bilirubin < 0.2 (0.0-0.5) mg/dL AST 13 (5-31) U/L ALT 12 (0-31) U/L Alkaline Phosphatase 99 (39-117) U/L Total Protein 7.0 (6.5-8.0) g/dL Albumin 3.6 (3.5-5.0) g/dL Independent Interpretation I performed an independent interpretation of an: EKG Interpretation: EKG at 15:23 shows sinus rhythm with premature atrial complexes at 81 beats per minute. No acute ischemic changes. Discharge Plan Discharge Clinical Impression: Pressure injury of back, stage 1, Constipation Patient Disposition: Home, Self-Care Additional Instructions: There is a mild skin injury in the region of the left sacrum. I think this can most likely be addressed by the visiting nurses with recommendations for position changes. I think there may also be some element of constipation. This may also be discussed with the visiting nurses. In the short run I would recommend using MiraLax daily soft stools. Please follow up with your regular doctor soon. Return to the emergency room if worse. Prescriptions: No Action triamcinolone acetonide 0.1 % cream 1 appl topical BID atorvastatin 80 mg Tablet 80 mg PO BEDTIME Qty: 30 0RF aspirin 81 mg Tablet,Delayed Release (Dr/Ec) 81 mg PO DAILY Qty: 30 0RF amlodipine 10 mg Tablet 10 mg PO DAILY Qty: 30 0RF Protocol: Hold for SBP< HOLD for SBP < : 90 insulin glargine [Lantus Solostar U-100 Insulin] 100 unit/mL (3 mL) insulin pen 70 unit subcut BEDTIME Qty: 15 0RF Referrals: Mata Kelley MD [Primary Care Provider] - (Mild pressure sore, constipation) Print Language: Jamaican
--- NOTE | 2023-08-03 14:48 | ECG_ITS ---
Test Reason : WEAKNESS Blood Pressure : / mmHG Vent. Rate : 081 BPM Atrial Rate : 081 BPM P-R Int : 196 ms QRS Dur : 062 ms QT Int : 350 ms P-R-T Axes : 049 068 069 degrees QTc Int : 406 ms Sinus rhythm with Premature atrial complexes Low voltage QRS Cannot rule out Anterior infarct , age undetermined Abnormal ECG When compared with ECG of 29-JUN-2022 04:20, Minimal criteria for Anterior infarct are now Present Inverted T waves have replaced nonspecific T wave abnormality in Anterior leads QT has shortened Referred By: Dk Smiley Electronically Signed By:AGUSTIN WHITEHEAD MD
[2023-08-03] MEDS: bisacodyL 10 MG SUPP.RECT PR (15:36)
[2023-08-03 15:43] LABS: MANUAL DIFF FLAG NO
[2023-08-03 15:48] LABS: Basophils Absolute Auto 0.1 X10*3/uL (0.0-0.2); Basophils Percent Auto 0.7 % (0-2); Eosinophils Absolute Auto 0.7 X10*3/uL (0.0-0.4); Eosinophils Percent Auto 8.9 % (0-4); Hematocrit 36.7 % (37.0-47.0); Hemoglobin 12.3 g/dl (12.0-16.0); Imm Gran Abs Auto 0.02 X10*3/uL (0.00-0.03); Imm Gran Pct Auto 0.2 % (0.0-0.4); Lymphocytes Absolute Auto 2.1 X10*3/uL (1.2-4.9); Lymphocytes Percent Auto 25.4 % (20-40); Mean Corpuscular HGB Conc 33.5 g/dl (31.0-35.0); Mean Corpuscular Volume 92.4 fL (80.0-98.0); Mean Platelet Volume 9.4 fL (9.4-12.3); Monocytes Absolute Auto 0.9 X10*3/uL (0.1-1.2); Monocytes Percent Auto 10.7 % (2-11); Neutrophils Absolute Auto 4.5 x10*3/uL (2.0-8.3); Neutrophils Percent Auto 54.1 % (45-73); Platelet Count 331 X10*3/uL (160-400); Red Blood Count 3.97 X10*6/uL (4.20-5.50); Red Cell Distribution Width 12.3 % (11.0-16.0); White Blood Count 8.2 X10*3/uL (4.8-10.8)
[2023-08-03 16:07] LABS: Alanine Aminotransferase 12 U/L (0-31); Albumin Level 3.6 g/dL (3.5-5.0); Alkaline Phosphatase 99 U/L (39-117); Anion Gap 10 (12-20); Aspartate Amino Transferase 13 U/L (5-31); Bilirubin Direct < 0.2 mg/dL (0.0-0.5); Bilirubin Total 0.2 mg/dL (0.0-1.0); Blood Urea Nitrogen 22 mg/dL (9-16); Calcium 10.5 mg/dL (8.4-10.2); Carbon Dioxide 28 mmol/L (22-29); Chloride 108 mmol/L (96-108); Creatinine Clr Calc Pharmacy 53.2; Estimated Glomerular Filt Rate 57; Glucose Random 89 mg/dL (60-115); Potassium 3.9 mmol/L (3.3-5.1); Sodium 142 mmol/L (135-145)
[2023-08-03 17:36] VITALS: BP 136/54; PULSE 82; RESP 16; TEMP 36.9; O2SAT 98
--- NOTE | 2023-08-03 18:22 | MHC.EDTECH ---
Patient had a BM, patient is cleaned up, repositioned, purewic in place.
--- NOTE | 2023-08-03 18:31 | MHC.CM.ED ---
Addendum entered by Rosalia Shaw 08/03/23 18:46: Received a call from [facility] with concerns about care at home. CM explained that family is caring for her. Son is the primary caregiver and daughter sees her daily. Patient was at [facility] from 07/28/22-07/08/2023. They have TRANSMISSION CALIBRATION ENGINEER services from [facility] 2h/d/7 days. The family is working with to obtain a SIEBEL DEVELOPER. Explained that patient is well kept and that sl red skin noted on buttocks and provider does not recommend any wound care, but frequent position changes, as patient is bed bound. Explained that there does not appear to be any neglect. Also explained that CM has contacted [facility] with request for services provided. Drum Tender notified that patient will return home with family. Dr. Tobin aware. Addendum entered by Rosalia Shaw 08/03/23 18:46: Dr. Smiley aware that patient will need BLS transport home. Original Note: CM received a consult for this patient from Dr. Tobin. Pt had a CVA over a year ago and has been at [facility] from 07/28/22 to 07/08/2023. She has L sided paralysis and is essentially bedbound. Pt was discharged with [facility]. [facility] referral to [facility] with regards to services. Her son, Rudolph Mckeon ([phone]) is the primary product management specialist. Pt is active with [facility] and has a TRANSMISSION CALIBRATION ENGINEER 2 hours/day/7 days a week. According to daughter/HCP Mary Ellen Mane ([phone]), PT/OT came to the home today and her brother did not change her brief and they felt the patient should come to the ED to have some coccyx skin redness evaluated. Mary Ellen tells CM that she did speak with her brother about changing the brief more often. Mary Ellen tells CM that are working with to obtain the frail elder waiver so her mother can have a SIEBEL DEVELOPER. Her brother has taken [place] to care for her. Mary Ellen sees her mother daily after work and arranges all of her appointments and insurance concerns. Pt will be discharged home tonight. Will BLS transport.
--- NOTE | 2023-08-03 19:28 | PC.NURSE ---
Assumed care of pt. pt lying on stretcher, cristhian vazquez distress. preparing for discharge home via ambulance.
[2023-08-03 20:09] VITALS: BP 145/57; PULSE 82; RESP 18; O2SAT 95
[2023-08-03 22:03] VITALS: BP 167/62; PULSE 94; O2SAT 96
[2023-08-03 23:23] VITALS: BP 158/68; PULSE 88; RESP 16; TEMP 36.7; O2SAT 96
== END 2023-08-03 23:24 | disposition home or self-care (01) ==
PROVIDERS: Emergency Provider Emergency Medicine; PCP Internal Medicine Medical Oncology
DX: L89.121 Pressure ulcer of left upper back, stage 1 (principal); K59.00 Constipation, unspecified; I69.354 Hemiplegia and hemiparesis following cerebral infarction affecting left non-dominant side; I10 Essential (primary) hypertension; E11.9 Type 2 diabetes mellitus without complications; Z74.01 Bed confinement status
CPT/HCPCS: 36415; 80048; 80076; 85025; 93005; 99284

== ENCOUNTER → 2023-08-03 14:48 | Outpatient (BNV) | payer MEDICARE, SELFPAY | PROVIDERS: Emergency Provider Emergency Medicine; PCP Internal Medicine Medical Oncology; Visit Provider Internal Medicine Cardiovascular Disease | DX: R94.31 Abnormal electrocardiogram [ECG] [EKG] (principal) | CPT/HCPCS: 93010 ==

== ENCOUNTER 2023-08-04 11:32 | Inpatient (IN) | payer MEDICARE, MEDICAID, SELFPAY ==
[2023-08-04] VITALS (7 sets, daily range): BP systolic 81–130; BP diastolic 37–62; PULSE 49–95; RESP 13–20; TEMP 34.9–36.4; O2SAT 95–98; BMI 31.7
--- NOTE | ~2023-08-04 | XR_ITS ---
EXAMINATION: XR CHEST CLINICAL INFORMATION: Patient unable to lift arm, best images possible at this time. Emergency Room patient. No additional clinical history provided at the time this STAT exam was presented for interpretation. COMPARISON: June 29, 2022 TECHNIQUE: 2 views of the chest were obtained. FINDINGS: Lung volumes are low. There is no gross pneumothorax. Cardiac silhouette is likely enlarged, allowing for low lung volumes. Moderate to large left pleural effusion with left basilar consolidation. Large air-fluid level in the left upper quadrant of the abdomen is likely collections representative of gastric bubble. There is a small crescentic lucency along the medial aspect on the frontal view, possibly related to gastric bubble, however, if there is clinical concern for free intraperitoneal air , then dedicated abdominal imaging should be obtained. Degenerative changes in the thoracic spine. XR/XR chest 2V IMPRESSION: Moderate to large left pleural effusion with left basilar consolidation. Large air-fluid level in the left upper quadrant of the abdomen is likely collections representative of gastric bubble. There is a small crescentic lucency along the medial aspect on the frontal view, possibly related to gastric bubble, however, if there is clinical concern for free intraperitoneal air , then dedicated abdominal imaging should be obtained. This study was presented today August 04, 2023 for interpretation. STAT results provided at this time as requested by referring provider.
--- NOTE | ~2023-08-04 | CT_ITS ---
EXAMINATION: CT ABDOMEN AND PELVIS WITH CONTRAST CLINICAL INFORMATION: Abdominal pain and vomiting COMPARISON: None available. TECHNIQUE: Multidetector volumetric images were obtained from the superior aspect of the liver through the pubic symphysis following administration 85 mL of Omnipaque 350 intravenous contrast. Sagittal and coronal reformatted images were obtained on the technologist's workstation. Oral contrast: No This CT examination was performed using dose optimization techniques as appropriate, variously including the following: *Automated exposure control *Adjustment of mA and/or kV according to patient size (this includes techniques or standardized protocols for targeted exams where dose is matched to indication/reason for exam; i.e. extremities or head) *Use of iterative reconstruction technique DLP: 717 mGy-cm FINDINGS: LUNG BASES: The visualized lung bases are unremarkable. LIVER, GALLBLADDER, AND BILIARY TREE: The liver is normal in size, shape, and attenuation. No focal hepatic lesion or biliary ductal dilatation is present. Status post cholecystectomy. Extrahepatic CBD mildly dilated measuring 0.8 cm. No calcified gallstone in the bile ducts. PANCREAS: Mild prominence of the proximal pancreatic duct measuring 0.4 cm. Pancreas is atrophic. No inflammation or mass. SPLEEN: Unremarkable. ADRENAL GLANDS: Unremarkable. KIDNEYS AND URETERS: There is no renal or ureteral calculus. No hydronephrosis. Kidneys of normal size and contour with normal cortical thickness BLADDER: Diffuse bladder wall thickening of the bladder however the bladder is only slightly distended. No edema around the bladder. No bladder calculus or mass. GASTROINTESTINAL TRACT: There are scattered diverticula of the sigmoid and descending colon. There is no diverticulitis. Large volume of stool in the rectum and distal sigmoid. Rectum/distal sigmoid is distended to a diameter of 9 cm. There is edema in the presacral space and mild bowel wall thickening. Changes consistent with impaction and stercoral colitis. The appendix is nonvisualized . 2 cm diverticulum at the third portion of the duodenum. No inflammation around the diverticulum. Small bowel loops are otherwise normal. The stomach is normal. There is no hiatal hernia. ABDOMINAL WALL: No significant hernia is appreciated. LYMPH NODES: Normal. VASCULAR: Scattered vascular wall calcifications of the abdominal aorta. No aneurysm. PELVIC VISCERA: Unremarkable. OSSEOUS STRUCTURES: Multilevel degenerative spondylosis spine. CT/CT abdomen pelvis w IV con IMPRESSION: 1. Large volume of stool in the rectum and distal sigmoid with bowel wall thickening and edema in the presacral space consistent with impaction and stercoral colitis. 2. Status post cholecystectomy. Fleischner guidelines were followed.
--- NOTE | ~2023-08-04 | XR_ITS ---
EXAMINATION: XR ABDOMEN KUB CLINICAL INDICATION: Abdominal pain, vomiting COMPARISON: CT scan abdomen and pelvis 08/04/2023 TECHNIQUE: AP view of the abdomen. FINDINGS: There is a 14.6 x 12.1 cm well-circumscribed area of increased density which likely represents contrast enhanced urine in the bladder from the CT scan of the abdomen and pelvis 1 day ago.. This raises concern regarding urinary retention. This obscures the distal sigmoid colon and rectum. There is a large amount stool within the descending colon and proximal sigmoid colon. A distended air-filled stomach is seen. There is no dilatation of large or small bowel to suggest obstruction. Surgical clips are seen in the right upper quadrant consistent with prior cholecystectomy. Multilevel degenerative changes of the lumbar spine are seen. XR/XR KUB IMPRESSION: 1. No evidence of obstruction of small or large bowel. 2. Findings suggestive of urinary retention with contrast-enhanced urine from yesterday's CT scan of the abdomen and pelvis. This obscures the distal sigmoid colon and rectum. 3. Distended air-filled stomach.
--- NOTE | 2023-08-04 12:09 | ECG_ITS ---
Test Reason : ABDOMINAL PAIN Blood Pressure : / mmHG Vent. Rate : 041 BPM Atrial Rate : 041 BPM P-R Int : 180 ms QRS Dur : 078 ms QT Int : 558 ms P-R-T Axes : 041 032 078 degrees QTc Int : 460 ms Marked sinus bradycardia Possible Inferior infarct , age undetermined Cannot rule out Anterior infarct (cited on or before 03-AUG-2023) Abnormal ECG When compared with ECG of 03-AUG-2023 15:23, Premature atrial complexes are no longer Present Vent. rate has decreased BY 40 BPM QT has lengthened Referred By: Cory Eisenberg Electronically Signed By:AGUSTIN WHITEHEAD MD
--- NOTE | 2023-08-04 12:11 | ED_ITS ---
HPI - General Adult General Chief complaint: General Medical Stated complaint: ABD PAIN,N/V,LOW BP 98/52 PER EMS Time Seen by Provider: 08/04/23 12:08 Source: patient Mode of arrival: ambulatory Limitations: no limitations History of Present Illness ED Provider: 68 year odl female PMH: Stroke with left sided deficits at baseline June HPI narrative: 68 year old female PMH: Stroke with left sided deficits since June 2022 bedridden seen here yesterday for likely case management placement. She had been in a jail until one month ago and found to have care issues with skin breakdown and not changing mother when the occupational and physical therapists went to see her yesterday. Workup was okay case management and thought was appropriate to return to home. She arrives with nausea vomiting hypotension. Related Data Home Medications ?Medication ?Instructions ?Recorded ?Confirmed triamcinolone acetonide 0.1 % 1 appl topical BID 06/29/22 06/29/22 topical cream Previous Rx's ?Medication ?Instructions ?Recorded amlodipine 10 mg tablet 10 mg PO DAILY #30 tabs 07/04/22 aspirin 81 mg tablet,delayed 81 mg PO DAILY #30 tabs 07/04/22 release atorvastatin 80 mg tablet 80 mg PO BEDTIME #30 tabs 07/04/22 insulin glargine 100 unit/mL (3 70 unit (0.7 mL) subcut BEDTIME 07/07/22 mL) subcutaneous pen (Lantus #15 mL Solostar U-100 Insulin) Allergies Allergy/AdvReac Type Severity Reaction Status Date / Time No Known Allergies Allergy Verified 08/04/23 12:05 Review of Systems 2 Review of Systems: Review of systems: General: Patient denies any fever chills recent illness or falls Musculoskeletal: Denies back pain or body aches or other injuries HEENT: denies headache, runny nose, ear pain Respiratory: denies shortness of breath, cough Cardiovascular: no chest pain or palpitations : denies dysuria, frequency Abdomen: no nausea vomiting denies abdominal pain Extremities: no swelling, no pain Skin: no diaphoresis Yes all other systems are reviewed and are negative [facility] Past Medical History Medical History (Updated 08/04/23 @ 15:10 by Cory Eisenberg DO) Acute cerebral infarction Cerebrovascular accident Appendicitis Asthma HTN (hypertension) High cholesterol Diabetes Surgical History History of appendectomy Hx of appendectomy Social History Social History Household Members: Children Household Members Other:: Son Housing: House Do you presently have visiting nurse or other home services: No Alcohol intake: never Patient Tobacco Use Status: Never used Tobacco Smoked in Last 30 Days: No Use of substances other than those prescribed or required for medical reasons: No Advance Directives: No service: No Current occupational status: unemployed Physical Exam ED Vital Signs: Vital Signs - 24 hr 08/04/23 12:02 08/04/23 14:00 08/04/23 15:17 Temperature 97.6 F 95.1 F L Pulse Rate 49 L 86 78 Respiratory Rate 16 13 15 Blood Pressure 81/58 L 130/39 L 122/41 L Pulse Oximetry 95 98 98 Oxygen Delivery Method Room Air Room Air Room Air BMI result Body Mass Index 31.7 Neurological exam: CN II- XII tested. Patient is alert and oriented to person place and time. Patient has no dysphagia or dysarthia, denies good vision in all four vision gore no nystagmus on exam, good strength to upper and lower extremities with normal reflexes to brachioradialis, wrist, patella and achilles. Negative romberg, good finger to nose and heel to rpieto. General: Well-appearing well-nourished in no signs of distress HEENT: Normocephalic atraumatic Neck: No signs of JVD, no masses no tenderness or lymphadenopathy Cardiovascular: Regular rate and rhythm Respiratory: Clear to auscultation bilaterally Abdomen: Soft nontender no masses Extremities: Normal pedal pulses no signs of edema Skin: Dry warm no rashes Back: No tenderness full ROM Skin Other: Please review images from yesterday that show the stage 2 to 3 ulcers Course Course Course Narrative: After seeing the patient EKG did show a heart rate of 41 I did give the patient some atropine patient was responsive heart rate went into the 120s patient was a little bit more alert after getting some fluids I will continue to monitor the patient continue with workup so far white count is little bit more elevated than previous XR read as likely pneumonia with effusion. I will give rocephin and doxycycline at this time. Reevaluation(s) Reevaluation #1: Patient responded well to 2 liters of fluid. Labs show mildly elevated WBC count since she is bed bound and responsive to fluids I will hold off more fluids. I will get a 3rd liter of fluid patient needs admission. I did speak with Dr. Mckeon seen by Jimy. No obvious sepsis but has pneumonia was hypotensive which I feel was more likely related to dehydration and vomiting that has improved. IN addition not bacterial source likely covid related and very responsive to fluids. Medications Administered Discontinued Medications Generic Name Dose Route Start Last Admin Trade Name Daphne PRN Reason Stop Dose Admin Atropine Sulfate 0.5 mg 08/04/23 12:57 08/04/23 13:15 Atropine Sulfate 1 Mg/10 Ml Syringe IVPUSH 08/04/23 12:58 0.5 mg ONCE ONE Administration Sodium Chloride 1,000 mls @ 999 mls/hr 08/04/23 12:15 08/04/23 14:31 Ns IV 08/04/23 13:15 Infused .Q1H1M JONO Infusion Lactated Ringer's 1,000 mls @ 999 mls/hr 08/04/23 12:15 08/04/23 14:20 Lr IV 08/04/23 13:15 Infused .Q1H1M JONO Infusion Ceftriaxone Sodium 1 gm/ 50 mls @ 100 mls/hr 08/04/23 14:25 08/04/23 15:17 Sodium Chloride IV 08/04/23 14:54 Infused ONCE ONE Infusion Iohexol 100 ml 08/04/23 14:13 08/04/23 14:13 Iohexol 350 Mg/Ml 100 Ml Infus..Btl IV 08/04/23 14:14 85 ml ONCE ONE Administration Medical Decision Making Medical Decision Making [facility] Narrative: Concern for sepsis UTI altered mental status dehydration electrolyte abnormality I will start the patient on fluids who complete septic workup x-ray CT abdomen and pelvis and reassess Differential Diagnosis Differential Diagnoses: The differential diagnosis associated with the presentation includes Dehydration electrolyte abnormality weakness acute surgical abdomen small bowel obstruction nausea vomiting Admission/Observation Consideration of admission/observation: Escalation of care including admission/observation considered Consult Healthcare Provider Management of the patient was discussed with: Hospitalist Lab Data [facility] Lab Attestation statement: I reviewed the patient's lab results. 08/04/23 12:18 08/04/23 12:18 Labs: Lab Results 08/04/23 08/04/23 Range/Units 12:18 13:38 WBC 12.3 H (4.8-10.8) X10*3/uL RBC 4.10 L (4.20-5.50) X10*6/uL Hgb 12.6 (12.0-16.0) g/dl Hct 37.9 (37.0-47.0) % MCV 92.4 (80.0-98.0) fL MCH 30.7 (27.0-33.0) pg MCHC 33.2 (31.0-35.0) g/dl RDW 12.4 (11.0-16.0) % Plt Count 422 H D (160-400) X10*3/uL MPV 9.9 (9.4-12.3) fL Immature Gran % (Auto) 0.4 (0.0-0.4) % Neut % (Auto) 60.9 (45-73) % Lymph % (Auto) 29.3 (20-40) % [place] % (Auto) 6.3 (2-11) % Eos % (Auto) 2.5 (0-4) % Baso % (Auto) 0.6 (0-2) % Lymph # (Auto) 3.6 (1.2-4.9) X10*3/uL [place] # (Auto) 0.8 (0.1-1.2) X10*3/uL Eos # (Auto) 0.3 (0.0-0.4) X10*3/uL Baso # (Auto) 0.1 (0.0-0.2) X10*3/uL Abs Immat Gran (auto) 0.05 H (0.00-0.03) X10*3/uL Absolute Neuts (auto) 7.5 (2.0-8.3) x10*3/uL Absolute Nucleated RBC 0.000 (0.0-0.012) X10*3/uL Nucleated RBC % (auto) 0.0 (0.0-0.2) /100WBC PT 11.9 (11.1-13.3) SEC INR 1.0 (0.9-1.1) Sodium 145 (135-145) mmol/L Potassium 3.4 (3.3-5.1) mmol/L Chloride 110 H (96-108) mmol/L Carbon Dioxide 22 (22-29) mmol/L Anion Gap 16 (12-20) BUN 24 H (9-16) mg/dL Creatinine 1.30 (0.5-1.4) mg/dL Estim Creat Clear Calc 39.1 Estimated GFR 40 Random Glucose 131 H (60-115) mg/dL Lactic Acid 2.7 H* (0.5-2.0) mmol/L Calcium 11.2 H D (8.4-10.2) mg/dL Magnesium 2.2 (1.6-2.6) mg/dL Total Bilirubin 0.3 (0.0-1.0) mg/dL Direct Bilirubin 0.1 (0.0-0.5) mg/dL AST 15 (5-31) U/L ALT 13 (0-31) U/L Alkaline Phosphatase 106 (39-117) U/L Troponin I High Sens 3.7 D (<3.5-17.0) ng/L Total Protein 7.6 (6.5-8.0) g/dL Albumin 3.9 (3.5-5.0) g/dL Lipase 15 (8-78) U/L Urine Color Yellow Urine Appearance Clear Urine pH 5.0 (5.0-9.0) Ur Specific [employer] 1.015 (1.005-1.025) Urine Protein 100 (2+) H (Neg-Trace) mg/dL Urine Glucose (UA) Negative (Negative) mg/dL Urine Ketones Negative (Negative) mg/dL Urine Blood Negative (Negative) Urine Nitrite Negative (Negative) Ur Leukocyte Esterase Negative (Negative) Urine RBC 0-2 (0-2) /HPF Urine WBC 0-5 (0-5) /HPF Ur Squamous Epith Cells 11-20 (0-2) /HPF Urine Bacteria None Seen (None Seen) Hyaline Casts 6-10 (0-2) /LPF Urine Opiates Screen Not Detected (Not Detect) Ur Buprenorphine Scrn Not Detected (Not Detect) ng/mL Ur Oxycodone Screen Not Detected (Not Detect) ng/mL Urine Methadone Screen Not Detected (Not Detect) ng/mL Urine Fentanyl Screen Not Detected (Not Detect) Ur Barbiturates Screen Not Detected (Not Detect) Ur Phencyclidine Scrn Not Detected (Not Detect) Ur Amphetamines Screen Not Detected (Not Detect) U Benzodiazepines Scrn Not Detected (Not Detect) Urine Cocaine Screen Not Detected (Not Detect) U Marijuana (THC) Screen Not Detected (Not Detect) Ethyl Alcohol < 10 mg/dL Influenza Type A (PCR) NEGATIVE (Negative) Influenza Type B (PCR) NEGATIVE (Negative) RSV RNA Qual (PCR) NEGATIVE (Negative) SARS-CoV-2 RNA (RT-PCR) POSITIVE A (Negative) Independent Interpretation I performed an independent interpretation of an: EKG, Rhythm Strip and CT Scan Interpretation: EKG rate 41 sinus bradycardia no signs of ischemia unchanged from previous interpreted by me no block Radiology Impression Discussion of test interpretation with radiology: I have reviewed the radiologist's reading. External Record Review External record reviewed: Inpatient record, Office record and Outpatient record Chronic Conditions Previous stroke bed bound Social Determinants Patient?s care significantly limited by Social Determinants of Health including: Inadequate housing Core Measures AMI core measures followed: Yes Discharge Plan Discharge Clinical Impression: Weakness, Vomiting, Acute dehydration, Acute hypotension, Bradycardia, Pneumonia, COVID-19 Patient Disposition: Admitted As Inpatient Print Language: Citizen Of [place]
[2023-08-04 12:36] LABS: MANUAL DIFF FLAG NO
[2023-08-04 12:43] LABS: Basophils Absolute Auto 0.1 X10*3/uL (0.0-0.2); Basophils Percent Auto 0.6 % (0-2); Eosinophils Absolute Auto 0.3 X10*3/uL (0.0-0.4); Eosinophils Percent Auto 2.5 % (0-4); Hematocrit 37.9 % (37.0-47.0); Hemoglobin 12.6 g/dl (12.0-16.0); Imm Gran Abs Auto 0.05 X10*3/uL (0.00-0.03); Imm Gran Pct Auto 0.4 % (0.0-0.4); Lymphocytes Absolute Auto 3.6 X10*3/uL (1.2-4.9); Lymphocytes Percent Auto 29.3 % (20-40); Mean Corpuscular HGB Conc 33.2 g/dl (31.0-35.0); Mean Corpuscular Hemoglobin 30.7 pg (27.0-33.0); Mean Corpuscular Volume 92.4 fL (80.0-98.0); Mean Platelet Volume 9.9 fL (9.4-12.3); Monocytes Absolute Auto 0.8 X10*3/uL (0.1-1.2); Monocytes Percent Auto 6.3 % (2-11); Neutrophils Absolute Auto 7.5 x10*3/uL (2.0-8.3); Neutrophils Percent Auto 60.9 % (45-73); Platelet Count 422 X10*3/uL (160-400); Red Cell Distribution Width 12.4 % (11.0-16.0); White Blood Count 12.3 X10*3/uL (4.8-10.8)
[2023-08-04 12:46] LABS: Prothrombin Time 11.9 SEC (11.1-13.3)
[2023-08-04] MEDS: 0.9 % Sodium Chloride 1,000 ML 999 ML IV ×2 (12:50→16:11)
[2023-08-04] MEDS: Lactated Ringers 1,000 ML 999 ML IV (12:50)
[2023-08-04 13:00] LABS: Lactic Acid 2.7 mmol/L (0.5-2.0)
[2023-08-04 13:04] LABS: Alanine Aminotransferase 13 U/L (0-31); Albumin Level 3.9 g/dL (3.5-5.0); Alkaline Phosphatase 106 U/L (39-117); Anion Gap 16 (12-20); Aspartate Amino Transferase 15 U/L (5-31); Bilirubin Direct 0.1 mg/dL (0.0-0.5); Bilirubin Total 0.3 mg/dL (0.0-1.0); Blood Urea Nitrogen 24 mg/dL (9-16); Calcium 11.2 mg/dL (8.4-10.2); Carbon Dioxide 22 mmol/L (22-29); Chloride 110 mmol/L (96-108); Creatinine Clr Calc Pharmacy 39.1; Estimated Glomerular Filt Rate 40; Ethanol < 10 mg/dL; Glucose Random 131 mg/dL (60-115); Lipase 15 U/L (8-78); Magnesium 2.2 mg/dL (1.6-2.6); Potassium 3.4 mmol/L (3.3-5.1); Sodium 145 mmol/L (135-145); Total Protein 7.6 g/dL (6.5-8.0)
[2023-08-04 13:10] LABS: Troponin-I High Sensitivity 3.7 ng/L (<3.5-17.0)
[2023-08-04] MEDS: Atropine Sulfate 1 MG/10 ML SYRINGE 0.5 MG IVPUSH (13:15)
[2023-08-04 13:18] LABS: Influenza A PCR NEGATIVE (Negative); Influenza B PCR NEGATIVE (Negative); Resp Syncy Virus RNA Qual PCR NEGATIVE (Negative); SARS COV2 PCR INHOUSE POSITIVE (Negative)
[2023-08-04 13:50] LABS: Appearance Urine Clear; Color Urine Yellow; Glucose Urine UA Negative (Negative); Leukocyte Esterase Urine Negative (Negative); Nitrite Urine Negative (Negative); Specific Gravity - Urine 1.015 (1.005-1.025); UMIC TRIGGER UACC YES; Urine Blood Negative (Negative); Urine Ketones Negative (Negative); Urine Protein 100 (2+) mg/dL (Neg-Trace)
[2023-08-04 13:58] LABS: Bacteria Urine None Seen (None Seen); RBC Urine 0-2 /HPF (0-2); WBC Urine 0-5 /HPF (0-5)
[2023-08-04 14:00] LABS: Amphetamine Screen Urine Not Detected (Not Detect); Barbiturates, Urine Not Detected (Not Detect); Benzodiazepines Screen Urine Not Detected (Not Detect); Buprenorphine Scr Not Detected (Not Detect); Cannabinoid Screen Urine Not Detected (Not Detect); Cocaine Screen Urine Not Detected (Not Detect); Fentanyl, urine Not Detected (Not Detect); Methadone Screen, Urine Not Detected (Not Detect); Opiate Screen Urine Not Detected (Not Detect); Oxycodone Screen Urine Not Detected (Not Detect); Phencyclidine Screen Urine Not Detected (Not Detect)
[2023-08-04] MEDS: iohexoL 350 MG/ML 100 ML INFUS..BTL IV (14:13)
--- NOTE | 2023-08-04 14:28 | PC.NURSE ---
pt comes in via EMS with complaints of vomiting since this morning. pt was pale and diaphoretic. Left sided paralysis post CVA. hypertensive on arrival 80s/50. Two IVs started and fluids infused. urine sample obtained via straight cath. Pt alert, oriented though slow to respond and answers questions minimally. Reports abd pain and foot cramping. Pt HR in the 40s on EKG and dipped to 35 on tele. MD notified and atropine given via IV push. HR increased to about 120 and is now in the 80s.
[2023-08-04 14:33] LABS: Reflex Lactate? Lactic Acid Added
[2023-08-04] MEDS: cefTRIAXone sodium 1 GM in 0.9 % Sodium Chloride 50 ML IV (14:43)
--- NOTE | 2023-08-04 16:16 | P.HPHOSP_ITS ---
History of Present Illness Date of Service: 08/04/23 Chief Complaint: hypoglycemia 68-year-old woman with a history of CVA, left-sided hemiparesis presenting to the ER with nausea, vomiting and hypotension. According to the patient's daughter she was hypoglycemic this morning with blood sugar of 67. Patient had a stroke in June of 2022 and has been bed ridden ever since she was recently discharged from the alf facility in June of 2023 and has been living with her son ever since. Apparently she has had some issues with skin breakdown at home seen by Occupational all and physical therapists. According to the patient's daughter the patient's while taking care of at home. Patient presents with hypothermia, bradycardia, hypotension, leukocytosis, elevated lactic acid, calcium of 11.2 and positive for COVID-19. No hypoxia noted. She was given a dose of Rocephin and doxycycline, 3 L of IV fluid and atropine. She will be admitted for further management and treatment of viral sepsis secondary to COVID-19. Review of Systems 2 Review of Systems: Yes Unobtainable due to mental condition (Aphagia ) [facility] Medical History (Updated 08/04/23 @ 16:31 by Verona Ahn NP) Cerebrovascular accident Appendicitis Asthma HTN (hypertension) High cholesterol Diabetes Surgical History History of appendectomy Hx of appendectomy Social History Household Members: Children Household Members Other:: Son Housing: House Do you presently have visiting nurse or other home services: No Alcohol intake: never Patient Tobacco Use Status: Never used Tobacco Smoked in Last 30 Days: No Use of substances other than those prescribed or required for medical reasons: No Advance Directives: No service: No Current occupational status: unemployed Meds Allergies Allergy/AdvReac Type Severity Reaction Status Date / Time No Known Allergies Allergy Verified 08/04/23 12:05 Active Medications: Current Medications Sodium Chloride (Ns) 1,000 mls @ 999 mls/hr IV .Q1H1M JONO Stop: 08/04/23 16:45 Last Admin: 08/04/23 16:11 Dose: 999 mls/hr Home Medications ?Medication ?Instructions ?Recorded ?Confirmed ?Last Taken ?Type triamcinolone acetonide 0.1 % 1 appl topical BID 06/29/22 06/29/22 06/28/22 History topical cream Physical Exam 2 Vital Signs and Narrative: Vital Signs: Last Vital Signs Temp 95.1 F L 08/04/23 14:00 Pulse 75 08/04/23 16:03 Resp 18 08/04/23 16:03 BP 128/62 08/04/23 16:03 Pulse Ox 96 08/04/23 16:03 O2 Del Method Room Air 08/04/23 15:17 BMI result Body Mass Index 31.7 Appearing in no acute distress head is normocephalic atraumatic eyes pupils are PERRLA sclera is anicteric mouth throat mucous membranes are intact and moist neck is supple no lymphadenopathy, no JVD noted lung sounds are clear to auscultation heart regular rate rhythm, clear S1, S2 positive bowel sounds, abdomen is soft, nontender neuro patient is alert x3, left-sided hemiparesis and neglect, aphasia, dysphagia Results Labs 08/04/23 12:18 08/04/23 12:18 Labs: Laboratory Results - last 24 hr 08/04/23 08/04/23 08/04/23 12:18 13:38 14:54 MCV 92.4 MCH 30.7 MCHC 33.2 RDW 12.4 Plt Count 422 H D MPV 9.9 Immature Gran % (Auto) 0.4 Neut % (Auto) 60.9 Lymph % (Auto) 29.3 [place] % (Auto) 6.3 Eos % (Auto) 2.5 Baso % (Auto) 0.6 Lymph # (Auto) 3.6 [place] # (Auto) 0.8 Eos # (Auto) 0.3 Baso # (Auto) 0.1 Abs Immat Gran (auto) 0.05 H Absolute Neuts (auto) 7.5 Absolute Nucleated RBC 0.000 Nucleated RBC % (auto) 0.0 PT 11.9 INR 1.0 Anion Gap 16 Estim Creat Clear Calc 39.1 Estimated GFR 40 Random Glucose 131 H Lactic Acid 2.7 H* Calcium 11.2 H D Magnesium 2.2 Total Bilirubin 0.3 Direct Bilirubin 0.1 AST 15 ALT 13 Alkaline Phosphatase 106 Troponin I High Sens 3.7 D Total Protein 7.6 Albumin 3.9 Lipase 15 Urine Color Yellow Urine Appearance Clear Urine pH 5.0 Ur Specific [place] 1.015 Urine Protein 100 (2+) H Urine Glucose (UA) Negative Urine Ketones Negative Urine Blood Negative Urine Nitrite Negative Ur Leukocyte Esterase Negative Urine RBC 0-2 Urine WBC 0-5 Ur Squamous Epith Cells 11-20 Urine Bacteria None Seen Hyaline Casts 6-10 Urine Opiates Screen Not Detected Ur Buprenorphine Scrn Not Detected Ur Oxycodone Screen Not Detected Urine Methadone Screen Not Detected Urine Fentanyl Screen Not Detected Ur Barbiturates Screen Not Detected Ur Phencyclidine Scrn Not Detected Ur Amphetamines Screen Not Detected U Benzodiazepines Scrn Not Detected Urine Cocaine Screen Not Detected U Marijuana (THC) Screen Not Detected Ethyl Alcohol < 10 Influenza Type A (PCR) NEGATIVE Influenza Type B (PCR) NEGATIVE RSV RNA Qual (PCR) NEGATIVE SARS-CoV-2 RNA (RT-PCR) POSITIVE A Blood Type B Positive Antibody Screen NEGATIVE Imaging Radiologist's Impressions: Impressions Chest X-Ray 08/04/23 12:45 IMPRESSION: Moderate to large left pleural effusion with left basilar consolidation. Large air-fluid level in the left upper quadrant of the abdomen is likely pest control service representative of gastric bubble. There is a small crescentic lucency along the medial aspect on the frontal view, possibly related to gastric bubble, however, if there is clinical concern for free intraperitoneal air , then dedicated abdominal imaging should be obtained. This study was presented today August 04, 2023 for interpretation. STAT results provided at this time as requested by referring provider. Abdomen/Pelvis CT 08/04/23 14:02 IMPRESSION: 1. Large volume of stool in the rectum and distal sigmoid with bowel wall thickening and edema in the presacral space consistent with impaction and stercoral colitis. 2. Status post cholecystectomy. Fleischner guidelines were followed. Assessment and Plan (1) COVID-19: Status: Acute Plan 68 year old women admitted with viral covid, with hx of CVA Viral sepsis secondary to covid 19 hypothermia, lactic acidosis, leukocytosis bear hugger for hyperthermia, check rectal temps no hypoxia ID consult supplemental oxygen as needed Hypercalcemia Possibly related to dehydration Received 3 L of IV fluid Recheck BMP Diabetes mellitus type 2 Sliding scale, ada diet Stercoral colitis Stool impaction noted on abdominal CT fleets enema, miralax Hypertension with hypotension likely secondary to dehydration received 3 liters of IV fluids hold antihypertensives for now Hx of CVA left sided neglect and hemiparesis with aphagia and dysphagia continue asa and statin case management to follow DVT prophylaxis with Heparin Full code Patient required least 48 hours of hospitalization for treatment of viral sepsis secondary to COVID-19 with close monitoring. Due to patient's age and other comorbidities she is at high risk for decompensation Quality Stroke Does the patient have a stroke diagnosis?: No VTE Prior VTE?: No VTE Risk Level:: Medical - moderate - high VTE Device Contraindication: Treatment Not Indicated VTE Drug Contraindication: N/A - Med Ordered
[2023-08-04] MEDS: Doxycycline Monohydrate 100 MG CAPSULE PO (16:30)
--- NOTE | 2023-08-04 16:48 | PC.NURSE ---
temp 94.9 rectal, hospitalist notified. kristina mendoza
--- NOTE | 2023-08-04 17:05 | MHC.CM.PN ---
Addendum entered by Rosalia Shaw 08/04/23 17:52: IMM reviewed with HCP/daughter Mary Ellen Mane ([phone]). Original left at bedside per daughter's request. Copy to Medical Records Original Note: CM met with patient and daughter yesterday and patient was discharged home. Returned today. CM spoke with daughter/HCP Mary Ellen Mane ([phone]). Patient was vomiting today at home. Returned to ED. Covid positive and sepsis. Will be admitted. Pt lives at home with her son since 07/08/2023. Pt suffered a CVA with left sided paralysis and was living at [facility] form -07/08/23. Per daughter, patient requested to come home and family is trying to care for her. Rudolph Mckeon (son, primary caregiver) [phone] has taken FMLA to care for her. Daughter see her mother daily. Daughter organizes health appointments and insurance issues. Waiting for frail elder waiver so they can obtain a ELECTRICAL LINE WORKER to care for her mother. [facility] provides 2 hours daily for BRAND MARKETING INTERN. Pt is bed bound and has a specialized wheelchair. Pt is active with [facility]. CM spoke with agency via [employer] yesterday to confirm services. They responded today that they have concerns about the families ability to care for her at home. [employer] message left today with request for a call back regarding concerns. [facility] called yesterday with concerns about neglect. Patient updates given to [facility] yesterday. Daughter left. CM will call her to review IMM, as patient is confused. Daughter tells CM her mother told the CURING PRESS OPERATOR that she wanted to return to the [facility] and then she told the daughter she wants to go home. D/C plan: home vs LTC. Will need to speak with [facility] and [facility].
--- NOTE | 2023-08-04 17:06 | PC.NURSE ---
pt had a large soft bowel movement. per COMPANY ACCOUNTANT hold enema for now.
--- NOTE | 2023-08-04 17:11 | PHA.MEDREC ---
Pharmacy Consult ? Medication Reconciliation Pharmacy has completed the medication reconciliation. Confirmed medications with list provided by [facility] and daughter.
[2023-08-04 17:28] LABS: ~Lactic Acid-LAB USE ONLY 2.9 mmol/L (0.5-2.0)
--- NOTE | 2023-08-04 17:28 | PC.NURSE ---
critical lab value - lactic of 2.[address] velazquez notified/aware.
[2023-08-04 17:35] LABS: Anion Gap 16 (12-20); Blood Urea Nitrogen 24 mg/dL (9-16); Calcium 10.8 mg/dL (8.4-10.2); Carbon Dioxide 20 mmol/L (22-29); Chloride 112 mmol/L (96-108); Creatinine Clr Calc Pharmacy 44.5; Estimated Glomerular Filt Rate 47; Glucose Random 150 mg/dL (60-115); Sodium 144 mmol/L (135-145)
[2023-08-04 17:51] LABS: Thyroid Stimulating Hormone 3.76 uIU/mL (0.32-4.0)
--- NOTE | 2023-08-04 18:15 | PC.NURSE ---
pt was incontinent of another large loose bowel movement. bed changed
[2023-08-04] MEDS: Heparin Sodium,Porcine 5,000 UNIT/ML VIAL 5000 UNIT SUBCUT (18:22)
[2023-08-04 19:13] LABS: Reflex Lactate? 2 Y
[2023-08-04 20:04] LABS: Glucose, Whole Blood 140 mg/dL (60-115)
--- NOTE | 2023-08-04 20:08 | PC.NURSE ---
pt incontinent of large amount of very loose stool
--- NOTE | 2023-08-04 20:14 | PC.NURSE ---
pt additionally had firm bowel movement
--- NOTE | 2023-08-04 20:35 | PC.NURSE ---
pt temp VANNAL. kristina seals set to lower setting.
[2023-08-04] MEDS: levETIRAcetam 250 MG TABLET 750 MG PO (21:00)
[2023-08-04] MEDS: Gabapentin 300 MG CAPSULE PO (22:26)
[2023-08-04] MEDS: polyethylene glycoL 3350 17 GM POWD.PACK PO (22:26)
--- NOTE | 2023-08-04 22:40 | PC.NURSE ---
temp 98.0, bear arnel removed.
[2023-08-04] MEDS: 0.9 % Sodium Chloride Flush 3 ML SYRINGE IVFLUSH (23:11)
[2023-08-04] MEDS: ondansetron HCL 4 MG/2 ML VIAL IVPUSH (23:11)
[2023-08-05] VITALS (7 sets, daily range): BP systolic 124–179; BP diastolic 41–99; PULSE 80–105; RESP 15–20; TEMP 36.3–37.2; O2SAT 91–100; BMI 31.9
--- NOTE | 2023-08-05 01:20 | PC.NURSE ---
Patient incontinent of moderate BM, bed linens changed, kathy care provided. VSS. Patient denies any pain. Call guerra in reach, plan of care ongoing.
[2023-08-05] MEDS: Metoclopramide HCl 10 MG/2 ML VIAL 5 MG IVPUSH (01:34)
[2023-08-05] MEDS: Heparin Sodium,Porcine 5,000 UNIT/ML VIAL 5000 UNIT SUBCUT ×2 (04:28→17:00)
--- NOTE | 2023-08-05 04:38 | PC.NURSE ---
Patient resting in a hospital bed, even chest wall rise and fall, RR 14. Patient denies feeling nauseous at this time. Call guerra in patient's reach.
[2023-08-05 05:21] LABS: Basophils Absolute Auto 0.1 X10*3/uL (0.0-0.2); Basophils Percent Auto 0.7 % (0-2); Hematocrit 37.2 % (37.0-47.0); Hemoglobin 12.6 g/dl (12.0-16.0); Imm Gran Abs Auto 0.04 X10*3/uL (0.00-0.03); Imm Gran Pct Auto 0.3 % (0.0-0.4); Lymphocytes Absolute Auto 1.4 X10*3/uL (1.2-4.9); Lymphocytes Percent Auto 11.8 % (20-40); MANUAL DIFF FLAG SCAN; Mean Corpuscular HGB Conc 33.9 g/dl (31.0-35.0); Mean Corpuscular Hemoglobin 30.5 pg (27.0-33.0); Mean Corpuscular Volume 90.1 fL (80.0-98.0); Mean Platelet Volume 10.1 fL (9.4-12.3); Monocytes Absolute Auto 0.9 X10*3/uL (0.1-1.2); Monocytes Percent Auto 7.2 % (2-11); Neutrophils Absolute Auto 9.6 x10*3/uL (2.0-8.3); PLT CLUMP 1; Platelet Count 316 X10*3/uL (160-400); Red Blood Count 4.13 X10*6/uL (4.20-5.50); Red Cell Distribution Width 12.5 % (11.0-16.0); SCAN SMEAR FLAG 1
[2023-08-05 05:31] LABS: Alanine Aminotransferase 11 U/L (0-31); Albumin Level 3.4 g/dL (3.5-5.0); Alkaline Phosphatase 91 U/L (39-117); Anion Gap 16 (12-20); Aspartate Amino Transferase 14 U/L (5-31); Bilirubin Total 0.2 mg/dL (0.0-1.0); Blood Urea Nitrogen 26 mg/dL (9-16); Calcium 10.3 mg/dL (8.4-10.2); Carbon Dioxide 21 mmol/L (22-29); Chloride 117 mmol/L (96-108); Creatinine Clr Calc Pharmacy 47.5; Estimated Glomerular Filt Rate 51; Glucose Random 109 mg/dL (60-115); Potassium 5.1 mmol/L (3.3-5.1); Sodium 149 mmol/L (135-145); Total Protein 6.5 g/dL (6.5-8.0)
[2023-08-05 05:43] LABS: SLIDE REVIEW VERIFIED
[2023-08-05 07:21] LABS: Glucose, Whole Blood 87 mg/dL (60-115)
--- NOTE | 2023-08-05 10:31 | HO.PM.IMPN ---
Subjective Subjective Date of Service: 08/05/23 Interval History: Seen and examined this morning Follow-up for COVID-19/viral sepsis, fecal impaction Have small bowel movement but multiple episodes of vomiting this morning Review of Systems Review of Systems: Yes all other systems are reviewed and are negative Constitutional Constitutional: Denies fever(s) Cardiovascular Cardiovascular: Denies chest pain and Denies dyspnea Respiratory Respiratory: Denies dyspnea Physical Exam Vital Signs: Vital Signs: Last Vital Signs Temp 97.4 F 08/05/23 09:57 Pulse 101 H 08/05/23 10:23 Resp 18 08/05/23 09:57 BP 149/54 H 08/05/23 10:23 Pulse Ox 96 08/05/23 09:57 O2 Del Method Room Air 08/05/23 09:57 BMI result Body Mass Index 31.9 Const: Other: awake, sleepy; answering all questions appropriately. Nutritional Appearance: overweight Resp: Effort & Inspection: normal respiratory effort, able to speak in complete sentences, no respiratory distress and no use of accessory muscles Cardio: Rate: regular rate GI: Palpation (GI): Soft to palpation Neuro: Other: chronic left hemiparesis Extrem: General: Yes no pedal edema Objective Data Active Medications Acetaminophen (Acetaminophen 325 Mg Tablet) 650 mg PO Q6H PRN PRN Reason: Pain, Mild (Pain Scale 1-3) Gabapentin (Gabapentin 300 Mg Capsule) 300 mg PO TID [facility] Last Admin: 08/04/23 22:26 Dose: 300 mg Documented By: JCARLOS Glucose (Glucose Gel 15 Gm Gel..Gram.) 15 gm PO Q15M PRN; Protocol PRN Reason: per Hypoglycemia Standing Ord. Heparin Sodium (Porcine) (Heparin Sodium,Porcine 5,000 Unit/Ml Vial) 5,000 unit SUBCUT Q12H [facility] Last Admin: 08/05/23 04:28 Dose: 5,000 unit Documented By: JCARLOS Dextrose (D10) 250 mls @ 750 mls/hr IV Q15M PRN; Protocol PRN Reason: per Hypoglycemia Standing Ord. Dextrose (D5w) 1,000 mls @ 75 mls/hr IVCONT .[id number] [facility] Levetiracetam 750 mg/ Sodium (Chloride) 107.5 mls @ 430 mls/hr IV Q12H [facility] Insulin Human Lispro (Insulin Lispro 100 Unit/Ml 3 Ml Vial) 0 unit SUBCUT QIDACHS [facility]; Protocol Last Admin: 08/05/23 07:37 Dose: Not Given Documented By: NICK Non-Admin Reason: No Insulin Coverage Metoclopramide HCl (Metoclopramide Hcl 10 Mg/2 Ml Vial) 5 mg IVPUSH Q6H PRN PRN Reason: Nausea and Vomiting Last Admin: 08/05/23 01:34 Dose: 5 mg Documented By: JCARLOS Ondansetron HCl (Ondansetron Hcl 4 Mg/2 Ml Vial) 4 mg IVPUSH Q8H PRN PRN Reason: Nausea and Vomiting Last Admin: 08/04/23 23:11 Dose: 4 mg Documented By: JCARLOS Polyethylene Glycol (Polyethylene Glycol 3350 17 Gm Powd.Pack) 17 gm PO BID [facility] Last Admin: 08/04/23 22:26 Dose: 17 gm Documented By: JCARLOS Sodium Chloride (0.9 % Sodium Chloride Flush 3 Ml Syringe) 3 ml IVFLUSH QSHIFT [facility] Last Admin: 08/04/23 23:11 Dose: 3 ml Documented By: JCARLOS Labs 08/05/23 05:03 08/05/23 05:03 Labs: Laboratory Results - last 24 hr 08/04/23 08/04/23 08/04/23 12:18 13:38 14:54 MCV 92.4 MCH 30.7 MCHC 33.2 RDW 12.4 Plt Count 422 H D MPV 9.9 Immature Gran % (Auto) 0.4 Neut % (Auto) 60.9 Lymph % (Auto) 29.3 [place] % (Auto) 6.3 Eos % (Auto) 2.5 Baso % (Auto) 0.6 Lymph # (Auto) 3.6 [place] # (Auto) 0.8 Eos # (Auto) 0.3 Baso # (Auto) 0.1 Abs Immat Gran (auto) 0.05 H Absolute Neuts (auto) 7.5 Absolute Nucleated RBC 0.000 Nucleated RBC % (auto) 0.0 Smear Tech's Comments PT 11.9 INR 1.0 Anion Gap 16 Estim Creat Clear Calc 39.1 Estimated GFR 40 POC Glucose Random Glucose 131 H Lactic Acid 2.7 H* Lactic Acid F/U @ 2Hr Lactic Acid F/U @ 4Hr Calcium 11.2 H D Magnesium 2.2 Total Bilirubin 0.3 Direct Bilirubin 0.1 AST 15 ALT 13 Alkaline Phosphatase 106 Troponin I High Sens 3.7 D Total Protein 7.6 Albumin 3.9 Lipase 15 TSH Urine Color Yellow Urine Appearance Clear Urine pH 5.0 Ur Specific [place] 1.015 Urine Protein 100 (2+) H Urine Glucose (UA) Negative Urine Ketones Negative Urine Blood Negative Urine Nitrite Negative Ur Leukocyte Esterase Negative Urine RBC 0-2 Urine WBC 0-5 Ur Squamous Epith Cells 11-20 Urine Bacteria None Seen Hyaline Casts 6-10 Urine Opiates Screen Not Detected Ur Buprenorphine Scrn Not Detected Ur Oxycodone Screen Not Detected Urine Methadone Screen Not Detected Urine Fentanyl Screen Not Detected Ur Barbiturates Screen Not Detected Ur Phencyclidine Scrn Not Detected Ur Amphetamines Screen Not Detected U Benzodiazepines Scrn Not Detected Urine Cocaine Screen Not Detected U Marijuana (THC) Screen Not Detected Ethyl Alcohol < 10 Influenza Type A (PCR) NEGATIVE Influenza Type B (PCR) NEGATIVE RSV RNA Qual (PCR) NEGATIVE SARS-CoV-2 RNA (RT-PCR) POSITIVE A Blood Type B Positive Antibody Screen NEGATIVE 08/04/23 08/04/23 08/04/23 17:07 17:08 19:49 MCV MCH MCHC RDW Plt Count MPV Immature Gran % (Auto) Neut % (Auto) Lymph % (Auto) [place] % (Auto) Eos % (Auto) Baso % (Auto) Lymph # (Auto) [place] # (Auto) Eos # (Auto) Baso # (Auto) Abs Immat Gran (auto) Absolute Neuts (auto) Absolute Nucleated RBC Nucleated RBC % (auto) Smear Tech's Comments PT INR Anion Gap 16 Estim Creat Clear Calc 44.5 Estimated GFR 47 POC Glucose Random Glucose 150 H Lactic Acid Lactic Acid F/U @ 2Hr 2.9 H* Lactic Acid F/U @ 4Hr 2.0 Calcium 10.8 H Magnesium Total Bilirubin Direct Bilirubin AST ALT Alkaline Phosphatase Troponin I High Sens Total Protein Albumin Lipase TSH 3.76 Urine Color Urine Appearance Urine pH Ur Specific [place] Urine Protein Urine Glucose (UA) Urine Ketones Urine Blood Urine Nitrite Ur Leukocyte Esterase Urine RBC Urine WBC Ur Squamous Epith Cells Urine Bacteria Hyaline Casts Urine Opiates Screen Ur Buprenorphine Scrn Ur Oxycodone Screen Urine Methadone Screen Urine Fentanyl Screen Ur Barbiturates Screen Ur Phencyclidine Scrn Ur Amphetamines Screen U Benzodiazepines Scrn Urine Cocaine Screen U Marijuana (THC) Screen Ethyl Alcohol Influenza Type A (PCR) Influenza Type B (PCR) RSV RNA Qual (PCR) SARS-CoV-2 RNA (RT-PCR) Blood Type Antibody Screen 08/04/23 08/05/23 08/05/23 20:00 05:03 07:14 MCV 90.1 MCH 30.5 MCHC 33.9 RDW 12.5 Plt Count 316 D MPV 10.1 Immature Gran % (Auto) 0.3 Neut % (Auto) 80.0 H Lymph % (Auto) 11.8 L [place] % (Auto) 7.2 Eos % (Auto) 0.0 Baso % (Auto) 0.7 Lymph # (Auto) 1.4 [place] # (Auto) 0.9 Eos # (Auto) 0.0 Baso # (Auto) 0.1 Abs Immat Gran (auto) 0.04 H Absolute Neuts (auto) 9.6 H Absolute Nucleated RBC 0.000 Nucleated RBC % (auto) 0.0 Smear Tech's Comments VERIFIED PT INR Anion Gap 16 Estim Creat Clear Calc 47.5 Estimated GFR 51 POC Glucose 140 H 87 Random Glucose 109 Lactic Acid Lactic Acid F/U @ 2Hr Lactic Acid F/U @ 4Hr Calcium 10.3 H Magnesium Total Bilirubin 0.2 Direct Bilirubin AST 14 ALT 11 Alkaline Phosphatase 91 Troponin I High Sens Total Protein 6.5 Albumin 3.4 L Lipase TSH Urine Color Urine Appearance Urine pH Ur Specific [place] Urine Protein Urine Glucose (UA) Urine Ketones Urine Blood Urine Nitrite Ur Leukocyte Esterase Urine RBC Urine WBC Ur Squamous Epith Cells Urine Bacteria Hyaline Casts Urine Opiates Screen Ur Buprenorphine Scrn Ur Oxycodone Screen Urine Methadone Screen Urine Fentanyl Screen Ur Barbiturates Screen Ur Phencyclidine Scrn Ur Amphetamines Screen U Benzodiazepines Scrn Urine Cocaine Screen U Marijuana (THC) Screen Ethyl Alcohol Influenza Type A (PCR) Influenza Type B (PCR) RSV RNA Qual (PCR) SARS-CoV-2 RNA (RT-PCR) Blood Type Antibody Screen Assessment and Plan (1) COVID-19: Status: Acute (2) Fecal impaction: Status: Acute Plan This is a 68 year old women with history of stroke and residual left-sided hemiparesis admitted with viral covid, with hx of CVA Viral sepsis secondary to covid 19 hypothermia, lactic acidosis, leukocytosis Hypothermia improved with bear hugger no hypoxia, no indication for steroids at this time ID consult pending supportive care Hypercalcemia Possibly related to dehydration Received 3 L of IV fluid improving Diabetes mellitus type 2 Sliding scale, ada diet Stercoral colitis Stool impaction noted on abdominal CT now with vomiting will obtain KUB to eval for obstruction NPO surgical consult fleets enema, miralax Hypernatremia Likely due to fluid, decreased p.o. intake Start D5W Follow BMP Hypertension with hypotension likely secondary to dehydration received 3 liters of IV fluids bp improving, will resume home meds when able to take p.o. Losartan, Norvasc on hold Hx of CVA left sided neglect and hemiparesis with aphagia and dysphagia continue asa and zetia when able to take po case management to follow Seizure disorder We will convert Keppra to IV as patient is NPO DVT prophylaxis with Heparin Full code Requires ongoing inpatient stay for treatment of viral sepsis secondary to COVID-19 with close monitoring. Due to patient's age and other comorbidities she is at high risk for decompensation Quality Stroke Does the patient have a stroke diagnosis?: No VTE Prior VTE?: No VTE Risk Level:: Medical - moderate - high VTE Device Contraindication: Treatment Not Indicated VTE Drug Contraindication: N/A - Med Ordered
--- NOTE | 2023-08-05 11:18 | MHC.CM.PN ---
CM received a call from Terri RN from [facility], she was assigned to the pt when she was at home. Pt lives with her son and her dtr and son care for her. She requires 24/7 care and 2 people to assist for all ADL's. In the home she only had 2 people there together for a short period of time. Terri said that each time she visited, pt was covered in feces and urine. She reported that she had spoken to family about pt needing increased level of care that she can get in a SNF. Family responded that they want to keep her home and are pursuing getting more care. Terri reported to CM that both she and pt.'s PCP have submitted Elder at Risk referrals to [facility]. CM called [facility] to speak with care manager cna, Pro, ext. [phone], Left VM message. CM to follow and assist with DCP.
--- NOTE | 2023-08-05 11:36 | P.CONGS_ITS ---
History of Present Illness Consult details Consult date: 08/05/23 Narrative: 68-year-old female admitted yesterday because of nausea, vomiting and viral sepsis secondary to COVID. She is bed-bound because of a CVA last Jun, 2022. She has had left hemiparesis. She denies any abdominal pain. She had a CAT scan last night showing fecal impaction so I was consulted . She was reported to have 3 episodes of vomiting this morning. She seems to be passing liquids stools after being given enemas. She had been noted to be hypotensive as well on admission clinically volume depleted. She had been resuscitated with IV fluids since yesterday. Review of Systems 2 Constitutional: Constitutional: Denies chills and Reports weakness Cardiovascular: Cardiovascular: Denies chest pain and Denies dyspnea Respiratory: Respiratory: Denies cough and Denies dyspnea Gastrointestinal: Gastrointestinal: Reports vomiting Genitourinary: Genitourinary: Denies difficulty voiding Neurologic: Reports weakness Comments: Left-sided hemiparesis from CVA [facility] Past Medical History Medical History Cerebrovascular accident Appendicitis Asthma HTN (hypertension) High cholesterol Diabetes Surgical History Surgical History History of appendectomy Hx of appendectomy Social History Social History Household Members: Children Household Members Other:: Son [facility] Do you presently have visiting nurse or other home services: No Alcohol intake: never Patient Tobacco Use Status: Never used Tobacco service: No Current occupational status: unemployed Meds Allergies Allergy/AdvReac Type Severity Reaction Status Date / Time No Known Allergies Allergy Verified 08/04/23 12:05 Active Medications: Current Medications Acetaminophen (Acetaminophen 325 Mg Tablet) 650 mg PO Q6H PRN PRN Reason: Pain, Mild (Pain Scale 1-3) Gabapentin (Gabapentin 300 Mg Capsule) 300 mg PO TID [facility] Last Admin: 08/04/23 22:26 Dose: 300 mg Glucose (Glucose Gel 15 Gm Gel..Gram.) 15 gm PO Q15M PRN; Protocol PRN Reason: per Hypoglycemia Standing Ord. Heparin Sodium (Porcine) (Heparin Sodium,Porcine 5,000 Unit/Ml Vial) 5,000 unit SUBCUT Q12H [facility] Last Admin: 08/05/23 04:28 Dose: 5,000 unit Dextrose (D10) 250 mls @ 750 mls/hr IV Q15M PRN; Protocol PRN Reason: per Hypoglycemia Standing Ord. Dextrose (D5w) 1,000 mls @ 75 mls/hr IVCONT .[id number] [facility] Levetiracetam 750 mg/ Sodium (Chloride) 107.5 mls @ 430 mls/hr IV Q12H [facility] Insulin Human Lispro (Insulin Lispro 100 Unit/Ml 3 Ml Vial) 0 unit SUBCUT QIDACHS [facility]; Protocol Last Admin: 08/05/23 07:37 Dose: Not Given Metoclopramide HCl (Metoclopramide Hcl 10 Mg/2 Ml Vial) 5 mg IVPUSH Q6H PRN PRN Reason: Nausea and Vomiting Last Admin: 08/05/23 01:34 Dose: 5 mg Ondansetron HCl (Ondansetron Hcl 4 Mg/2 Ml Vial) 4 mg IVPUSH Q8H PRN PRN Reason: Nausea and Vomiting Last Admin: 08/04/23 23:11 Dose: 4 mg Polyethylene Glycol (Polyethylene Glycol 3350 17 Gm Powd.Pack) 17 gm PO BID [facility] Last Admin: 08/04/23 22:26 Dose: 17 gm Sodium Chloride (0.9 % Sodium Chloride Flush 3 Ml Syringe) [facility] Last Admin: 08/04/23 23:11 Dose: 3 ml Home Medications ?Medication ?Instructions ?Recorded ?Confirmed ?Last Taken ?Type ammonium lactate 12 % topical cream 1 appl topical BEDTIME 08/04/23 08/04/23 Unknown History bethanechol chloride 25 mg tablet 25 mg PO TID 08/04/23 08/04/23 Unknown History ezetimibe 10 mg tablet (Zetia) 10 mg PO DAILY 08/04/23 08/04/23 Unknown History gabapentin 300 mg capsule 300 mg PO TID 08/04/23 08/04/23 Unknown History insulin glargine 100 unit/mL (3 See Rx Instructions .Route .COMPLEX 08/04/23 08/04/23 Unknown History mL) subcutaneous pen (Lantus Solostar U-100 Insulin) levetiracetam 750 mg tablet 750 mg PO BID 08/04/23 08/04/23 Unknown History losartan 50 mg tablet 50 mg PO DAILY 08/04/23 08/04/23 Unknown History potassium chloride 10 mEq 10 meq PO DAILY 08/04/23 08/04/23 Unknown History tablet,extended release (Klor-Con) tamsulosin 0.4 mg capsule (Flomax) 0.8 mg PO DAILY 08/04/23 08/04/23 Unknown History tramadol 50 mg tablet 50 mg PO BID PRN Pain 08/04/23 08/04/23 Unknown History Physical Exam 2 Vital Signs: Vital Signs: Last Vital Signs Temp 97.4 F 08/05/23 09:57 Pulse 101 H 08/05/23 10:23 Resp 18 08/05/23 09:57 BP 149/54 H 08/05/23 10:23 Pulse Ox 96 08/05/23 09:57 O2 Del Method Room Air 08/05/23 09:57 BMI result Body Mass Index 31.9 Const: Other: Answers questions General: no acute distress Resp: Effort & Inspection: abnormal respiratory effort Cardio: Rhythm: regular rhythm GI: Inspection: No distended Palpation (GI): Soft to palpation, not firm, nontender and no guarding Neuro: Other: Left-sided weakness Results Labs 08/07/23 06:20 08/07/23 06:20 Labs: Abnormal lab results 08/04/23 08/04/23 08/04/23 Range/Units 12:18 13:38 17:07 WBC 12.3 H (4.8-10.8) X10*3/uL RBC 4.10 L (4.20-5.50) X10*6/uL Plt Count 422 H D (160-400) X10*3/uL Neut % (Auto) (45-73) % Lymph % (Auto) (20-40) % Abs Immat Gran (auto) 0.05 H (0.00-0.03) X10*3/uL Absolute Neuts (auto) (2.0-8.3) x10*3/uL Sodium (135-145) mmol/L Chloride 110 H 112 H (96-108) mmol/L Carbon Dioxide 20 L (22-29) mmol/L BUN 24 H 24 H (9-16) mg/dL POC Glucose (60-115) mg/dL Random Glucose 131 H 150 H (60-115) mg/dL Lactic Acid 2.7 H* (0.5-2.0) mmol/L Lactic Acid F/U @ 2Hr (0.5-2.0) mmol/L Calcium 11.2 H D 10.8 H (8.4-10.2) mg/dL Albumin (3.5-5.0) g/dL Urine Protein 100 (2+) H (Neg-Trace) mg/dL SARS-CoV-2 RNA (RT-PCR) POSITIVE A (Negative) 08/04/23 08/04/23 08/05/23 Range/Units 17:08 20:00 05:03 WBC 12.0 H (4.8-10.8) X10*3/uL RBC 4.13 L (4.20-5.50) X10*6/uL Plt Count (160-400) X10*3/uL Neut % (Auto) 80.0 H (45-73) % Lymph % (Auto) 11.8 L (20-40) % Abs Immat Gran (auto) 0.04 H (0.00-0.03) X10*3/uL Absolute Neuts (auto) 9.6 H (2.0-8.3) x10*3/uL Sodium 149 H (135-145) mmol/L Chloride 117 H (96-108) mmol/L Carbon Dioxide 21 L (22-29) mmol/L BUN 26 H (9-16) mg/dL POC Glucose 140 H (60-115) mg/dL Random Glucose (60-115) mg/dL Lactic Acid (0.5-2.0) mmol/L Lactic Acid F/U @ 2Hr 2.9 H* (0.5-2.0) mmol/L Calcium 10.3 H (8.4-10.2) mg/dL Albumin 3.4 L (3.5-5.0) g/dL Urine Protein (Neg-Trace) mg/dL SARS-CoV-2 RNA (RT-PCR) (Negative) Short CBC 08/04/23 08/05/23 Range/Units 12:18 05:03 WBC 12.3 H 12.0 H (4.8-10.8) X10*3/uL Hgb 12.6 12.6 (12.0-16.0) g/dl Hct 37.9 37.2 (37.0-47.0) % Plt Count 422 H D 316 D (160-400) X10*3/uL BMP 08/04/23 08/04/23 08/05/23 12:18 17:07 05:03 Sodium 145 144 149 H Potassium 3.4 4.0 5.1 D Chloride 110 H 112 H 117 H Carbon Dioxide 22 20 L 21 L BUN 24 H 24 H 26 H Creatinine 1.30 1.14 1.07 Calcium 11.2 H D 10.8 H 10.3 H Liver Function 08/04/23 08/05/23 Range/Units 12:18 05:03 Total Bilirubin 0.3 0.2 (0.0-1.0) mg/dL Direct Bilirubin 0.1 (0.0-0.5) mg/dL AST 15 14 (5-31) U/L ALT 13 11 (0-31) U/L Alkaline Phosphatase 106 91 (39-117) U/L Albumin 3.9 3.4 L (3.5-5.0) g/dL Urine 08/04/23 Range/Units 13:38 Urine Color Yellow Urine Appearance Clear Urine pH 5.0 (5.0-9.0) Ur Specific Shirley 1.015 (1.005-1.025) Urine Protein 100 (2+) H (Neg-Trace) mg/dL Urine Glucose (UA) Negative (Negative) mg/dL All other labs normal. Laboratory Results WBC 12.0 X10*3/uL (4.8-10.8) H 08/05/23 05:03 RBC 4.13 X10*6/uL (4.20-5.50) L 08/05/23 05:03 Hgb 12.6 g/dl (12.0-16.0) 08/05/23 05:03 Hct 37.2 % (37.0-47.0) 08/05/23 05:03 MCV 90.1 fL (80.0-98.0) 08/05/23 05:03 MCH 30.5 pg (27.0-33.0) 08/05/23 05:03 MCHC 33.9 g/dl (31.0-35.0) 08/05/23 05:03 RDW 12.5 % (11.0-16.0) 08/05/23 05:03 Plt Count 316 X10*3/uL (160-400) D 08/05/23 05:03 MPV 10.1 fL (9.4-12.3) 08/05/23 05:03 Immature Gran % (Auto) 0.3 % (0.0-0.4) 08/05/23 05:03 Neut % (Auto) 80.0 % (45-73) H 08/05/23 05:03 Lymph % (Auto) 11.8 % (20-40) L 08/05/23 05:03 Wolfe % (Auto) 7.2 % (2-11) 08/05/23 05:03 Eos % (Auto) 0.0 % (0-4) 08/05/23 05:03 Baso % (Auto) 0.7 % (0-2) 08/05/23 05:03 Lymph # (Auto) 1.4 X10*3/uL (1.2-4.9) 08/05/23 05:03 Wolfe # (Auto) 0.9 X10*3/uL (0.1-1.2) 08/05/23 05:03 Eos # (Auto) 0.0 X10*3/uL (0.0-0.4) 08/05/23 05:03 Baso # (Auto) 0.1 X10*3/uL (0.0-0.2) 08/05/23 05:03 Abs Immat Gran (auto) 0.04 X10*3/uL (0.00-0.03) H 08/05/23 05:03 Absolute Neuts (auto) 9.6 x10*3/uL (2.0-8.3) H 08/05/23 05:03 Absolute Nucleated RBC 0.000 X10*3/uL (0.0-0.012) 08/05/23 05:03 Nucleated RBC % (auto) 0.0 /100WBC (0.0-0.2) 08/05/23 05:03 Smear Tech's Comments VERIFIED 08/05/23 05:03 PT 11.9 SEC (11.1-13.3) 08/04/23 12:18 INR 1.0 (0.9-1.1) 08/04/23 12:18 Sodium 149 mmol/L (135-145) H 08/05/23 05:03 Potassium 5.1 mmol/L (3.3-5.1) D 08/05/23 05:03 Chloride 117 mmol/L (96-108) H 08/05/23 05:03 Carbon Dioxide 21 mmol/L (22-29) L 08/05/23 05:03 Anion Gap 16 (12-20) 08/05/23 05:03 BUN 26 mg/dL (9-16) H 08/05/23 05:03 Creatinine 1.07 mg/dL (0.5-1.4) 08/05/23 05:03 Estim Creat Clear Calc 47.5 08/05/23 05:03 Estimated GFR 51 08/05/23 05:03 POC Glucose 87 mg/dL (60-115) 08/05/23 07:14 Random Glucose 109 mg/dL (60-115) 08/05/23 05:03 Lactic Acid 2.7 mmol/L (0.5-2.0) H* 08/04/23 12:18 Lactic Acid F/U @ 2Hr 2.9 mmol/L (0.5-2.0) H* 08/04/23 17:08 Lactic Acid F/U @ 4Hr 2.0 mmol/L (0.5-2.0) 08/04/23 19:49 Calcium 10.3 mg/dL (8.4-10.2) H 08/05/23 05:03 Magnesium 2.2 mg/dL (1.6-2.6) 08/04/23 12:18 Total Bilirubin 0.2 mg/dL (0.0-1.0) 08/05/23 05:03 Direct Bilirubin 0.1 mg/dL (0.0-0.5) 08/04/23 12:18 AST 14 U/L (5-31) 08/05/23 05:03 ALT 11 U/L (0-31) 08/05/23 05:03 Alkaline Phosphatase 91 U/L (39-117) 08/05/23 05:03 Troponin I High Sens 3.7 ng/L (<3.5-17.0) D 08/04/23 12:18 Total Protein 6.5 g/dL (6.5-8.0) 08/05/23 05:03 Albumin 3.4 g/dL (3.5-5.0) L 08/05/23 05:03 Lipase 15 U/L (8-78) 08/04/23 12:18 TSH 3.76 uIU/mL (0.32-4.0) 08/04/23 17:07 Urine Color Yellow 08/04/23 13:38 Urine Appearance Clear 08/04/23 13:38 Urine pH 5.0 (5.0-9.0) 08/04/23 13:38 Ur Specific Shirley 1.015 (1.005-1.025) 08/04/23 13:38 Urine Protein 100 (2+) mg/dL (Neg-Trace) H 08/04/23 13:38 Urine Glucose (UA) Negative mg/dL (Negative) 08/04/23 13:38 Urine Ketones Negative mg/dL (Negative) 08/04/23 13:38 Urine Blood Negative (Negative) 08/04/23 13:38 Urine Nitrite Negative (Negative) 08/04/23 13:38 Ur Leukocyte Esterase Negative (Negative) 08/04/23 13:38 Urine RBC 0-2 /HPF (0-2) 08/04/23 13:38 Urine WBC 0-5 /HPF (0-5) 08/04/23 13:38 Ur Squamous Epith Cells 11-20 /HPF (0-2) 08/04/23 13:38 Urine Bacteria None Seen (None Seen) 08/04/23 13:38 Hyaline Casts 6-10 /LPF (0-2) 08/04/23 13:38 Urine Opiates Screen Not Detected (Not Detect) 08/04/23 13:38 Ur Buprenorphine Scrn Not Detected ng/mL (Not Detect) 08/04/23 13:38 Ur Oxycodone Screen Not Detected ng/mL (Not Detect) 08/04/23 13:38 Urine Methadone Screen Not Detected ng/mL (Not Detect) 08/04/23 13:38 Urine Fentanyl Screen Not Detected (Not Detect) 08/04/23 13:38 Ur Barbiturates Screen Not Detected (Not Detect) 08/04/23 13:38 Ur Phencyclidine Scrn Not Detected (Not Detect) 08/04/23 13:38 Ur Amphetamines Screen Not Detected (Not Detect) 08/04/23 13:38 U Benzodiazepines Scrn Not Detected (Not Detect) 08/04/23 13:38 Urine Cocaine Screen Not Detected (Not Detect) 08/04/23 13:38 U Marijuana (THC) Screen Not Detected (Not Detect) 08/04/23 13:38 Ethyl Alcohol < 10 mg/dL 08/04/23 12:18 Influenza Type A (PCR) NEGATIVE (Negative) 08/04/23 12:18 Influenza Type B (PCR) NEGATIVE (Negative) 08/04/23 12:18 RSV RNA Qual (PCR) NEGATIVE (Negative) 08/04/23 12:18 SARS-CoV-2 RNA (RT-PCR) POSITIVE (Negative) A 08/04/23 12:18 Blood Type B Positive 08/04/23 14:54 Antibody Screen NEGATIVE 08/04/23 14:54 Impressions Chest X-Ray 08/04/23 12:45 IMPRESSION: Moderate to large left pleural effusion with left basilar consolidation. Large air-fluid level in the left upper quadrant of the abdomen is likely pharmaceutical sales representative of gastric bubble. There is a small crescentic lucency along the medial aspect on the frontal view, possibly related to gastric bubble, however, if there is clinical concern for free intraperitoneal air , then dedicated abdominal imaging should be obtained. This study was presented today August 04, 2023 for interpretation. STAT results provided at this time as requested by referring provider. Abdomen/Pelvis CT 08/04/23 14:02 IMPRESSION: 1. Large volume of stool in the rectum and distal sigmoid with bowel wall thickening and edema in the presacral space consistent with impaction and stercoral colitis. 2. Status post cholecystectomy. Fleischner guidelines were followed. Imaging Abdominal x-ray: image reviewed Abdomen CT scan report/results: report reviewed and image reviewed CT scan - pelvis: report reviewed and image reviewed Assessment and Plan (1) Fecal impaction: Status: Resolved I have reviewed her CAT scan. There was note of a lot of stool in the rectal vault the appears to be impacted. I therefore proceeded to do a manual digital disimpaction. Large amount of very thick, pasty stools were evacuated from the rectal vault. There was no blood. There has no palpable mass. She tolerated procedure well. (2) Vomiting: Status: Inactive Review of her CT scan and KUB shows the stomach to be distended but with good amounts of air distally including the colon. Clinically, she has not obstructed. I have some gastric ileus secondary to her acute illness. Her abdominal exam is very benign I would keep her on clear liquids for now. Her electrolytes should also be followed closely. She should be adequately hydrated I will follow along while she has in the hospital. Procedures Date of Service Date of Service: 08/14/23
--- NOTE | 2023-08-05 13:11 | PC.NURSE ---
Attempted IV access via ultrasound bilat arms - unable to obtain access with ultrasound 1x attempt. Stephanie JAMES made aware - midline ordered.
[2023-08-05] MEDS: Gabapentin 300 MG CAPSULE PO (13:32)
[2023-08-05] MEDS: levETIRAcetam 250 MG TABLET PO (13:32)
[2023-08-05] MEDS: levETIRAcetam 500 MG TABLET PO (13:32)
[2023-08-05 13:36] LABS: Glucose, Whole Blood 110 mg/dL (60-115)
--- NOTE | 2023-08-05 15:43 | PC.NURSE ---
#20 Angio placed to left cephalic vein. Blood return and flushing well.
[2023-08-05 16:28] LABS: Glucose, Whole Blood 104 mg/dL (60-115)
[2023-08-05] MEDS: Dextrose 5 % 1,000 ML 75 ML IVCONT (17:01)
[2023-08-05] MEDS: 0.9 % Sodium Chloride Flush 3 ML SYRINGE IVFLUSH ×2 (17:08→21:41)
[2023-08-05 21:25] LABS: Glucose, Whole Blood 131 mg/dL (60-115)
[2023-08-05] MEDS: levETIRAcetam 750 MG in 0.9 % Sodium Chloride 100 ML 430 MG IV (21:29)
[2023-08-05] MEDS: Ammonium Lactate 12 % Cream 140 GM TUBE 1 APPL TOPICAL (21:36)
--- NOTE | 2023-08-05 23:34 | P.CNID_ITS ---
History of Present Illness Data of Consult Service Date: 08/05/23 Requesting physician: Stephanie Rees Primary Care Provider: Mata Kelley MD HPI Reason for consult: COVID She was brought in for fatigue and weakness. COVID test positive,no hypoxia. Duration unknown. brought in from facility Review of Systems 2 Review of Systems: Yes all other systems are reviewed and are negative [facility] Past Medical History Medical History Cerebrovascular accident Appendicitis Asthma HTN (hypertension) High cholesterol Diabetes Surgical History Surgical History History of appendectomy Hx of appendectomy Social History Social History Household Members: Children Household Members Other:: [facility] Do you presently have visiting nurse or other home services: No Alcohol intake: never Patient Tobacco Use Status: Never used Tobacco service: No Current occupational status: unemployed Meds Allergies Allergy/AdvReac Type Severity Reaction Status Date / Time No Known Allergies Allergy Verified 08/04/23 12:05 Active Medications: Current Medications Acetaminophen (Acetaminophen 325 Mg Tablet) 650 mg PO Q6H PRN PRN Reason: Pain, Mild (Pain Scale 1-3) Amlodipine Besylate (Amlodipine Besylate 10 Mg Tablet) 10 mg PO DAILY [facility]; Protocol Aspirin (Aspirin Enteric Coated 81 Mg Tablet.Dr) 81 mg PO DAILY [facility] Bethanechol Chloride (Bethanechol Chloride 25 Mg Tablet) 25 mg PO TID [facility] Last Admin: 08/05/23 21:40 Dose: Not Given Gabapentin (Gabapentin 300 Mg Capsule) 300 mg PO TID [facility] Last Admin: 08/05/23 21:40 Dose: Not Given Gabapentin (Gabapentin 300 Mg Capsule) 300 mg PO TID [facility] Last Admin: 08/05/23 21:40 Dose: Not Given Glucose (Glucose Gel 15 Gm Gel..Gram.) 15 gm PO Q15M PRN; Protocol PRN Reason: per Hypoglycemia Standing Ord. Heparin Sodium (Porcine) (Heparin Sodium,Porcine 5,000 Unit/Ml Vial) 5,000 unit SUBCUT Q12H [facility] Last Admin: 08/05/23 17:00 Dose: 5,000 unit Dextrose (D10) 250 mls @ 750 mls/hr IV Q15M PRN; Protocol PRN Reason: per Hypoglycemia Standing Ord. Dextrose (D5w) 1,000 mls @ 75 mls/hr IVCONT .[id number] [facility] Last Admin: 08/05/23 17:01 Dose: 75 mls/hr Levetiracetam 750 mg/ Sodium (Chloride) 107.5 mls @ 430 mls/hr IV Q12H [facility] Last Admin: 08/05/23 21:29 Dose: 430 mls/hr Insulin Human Lispro (Insulin Lispro 100 Unit/Ml 3 Ml Vial) 0 unit SUBCUT QIDACHS [facility]; Protocol Last Admin: 08/05/23 16:56 Dose: Not Given Lactic Acid (Ammonium Lactate 12 % Cream 140 Gm Tube) 1 appl TOPICAL BEDTIME [facility]; Protocol Last Admin: 08/05/23 21:36 Dose: 1 appl Losartan Potassium (Losartan Potassium 50 Mg Tablet) 50 mg PO DAILY [facility]; Protocol Metoclopramide HCl (Metoclopramide Hcl 10 Mg/2 Ml Vial) 5 mg IVPUSH Q6H PRN PRN Reason: Nausea and Vomiting Last Admin: 08/05/23 01:34 Dose: 5 mg Ondansetron HCl (Ondansetron Hcl 4 Mg/2 Ml Vial) 4 mg IVPUSH Q8H PRN PRN Reason: Nausea and Vomiting Last Admin: 08/04/23 23:11 Dose: 4 mg Polyethylene Glycol (Polyethylene Glycol 3350 17 Gm Powd.Pack) 17 gm PO BID [facility] Last Admin: 08/05/23 21:41 Dose: Not Given Sodium Chloride (0.9 % Sodium Chloride Flush 3 Ml Syringe) 3 ml IVFLUSH QSHIFT [facility] Last Admin: 08/05/23 21:41 Dose: 3 ml Tamsulosin HCl (Tamsulosin Hcl 0.4 Mg Capsule) 0.8 mg PO DAILY [facility] Home Medications ?Medication ?Instructions ?Recorded ?Confirmed ?Last Taken ?Type ammonium lactate 12 % topical cream 1 appl topical BEDTIME 08/04/23 08/04/23 Unknown History bethanechol chloride 25 mg tablet 25 mg PO TID 08/04/23 08/04/23 Unknown History ezetimibe 10 mg tablet (Zetia) 10 mg PO DAILY 08/04/23 08/04/23 Unknown History gabapentin 300 mg capsule 300 mg PO TID 08/04/23 08/04/23 Unknown History insulin glargine 100 unit/mL (3 See Rx Instructions .Route .COMPLEX 08/04/23 08/04/23 Unknown History mL) subcutaneous pen (Lantus Solostar U-100 Insulin) levetiracetam 750 mg tablet 750 mg PO BID 08/04/23 08/04/23 Unknown History losartan 50 mg tablet 50 mg PO DAILY 08/04/23 08/04/23 Unknown History potassium chloride 10 mEq 10 meq PO DAILY 08/04/23 08/04/23 Unknown History tablet,extended release (Klor-Con) tamsulosin 0.4 mg capsule (Flomax) 0.8 mg PO DAILY 08/04/23 08/04/23 Unknown History tramadol 50 mg tablet 50 mg PO BID PRN Pain 08/04/23 08/04/23 Unknown History Physical Exam 2 Vital Signs: Vital Signs: Last Vital Signs Temp 99 F 08/05/23 20:00 Pulse 105 H 08/05/23 20:00 Resp 18 08/05/23 20:00 BP 154/73 H 08/05/23 20:00 Pulse Ox 100 08/05/23 20:00 O2 Del Method Room Air 08/05/23 20:00 BMI result Body Mass Index 31.9 Const: General: cooperative HEENT: Head: Yes normal to inspection Face and sinus: Yes normal facial exam Mouth: Normal oral and palatal mucosa present Teeth and gingiva: d entition normal Eyes: General: appearance normal, both eyes and all related structures P upils: Equal, round and reactive pupils present Resp: Effort & Inspection: normal respiratory effort Cardio: Rate: regular rate Rhythm: regular rhythm GI: Palpation (GI): Soft to palpation and nontender : General: Yes no CVA tenderness Back/Spine/Pelvis: Back: no CVA tenderness Skin: General skin exam: no rashes or lesions noted Neuro: General: moves all extremities Cranial nerves: Yes Equal, round and reactive pupils present Extrem: General: Yes normal to inspection Psych: Appearance: grossly normal Results Labs 08/05/23 05:03 08/05/23 05:03 Labs: Short CBC 08/05/23 Range/Units 05:03 WBC 12.0 H (4.8-10.8) X10*3/uL Hgb 12.6 (12.0-16.0) g/dl Hct 37.2 (37.0-47.0) % Plt Count 316 D (160-400) X10*3/uL BMP 08/05/23 05:03 Sodium 149 H Potassium 5.1 D Chloride 117 H Carbon Dioxide 21 L BUN 26 H Creatinine 1.07 Calcium 10.3 H Liver Function 08/05/23 Range/Units 05:03 Total Bilirubin 0.2 (0.0-1.0) mg/dL AST 14 (5-31) U/L ALT 11 (0-31) U/L Alkaline Phosphatase 91 (39-117) U/L Albumin 3.4 L (3.5-5.0) g/dL Microbiology Microbiology Results: Microbiology 08/04/23 12:17 Blood - Venous Blood Culture - Preliminary No growth after 24 hours. 08/04/23 12:18 Blood - Venous Blood Culture - Preliminary No growth after 24 hours. Assessment and Plan (1) COVID-19: Status: Acute (2) Fecal impaction: Status: Acute Plan COVID unknown duration Woud not give steroids ,patient not hypoxic No Remdesivir ,unknown duration and not hypoxic. No antibiotics indication at this time.
[2023-08-06] VITALS: BP 157/63; PULSE 93; RESP 17; TEMP 36.1; O2SAT 99
[2023-08-06 04:00] VITALS: BP 156/61; PULSE 92; RESP 17; TEMP 36.8; O2SAT 97
[2023-08-06] MEDS: Heparin Sodium,Porcine 5,000 UNIT/ML VIAL 5000 UNIT SUBCUT ×2 (05:59→16:31)
[2023-08-06 06:56] LABS: Blood Urea Nitrogen 25 mg/dL (9-16); Calcium 9.8 mg/dL (8.4-10.2); Creatinine Clr Calc Pharmacy 42.4; Estimated Glomerular Filt Rate 44; Glucose Random 137 mg/dL (60-115)
[2023-08-06 07:13] LABS: Anion Gap 15 (12-20); Carbon Dioxide 23 mmol/L (22-29); Chloride 110 mmol/L (96-108); Potassium 3.6 mmol/L (3.3-5.1); Sodium 144 mmol/L (135-145)
[2023-08-06 07:54] VITALS: BP 165/66; PULSE 99; RESP 20; TEMP 36.2; O2SAT 96
[2023-08-06 08:25] LABS: MANUAL DIFF FLAG NO
[2023-08-06 08:32] LABS: Basophils Absolute Auto 0.1 X10*3/uL (0.0-0.2); Basophils Percent Auto 0.4 % (0-2); Eosinophils Absolute Auto 1.6 X10*3/uL (0.0-0.4); Eosinophils Percent Auto 9.4 % (0-4); Hematocrit 35.4 % (37.0-47.0); Hemoglobin 11.8 g/dl (12.0-16.0); Imm Gran Abs Auto 0.09 X10*3/uL (0.00-0.03); Imm Gran Pct Auto 0.5 % (0.0-0.4); Lymphocytes Absolute Auto 1.8 X10*3/uL (1.2-4.9); Lymphocytes Percent Auto 10.7 % (20-40); Mean Corpuscular HGB Conc 33.3 g/dl (31.0-35.0); Mean Corpuscular Hemoglobin 31.2 pg (27.0-33.0); Mean Corpuscular Volume 93.7 fL (80.0-98.0); Mean Platelet Volume 10.3 fL (9.4-12.3); Monocytes Percent Auto 6.2 % (2-11); Neutrophils Absolute Auto 12.2 x10*3/uL (2.0-8.3); Neutrophils Percent Auto 72.8 % (45-73); Platelet Count 352 X10*3/uL (160-400); Red Blood Count 3.78 X10*6/uL (4.20-5.50); Red Cell Distribution Width 12.9 % (11.0-16.0); White Blood Count 16.7 X10*3/uL (4.8-10.8)
[2023-08-06] MEDS: Gabapentin 300 MG CAPSULE PO ×3 (08:48→22:11)
[2023-08-06] MEDS: Tamsulosin HCL 0.4 MG CAPSULE 0.8 MG PO (08:48)
[2023-08-06] MEDS: Losartan Potassium 50 MG TABLET PO (08:48)
[2023-08-06] MEDS: levETIRAcetam 750 MG in 0.9 % Sodium Chloride 100 ML 430 MG IV ×2 (08:48→22:11)
[2023-08-06] MEDS: Aspirin Enteric Coated 81 MG TABLET.DR PO (08:48)
[2023-08-06] MEDS: polyethylene glycoL 3350 17 GM POWD.PACK PO ×2 (08:49→22:12)
[2023-08-06] MEDS: amLODIPine Besylate 10 MG TABLET PO (08:49)
[2023-08-06] MEDS: Metoclopramide HCl 10 MG/2 ML VIAL 5 MG IVPUSH (08:49)
[2023-08-06] MEDS: Bethanechol Chloride 25 MG TABLET PO ×3 (08:49→22:11)
[2023-08-06] MEDS: Dextrose 5 % 1,000 ML 75 ML IVCONT (08:51)
[2023-08-06 09:04] LABS: Glucose, Whole Blood 140 mg/dL (60-115)
[2023-08-06] MEDS: 0.9 % Sodium Chloride Flush 3 ML SYRINGE IVFLUSH (09:09)
[2023-08-06 11:19] VITALS: BP 111/52; PULSE 90; RESP 20; TEMP 36.2; O2SAT 92
[2023-08-06 11:26] LABS: Glucose, Whole Blood 132 mg/dL (60-115)
--- NOTE | 2023-08-06 11:52 | P.PNIM_ITS ---
Subjective Subjective Date of Service: 08/06/23 Interval History: Seen and examined this morning Follow-up for viral sepsis due to COVID-19, fecal impaction, nausea/vomiting Patient awake alert, sitting up in bed, reports feeling better. No vomiting this morning, denies abdominal pain Review of Systems Review of Systems: Yes all other systems are reviewed and are negative Constitutional Constitutional: Denies fever(s) Cardiovascular Cardiovascular: Denies chest pain and Denies dyspnea Respiratory Respiratory: Denies dyspnea Physical Exam 2 Vital Signs: Vital Signs: Last Vital Signs Temp 97.1 F 08/06/23 11:19 Pulse 90 08/06/23 11:19 Resp 20 08/06/23 11:19 BP 111/52 L 08/06/23 11:19 Pulse Ox 92 08/06/23 11:19 O2 Del Method Room Air 08/06/23 07:54 BMI result Body Mass Index 31.9 Const: Other: awake, sleepy; answering all questions appropriately. Nutritional Appearance: overweight Resp: Effort & Inspection: normal respiratory effort, able to speak in complete sentences, no respiratory distress and no use of accessory muscles Cardio: Rate: regular rate GI: Palpation (GI): Soft to palpation Neuro: Other: chronic left hemiparesis Extrem: General: Yes no pedal edema Objective Data Active Medications Acetaminophen (Acetaminophen 325 Mg Tablet) 650 mg PO Q6H PRN PRN Reason: Pain, Mild (Pain Scale 1-3) Amlodipine Besylate (Amlodipine Besylate 10 Mg Tablet) 10 mg PO DAILY [facility]; Protocol Last Admin: 08/06/23 08:49 Dose: 10 mg Documented By: BLAIR Aspirin (Aspirin Enteric Coated 81 Mg Tablet.) 81 mg PO DAILY [facility] Last Admin: 08/06/23 08:48 Dose: 81 mg Documented By: BLAIR Bethanechol Chloride (Bethanechol Chloride 25 Mg Tablet) 25 mg PO TID [facility] Last Admin: 08/06/23 08:49 Dose: 25 mg Documented By: BLAIR Gabapentin (Gabapentin 300 Mg Capsule) 300 mg PO TID [facility] Last Admin: 08/06/23 08:48 Dose: 300 mg Documented By: BLAIR Glucose (Glucose Gel 15 Gm Gel..Gram.) 15 gm PO Q15M PRN; Protocol PRN Reason: per Hypoglycemia Standing Ord. Heparin Sodium (Porcine) (Heparin Sodium,Porcine 5,000 Unit/Ml Vial) 5,000 unit SUBCUT Q12H [facility] Last Admin: 08/06/23 05:59 Dose: 5,000 unit Documented By: ANTONIO Dextrose (D10) 250 mls @ 750 mls/hr IV Q15M PRN; Protocol PRN Reason: per Hypoglycemia Standing Ord. Dextrose (D5w) 1,000 mls @ 75 mls/hr IVCONT .[id number] [facility] Last Admin: 08/06/23 08:51 Dose: 75 mls/hr Documented By: BLAIR Levetiracetam 750 mg/ Sodium (Chloride) 107.5 mls @ 430 mls/hr IV Q12H [facility] Last Infusion: 08/06/23 09:14 Dose: Infused Documented By: BLAIR Insulin Human Lispro (Insulin Lispro 100 Unit/Ml 3 Ml Vial) 0 unit SUBCUT QIDACHS [facility]; Protocol Last Admin: 08/06/23 08:37 Dose: Not Given Documented By: BLAIR Non-Admin Reason: No Insulin Coverage Lactic Acid (Ammonium Lactate 12 % Cream 140 Gm Tube) 1 appl TOPICAL BEDTIME [facility]; Protocol Last Admin: 08/05/23 21:36 Dose: 1 appl Documented By: ANTONIO Losartan Potassium (Losartan Potassium 50 Mg Tablet) 50 mg PO DAILY [facility]; Protocol Last Admin: 08/06/23 08:48 Dose: 50 mg Documented By: BLAIR Metoclopramide HCl (Metoclopramide Hcl 10 Mg/2 Ml Vial) 5 mg IVPUSH Q6H PRN PRN Reason: Nausea and Vomiting Last Admin: 08/06/23 08:49 Dose: 5 mg Documented By: BLAIR Ondansetron HCl (Ondansetron Hcl 4 Mg/2 Ml Vial) 4 mg IVPUSH Q8H PRN PRN Reason: Nausea and Vomiting Last Admin: 08/04/23 23:11 Dose: 4 mg Documented By: JCARLOS Polyethylene Glycol (Polyethylene Glycol 3350 17 Gm Powd.Pack) 17 gm PO BID [facility] Last Admin: 08/06/23 08:49 Dose: 17 gm Documented By: BLAIR Sodium Chloride (0.9 % Sodium Chloride Flush 3 Ml Syringe) 3 ml IVFLUSH QSHIFT [facility] Last Admin: 08/06/23 09:09 Dose: 3 ml Documented By: BLAIR Tamsulosin HCl (Tamsulosin Hcl 0.4 Mg Capsule) 0.8 mg PO DAILY [facility] Last Admin: 08/06/23 08:48 Dose: 0.8 mg Documented By: BLAIR Labs 08/06/23 06:26 08/06/23 06:26 Labs: Laboratory Results - last 24 hr 08/05/23 08/05/23 08/05/23 13:27 16:07 21:21 MCV MCH MCHC RDW Plt Count MPV Immature Gran % (Auto) Neut % (Auto) Lymph % (Auto) [place] % (Auto) Eos % (Auto) Baso % (Auto) Lymph # (Auto) [place] # (Auto) Eos # (Auto) Baso # (Auto) Abs Immat Gran (auto) Absolute Neuts (auto) Absolute Nucleated RBC Nucleated RBC % (auto) Hold Purple Top Anion Gap Estim Creat Clear Calc Estimated GFR POC Glucose 110 104 131 H Random Glucose Calcium 08/06/23 08/06/23 08/06/23 06:26 08:00 11:18 MCV 93.7 MCH 31.2 MCHC 33.3 RDW 12.9 Plt Count 352 MPV 10.3 Immature Gran % (Auto) 0.5 H Neut % (Auto) 72.8 Lymph % (Auto) 10.7 L [place] % (Auto) 6.2 Eos % (Auto) 9.4 H Baso % (Auto) 0.4 Lymph # (Auto) 1.8 [place] # (Auto) 1.0 Eos # (Auto) 1.6 H Baso # (Auto) 0.1 Abs Immat Gran (auto) 0.09 H Absolute Neuts (auto) 12.2 H Absolute Nucleated RBC 0.000 Nucleated RBC % (auto) 0.0 Hold Purple Top SEE NOTE Anion Gap 15 Estim Creat Clear Calc 42.4 Estimated GFR 44 POC Glucose 140 H 132 H Random Glucose 137 H Calcium 9.8 Microbiology Microbiology Results: Microbiology 08/04/23 12:17 Blood Culture - Preliminary Blood - Venous No growth after 24 hours. 08/04/23 12:18 Blood Culture - Preliminary Blood - Venous No growth after 24 hours. Assessment and Plan (1) Fecal impaction: Status: Acute (2) COVID-19: Status: Acute (3) Pneumonia: Status: Acute Plan This is a 68 year old women with history of stroke and residual left-sided hemiparesis admitted with viral sepsis due to COVID-19, fecal impaction and nausea/vomiting. Viral sepsis secondary to covid 19 hypothermia, lactic acidosis, leukocytosis. Hypothermia improved with bear hugger. Persistent leukocytosis. no hypoxia, no indication for steroids at this time. seen by ID, no further treatment indicated continue supportive care Blood cultures negative to date Stercoral colitis/ fecal impaction KUB negative for obstruction Seen by General surgery and manually disimpacted at the bedside Continue bowel regimen Nausea/vomiting Likely secondary to fecal impaction KUB negative for bowel obstruction Initial imaging with gastric distention. Symptoms improving after disimpaction Will add advanced diet to clear liquids, advance as tolerated Hypernatremia Likely due to fluid, decreased p.o. intake Resolved with D5W Hypercalcemia Likely related to dehydration. Resolved with hydration Diabetes mellitus type 2 Sliding scale, ada diet Hypertension with hypotension likely secondary to dehydration received 3 liters of IV fluids bp improving, home losartan, Norvasc resumed Hx of CVA left sided neglect and hemiparesis with aphagia and dysphagia continue asa and zetia Seizure disorder We will convert Keppra to IV until able to take po meds consistently, then can change back to po DVT prophylaxis with Heparin Full code Disposition-TBD, elder at risk assessment/CM involved Requires ongoing inpatient stay for treatment of viral sepsis secondary to COVID-19 with close monitoring. Due to patient's age and other comorbidities she is at high risk for decompensation Quality Stroke Does the patient have a stroke diagnosis?: No VTE Prior VTE?: No VTE Risk Level:: Medical - moderate - high VTE Device Contraindication: Treatment Not Indicated VTE Drug Contraindication: N/A - Med Ordered
[2023-08-06] MEDS: Sodium Chloride 0.45 % 1,000 ML 100 ML IVCONT ×2 (12:02→23:35)
--- NOTE | 2023-08-06 12:18 | P.PNGS_ITS ---
Subjective Subjective Date of Service: 08/06/23 Interval history: No events reported As per nurse, vomited with clear liquids yesterday No pain reported Physical Exam 2 Vital Signs: Vital Signs: Last Vital Signs Temp 97.1 F 08/06/23 11:19 Pulse 90 08/06/23 11:19 Resp 20 08/06/23 11:19 BP 111/52 L 08/06/23 11:19 Pulse Ox 92 08/06/23 11:19 O2 Del Method Room Air 08/06/23 07:54 BMI result Body Mass Index 31.9 Const: Other: Asleep, does not answer questions at this time Resp: Effort & Inspection: normal respiratory effort Cardio: Rate: regular rate GI: Inspection: No distended Palpation (GI): Soft to palpation, not firm, nontender and no guarding Objective Data Active Medications Acetaminophen (Acetaminophen 325 Mg Tablet) 650 mg PO Q6H PRN PRN Reason: Pain, Mild (Pain Scale 1-3) Amlodipine Besylate (Amlodipine Besylate 10 Mg Tablet) 10 mg PO DAILY [facility]; Protocol Last Admin: 08/06/23 08:49 Dose: 10 mg Documented By: BLAIR Aspirin (Aspirin Enteric Coated 81 Mg Tablet.Dr) 81 mg PO DAILY [facility] Last Admin: 08/06/23 08:48 Dose: 81 mg Documented By: BLAIR Bethanechol Chloride (Bethanechol Chloride 25 Mg Tablet) 25 mg PO TID [facility] Last Admin: 08/06/23 08:49 Dose: 25 mg Documented By: BLAIR Bisacodyl (Bisacodyl 10 Mg Supp.Rect) 10 mg PA BEDTIME PRN PRN Reason: Constipation Docusate Sodium (Docusate Sodium 100 Mg Capsule) 100 mg PO BID [facility] Gabapentin (Gabapentin 300 Mg Capsule) 300 mg PO TID [facility] Last Admin: 08/06/23 08:48 Dose: 300 mg Documented By: BLAIR Glucose (Glucose Gel 15 Gm Gel..Gram.) 15 gm PO Q15M PRN; Protocol PRN Reason: per Hypoglycemia Standing Ord. Heparin Sodium (Porcine) (Heparin Sodium,Porcine 5,000 Unit/Ml Vial) 5,000 unit SUBCUT Q12H [facility] Last Admin: 08/06/23 05:59 Dose: 5,000 unit Documented By: ANTONIO Dextrose (D10) 250 mls @ 750 mls/hr IV Q15M PRN; Protocol PRN Reason: per Hypoglycemia Standing Ord. Levetiracetam 750 mg/ Sodium (Chloride) 107.5 mls @ 430 mls/hr IV Q12H [facility] Last Infusion: 08/06/23 09:14 Dose: Infused Documented By: BLAIR Sodium Chloride (Sodium Chloride 0.45 %) 1,000 mls @ 100 mls/hr IVCONT .Q10H [facility] Last Admin: 08/06/23 12:02 Dose: 100 mls/hr Documented By: BLAIR Insulin Human Lispro (Insulin Lispro 100 Unit/Ml 3 Ml Vial) 0 unit SUBCUT QIDACHS [facility]; Protocol Last Admin: 08/06/23 11:53 Dose: Not Given Documented By: BLAIR Non-Admin Reason: No Insulin Coverage Lactic Acid (Ammonium Lactate 12 % Cream 140 Gm Tube) 1 appl TOPICAL BEDTIME [facility]; Protocol Last Admin: 08/05/23 21:36 Dose: 1 appl Documented By: ANTONIO Losartan Potassium (Losartan Potassium 50 Mg Tablet) 50 mg PO DAILY [facility]; Protocol Last Admin: 08/06/23 08:48 Dose: 50 mg Documented By: BLAIR Metoclopramide HCl (Metoclopramide Hcl 10 Mg/2 Ml Vial) 5 mg IVPUSH Q6H PRN PRN Reason: Nausea and Vomiting Last Admin: 08/06/23 08:49 Dose: 5 mg Documented By: BLAIR Ondansetron HCl (Ondansetron Hcl 4 Mg/2 Ml Vial) 4 mg IVPUSH Q8H PRN PRN Reason: Nausea and Vomiting Last Admin: 08/04/23 23:11 Dose: 4 mg Documented By: JCARLOS Polyethylene Glycol (Polyethylene Glycol 3350 17 Gm Powd.Pack) 17 gm PO BID [facility] Last Admin: 08/06/23 08:49 Dose: 17 gm Documented By: BLAIR Sodium Chloride (0.9 % Sodium Chloride Flush 3 Ml Syringe) 3 ml IVFLUSH QSHIFT [facility] Last Admin: 08/06/23 09:09 Dose: 3 ml Documented By: BLAIR Tamsulosin HCl (Tamsulosin Hcl 0.4 Mg Capsule) 0.8 mg PO DAILY [facility] Last Admin: 08/06/23 08:48 Dose: 0.8 mg Documented By: BLAIR Labs 08/06/23 06:26 08/06/23 06:26 Labs: Laboratory Results - last 24 hr 08/05/23 08/05/23 08/05/23 13:27 16:07 21:21 MCV MCH MCHC RDW Plt Count MPV Immature Gran % (Auto) Neut % (Auto) Lymph % (Auto) [place] % (Auto) Eos % (Auto) Baso % (Auto) Lymph # (Auto) [place] # (Auto) Eos # (Auto) Baso # (Auto) Abs Immat Gran (auto) Absolute Neuts (auto) Absolute Nucleated RBC Nucleated RBC % (auto) Hold Purple Top Anion Gap Estim Creat Clear Calc Estimated GFR POC Glucose 110 104 131 H Random Glucose Calcium 08/06/23 08/06/23 08/06/23 06:26 08:00 11:18 MCV 93.7 MCH 31.2 MCHC 33.3 RDW 12.9 Plt Count 352 MPV 10.3 Immature Gran % (Auto) 0.5 H Neut % (Auto) 72.8 Lymph % (Auto) 10.7 L [place] % (Auto) 6.2 Eos % (Auto) 9.4 H Baso % (Auto) 0.4 Lymph # (Auto) 1.8 [place] # (Auto) 1.0 Eos # (Auto) 1.6 H Baso # (Auto) 0.1 Abs Immat Gran (auto) 0.09 H Absolute Neuts (auto) 12.2 H Absolute Nucleated RBC 0.000 Nucleated RBC % (auto) 0.0 Hold Purple Top SEE NOTE Anion Gap 15 Estim Creat Clear Calc 42.4 Estimated GFR 44 POC Glucose 140 H 132 H Random Glucose 137 H Calcium 9.8 Microbiology Microbiology Results: Microbiology 08/04/23 12:17 Blood Culture - Preliminary Blood - Venous No growth after 24 hours. 08/04/23 12:18 Blood Culture - Preliminary Blood - Venous No growth after 24 hours. Procedures Date of Service Date of Service: 08/06/23 Progress Note: A&P Assessment and plan (1) Fecal impaction: Status: Acute Assessment and Plan: Abdomen remained soft, benign, nondistended Vomiting unlikely to be related to fecal impaction Imaging does not suggest obstruction Like has some degree of gastric ileus from ongoing illness Diet as tolerated No surgical intervention necessary at this time Time Spent With Patient Time: Total time managing care of this patient today ____ minutes. Quality Stroke Does the patient have a stroke diagnosis?: No VTE Prior VTE?: No VTE Risk Level:: Medical - moderate - high VTE Device Contraindication: Treatment Not Indicated VTE Drug Contraindication: N/A - Med Ordered
--- NOTE | 2023-08-06 12:45 | MHC.CM.PN ---
Pt is not yet ready for DC, she reqires ongoing acute care for sepsis due to Covid 19. CM left a message for [facility] [employer] CM, and attempted to meet with pt., who was asleep, will re-approach. CM to follow for DC needs.
[2023-08-06 13:31] VITALS: BMI 31.9
--- NOTE | 2023-08-06 13:35 | MHC.CLN ---
RE: CONSULT PT IS MODERATELY MALNOURISHED PT WITH MILDLY DEPLETED SUBCUTANEOUS FAT AND TRIGGERS FOR 26% SIGNIFICANT WT LOSS X 1 YEAR WITH CHRONIC POOR PO INTAKE S/P CVA WITH L SIDED MAC 07/21 WITH OVERALL DECLINE IN ADLS AND BED BOUND. DIET RX: C/L-APPROPRIATE RECOMMEND ADDING ENSURE CLEAR TID TO INCREASE KCALS SUPP TO PROVIDE 720KCALS, 24G PROTEIN MONITOR PO INTAKE AND ENCOURAGE SUPPLEMENTS SEE ALSO FULL CLINICAL NUTRITION ASSESSMENT
[2023-08-06 15:49] VITALS: BP 114/58; PULSE 84; RESP 20; TEMP 37.2; O2SAT 94
[2023-08-06 16:04] LABS: Glucose, Whole Blood 156 mg/dL (60-115)
[2023-08-06] MEDS: Insulin Lispro 100 UNIT/ML 3 ML VIAL SUBCUT ×2 (16:31→22:12)
[2023-08-06 20:00] VITALS: BP 139/53; PULSE 84; RESP 20; TEMP 37.2; O2SAT 95
[2023-08-06 20:27] LABS: Glucose, Whole Blood 184 mg/dL (60-115)
[2023-08-06] MEDS: Docusate Sodium 100 MG CAPSULE PO (22:10)
[2023-08-06] MEDS: Ammonium Lactate 12 % Cream 140 GM TUBE 1 APPL TOPICAL (22:11)
[2023-08-07] VITALS: BP 146/55; PULSE 78; RESP 18; TEMP 37; O2SAT 95
[2023-08-07] MEDS: 0.9 % Sodium Chloride Flush 3 ML SYRINGE IVFLUSH (00:50)
[2023-08-07 03:57] VITALS: BP 154/60; PULSE 104; RESP 20; TEMP 36.9; O2SAT 97
[2023-08-07] MEDS: Heparin Sodium,Porcine 5,000 UNIT/ML VIAL 5000 UNIT SUBCUT (05:05)
[2023-08-07 06:40] LABS: MANUAL DIFF FLAG NO
[2023-08-07 06:49] LABS: Basophils Percent Auto 0.1 % (0-2); Eosinophils Percent Auto 14.9 % (0-4); Hematocrit 30.7 % (37.0-47.0); Hemoglobin 10.4 g/dl (12.0-16.0); Imm Gran Abs Auto 0.07 X10*3/uL (0.00-0.03); Imm Gran Pct Auto 0.5 % (0.0-0.4); Lymphocytes Absolute Auto 2.1 X10*3/uL (1.2-4.9); Lymphocytes Percent Auto 15.7 % (20-40); Mean Corpuscular HGB Conc 33.9 g/dl (31.0-35.0); Mean Corpuscular Hemoglobin 30.8 pg (27.0-33.0); Mean Corpuscular Volume 90.8 fL (80.0-98.0); Mean Platelet Volume 9.8 fL (9.4-12.3); Monocytes Absolute Auto 0.9 X10*3/uL (0.1-1.2); Monocytes Percent Auto 6.4 % (2-11); Neutrophils Absolute Auto 8.4 x10*3/uL (2.0-8.3); Neutrophils Percent Auto 62.4 % (45-73); Platelet Count 271 X10*3/uL (160-400); Red Blood Count 3.38 X10*6/uL (4.20-5.50); Red Cell Distribution Width 12.3 % (11.0-16.0); White Blood Count 13.4 X10*3/uL (4.8-10.8)
[2023-08-07 07:08] LABS: Anion Gap 9 (12-20); Blood Urea Nitrogen 14 mg/dL (9-16); Carbon Dioxide 26 mmol/L (22-29); Chloride 109 mmol/L (96-108); Creatinine Clr Calc Pharmacy 62.9; Estimated Glomerular Filt Rate > 60; Glucose Random 120 mg/dL (60-115); Potassium 3.2 mmol/L (3.3-5.1); Sodium 141 mmol/L (135-145)
[2023-08-07 08:00] VITALS: BP 142/63; PULSE 81; RESP 16; TEMP 36.2; O2SAT 95
[2023-08-07 08:26] LABS: Glucose, Whole Blood 111 mg/dL (60-115)
[2023-08-07 08:42] VITALS: BP 142/63
[2023-08-07] MEDS: amLODIPine Besylate 10 MG TABLET PO (08:42)
[2023-08-07] MEDS: Aspirin Enteric Coated 81 MG TABLET.DR PO (08:42)
[2023-08-07 08:43] VITALS: BP 142/63
[2023-08-07] MEDS: Tamsulosin HCL 0.4 MG CAPSULE 0.8 MG PO (08:43)
[2023-08-07] MEDS: polyethylene glycoL 3350 17 GM POWD.PACK PO (08:43)
[2023-08-07] MEDS: Docusate Sodium 100 MG CAPSULE PO (08:43)
[2023-08-07] MEDS: Bethanechol Chloride 25 MG TABLET PO ×2 (08:43→16:01)
[2023-08-07] MEDS: Gabapentin 300 MG CAPSULE PO ×2 (08:43→16:01)
[2023-08-07] MEDS: Losartan Potassium 50 MG TABLET PO (08:43)
[2023-08-07] MEDS: levETIRAcetam 750 MG in 0.9 % Sodium Chloride 100 ML 430 MG IV (10:19)
[2023-08-07] MEDS: Sodium Chloride 0.45 % 1,000 ML 100 ML IVCONT (10:20)
[2023-08-07 12:00] VITALS: BP 150/67; PULSE 68; RESP 20; TEMP 36.4; O2SAT 95
[2023-08-07 12:22] LABS: Glucose, Whole Blood 165 mg/dL (60-115)
--- NOTE | 2023-08-07 14:33 | P.DS_ITS ---
DS: Providers Provider Date of Service: 08/07/23 Date of admission: 08/04/23 16:33 Primary care physician: Mata Kelley MD Consults: 08/04/23 16:35 Consult to Infectious Diseases Routine Consulting Provider: [facility] [place] [facility] Reason for consultation: covid 19 08/05/23 09:52 Consult to General Surgery Routine Consulting Provider: [facility] [place] [facility] Sur[facility] Reason for consultation: fecal impaction, vomiting Has provider been notified: No 08/05/23 15:45 Consult to Wound Care Routine Reason for consultation: Wound to coccyx DS: Diagnosis Discharge Diagnosis (1) Fecal impaction: Status: Acute DS: Summary Hospital Course Hospital Course: HPI from admission H&P 68-year-old woman with a history of CVA, left-sided hemiparesis presenting to the ER with nausea, vomiting and hypotension. According to the patient's daughter she was hypoglycemic this morning with blood sugar of 67. Patient had a stroke in June of 2022 and has been bed ridden ever since she was recently discharged from the sn[facility] facility in June of 2023 and has been living with her son ever since. Apparently she has had some issues with skin breakdown at home seen by Occupational all and physical therapists. According to the patient's daughter the patient's while taking care of at home. Patient presents with hypothermia, bradycardia, hypotension, leukocytosis, elevated lactic acid, calcium of 11.2 and positive for COVID-19. No hypoxia noted. She was given a dose of Rocephin and doxycycline, 3 L of IV fluid and atropine. She will be admitted for further management and treatment of viral sepsis secondary to COVID-19. Hospital Course: Patient was treated with supportive care for her COVID-19 infection. She did not have hypoxia and hence Decadron. Id was consulted and given unknown du ration of her positivity remdesivir was also held. For her fecal impaction, general surgery was consulted and did a manual disimpaction. She was started on a bowel regimen. She was initially placed on clear liquids which has been now advanced to solids that she has tolerated. She has not required any antiemetics for greater than 24 hours prior to discharge. She will be discharged home with a bowel regimen consisting of senna, Colace and MiraLax otherwise no changes to her chronic medications have been made. Time Attestation Discharge Coordination Time (in mins): 35 minutes Quality: Safe Use of Opioids Does Pt have an Active Cancer Diagnosis on the Problem List?: No Quality: Stroke Does the patient have a stroke diagnosis?: No Physical Exam Vital Signs: Vital Signs: Last Vital Signs Temp 97.6 F 08/07/23 12:00 Pulse 68 08/07/23 12:00 Resp 20 08/07/23 12:00 BP 150/67 H 08/07/23 12:00 Pulse Ox 95 08/07/23 12:00 O2 Del Method Room Air 08/07/23 12:00 BMI result Body Mass Index 31.9 Const: Other: awake and alert abd soft nt cvs s1s2 lung breathing comfortably DS: Data Data Completed and Pending Completed studies during hospitalization [Text1]: Procedures Introduction of Other Thrombolytic into Peripheral Vein, Percutaneous Approach (06/29/22) Labs on day of discharge: Laboratory Results - last 24 hr 08/06/23 08/06/23 08/07/23 15:45 20:17 06:20 WBC 13.4 H RBC 3.38 L Hgb 10.4 L Hct 30.7 L MCV 90.8 MCH 30.8 MCHC 33.9 RDW 12.3 Plt Count 271 MPV 9.8 Immature Gran % (Auto) 0.5 H Neut % (Auto) 62.4 Lymph % (Auto) 15.7 L [place] % (Auto) 6.4 Eos % (Auto) 14.9 H Baso % (Auto) 0.1 Lymph # (Auto) 2.1 [place] # (Auto) 0.9 Eos # (Auto) 2.0 H Baso # (Auto) 0.0 Abs Immat Gran (auto) 0.07 H Absolute Neuts (auto) 8.4 H Absolute Nucleated RBC 0.000 Nucleated RBC % (auto) 0.0 Sodium 141 Potassium 3.2 L Chloride 109 H Carbon Dioxide 26 Anion Gap 9 L BUN 14 Creatinine 0.81 Estim Creat Clear Calc 62.9 Estimated GFR > 60 POC Glucose 156 H 184 H Random Glucose 120 H Calcium 9.0 D 08/07/23 08/07/23 08:22 12:18 WBC RBC Hgb Hct MCV MCH MCHC RDW Plt Count MPV Immature Gran % (Auto) Neut % (Auto) Lymph % (Auto) [place] % (Auto) Eos % (Auto) Baso % (Auto) Lymph # (Auto) [place] # (Auto) Eos # (Auto) Baso # (Auto) Abs Immat Gran (auto) Absolute Neuts (auto) Absolute Nucleated RBC Nucleated RBC % (auto) Sodium Potassium Chloride Carbon Dioxide Anion Gap BUN Creatinine Estim Creat Clear Calc Estimated GFR POC Glucose 111 165 H Random Glucose Calcium Preliminary micro results at discharge 08/04/23 12:17 Blood Culture - Preliminary Blood - Venous No growth after 48 hours. 08/04/23 12:18 Blood Culture - Preliminary Blood - Venous No growth after 48 hours. Discharge Plan Discharge Anticipated Discharge Date/Time: 08/07/23 14:22 Patient Disposition: Home Health Service Discharge Diagnosis: Fecal Impaction Referrals: Mata Kelley MD [Primary Care Provider] - 1 Week Discharge Medications: New polyethylene glycol 3350 [Miralax] 17 gram/dose powder 17 g PO DAILY Qty: 238 2RF senna 8.6 mg capsule 17.2 mg PO DAILY Qty: 60 2RF docusate sodium [Colace] 100 mg capsule 100 mg PO DAILY Qty: 30 2RF Continued aspirin 81 mg Tablet,Delayed Release (Dr/Ec) 81 mg PO DAILY Qty: 30 0RF amlodipine 10 mg Tablet 10 mg PO DAILY Qty: 30 0RF Protocol: Hold for SBP< HOLD for SBP < : 90 insulin glargine [Lantus Solostar U-100 Insulin] 100 unit/mL (3 mL) insulin pen See Rx Instructions .ROUTE .COMPLEX Rx Instructions: INJECT 30 UNITS SUBCUTANEOUS EVERY MORNING AND 7 UNITS EVERY NIGHT AT BEDTIME losartan 50 mg tablet 50 mg PO DAILY potassium chloride [Klor-Con 10] 10 mEq tablet extended release 10 meq PO DAILY tramadol 50 mg tablet 50 mg PO BID PRN (Reason: Pain) bethanechol chloride 25 mg tablet 25 mg PO TID tamsulosin [Flomax] 0.4 mg capsule 0.8 mg PO DAILY gabapentin 300 mg capsule 300 mg PO TID ammonium lactate 12 % cream 1 appl TOPICAL BEDTIME levetiracetam 750 mg tablet 750 mg PO BID ezetimibe [Zetia] 10 mg tablet 10 mg PO DAILY Discharge Orders: Discharge Order (Routine); Ordered 08/07/23 Ordered By: Avni Gates Diet: Advance to usual diet Activity on Discharge: As tolerated Stand Alone Forms: Patient Portal Discharge page Print Language: Bengali Care Plan Goals: To stay healthy and out of the hospital. Health Concerns: Constipation COVID-19 Plan of Treatment: For constipation -- take bowel regiment as prescribed. For COVID-19 -- follow CDC guidelines Assessment: See d/c summary
--- NOTE | 2023-08-07 15:59 | MHC.CM.PN ---
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 RETURN REFERRAL SENT TO [facility] PT WILL DC VIA BLS TRANSPORT WITH [facility] THIS EVENING, FAMILY IS AWARE PT WILL LIKELY BE HOME AROUND 1900 HOURS DC PLANS DISCUSSED WITH PTS DAUGHTER / HCP, JUANCHO [phone]
[2023-08-07 17:13] LABS: Glucose, Whole Blood 151 mg/dL (60-115)
== END 2023-08-07 19:52 | disposition home health service (06) | DRG 871 ==
LOC: HO.ED 14:27 → HO.EDOVER 16:38 → HO.IMC 08-05 07:24
PROVIDERS: Physician Assistant Medical; Admitting Provider Nurse Practitioner Acute Care; Emergency Provider Student in an Organized Health Care Education/Training Program; PCP Internal Medicine Medical Oncology; Visit Provider Family Medicine
DX: A41.89 Other specified sepsis (principal); J18.9 Pneumonia, unspecified organism; U07.1 COVID-19; G40.509 Epileptic seizures related to external causes, not intractable, without status epilepticus; I69.354 Hemiplegia and hemiparesis following cerebral infarction affecting left non-dominant side; K56.7 Ileus, unspecified; I69.391 Dysphagia following cerebral infarction; R13.10 Dysphagia, unspecified; E11.9 Type 2 diabetes mellitus without complications; K56.41 Fecal impaction; E83.52 Hypercalcemia; K52.89 Other specified noninfective gastroenteritis and colitis; I69.398 Other sequelae of cerebral infarction; I10 Essential (primary) hypertension; Z74.01 Bed confinement status; I95.9 Hypotension, unspecified; E86.0 Dehydration; Z79.4 Long term (current) use of insulin; Z79.82 Long term (current) use of aspirin; Z79.899 Other long term (current) drug therapy
CPT/HCPCS: 0241U; 36415; 71046; 74018; 74177; 80048; 80053; 80076; 80307; 81001; 82947; 83605; 83690; 83735; 84443; 84484; 85025; 85610; 86850; 86900; 86901; 87040; 93005; 99222; 99285; J0461; J0696; J1644; J1953; J2405; J2765; J7120; Q9967

== ENCOUNTER → 2023-08-04 12:09 | Outpatient (BNV) | payer MEDICARE, SELFPAY | PROVIDERS: Admitting Provider Nurse Practitioner Acute Care; Emergency Provider Student in an Organized Health Care Education/Training Program; PCP Internal Medicine Medical Oncology; Visit Provider Internal Medicine Cardiovascular Disease | DX: R94.31 Abnormal electrocardiogram [ECG] [EKG] (principal) | CPT/HCPCS: 93010 ==

== ENCOUNTER → 2023-08-04 16:33 | Outpatient (BNV) | payer MEDICARE, SELFPAY | PROVIDERS: Admitting Provider Nurse Practitioner Acute Care; Emergency Provider Student in an Organized Health Care Education/Training Program; PCP Internal Medicine Medical Oncology; Visit Provider Surgery | DX: K56.41 Fecal impaction (principal) | CPT/HCPCS: 99222; 99232 ==

== ENCOUNTER → 2023-08-04 16:33 | Outpatient (BNV) | payer MEDICARE, SELFPAY | PROVIDERS: Admitting Provider Nurse Practitioner Acute Care; Emergency Provider Student in an Organized Health Care Education/Training Program; PCP Internal Medicine Medical Oncology; Visit Provider Internal Medicine | DX: U07.1 COVID-19 (principal); K56.41 Fecal impaction | CPT/HCPCS: 99222 ==

== ENCOUNTER → 2023-08-04 16:33 | Outpatient (BNV) | payer MEDICARE, SELFPAY | PROVIDERS: Admitting Provider Nurse Practitioner Acute Care; Emergency Provider Student in an Organized Health Care Education/Training Program; PCP Internal Medicine Medical Oncology; Visit Provider Nurse Practitioner Acute Care | DX: K56.41 Fecal impaction (principal) | CPT/HCPCS: 99223; 99232; 99233; 99239 ==

== ENCOUNTER 2024-02-03 10:38 | Outpatient (REF) | payer MEDICARE, MEDICAID, SELFPAY ==
[2024-02-03 12:58] LABS: MANUAL DIFF FLAG NO
[2024-02-03 13:09] LABS: Basophils Absolute Auto 0.1 X10*3/uL (0.0-0.2); Eosinophils Absolute Auto 0.9 X10*3/uL (0.0-0.4); Eosinophils Percent Auto 11.8 % (0-4); Estimated Average Glucose 126 mg/dL; Hematocrit 35.6 % (37.0-47.0); Hemoglobin 11.8 g/dl (12.0-16.0); Hemoglobin A1C 127.0922 umol/L; Imm Gran Abs Auto 0.04 X10*3/uL (0.00-0.03); Imm Gran Pct Auto 0.5 % (0.0-0.4); Lymphocytes Absolute Auto 2.1 X10*3/uL (1.2-4.9); Lymphocytes Percent Auto 26.3 % (20-40); Mean Corpuscular HGB Conc 33.1 g/dl (31.0-35.0); Mean Corpuscular Hemoglobin 30.2 pg (27.0-33.0); Mean Platelet Volume 9.8 fL (9.4-12.3); Monocytes Absolute Auto 0.6 X10*3/uL (0.1-1.2); Monocytes Percent Auto 7.6 % (2-11); Neutrophils Absolute Auto 4.1 x10*3/uL (2.0-8.3); Neutrophils Percent Auto 52.8 % (45-73); Platelet Count 276 X10*3/uL (160-400); Red Blood Count 3.91 X10*6/uL (4.20-5.50); Red Cell Distribution Width 12.3 % (11.0-16.0); White Blood Count 7.8 X10*3/uL (4.8-10.8)
[2024-02-03 13:22] LABS: Alanine Aminotransferase 20 U/L (0-31); Albumin Level 3.7 g/dL (3.5-5.0); Alkaline Phosphatase 98 U/L (39-117); Anion Gap 10 (12-20); Aspartate Amino Transferase 19 U/L (5-31); Bilirubin Total 0.2 mg/dL (0.0-1.0); Blood Urea Nitrogen 27 mg/dL (9-16); Calcium 10.4 mg/dL (8.4-10.2); Carbon Dioxide 27 mmol/L (22-29); Chloride 109 mmol/L (96-108); Cholesterol 231 mg/dL (<200); Estimated Glomerular Filt Rate 50; Glucose Fasting 112 mg/dL (60-99); HDL Cholesterol 36 mg/dL (>40); LDL Cholesterol Calculated 167 mg/dL (<100); Potassium 4.5 mmol/L (3.3-5.1); Sodium 141 mmol/L (135-145); Total Protein 7.2 g/dL (6.5-8.0); Triglycerides 143 mg/dL (<150)
[2024-02-03 13:39] LABS: Vitamin D 25-OH Total 37.7 ng/mL (>30)
--- OUTSIDE RECORDS SUMMARY | 2024-02-09 01:39 | XMS_ITS | Patient Health Record ---
Author Organization Mata Kelley III, MD Address [address] [place] [address] Care Team Providers Care Design Assembler Name Role Phone Mata Kelley Primary Care Provider Allergies Allergen (clinical drug ingredient) Drug/Non Drug Allergy documented on EMR Reaction Allergy Type Onset Date Status No Known Drug Allergy Unknown Drug Allergy Active Results Component Value Reference Range Notes Complete Blood Count Auto Di ff Reviewed date:08/07/2023 05:31:51 AM Interpretation: Performing Lab:[facility], [address] [place] [phone] Notes/Report: White Blood Count 8.2 4.8-10.8 X10*3/uL Red Blood Count 3.97 4.20-5.50 X10*6/uL Hemoglobin 12.3 12.0-16.0 g/dl Hematocrit 36.7 37.0-47.0 % Mean Corpuscular Volume 92.4 80.0-98.0 fL Mean Corpuscular Hemoglobin 31.0 27.0-33.0 pg Mean Corpuscular HGB Conc 33.5 31.0-35.0 g/dl Red Cell Distribution Width 12.3 11.0-16.0 % Platelet Count 331 160-400 X10*3/uL Mean Platelet Volume 9.4 9.4-12.3 fL Neutrophils Percent Auto 54.1 45-73 % Imm Gran Pct Auto 0.2 0.0-0.4 % Lymphocytes Percent Auto 25.4 20-40 % Monocytes Percent Auto 10.7 2-11 % Eosinophils Percent Auto 8.9 0-4 % Basophils Percent Auto 0.7 0-2 % NRBC Pct Auto 0.0 0.0-0.2 /100WBC Neutrophils Absolute Auto 4.5 2.0-8.3 x10*3/uL Imm Gran Abs Auto 0.02 0.00-0.03 X10*3/uL Lymphocytes Absolute Auto 2.1 1.2-4.9 X10*3/uL Monocytes Absolute Auto 0.9 0.1-1.2 X10*3/uL Eosinophils Absolute Auto 0.7 0.0-0.4 X10*3/uL Basophils Absolute Auto 0.1 0.0-0.2 X10*3/uL NRBC Abs Auto 0.000 0.0-0.012 X10*3/uL Liver Panel Reviewed date:08/07/2023 05:31:51 AM Interpretation: Performing Lab:[address] [phone] Notes/Report: Bilirubin Total 0.2 0.0-1.0 mg/dL Bilirubin Direct < 0.2 0.0-0.5 mg/dL Aspartate Amino Transferase 13 5-31 U/L Alanine Aminotransferase 12 0-31 U/L Total Protein 7.0 6.5-8.0 g/dL Albumin Level 3.6 3.5-5.0 g/dL Alkaline Phosphatase 99 39-117 U/L Basic Metabolic Panel Reviewed date:08/07/2023 05:31:51 AM Interpretation: Performing Lab:[address] [phone] Notes/Report: Sodium 142 135-145 mmol/L Potassium 3.9 3.3-5.1 mmol/L Chloride 108 96-108 mmol/L Carbon Dioxide 28 22-29 mmol/L Anion Gap 10 12-20 Blood Urea Nitrogen 22 9-16 mg/dL Creatinine 0.97 0.5-1.4 mg/dL Creatinine Clr Calc Pharmacy 53.2 Provided height and weight: 157.48 cm, 81 kg. eGFR (calculated from the MDRD study equation) and eCrCl (calculated from the Cockcroft-Gault equation) are based on different parameters and may not yield comparable results. If eCrCl result is absurd, please check patient's height/weight. Estimated Glomerular Filt Rate 57 NOTE: For -Emirati individuals, multiply the result by 1.210. Chronic Kidney Disease: Estimated GFR < 60 mL/min/1.73m2 Severe Kidney Disease: Estimated GFR < 15 mL/min/1.73m2 Glucose Random 89 60-115 mg/dL Calcium 10.5 8.4-10.2 mg/dL Basic Metabolic Panel Reviewed date:08/07/2023 05:31:51 AM Interpretation: Performing Lab:[facility], [address] [place] [phone] Notes/Report: Sodium 144 135-145 mmol/L Potassium 4.0 3.3-5.1 mmol/L Chloride 112 96-108 mmol/L Carbon Dioxide 20 22-29 mmol/L Anion Gap 16 12-20 Blood Urea Nitrogen 24 9-16 mg/dL Creatinine 1.14 0.5-1.4 mg/dL Creatinine Clr Calc Pharmacy 44.5 Provided height and weight: 157.48 cm, 78.7 kg. eGFR (calculated from the MDRD study equation) and eCrCl (calculated from the Cockcroft-Gault equation) are based on different parameters and may not yield comparable results. If eCrCl result is absurd, please check patient's height/weight. Estimated Glomerular Filt Rate 47 NOTE: For -Emirati individuals, multiply the result by 1.210. Chronic Kidney Disease: Estimated GFR < 60 mL/min/1.73m2 Severe Kidney Disease: Estimated GFR < 15 mL/min/1.73m2 Glucose Random 150 60-115 mg/dL Calcium 10.8 8.4-10.2 mg/dL Thyroid Stimulating Hormone Reviewed date:08/07/2023 05:31:51 AM Interpretation: Performing Lab:[facility], [address] [place] [phone] Notes/Report: Thyroid Stimulating Hormone 3.76 0.32-4.0 uIU/mL Note: A sustained TSH level above 2.5 uIU/mL may warrant further investigation. TSH 3rd Generation ([facility]) Glucose, Whole Blood Reviewed date:08/07/2023 05:31:51 AM Interpretation: Performing Lab:[facility], [address] [place] [phone] Notes/Report: Glucose, Whole Blood 140 60-115 mg/dL METER # : [id number] Drug Screen Urine Reviewed date:08/07/2023 05:31:51 AM Interpretation: Performing Lab:[facility], [address] [place] [phone] Notes/Report: Opiate Screen Urine Not Detected Not Detect Opiate cut-off is 300 ng/mL. Positive results are unconfirmed and should not be used for non-medical purposes. Barbiturates, Urine Not Detected Not Detect Barbiturate cut-off is 200 ng/mL. Positive results are unconfirmed and should not be used for non-medical purposes. Phencyclidine Screen Urine Not Detected Not Detect Phencyclidine cut-off is 25 ng/mL. Positive results are unconfirmed and should not be used for non-medical purposes. Amphetamine Screen Urine Not Detected Not Detect Amphetamine cut-off is 1000 ng/mL. Positive results are unconfirmed and should not be used for non-medical purposes. Benzodiazepines Screen Urine Not Detected Not Detect Benzodiazepine cut-off is 200 ng/mL. Positive results are unconfirmed and should not be used for non-medical purposes. Cocaine Screen Urine Not Detected Not Detect Cocaine cut-off is 300 ng/mL. Positive results are unconfirmed and should not be used for non-medical purposes. Cannabinoid Screen Urine Not Detected Not Detect Cannabinoid cut-off is 50 ng/mL. Positive results are unconfirmed and should not be used for non-medical purposes. Methadone Screen, Urine Not Detected Not Detect ng/mL Methadone cut-off is 300 ng/mL. Positive results are unconfirmed and should not be used for non-medical purposes. Fentanyl, urine Not Detected Not Detect Fentanyl cut-off is 1 ng/mL. Positive results are unconfirmed and should not be used for non-medical purposes. Oxycodone Screen Urine Not Detected Not Detect ng/mL Oxycodone cut-off is 100 ng/mL. Positive results are unconfirmed and should not be used for non-medical purposes. Buprenorphine Scr Not Detected Not Detect ng/mL Buprenorphine cut-off is 5 ng/mL. Positive results are unconfirmed and should not be used for non-medical purposes. Type and Screen Reviewed date:08/07/2023 05:31:51 AM Interpretation: Performing Lab:[facility], [address] [place] [phone] Notes/Report: Blood Type BP Antibody Screen NEGATIVE UA ClnCatch+Micro w/rflx Cul t Reviewed date:08/07/2023 05:31:51 AM Interpretation: Performing Lab:[facility], [address] [place] [phone] Notes/Report: Urine, Catheterized Color Urine Yellow Appearance Urine Clear PH 5.0 5.0-9.0 Glucose Urine UA Negative Negative mg/dL Urine Blood Negative Negative Specific [place] - Urine 1.015 1.005-1.025 Urine Protein 100 (2+) Neg-Trace mg/dL Urine Ketones Negative Negative mg/dL Nitrite Urine Negative Negative Leukocyte Esterase Urine Negative Negative RBC Urine 0-2 0-2 /HPF WBC Urine 0-5 0-5 /HPF Squamous Epithelial Cell Urine 11-20 0-2 /HPF Bacteria Urine None Seen None Seen Hyaline Casts Urine 6-10 0-2 /LPF Lactic Acid-LAB USE ONLY Reviewed date:08/07/2023 05:31:51 AM Interpretation: Performing Lab:[facility], [address] [place] [phone] Notes/Report: Lactic Acid-LAB USE ONLY 2.9 0.5-2.0 mmol/L Critical value for LACTIC: Results called to and read back by: BARBARA Person calling: KINDRA Date: 08/04/23 Time: 1728 Lactic Acid-LAB USE ONLY Reviewed date:08/07/2023 05:31:51 AM Interpretation: Performing Lab:[facility], [address] [place] [phone] Notes/Report: Lactic Acid-LAB USE ONLY 2.0 0.5-2.0 mmol/L CT abdomen pelvis w con Reviewed date:08/07/2023 05:31:51 AM Interpretation: Performing Lab: Notes/Report: [address] [address] [address] Scan Report Signed Patient: Kasey Mckeon MR#: [id number] 6 : 1955 Acct:[id number] Age/Sex: 68 / F ADM Date: 08/04/23 Loc: HO.ED Attending Dr: Ordering Physician: Cory Eisenberg DO Date of Service: 08/04/23 Procedure(s): CT abdomen pelvis w IV con Accession Number(s): [id number] cc: Mata Kelley MD; Cory Eisenberg DO EXAMINATION: CT ABDOMEN AND PELVIS WITH CONTRAST CLINICAL INFORMATION: Abdominal pain and vomiting COMPARISON: None available. TECHNIQUE: Multidetector volumetric images were obtained from the superior aspect of the liver through the pubic symphysis following administration 85 mL of Omnipaque 350 intravenous contrast. Sagittal and coronal reformatted images were obtained on the technologist's workstation. Oral contrast: No This CT examination was performed using dose optimization techniques as appropriate, variously including the following: *Automated exposure control *Adjustment of mA and/or kV according to patient size (this includes techniques or standardized protocols for targeted exams where dose is matched to indication/reason for exam; i.e. extremities or head) *Use of iterative reconstruction technique DLP: 717 mGy-cm FINDINGS: LUNG BASES: The visualized lung bases are unremarkable. LIVER, GALLBLADDER, AND BILIARY TREE: The liver is normal in size, shape, and attenuation. No focal hepatic lesion or biliary ductal dilatation is present. Status post cholecystectomy. Extrahepatic CBD mildly dilated measuring 0.8 cm. No calcified gallstone in the bile ducts. PANCREAS: Mild prominence of the proximal pancreatic duct measuring 0.4 cm. Pancreas is atrophic. No inflammation or mass. SPLEEN: Unremarkable. ADRENAL GLANDS: Unremarkable. KIDNEYS AND URETERS: There is no renal or ureteral calculus. No hydronephrosis. Kidneys of normal size and contour with normal cortical thickness BLADDER: Diffuse bladder wall thickening of the bladder however the bladder is only slightly distended. No edema around the bladder. No bladder calculus or mass. GASTROINTESTINAL TRACT: There are scattered diverticula of the sigmoid and descending colon. There is no diverticulitis. Large volume of stool in the rectum and distal sigmoid. Rectum/distal sigmoid is distended to a diameter of 9 cm. There is edema in the presacral space and mild bowel wall thickening. Changes consistent with impaction and stercoral colitis. The appendix is nonvisualized . 2 cm diverticulum at the third portion of the duodenum. No inflammation around the diverticulum. Small bowel loops are otherwise normal. The stomach is normal. There is no hiatal hernia. ABDOMINAL WALL: No significant hernia is appreciated. LYMPH NODES: Normal. VASCULAR: Scattered vascular wall calcifications of the abdominal aorta. No aneurysm. PELVIC VISCERA: Unremarkable. OSSEOUS STRUCTURES: Multilevel degenerative spondylosis spine. CT/CT abdomen pelvis w IV con IMPRESSION: 1. Large volume of stool in the rectum and distal sigmoid with bowel wall thickening and edema in the presacral space consistent with impaction and stercoral colitis. 2. Status post cholecystectomy. Fleischner guidelines were followed. Dictated By: Horacio Brooks MD Signed By: <Electronically signed by Horacio Brooks MD in [place]> 08/04/23 1523 DD/ 1402 TD/TT: Farm Butcher: [address] [address] [address] Scan Report Signed Patient: Kasey Mckeon MR#: [id number] 6 : 1955 Acct:[id number] Age/Sex: 68 / F ADM Date: 08/04/23 Loc: HO.ED Attending Dr: Ordering Physician: Cory Eisenberg DO Date of Service: 08/04/23 Procedure(s): CT abd omen pelvis w IV con Accession Number(s): [id number] cc: Mata Kelley MD; Cory Eisenberg DO EXAMINATION: CT ABDOMEN AND PELVI S WITH CONTRAST CLINICAL INFORMATION: Abdominal pain and vomiting COMPARISON: None available. TECHNIQUE: Multidetector volume tric images were obtained from the superior aspect of the liver through the pubic symphysis following administration 85 mL of Omnipaque 350 intravenous contrast. Sagittal and coronal reformatted images were obtained on the technologist's workstation. Oral contrast: No This CT examination was performed using dose optimization techniques as appropriate, various ly including the following: *Automated exposure control *Adjustment of mA an d/or kV according to patient size (this includes techniques or standardized protocols for targeted exams where dose is matched to indication/reason for exam; i.e. extremities or head) *Use of iterative reconstruction technique DLP: 717 mGy-cm FINDINGS: LUNG BASES: The visualized lung bases are unremarkable. LIVER, GALLBLADDER, AND BILIARY TREE: The liver is normal in size, shape, and attenuati on. No focal hepatic lesion or biliary ductal dilatation is presen t. Status post cholecystectomy. Extrahepatic CBD mildly dilated measu ring 0.8 cm. No calcified gallstone in the bile ducts. PANCREAS: Mild prominence of the proximal pancreatic duct measuring 0.4 cm. Pancreas is atrophic. No inflammation or mass. SPLEEN: Unremarkable. ADRENAL GLANDS: Unremarkable. KIDNEYS AND URETERS: There is no renal or ureteral calculus. No hydronephrosis. Kidn eys of normal size and contour with normal cortical thickness BLADDER: Diffuse suzanne dder wall thickening of the bladder however the bladder is only slig htly distended. No edema around the bladder. No bladder calculus or mass. GASTROINTESTINAL TRACT: There are scattered diverticula of the sigmoid and descending colon. There is no diverticulitis. Large volume of stoo l in the rectum and distal sigmoid. Rectum/distal sigmoid is distended to a diameter of 9 cm. There is edema in the presacral space and mild bowel wall thickening. Changes consistent with impaction and sterco ral colitis. The appendix is nonvisualized . 2 cm diverticulum at the third portion of the duodenum. No inflammation around the diverticu lum. Small bowel loops are otherwise normal. The stomach is normal. There is no hiatal hernia. ABDOMINAL WALL: No significant hernia is appreciated. LYMPH NODES: Normal. VASCULAR: Scattered vascular wall calcifications of the abdominal aorta. No aneurysm. PELVIC VISCERA: Unremarkable. OSSEOUS STRUCTURES: Multilevel degenerative spondylosis spine. C T/CT abdomen pelvis w IV con IMPRESSION: 1. Large volume of s tool in the rectum and distal sigmoid with bowel wall thickening and edema in the presacral space consistent with impaction and sterco ral colitis. 2. Status post cholecystectomy. Fleischner guideline s were followed. Dictated By: Arely Brooks MD Signed By: <Electronically signed by Horacio Brooks MD in OV> 08/04/23 1523 DD/ 1402 TD/TT: Industrial Manufacturing Technician ist: BRITTANI XR chest 2V Reviewed date:08/07/2023 05:31:51 AM Interpretation: Performing Lab: Notes/Report: [address] [address] XRay Report Signed Patient: Kasey Mckeon MR#: [id number] 6 : 1955 Acct:[id number] Age/Sex: 68 / F ADM Date: 08/04/23 Loc: HO.ED Attending Dr: Ordering Physician: Cory Eisenberg DO Date of Service: 08/04/23 Procedure(s): XR chest 2V Accession Number(s): [id number] cc: Mata Kelley MD; Cory Eisenberg DO EXAMINATION: XR CHEST CLINICAL INFORMATION: Patient unable to lift arm, best images possible at this time. Emergency Room patient. No additional clinical history provided at the time this STAT exam was presented for interpretation. COMPARISON: June 29, 2022 TECHNIQUE: 2 views of the chest were obtained. FINDINGS: Lung volumes are low. There is no gross pneumothorax. Cardiac silhouette is likely enlarged, allowing for low lung volumes. Moderate to large left pleural effusion with left basilar consolidation. Large air-fluid level in the left upper quadrant of the abdomen is likely off premise service representative of gastric bubble. There is a small crescentic lucency along the medial aspect on the frontal view, possibly related to gastric bubble, however, if there is clinical concern for free intraperitoneal air , then dedicated abdominal imaging should be obtained. Degenerative changes in the thoracic spine. XR/XR chest 2V IMPRESSION: Moderate to large left pleural effusion with left basilar consolidation. Large air-fluid level in the left upper quadrant of the abdomen is likely off premise service representative of gastric bubble. There is a small crescentic lucency along the medial aspect on the frontal view, possibly related to gastric bubble, however, if there is clinical concern for free intraperitoneal air , then dedicated abdominal imaging should be obtained. This study was presented today August 04, 2023 for interpretation. STAT results provided at this time as requested by referring provider. Dictated By: Roseann Jerome MD Signed By: <Electronically signed by Roseann Jerome MD in [place]> 08/04/23 1418 DD/ 1245 TD/TT: Farm [employer]cher: [address] [address] XRay Report Signed Patient: Kasey Mckeon MR#: [id number] 6 : 1955 Acct:[id number] Age/Sex: 68 / F ADM Date: 08/04/23 Loc: HO.ED Attending Dr: Ordering Physician: Cory Eisenberg DO Date of Service: 08/04/23 Procedure(s): XR chasity st 2V Accession Number(s): [id number] cc: Mata Kelley MD; Cory Eisenberg DO EXAMINATION: XR CHEST CLINICAL INFORMATION: Patient unable to li ft arm, best images possible at this time. Emergency Room patie nt. No additional clinical history provided at the time this STAT exam was presented for interpretation. COMPARISON: June 29, 2022 TECHNIQUE: 2 views of the chest were obtained. FINDINGS: Lung volumes are low . There is no gross pneumothorax. Cardiac silhouette i s likely enlarged, allowing for low lung volumes. Moderate to large le ft pleural effusion with left basilar consolidation. Large air-fluid level in the left upper quadrant of the abdomen is likely off premise service representative of gastric bubble. There is a small crescentic lucency a long the medial aspect on the frontal view, possibly related to gastric bubble, however, if there is clinical concern for free intraperitoneal air , then dedicated abdominal imaging should be obtained. Degenerative changes in the thoracic spine. X R/XR chest 2V IMPRESSION: Moderate to large le ft pleural effusion with left basilar consolidation. Large air-fluid level in the left upper quadrant of the abdomen is likely off premise service representative of gastric bubble. There is a small crescentic lucency a long the medial aspect on the frontal view, possibly related to gastric bubble, however, if there is clinical concern for free intraperitoneal air , then dedicated abdominal imaging should be obtained. This study was prese nted today August 04, 2023 for interpretation. STAT results provided at this time as requested by referring provider. Dictated By: Roseann Jerome MD Signed By: <Electronically signed by Roseann Jerome MD in [place]> 08/04/23 1418 DD/ 1245 TD/TT: Farm [employer]cher: Complete Blood Count Auto Di ff Reviewed date:08/07/2023 05:31:51 AM Interpretation: Performing Lab:[facility], [address] [place] [phone] Notes/Report: White Blood Count 12.0 4.8-10.8 X10*3/uL Red Blood Count 4.13 4.20-5.50 X10*6/uL Hemoglobin 12.6 12.0-16.0 g/dl Hematocrit 37.2 37.0-47.0 % Mean Corpuscular Volume 90.1 80.0-98.0 fL Mean Corpuscular Hemoglobin 30.5 27.0-33.0 pg Mean Corpuscular HGB Conc 33.9 31.0-35.0 g/dl Red Cell Distribution Width 12.5 11.0-16.0 % Platelet Count 316 160-400 X10*3/uL Mean Platelet Volume 10.1 9.4-12.3 fL Neutrophils Percent Auto 80.0 45-73 % Imm Gran Pct Auto 0.3 0.0-0.4 % Lymphocytes Percent Auto 11.8 20-40 % Monocytes Percent Auto 7.2 2-11 % Eosinophils Percent Auto 0.0 0-4 % Basophils Percent Auto 0.7 0-2 % NRBC Pct Auto 0.0 0.0-0.2 /100WBC Neutrophils Absolute Auto 9.6 2.0-8.3 x10*3/uL Imm Gran Abs Auto 0.04 0.00-0.03 X10*3/uL Lymphocytes Absolute Auto 1.4 1.2-4.9 X10*3/uL Monocytes Absolute Auto 0.9 0.1-1.2 X10*3/uL Eosinophils Absolute Auto 0.0 0.0-0.4 X10*3/uL Basophils Absolute Auto 0.1 0.0-0.2 X10*3/uL NRBC Abs Auto 0.000 0.0-0.012 X10*3/uL White Blood Count 12.0 4.8-10.8 X10*3/uL Red Blood Count 4.13 4.20-5.50 X10*6/uL Hemoglobin 12.6 12.0-16.0 g/dl Hematocrit 37.2 37.0-47.0 % Mean Corpuscular Volume 90.1 80.0-98.0 fL Mean Corpuscular Hemoglobin 30.5 27.0-33.0 pg Mean Corpuscular HGB Conc 33.9 31.0-35.0 g/dl Red Cell Distribution Width 12.5 11.0-16.0 % Platelet Count 316 160-400 X10*3/uL Mean Platelet Volume 10.1 9.4-12.3 fL Neutrophils Percent Auto 80.0 45-73 % Imm Gran Pct Auto 0.3 0.0-0.4 % Lymphocytes Percent Auto 11.8 20-40 % Monocytes Percent Auto 7.2 2-11 % Eosinophils Percent Auto 0.0 0-4 % Basophils Percent Auto 0.7 0-2 % NRBC Pct Auto 0.0 0.0-0.2 /100WBC Neutrophils Absolute Auto 9.6 2.0-8.3 x10*3/uL Imm Gran Abs Auto 0.04 0.00-0.03 X10*3/uL Lymphocytes Absolute Auto 1.4 1.2-4.9 X10*3/uL Monocytes Absolute Auto 0.9 0.1-1.2 X10*3/uL Eosinophils Absolute Auto 0.0 0.0-0.4 X10*3/uL Basophils Absolute Auto 0.1 0.0-0.2 X10*3/uL NRBC Abs Auto 0.000 0.0-0.012 X10*3/uL CO RRECTED REPORT CO RRECTED REPORT Comprehensive Met. Panel Reviewed date:08/07/2023 05:31:51 AM Interpretation: Performing Lab:[facility], [address] [place] [phone] Notes/Report: Sodium 149 135-145 mmol/L Potassium 5.1 3.3-5.1 mmol/L Chloride 117 96-108 mmol/L Carbon Dioxide 21 22-29 mmol/L Anion Gap 16 12-20 Blood Urea Nitrogen 26 9-16 mg/dL Creatinine 1.07 0.5-1.4 mg/dL Creatinine Clr Calc Pharmacy 47.5 Provided height and weight: 157.48 cm, 78.7 kg. eGFR (calculated from the MDRD study equation) and eCrCl (calculated from the Cockcroft-Gault equation) are based on different parameters and may not yield comparable results. If eCrCl result is absurd, please check patient's height/weight. Estimated Glomerular Filt Rate 51 NOTE: For -Emirati individuals, multiply the result by 1.210. Chronic Kidney Disease: Estimated GFR < 60 mL/min/1.73m2 Severe Kidney Disease: Estimated GFR < 15 mL/min/1.73m2 Glucose Random 109 60-115 mg/dL Calcium 10.3 8.4-10.2 mg/dL Bilirubin Total 0.2 0.0-1.0 mg/dL Aspartate Amino Transferase 14 5-31 U/L Alanine Aminotransferase 11 0-31 U/L Total Protein 6.5 6.5-8.0 g/dL Albumin Level 3.4 3.5-5.0 g/dL Alkaline Phosphatase 91 39-117 U/L Glucose, Whole Blood Reviewed date:08/07/2023 05:31:51 AM Interpretation: Performing Lab:[facility], [address] [place] [phone] Notes/Report: Glucose, Whole Blood 87 60-115 mg/dL METER # : [id number] SLIDE REVIEW Reviewed date:08/07/2023 05:31:51 AM Interpretation: Performing Lab:[facility], [address] [place] [phone] Notes/Report: SLIDE REVIEW VERIFIED XR KUB Reviewed date:08/07/2023 05:31:51 AM Interpretation: Performing Lab: Notes/Report: [address] [address] XRay Report Signed Patient: Kasey Mckeon MR#: [id number] 6 : 1955 Acct:[id number] Age/Sex: 68 / F ADM Date: 08/04/23 Loc: [facility] 478-[address]: Stephanie JAMES Ordering Physician: Stephanie Rees Date of Service: 08/05/23 Procedure(s): XR KUB Accession Number(s): [id number] cc: Stephanie Rees; Mata Kelley MD EXAMINATION: XR ABDOMEN KUB CLINICAL INDICATION: Abdominal pain, vomiting COMPARISON: CT scan abdomen and pelvis 08/04/2023 TECHNIQUE: AP view of the abdomen. FINDINGS: There is a 14.6 x 12.1 cm well-circumscribed area of increased density which likely represents contrast enhanced urine in the bladder from the CT scan of the abdomen and pelvis 1 day ago.. This raises concern regarding urinary retention. This obscures the distal sigmoid colon and rectum. There is a large amount stool within the descending colon and proximal sigmoid colon. A distended air-filled stomach is seen. There is no dilatation of large or small bowel to suggest obstruction. Surgical clips are seen in the right upper quadrant consistent with prior cholecystectomy. Multilevel degenerative changes of the lumbar spine are seen. XR/XR KUB IMPRESSION: 1. No evidence of obstruction of small or large bowel. 2. Findings suggestive of urinary retention with contrast-enhanced urine from yesterday's CT scan of the abdomen and pelvis. This obscures the distal sigmoid colon and rectum. 3. Distended air-filled stomach. Dictated By: Farrah Wells MD Signed By: <Electronically signed by Farrah Wells MD in [place]> 08/05/23 1323 DD/ 1107 TD/TT: Farm [employer]cher: [place] [address] XRay Report Signed Patient: Kasey Mckeon MR#: [id number] 6 : 1955 Acct:[id number] Age/Sex: 68 / F ADM Date: 08/04/23 Loc: [facility] 478-[address]: Mel JAMES Ordering Physician: Stephanie Rees Date of Service: 08/05/23 Procedure(s): XR KUB Accession Number(s): [id number] cc: Ritu Rees; Mata Kelley MD EXAMINATION: XR ABDOMEN KUB CLINICAL INDICATION: Abdominal pain, vomiting COMPARISON: CT scan abdomen and pelvis 08/04/2023 TECHNIQUE: AP view of the abdomen. FINDINGS: There is a 14.6 x 12 .1 cm well-circumscribed area of increased density which likely represe nts contrast enhanced urine in the bladder from the CT scan of the abdom en and pelvis 1 day ago.. This raises concern regarding urinary retention. This obscures the distal sigmoid colon and rectum. There is a l arge amount stool within the descending colon and proximal sigmoid col on. A distended air-filled stomach is seen. There is no dilatation of large or small bowel to suggest obstruction. Surgical clips are s een in the right upper quadrant consistent with prior cholecystectom y. Multilevel degenerative changes of the lumbar spine are seen. X R/XR KUB IMPRESSION: 1. No evidence of obstruction of small or large bowel. 2. Findings suggesti ve of urinary retention with contrast-enhanced urine from yesterday 's CT scan of the abdomen and pelvis. This obscures the distal sigmoid c olon and rectum. 3. Distended air-alfredo led stomach. Dictated By: Deidra Wells MD Signed By: <Electronically signed by Farrah Wells MD in OV> 08/05/23 1323 DD/ 1107 TD/TT: Farm Butcher: Glucose, Whole Blood Reviewed date:08/07/2023 05:31:51 AM Interpretation: Performing Lab:[facility], [address] [place] [phone] Notes/Report: Glucose, Whole Blood 110 60-115 mg/dL METER # : [id number] Glucose, Whole Blood Reviewed date:08/07/2023 05:31:51 AM Interpretation: Performing Lab:[facility], [address] [place] [address] Notes/Report: Glucose, Whole Blood 104 60-115 mg/dL METER # : [id number] Glucose, Whole Blood Reviewed date:08/07/2023 05:31:51 AM Interpretation: Performing Lab:[facility], [address] [place] [phone] Notes/Report: Glucose, Whole Blood 131 60-115 mg/dL METER # : [id number] Complete Blood Count Auto Di ff Reviewed date:08/07/2023 05:31:51 AM Interpretation: Performing Lab:[facility], [address] [place] [phone] Notes/Report: White Blood Count 16.7 4.8-10.8 X10*3/uL Red Blood Count 3.78 4.20-5.50 X10*6/uL Hemoglobin 11.8 12.0-16.0 g/dl Hematocrit 35.4 37.0-47.0 % Mean Corpuscular Volume 93.7 80.0-98.0 fL Mean Corpuscular Hemoglobin 31.2 27.0-33.0 pg Mean Corpuscular HGB Conc 33.3 31.0-35.0 g/dl Red Cell Distribution Width 12.9 11.0-16.0 % Platelet Count 352 160-400 X10*3/uL Mean Platelet Volume 10.3 9.4-12.3 fL Neutrophils Percent Auto 72.8 45-73 % Imm Gran Pct Auto 0.5 0.0-0.4 % Lymphocytes Percent Auto 10.7 20-40 % Monocytes Percent Auto 6.2 2-11 % Eosinophils Percent Auto 9.4 0-4 % Basophils Percent Auto 0.4 0-2 % NRBC Pct Auto 0.0 0.0-0.2 /100WBC Neutrophils Absolute Auto 12.2 2.0-8.3 x10*3/uL Imm Gran Abs Auto 0.09 0.00-0.03 X10*3/uL Lymphocytes Absolute Auto 1.8 1.2-4.9 X10*3/uL Monocytes Absolute Auto 1.0 0.1-1.2 X10*3/uL Eosinophils Absolute Auto 1.6 0.0-0.4 X10*3/uL Basophils Absolute Auto 0.1 0.0-0.2 X10*3/uL NRBC Abs Auto 0.000 0.0-0.012 X10*3/uL Hold Lav - Possible Hematolo gy Reviewed date:08/07/2023 05:31:51 AM Interpretation: Performing Lab:[facility], [address] [place] [phone] Notes/Report: Hold Lav - Possible Hematology SEE NOTE Specimen will be held untested for 8 hours. Call Hematology if testing is desired. Basic Metabolic Panel Reviewed date:08/07/2023 05:31:51 AM Interpretation: Performing Lab:[facility], [address] [place] [phone] Notes/Report: Sodium 144 135-145 mmol/L Potassium 3.6 3.3-5.1 mmol/L Test was veri fied by repeat analysis. Chloride 110 96-108 mmol/L Carbon Dioxide 23 22-29 mmol/L Anion Gap 15 12-20 Blood Urea Nitrogen 25 9-16 mg/dL Creatinine 1.20 0.5-1.4 mg/dL Creatinine Clr Calc Pharmacy 42.4 Provided height and weight: 157.48 cm, 79 kg. eGFR (calculated from the MDRD study equation) and eCrCl (calculated from the Cockcroft-Gault equation) are based on different parameters and may not yield comparable results. If eCrCl result is absurd, please check patient's height/weight. Estimated Glomerular Filt Rate 44 NOTE: For -Emirati individuals, multiply the result by 1.210. Chronic Kidney Disease: Estimated GFR < 60 mL/min/1.73m2 Severe Kidney Disease: Estimated GFR < 15 mL/min/1.73m2 Glucose Random 137 60-115 mg/dL Calcium 9.8 8.4-10.2 mg/dL Glucose, Whole Blood Reviewed date:08/07/2023 05:31:51 AM Interpretation: Performing Lab:[facility], [address] [place] [phone] Notes/Report: Glucose, Whole Blood 140 60-115 mg/dL METER # : [id number] Glucose, Whole Blood Reviewed date:08/07/2023 05:31:51 AM Interpretation: Performing Lab:[facility], [address] [place] [phone] Notes/Report: Glucose, Whole Blood 132 60-115 mg/dL METER # : [id number] Glucose, Whole Blood Reviewed date:08/07/2023 05:31:51 AM Interpretation: Performing Lab:[facility], [address] [place] [phone] Notes/Report: Glucose, Whole Blood 156 60-115 mg/dL METER # : [id number] Glucose, Whole Blood Reviewed date:08/07/2023 05:31:51 AM Interpretation: Performing Lab:[facility], [address] [place] [phone] Notes/Report: Glucose, Whole Blood 184 60-115 mg/dL METER # : [id number] Complete Blood Count Auto Di ff Reviewed date:08/08/2023 09:09:12 AM Interpretation: Performing Lab:[facility], [address] [place] [phone] Notes/Report: White Blood Count 13.4 4.8-10.8 X10*3/uL Red Blood Count 3.38 4.20-5.50 X10*6/uL Hemoglobin 10.4 12.0-16.0 g/dl Hematocrit 30.7 37.0-47.0 % Mean Corpuscular Volume 90.8 80.0-98.0 fL Mean Corpuscular Hemoglobin 30.8 27.0-33.0 pg Mean Corpuscular HGB Conc 33.9 31.0-35.0 g/dl Red Cell Distribution Width 12.3 11.0-16.0 % Platelet Count 271 160-400 X10*3/uL Mean Platelet Volume 9.8 9.4-12.3 fL Neutrophils Percent Auto 62.4 45-73 % Imm Gran Pct Auto 0.5 0.0-0.4 % Lymphocytes Percent Auto 15.7 20-40 % Monocytes Percent Auto 6.4 2-11 % Eosinophils Percent Auto 14.9 0-4 % Basophils Percent Auto 0.1 0-2 % NRBC Pct Auto 0.0 0.0-0.2 /100WBC Neutrophils Absolute Auto 8.4 2.0-8.3 x10*3/uL Imm Gran Abs Auto 0.07 0.00-0.03 X10*3/uL Lymphocytes Absolute Auto 2.1 1.2-4.9 X10*3/uL Monocytes Absolute Auto 0.9 0.1-1.2 X10*3/uL Eosinophils Absolute Auto 2.0 0.0-0.4 X10*3/uL Basophils Absolute Auto 0.0 0.0-0.2 X10*3/uL NRBC Abs Auto 0.000 0.0-0.012 X10*3/uL Basic Metabolic Panel Reviewed date:08/08/2023 09:09:12 AM Interpretation: Performing Lab:[facility], [address] [place] [phone] Notes/Report: Sodium 141 135-145 mmol/L Potassium 3.2 3.3-5.1 mmol/L Chloride 109 96-108 mmol/L Carbon Dioxide 26 22-29 mmol/L Anion Gap 9 12-20 Blood Urea Nitrogen 14 9-16 mg/dL Creatinine 0.81 0.5-1.4 mg/dL Creatinine Clr Calc Pharmacy 62.9 Provided height and weight: 157.48 cm, 79 kg. eGFR (calculated from the MDRD study equation) and eCrCl (calculated from the Cockcroft-Gault equation) are based on different parameters and may not yield comparable results. If eCrCl result is absurd, please check patient's height/weight. Estimated Glomerular Filt Rate > 60 NOTE: For -Emirati individuals, multiply the result by 1.210. Chronic Kidney Disease: Estimated GFR < 60 mL/min/1.73m2 Severe Kidney Disease: Estimated GFR < 15 mL/min/1.73m2 Glucose Random 120 60-115 mg/dL Calcium 9.0 8.4-10.2 mg/dL Glucose, Whole Blood Reviewed date:08/08/2023 09:09:12 AM Interpretation: Performing Lab:[facility], [address] [place] [phone] Notes/Report: Glucose, Whole Blood 111 60-115 mg/dL METER # : [id number] Glucose, Whole Blood Reviewed date:08/08/2023 09:09:12 AM Interpretation: Performing Lab:[facility], [address] [place] [phone] Notes/Report: Glucose, Whole Blood 165 60-115 mg/dL METER # : [id number] Glucose, Whole Blood Reviewed date:08/08/2023 09:09:12 AM Interpretation: Performing Lab:[facility], [address] [place] [phone] Notes/Report: Glucose, Whole Blood 151 60-115 mg/dL METER # : [id number] Complete Blood Count Auto Di ff Reviewed date:02/05/2024 06:58:55 AM Interpretation: Performing Lab:[facility], [address] [place] [phone] Notes/Report: White Blood Count 7.8 4.8-10.8 X10*3/uL Red Blood Count 3.91 4.20-5.50 X10*6/uL Hemoglobin 11.8 12.0-16.0 g/dl Hematocrit 35.6 37.0-47.0 % Mean Corpuscular Volume 91.0 80.0-98.0 fL Mean Corpuscular Hemoglobin 30.2 27.0-33.0 pg Mean Corpuscular HGB Conc 33.1 31.0-35.0 g/dl Red Cell Distribution Width 12.3 11.0-16.0 % Platelet Count 276 160-400 X10*3/uL Mean Platelet Volume 9.8 9.4-12.3 fL Neutrophils Percent Auto 52.8 45-73 % Imm Gran Pct Auto 0.5 0.0-0.4 % Lymphocytes Percent Auto 26.3 20-40 % Monocytes Percent Auto 7.6 2-11 % Eosinophils Percent Auto 11.8 0-4 % Basophils Percent Auto 1.0 0-2 % NRBC Pct Auto 0.0 0.0-0.2 /100WBC Neutrophils Absolute Auto 4.1 2.0-8.3 x10*3/uL Imm Gran Abs Auto 0.04 0.00-0.03 X10*3/uL Lymphocytes Absolute Auto 2.1 1.2-4.9 X10*3/uL Monocytes Absolute Auto 0.6 0.1-1.2 X10*3/uL Eosinophils Absolute Auto 0.9 0.0-0.4 X10*3/uL Basophils Absolute Auto 0.1 0.0-0.2 X10*3/uL NRBC Abs Auto 0.000 0.0-0.012 X10*3/uL Comprehensive Menan. Panel Fa st Reviewed date:02/05/2024 06:58:55 AM Interpretation: Performing Lab:[address] [phone] Notes/Report: Sodium 141 135-145 mmol/L Potassium 4.5 3.3-5.1 mmol/L Chloride 109 96-108 mmol/L Carbon Dioxide 27 22-29 mmol/L Anion Gap 10 12-20 Blood Urea Nitrogen 27 9-16 mg/dL Creatinine 1.08 0.5-1.4 mg/dL Estimated Glomerular Filt Rate 50 Chronic Kidney Disease: Estimated GFR < 60 mL/min/1.73m2 Severe Kidney Disease: Estimated GFR < 15 mL/min/1.73m2 Glucose Fasting 112 60-99 mg/dL A fasting glucose from 100-125 mg/dl is considered impaired (pre-diabetes). Calcium 10.4 8.4-10.2 mg/dL Bilirubin Total 0.2 0.0-1.0 mg/dL Aspartate Amino Transferase 19 5-31 U/L Alanine Aminotransferase 20 0-31 U/L Total Protein 7.2 6.5-8.0 g/dL Albumin Level 3.7 3.5-5.0 g/dL Alkaline Phosphatase 98 39-117 U/L Cancelled Chem Reviewed date:02/05/2024 06:58:55 AM Interpretation: Performing Lab:[address] [phone] Notes/Report: Cancelled Chem SEE NOTE URINE MICRO A LBUMIN; NO URINE SPECIMEN RECEIVED Lipid Panel Reviewed date:02/05/2024 06:58:55 AM Interpretation: Performing Lab:[facility], [address] [place] [phone] Notes/Report: Triglycerides 143 <150 mg/dL Desirable Triglyceride: less than 150 mg/dL Borderline High Triglyceride 150-199 mg/dL High Triglyceride: 200-499 mg/dL Very High Triglyceride: greater than or equal to 5OO mg/dL Cholesterol 231 <200 mg/dL Desirable Cholesterol: less than 200 mg/dL Borderline High Cholesterol: 200-239 mg/dL High Cholesterol: greater than 239 mg/dL LDL Cholesterol Calculated 167 <100 mg/dL Desirable LDL: less than 100 mg/dL Near Optimal/Above Optimal LDL: 110-129 mg/dL Borderline High LDL: 130-159 mg/dL High LDL: 160-189 mg/dL Very High LDL: greater than or equal to 190 mg/dL HDL Cholesterol 36 >40 mg/dL Desirable HDL: greater than 40 mg/dL Note: This HDL assay may give artificially low results in patients with liver disease. Vitamin D 25-OH Total Reviewed date:02/05/2024 06:58:55 AM Interpretation: Performing Lab:[facility], [address] [place] [phone] Notes/Report: Vitamin D 25-OH Total 37.7 >30 ng/mL Health Based Reference Values* < 20 ng/mL Deficient 20-30 ng/mL Insufficient > 30 ng/mL Sufficient *Brooke STEVENSON. N Engl J Med. 2007;357:266-280 Care must be taken in interpreting Vitamin D results from different laboratories and methodologies. Published data demonstrated that results from patients undergoing hemodialysis may show a negative bias when tested with various automated 25-OH vitamin D assays when compared to LC-MS/MS. When testing samples from patients whose predominant form of Vitamin D is Vitamin D2, such as patients receiving Vitamin D2 supplementation, results that are subtherapeutic should be confirmed with another method such as LC-MS/MS. Hemoglobin A1c Reviewed date:02/05/2024 06:58:55 AM Interpretation: Performing Lab:[facility], [address] [place] [phone] Notes/Report: Hemoglobin A1c % 6.0 <6.0 % Hemoglobin A1C Reference Range Adults: 4.8 - 6.0 % Non diabetic: < 6.0 % Goal: < 7.0 % Additional Action Suggested: > 8.0 % Note: Hemoglobin A1c results are invalid for patients with abnormal amounts of HbF. Blood transfusions may impact the HbA1c concentration in the patient sample. Estimated Average Glucose 126 eAG = Estimated average glucose which is %A1C expressed as average glucose, using the formula of the R6T-Shtqdnr Average Glucose study (ADAG), Diabetes Care, Vol.31,#8, Sep. 2007 Reason For Referral Reason Consult and Treat In need of Transportation issues Diagnosis 1 Cerebral infarction due to unspecified occlusion or stenosis of right middle cerebral artery (I63.511) Referral Organization Mata Kelley III, MD Referring Provider First Name Mata Referring Provider Last Name Allie Referring Provider Speciality Internal M edicine Referred Organization [facility] Referred Provider Cassidy Cook Referred Address [address] [place] [address],[place], [id number], Referred Provider Specialty Nurse Melissa paul General Notes DNicole 01/18/2024 10:27:42 AM > Faxed referral and progress note. Referral Priority Routine Medications Medication SIG (Take, Route, Frequency, Duration) Notes Start Date End Date Status Lantus SoloStar 100 UNIT/ML INJECT 30 UNITS SUBCUTANEOUS EVERY MORNING AND 7 UNITS EVERY NIGHT AT BEDTIME Subcutaneous Active Senna 8.6 MG 2 tablets in morning Orally Once a day Active Florastor 250 MG as directed Orally 09/14/2023 Active amLODIPine Besylate 10 MG 1 tablet Orally Once a day Active Hydrocortisone 1 % 1 application Externally Once a day 11/26/2023 Active traMADol HCl 50 MG 1 tablet Orally twice a day as needed for moderate or severe pain 08/09/2023 Active Docusate Sodium 100 MG 1 Capsule Orally Once a day for 90 days Active Vitamin D3 250 MCG (94040 UT) 1 capsule Orally Once a day Active BD Pen Needle Sofi U/F 32G X 4 MM use to inject three times a day DX: E11.9 Diabetes Active Acetaminophen 325 MG 1 tablet as needed Orally every 4 hrs 07/16/2022 Active Gabapentin 300 MG 1 capsule Orally three times a day Active Losartan Potassium 50 MG 1 tablet Orally Once a day 08/30/2023 Active Bethanechol Chloride 25 MG 1 tablet Orally Three times a day Active Ezetimibe 10 MG 1 tablet Orally Once a day 08/30/2023 Active Aspirin 81 MG 1 chewable Orally Once a day Active Klor-Con 10 10 MEQ TAKE 1 TABLET BY MOUTH DAILY Oral once a day Active levETIRAcetam 750 MG 1 tablet Orally Twice a day Active Polyethylene Glycol 3350 17 GM/SCOOP 1 scoop mixed with 8 ounces of fluid Orally Once a day 09/17/2023 Active Ammonium Lactate 12 % APPLY TO RIGHT LEG AT BEDTIME DAILY External Active Flomax 0.4 MG 2 capsule Orally Once at night time Active GaviLAX 17 GM/SCOOP DISSOLVE 17 GRAMS (1 CAPFUL) INTO BEVERAGE & DRINK ONCE DAILY Oral Active Immunizations Vaccine Route Administration Date Status Comme nts Influenza, quad IM Intramuscular 12/25/2020 Administered Tetanus and Diphtheria Toxoids Adsorbed IM Intramuscular 08/18/2021 Administered COVID PFIZER Unknown 03/20/2020 Administered COVID PFIZER Unknown 01/06/2021 Administered COVID PFIZER Unknown 02/28/2020 Administered Influenza no Preserv 3 and > Unknown 11/25/2015 Administered Influenza no Preserv 3 and > Unknown 11/09/2016 Administered Social History Tobacco Use: Social History Observation Description Date Details (start date - stop date) Never Smoker NA - NA Tobacco Use/Smoking Question Answer Notes Patient is a nonsmoker Additional Findings: Tobacco Non-User Aggressive non-smoker Alcohol Screen Question Answer Notes Did you have a drink containing alcohol in the p ast year? No Points 0 Interpretation Negative Problems Problem Type SNOMED Code ICD Code Onset Dates Problem Status W/U Status Risk Notes Problem Vitamin D deficiency (84436983) Vitamin D deficiency, unspecified (E55.9) Active confirmed Continue her vitamin D supplements. Problem 723257495 Mixed hyperlipidemia (E78.2) Active confirmed Her total cholesterol was 231.She is not taking a statin according to my records. She has been prescribed rosuvastatin in the past. Statin therapy is indicated. The reason for this will be pursued and if she is able to take a statin I will prescribe 1. Problem Cerebral infarction due to cerebral artery occlusion (315904542278313) Cerebral infarction due to unspecified occlusion or stenosis of right middle cerebral artery (I63.511) Active confirmed Problem 626138012 GERD without esophagitis (K21.9) Active confirmed Her heartburn has been well controlled with current medications. We reviewed her therapy and the options for lifestyle modification. Problem 478553764 Obesity (BMI 30-39.9) (E66.9) Active confirmed She was encouraged to restrict calories. Her last weight was 183 pounds. We are unable to weigh her as she comes in strapped into a stretcher due to her inability to bear weight. She does not appear to have gained or lost significant weight. Problem Acquired hypothyroidism (891119588) Acquired hypothyroidism (E03.9) Active confirmed The thyroid function tests show that she is euthyroid. No change in her regimen was made today. She has been compliant with her medications and is free of thyroid symptoms. Problem 27732679 Essential hypertension (I10) Active confirmed Her blood pressure today is 138/60. I recommended aggressive weight loss and sodium restriction, but made no change in her medications today. Problem 210674806 Onychomycosis (B35.1) Active confirmed The onychomycosis is mild. Is waiting to see the acoustic intelligence specialist. Problem 938619964 Primary osteoarthritis involving multiple joints (M15.0) Active confirmed I have asked her to avoid nonsteroidal anti-inflammat ory medications. Fortunately, the arthritis is mild. Problem 14827237421420035 Cerebrovascula r accident (CVA) due to occlusion of right middle cerebral artery (I63.511) Active confirmed She is medically stable with a left hemiplegia. She denies any pain. She says she has had no skin breakdown. Her medications were continued. She will be seen periodically.S he is coping well with the stroke sequela. Problem Type II diabetes mellitus without complication (674912647) Type 2 diabetes mellitus without complication, unspecified whether termite exterminator insulin use (E11.9) Active confirmed She was continued on current medication without change. She says her medicall condition and glucose levels have been stable.Her hemoglobin A1c is 6.0 and her fasting glucose 112. Her glomerular filtration rate has increased from 40 to 50. Problem 073231662 History of asthma (Z87.09) Active confirmed She has had no wheezing recently. No change in her regimen was needed. Vital Signs Heart Rate 72 /min 02/03/2024 Temperature 97.1 degrees Fahrenheit 02/03/2024 Respiratory Rate 16 /min 02/03/2024 Blood pressure diastolic 60 mm Hg 02/03/2024 Height 62 in 02/03/2024 Blood pressure systolic 138 mm Hg 02/03/2024 Weight 183 lbs 11/26/2023 BMI 33.47 kg/m2 11/26/2023 Encounters Encounter Location Date Provider Diagnosis Mata Kelley III, MD [address] [place] [address] [place] [address] 08/30/2023 Mata Kelley Cerebrovascular acci dent (CVA) due to occlusion of right middle cerebral artery I63.511 ; Acquired hypothyroidism E03.9 ; History of asthma Z87.09 ; Essential hypertension I10 ; GERD without esophagitis K21.9 ; Type 2 diabetes mellitus without complication, unspecified whether termite exterminator insulin use E11.9 ; Mixed hyperlipidemia E78.2 ; Onychomycosis B35.1 and Obesity (BMI 30-39.9) E66.9 Mata Kelley III, MD [address] [place] [address] [place] [phone] 10/01/2023 Mata Kelley Cerebrovascular acci dent (CVA) due to occlusion of right middle cerebral artery I63.511 ; History of asthma Z87.09 ; Acquired hypothyroidism E03.9 ; GERD without esophagitis K21.9 ; Primary osteoarthritis involving multiple joints M15.0 ; Mixed hyperlipidemia E78.2 and Obesity (BMI 30-39.9) E66.9 Mata Kelley III, MD [address] [place] [address] [place] [address] 11/26/2023 Mata Kelley Cerebrovascular acci dent (CVA) due to occlusion of right middle cerebral artery I63.511 ; Acquired hypothyroidism E03.9 ; History of asthma Z87.09 ; Essential hypertension I10 ; GERD without esophagitis K21.9 ; Mixed hyperlipidemia E78.2 ; Type 2 diabetes mellitus without complication, unspecified whether mcfp insulin use E11.9 ; Primary osteoarthritis involving multiple joints M15.0 ; Skin rash R21 and Obesity (BMI 30-39.9) E66.9 Mata Kelley III, MD [address] [place] [address] [place] [phone] 01/07/2024 Mata Kelley Cerebrovascular acci dent (CVA) due to occlusion of right middle cerebral artery I63.511 ; Obesity (BMI 30-39.9) E66.9 ; Type 2 diabetes mellitus without complication, unspecified whether mcfp insulin use E11.9 and Vitamin D deficiency, unspecified E55.9 Mata Kelley III, MD [address] [place] [address] [place] [address] 02/03/2024 Mata Kelley Cerebrovascular acci dent (CVA) due to occlusion of right middle cerebral artery I63.511 ; Acquired hypothyroidism E03.9 ; Type 2 diabetes mellitus without complication, unspecified whether mcfp insulin use E11.9 ; Essential hypertension I10 ; GERD without esophagitis K21.9 ; History of asthma Z87.09 ; Obesity (BMI 30-39.9) E66.9 and Mixed hyperlipidemia E78.2 Mata Kelley III, MD [address] [place] [address] [place] [address] 07/23/2023 Mata Kelley III, MD [address] [place] [address] [place] [address] 07/28/2023 Mata Kelley III, MD [address] [place] [address] [place] [address] 08/03/2023 Mata Kelley III, MD [address] [place] [address] [place] [address] 08/04/2023 Mata Kelley III, MD [address] [place] [address] [place] [address] 08/05/2023 Mata Kelley III, MD [address] [place] [address] [place] [address] 08/05/2023 Mata Kelley III, MD [address] [place] [address] [place] [address] 08/09/2023 Mata Kelley III, MD [address] [place] [address] [place] [address] 08/09/2023 Mata Kelley III, MD [address] [place] [address] [place] [address] 08/10/2023 Mata Kelley III, MD [address] [place] [address] [place] [address] 08/12/2023 Mata Kelley III, MD [address] [place] [address] [place] [address] 08/17/2023 Mata Kelley III, MD [address] [place] [address] [place] [address] 08/20/2023 Mata Kelley III, MD [address] [place] [address] [place] [address] 08/23/2023 Mata Kelley III, MD [address] [place] [address] [place] [address] 08/27/2023 Mata Kelley III, MD [address] [place] [address] [place] [address] 09/06/2023 Mata Kelley III, MD [address] [place] [address] [place] [address] 09/10/2023 Mata Kelley III, MD [address] [place] [address] [place] [address] 09/17/2023 Mata Kelley III, MD [address] [place] [address] [place] [address] 10/19/2023 Mata Kelley III, MD [address] [place] [address] [place] [address] 10/27/2023 Mata Kelley III, MD [address] [place] [address] [place] [address] 11/02/2023 Mata Kelley III, MD [address] [place] [address] [place] [address] 12/21/2023 Mata Kelley Cerebrovascular acci dent (CVA) due to occlusion of right middle cerebral artery I63.511 Mata Kelley III, MD [address] [place] [address] [place] [address] 02/04/2024 Mata Kelley Assessments Encounter Date Diagnosis (ICD Code) Assessment Notes Treat ment Notes Treatment Clinical Notes 08/30/2023 Acquired hypothyroidism (ICD-10 - E03.9) The thyroid function tests show that she is euthyroid. No change in her regimen was made today. She has been compliant with her medications and is free of thyroid symptoms. 08/30/2023 Cerebrovascular accident (CVA) due to occlusion of right middle cerebral artery (ICD-10 - I63.511) She will continue on her aspirin and rehabilitation. She will need physical therapy and occupational therapy. Speech therapy. She will be seen here frequently. 10/01/2023 Cerebrovascular accident (CVA) due to occlusion of right middle cerebral artery (ICD-10 - I63.511) She is medically stable with a left hemiplegia. She denies any pain. She says she has had no skin breakdown. Her medications were continued. She will be seen periodically. 10/01/2023 History of asthma (ICD-10 - Z87.09) She has had no wheezing recently. No change in her regimen was needed. 11/26/2023 Acquired hypothyroidism (ICD-10 - E03.9) The thyroid function tests show that she is euthyroid. No change in her regimen was made today. She has been compliant with her medications and is free of thyroid symptoms. 11/26/2023 Cerebrovascular accident (CVA) due to occlusion of right middle cerebral artery (ICD-10 - I63.511) She is medically stable with a left hemiplegia. She denies any pain. She says she has had no skin breakdown. Her medications were continued. She will be seen periodically. 01/07/2024 Obesity (BMI 30-39.9 ) (ICD-10 - E66.9) She was encouraged to restrict calories. She was given an appointment to come to the office after blood work in the near future to be weighed and have her vital signs measured. 01/07/2024 Cerebrovascular accident (CVA) due to occlusion of right middle cerebral artery (ICD-10 - I63.511) She is medically stable with a left hemiplegia. She denies any pain. She says she has had no skin breakdown. Her medications were continued. She will be seen periodically.She is coping well with the stroke sequela. 02/03/2024 Acquired hypothyroidism (ICD-10 - E03.9) The thyroid function tests show that she is euthyroid. No change in her regimen was made today. She has been compliant with her medications and is free of thyroid symptoms. 02/03/2024 Cerebrovascular accident (CVA) due to occlusion of right middle cerebral artery (ICD-10 - I63.511) She is medically stable with a left hemiplegia. She denies any pain. She says she has had no skin breakdown. Her medications were continued. She will be seen periodically.She is coping well with the stroke sequela. 12/21/2023 Cerebrovascular accident (CVA) due to occlusion of right middle cerebral artery (ICD-10 - I63.511) She is medically stable with a left hemiplegia. She denies any pain. She says she has had no skin breakdown. Her medications were continued. She will be seen periodically. 08/30/2023 History of asthma (ICD-10 - Z87.09) She has had no wheezing recently. No change in her regimen was needed. 10/01/2023 Acquired hypothyroidism (ICD-10 - E03.9) The thyroid function tests show that she is euthyroid. No change in her regimen was made today. She has been compliant with her medications and is free of thyroid symptoms. 11/26/2023 History of asthma (ICD-10 - Z87.09) She has had no wheezing recently. No change in her regimen was needed. 01/07/2024 Type 2 diabetes mellitus without complication, unspecified whether mcfp insulin use (ICD-10 - E11.9) She was continued on current medication without change. She says her medicall condition and glucose levels have been stable. 02/03/2024 Type 2 diabetes mellitus without complication, unspecified whether mcfp insulin use (ICD-10 - E11.9) She was continued on current medication without change. She says her medicall condition and glucose levels have been stable.Her hemoglobin A1c is 6.0 and her fasting glucose 112. Her glomerular filtration rate has increased from 40 to 50. 08/30/2023 Essential hypertension (ICD-10 - I10) Her blood pressure today is 130/70. I recommended aggressive weight loss and sodium restriction, but made no change in her medications today. 10/01/2023 GERD without esophagitis (ICD-10 - K21.9) Her heartburn has been well controlled with current medications. We reviewed her therapy and the options for lifestyle modification. 11/26/2023 Essential hypertension (ICD-10 - I10) Her blood pressure today is 130/70. I recommended aggressive weight loss and sodium restriction, but made no change in her medications today. 01/07/2024 Vitamin D deficiency , unspecified (ICD-10 - E55.9) Continue her vitamin D supplements. 02/03/2024 Essential hypertension (ICD-10 - I10) Her blood pressure today is 138/60. I recommended aggressive weight loss and sodium restriction, but made no change in her medications today. 08/30/2023 GERD without esophagitis (ICD-10 - K21.9) Her heartburn has been well controlled with current medications. We reviewed her therapy and the options for lifestyle modification. 10/01/2023 Primary osteoarthritis involving multiple joints (ICD-10 - M15.0) I have asked her to avoid nonsteroidal anti-inflammatory medications. Fortunately, the arthritis is mild. 11/26/2023 GERD without esophagitis (ICD-10 - K21.9) Her heartburn has been well controlled with current medications. We reviewed her therapy and the options for lifestyle modification. 02/03/2024 GERD without esophagitis (ICD-10 - K21.9) Her heartburn has been well controlled with current medications. We reviewed her therapy and the options for lifestyle modification. 08/30/2023 Type 2 diabetes mellitus without complication, unspecified whether mcfp insulin use (ICD-10 - E11.9) She has been receiving her medications as ordered. Comprehensive blood work with a hemoglobin A1c was requested. 10/01/2023 Mixed hyperlipidemia (ICD-10 - E78.2) Her fasting lipid profile shows good control of her lipids and no change in her regimen was needed. 11/26/2023 Mixed hyperlipidemia (ICD-10 - E78.2) Her fasting lipid profile shows good control of her lipids and no change in her regimen was needed. 02/03/2024 History of asthma (ICD-10 - Z87.09) She has had no wheezing recently. No change in her regimen was needed. 08/30/2023 Mixed hyperlipidemia (ICD-10 - E78.2) Her fasting lipid profile shows good control of her lipids and no change in her regimen was needed. 10/01/2023 Obesity (BMI 30-39.9 ) (ICD-10 - E66.9) She is no longer morbidly obese. Her body mass index is 39, having lost 8 pounds. We reviewed her weight loss strategy. She was strongly encouraged to continue weight loss. She says her appetite is good. 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 Comprehensive blood work with a hemoglobin A1c was requested. 02/03/2024 Obesity (BMI 30-39.9 ) (ICD-10 - E66.9) She was encouraged to restrict calories. Her last weight was 183 pounds. We are unable to weigh her as she comes in strapped into a stretcher due to her inability to bear weight. She does not appear to have gained or lost significant weight. 08/30/2023 Onychomycosis (ICD-1 0 - B35.1) The onychomycosis is mild. Is waiting to see the acoustic intelligence specialist. 11/26/2023 Primary osteoarthritis involving multiple joints (ICD-10 - M15.0) I have asked her to avoid nonsteroidal anti-inflammatory medications. Fortunately, the arthritis is mild. 02/03/2024 Mixed hyperlipidemia (ICD-10 - E78.2) Her total cholesterol was 231.She is not taking a statin according to my records. She has been prescribed rosuvastatin in the past. Statin therapy is indicated. The reason for this will be pursued and if she is able to take a statin I will prescribe 1. 08/30/2023 Obesity (BMI 30-39.9 ) (ICD-10 - E66.9) She is no longer morbidly obese. Her body mass index is 39, having lost 8 pounds. We reviewed her weight loss strategy. She was strongly encouraged to continue weight loss. She says her appetite is good. 11/26/2023 Skin rash (ICD-10 - R21) She was given instructions on topical ointments. She was instructed to keep the area dry and clean and to report to me in 72 hours. I instructed her on use of hydrocortisone ointment. I asked that the visiting nurses could see her and report to me. If it does not resolve she may come to the office. 11/26/2023 Obesity (BMI 30-39.9 ) (ICD-10 - E66.9) She is no longer morbidly obese. Her body mass index is 33. We reviewed her weight loss strategy. She was strongly encouraged to continue weight loss. She says her appetite is good. Plan Of Treatment Pending Test Test Name Order Date PROFILE, FASTING (COMPREHENSIVE METABOLI C) 01/07/2024 PROFILE, FASTING (COMPREHENSIVE METABOLI C) 04/16/2022 HEMOGLOBIN A1C (GLYCOHEMOGLOBIN) 023 LIPID PANEL 04/16/2022 CBC w DIFF 04/16/2022 MAMMOGRAM DIGITAL BILATERAL SCREEN 11/19 CBC WITH AUTO DIFF 01/07/2024 Lipid Panel 01/07/2024 Vitamin D 25-OH Total 01/07/2024 Microalbumin, Random 01/07/2024 Hemoglobin A1c 01/07/2024 Next Appt Details Provider Name:Mata Kelley, 08/04/2024 09:30:00 AM, [address] [place] [address] , ANKIT Noemi, [place], [address], Insurance Providers Payer Name Payer Address Payer Phone Subscriber Number Group Number Insured Name Patient Relationship to Insured Coverage Start Date Coverage End Date [facility] Medicare Complete [address] [address] [place] [address] [id number] Kasey Mckeon Self - patient is the insured 2 MEDICAID [address] [place], [place] [id number] [phone] [id number] Kasey Mckeon Self - patient is the insured MEDICARE NGS [address] [facility] [place] [address] [id number] Kasey Mckeon Self - patient is the insured 1 Medical (General) History Medical History History ICD Code Systolic murmur R01.1 asthma hyperlipidemia insulin-dependent diabetes mellitus obesity, BMI 39 hypothyroid essential hypertension hypovitaminosis D GERD osteoarthritis Surgical History Surgery Date(Month/Year) No history colonoscopy, Dr. Aguilar, [facility] 2007 appendectomy tubal ligation 05/1990 Hospitalization History Reason Date(Month/Year) No history
--- OUTSIDE RECORDS SUMMARY | 2024-02-09 01:39 | XMS_ITS ---
Author Organization Mata Kelley III, MD Address [address] [place] [address] Care Team Providers Care Furniture Manager Name Role Phone Mata Kelley Primary Care Provider Allergies Allergen (clinical drug ingredient) Drug/Non Drug Allergy documented on EMR Reaction Allergy Type Onset Date Status No Known Drug Allergy Unknown Drug Allergy Active REASON FOR VISIT Left hemiplegia, Right cerebral infarction, Obesity, Hyperlipidemia, Diabetes, Hypothyroidism, Asthma, Hypertension, . Medications Medication SIG (Take, Route, Frequency, Duration) Notes Start Date End Date Status Lantus SoloStar 100 UNIT/ML INJECT 30 UNITS SUBCUTANEOUS EVERY MORNING AND 7 UNITS EVERY NIGHT AT BEDTIME Subcutaneous Active Florastor 250 MG as directed Orally 09/14/2023 Active Hydrocortisone 1 % 1 application Externally Once a day 11/26/2023 Active Ammonium Lactate 12 % APPLY TO RIGHT LEG AT BEDTIME DAILY External Active GaviLAX 17 GM/SCOOP DISSOLVE 17 GRAMS (1 CAPFUL) INTO BEVERAGE & DRINK ONCE DAILY Oral Active Acetaminophen 325 MG 1 tablet as needed Orally every 4 hrs 07/16/2022 Active Losartan Potassium 50 MG 1 tablet Orally Once a day 08/30/2023 Active Ezetimibe 10 MG 1 tablet Orally Once a day 08/30/2023 Active Docusate Sodium 100 MG TAKE 1 CAPSULE BY MOUTH EVERY DAY Oral Active levETIRAcetam 750 MG 1 tablet Orally Twice a day Active traMADol HCl 50 MG 1 tablet Orally twice a day as needed for moderate or severe pain 08/09/2023 Active Senna 8.6 MG 2 tablets in morning Orally Once a day Active amLODIPine Besylate 10 MG 1 tablet Orally Once a day Active Vitamin D3 250 MCG (17567 UT) 1 capsule Orally Once a day Active Flomax 0.4 MG 2 capsule Orally Once at night time Active Gabapentin 300 MG 1 capsule Orally three times a day Active Bethanechol Chloride 25 MG 1 tablet Orally Three times a day Active Aspirin 81 MG 1 chewable Orally Once a day Active Klor-Con 10 10 MEQ TAKE 1 TABLET BY MOUTH DAILY Oral once a day Active Polyethylene Glycol 3350 17 GM/SCOOP 1 scoop mixed with 8 ounces of fluid Orally Once a day 09/17/2023 Active BD Pen Needle Sofi U/F 32G X 4 MM use to inject three times a day DX: E11.9 Diabetes Active Social History Tobacco Use: Social History Observation Description Date Details (start date - stop date) Never Smoker NA - NA Tobacco Use/Smoking Question Answer Notes Patient is a nonsmoker Additional Findings: Tobacco Non-User Aggressive non-smoker Vital Signs Temperature 97.1 degrees Fahrenheit 02/03/20 24 Blood pressure systolic 138 mm Hg 02/03/20 24 Blood pressure diastolic 60 mm Hg 024 Heart Rate 72 /min 02/03/2024 Respiratory Rate 16 /min 02/03/2024 Height 62 in 02/03/2024 Encounters Encounter Location Date Provider Diagnosis Mata Kelley III, MD [address] [place] [address] [place] [address] 02/03/2024 Mata Kelley Cerebrovascular acci dent (CVA) due to occlusion of right middle cerebral artery I63.511 ; Acquired hypothyroidism E03.9 ; Type 2 diabetes mellitus without complication, unspecified whether intermediate insulin use E11.9 ; Essential hypertension I10 ; GERD without esophagitis K21.9 ; History of asthma Z87.09 ; Obesity (BMI 30-39.9) E66.9 and Mixed hyperlipidemia E78.2 Assessments Encounter Date Diagnosis (ICD Code) Assessment Notes Treat ment Notes Treatment Clinical Notes 02/03/2024 Cerebrovascular accident (CVA) due to occlusion [...] and is free of thyroid symptoms. 02/03/2024 Type 2 diabetes mellitus without complication, unspecified whether intermediate card tender insulin use (ICD-10 - E11.9) She was continued on current medication without change. She says her medicall condition and glucose levels have been stable.Her hemoglobin A1c is 6.0 and her fasting glucose 112. Her glomerular filtration rate has increased from 40 to 50. 02/03/2024 Essential hypertensi on (ICD-10 - I10) Her blood pressure today is 138/60. I recommended aggressive weight loss and sodium restriction, but made no change in her medications today. 02/03/2024 GERD without esophagitis (ICD-10 - K21.9) Her heartburn has been well controlled with current medications. We reviewed her therapy and the options for lifestyle modification. 02/03/2024 History of asthma (ICD-10 - Z87.09) She has had no wheezing recently. No change in her regimen was needed. 02/03/2024 Obesity (BMI 30-39.9 ) (ICD-10 - E66.9) She was encouraged to restrict calories. Her last weight was 183 pounds. We are unable to weigh her as she comes in strapped into a stretcher due to her inability to bear weight. She does not appear to have gained or lost significant weight. 02/03/2024 Mixed hyperlipidemia (ICD-10 - E78.2) Her total cholesterol was 231.She is not taking a statin according to my records. She has been prescribed rosuvastatin in the past. Statin therapy is indicated. The reason for this will be pursued and if she is able to take a statin I will prescribe 1. Plan Of Treatment Medication Medication Name Sig Start Date Stop Date Notes Lantus SoloStar 100 UNIT/ML INJECT 30 UNITS SUBCUTANEOUS EVERY MORNING AND 7 UNITS EVERY NIGHT AT BEDTIME Subcutaneous Florastor 250 MG as directed Orally 09/14/2023 Hydrocortisone 1 % 1 application Externally Once a day 11/26/2023 Ammonium Lactate 12 % APPLY TO RIGHT LEG AT BEDTIME DAILY External GaviLAX 17 GM/SCOOP DISSOLVE 17 GRAMS (1 CAPFUL) INTO BEVERAGE & DRINK ONCE DAILY Oral Acetaminophen 325 MG 1 tablet as needed Orally every 4 hrs 07/16/2022 Losartan Potassium 50 MG 1 tablet Orally Once a day 08/30/2023 Ezetimibe 10 MG 1 tablet Orally Once a day 08/30/2023 Docusate Sodium 100 MG TAKE 1 CAPSULE BY MOUTH EVERY DAY Oral levETIRAcetam 750 MG 1 tablet Orally Twi ce a day traMADol HCl 50 MG 1 tablet Orally twic e a day as needed for moderate or severe pain 08/09/2023 Senna 8.6 MG 2 tablets in morning Orally Once a day amLODIPine Besylate 10 MG 1 tablet Orally Once a day Vitamin D3 250 MCG (92871 UT) 1 capsule Orally Once a day Flomax 0.4 MG 2 capsule Orally Onc e at night time Gabapentin 300 MG 1 capsule Orally thr ee times a day Bethanechol Chloride 25 MG 1 tablet Orally Three times a day Aspirin 81 MG 1 chewable Orally On ce a day Klor-Con 10 10 MEQ TAKE 1 TABLET BY TOSIN TH DAILY Oral once a day Polyethylene Glycol 3350 17 GM/SCOOP 1 scoop mixed with 8 ounces of fluid Orally Once a day 09/17/2023 BD Pen Needle Sofi U/F 32G X 4 MM use to inject three times a day DX: E11.9 Diabetes Next Appt Details Follow Up: 4 Months, Reason: Office visit Provider Name:Mata Kelley, 08/04/2024 09:30:00 AM, [address] [place] [address] , [place] [address], [place], [address], Progress Notes * Kasey CARRILLO MDOB:1955 (68 yo F)Acc No.[id number]:02/03/2024 Progress Notes Patient:?Kasey CARRILLO Provider:?Mata Kelley MD :1955???Age:68 Y???Sex:Female D ate:02/03/2024 [address] [address] [place] Subjective: * Chief Complaints: * ???Left hemiplegiaRight cere bral infarctionObesityHyperlipidemiaDiabetesHypothyroidismAsthmaHypertension. * HPI: ???COVID-19 Screening:? She returns to the office for a scheduled visit brought in by ambulance stretcher.? She is followed for multiple medical problems.? She continues to have a dense left hemiplegia after a right cerebral middle artery stroke.? She is awake and alert and verbal.? She has mild shoulder pain on the left but otherwise feels well.? Her appetite has been good.? She has had no skin breakdown.? On examination she was well groomed that her clothing was clean an attentive family was present.? No change in her regimen was necessary.? Her blood work was reviewed.? Her total cholesterol was slightly elevated. ?Questions?Have you experienced fever, chills, cough, sore throat, shortness of breath, difficulty breathing, muscle aches, loss of taste or smell??No ?Have you been exposed to the virus within the last 10 days??No ?Have you travelled internationally in the last 10 days??No ?Have you been exposed to COVID-19 in the past??No * ROS:?General/Constitutional:?pain?Left shoulder.?Chills?denies.?Fatigue?admits.?Fever?denies.?ENT:?Decreased hearing?denies.?Respiratory:?Cough?denies.?Cardiovascular:?Chest pain with exertion?denies.?Dyspnea on exertion?denies.?Shortness of breath?denies.?Gastrointestinal:?Constipation?occasional.?Decreased appetite?denies.?Diarrhea?denies.?Heartburn?denies.?Nausea?denies.?Rectal bleeding?denies.?Vomiting?denies.?Hematology:?bruising?denies.?petechiae?denies.?Swollen glands?none have been noted.?Genitourinary:?Frequent urination?denies.?Musculoskeletal:?Muscle aches?denies.?Painful joints?Left shoulder.?Sciatica?denies.?Weakness?denies.?Skin:?Itching?denies.?Rash?denies.?Skin lesion(s)?denies.?Neurologic:?Difficulty speaking?denies.?Dizziness?denies.?Headache?denies.?Low back pain?denies.?Psychiatric:?Depressed mood?denies.? * Medical History:? * Surgical History:?tubal liga tion 05/1990appendectomy colonoscopy, Dr. Aguilar, [facility] 2007No history * Hospitalization/Major Diagno stic Procedure:?No history * Family History:?Father: dece ased.?Mother: 83 yrs, Hypertension, coronary artery disease, diagnosed with HTN, CVD.?Children: alive, diagnosed with HTN.?Daughter(s): .?2 brother(s) , 2 sister(s) . 1 son(s) , 1 daughter(s) - healthy. .? One of her daughters has . One of her brothers has colon cancer. A paternal aunt had diabetes mellitus. There is no family history of mental illness. There is no family history of substance abuse or addictions. * Social History:?Tobacco Use:?Tobacco Use/Smoking?Patient is a?nonsmoker ?Additional Findings: Tobacco Non-User?Aggressive non-smoker ???She was born in [place] and has worked at [employer] in [place] for the last 36 years. She is with 1 daughter, Mary Ellen, and a son, Rudolph. She has 2 grandchildren. * Medications:?TakingBD Pen Ne edle Sofi U/F 32G X 4 MM Miscellaneous use to inject three times a day , Notes to Pharmacist: DX: E11.9 DiabetesGabapentin 300 MG Capsule 1 capsule Orally three times a day Bethanechol Chloride 25 MG Tablet 1 tablet Orally Three times a day Aspirin 81 MG Tablet Chewable 1 chewable Orally Once a day Klor-Con 10 10 MEQ Tablet Extended Release TAKE 1 TABLET BY MOUTH DAILY Oral once a day Polyethylene Glycol 3350 17 GM/SCOOP Powder 1 scoop mixed with 8 ounces of fluid Orally Once a day Flomax 0.4 MG Capsule 2 capsule Orally Once at night time traMADol HCl 50 MG Tablet 1 tablet Orally twice a day as needed for moderate or severe pain Senna 8.6 MG Tablet 2 tablets in morning Orally Once a day amLODIPine Besylate 10 MG Tablet 1 tablet Orally Once a day Vitamin D3 250 MCG (54688 UT) Tablet 1 capsule Orally Once a day Acetaminophen 325 MG Tablet 1 tablet as needed Orally every 4 hrs Losartan Potassium 50 MG Tablet 1 tablet Orally Once a day Ezetimibe 10 MG Tablet 1 tablet Orally Once a day Docusate Sodium 100 MG Capsule TAKE 1 CAPSULE BY MOUTH EVERY DAY Oral levETIRAcetam 750 MG Tablet 1 tablet Orally Twice a day Ammonium Lactate 12 % Cream APPLY TO RIGHT LEG AT BEDTIME DAILY External GaviLAX 17 GM/SCOOP Powder DISSOLVE 17 GRAMS (1 CAPFUL) INTO BEVERAGE & DRINK ONCE DAILY Oral Lantus SoloStar 100 UNIT/ML Solution Pen-injector INJECT 30 UNITS SUBCUTANEOUS EVERY MORNING AND 7 UNITS EVERY NIGHT AT BEDTIME Subcutaneous Florastor 250 MG Capsule as directed Orally Hydrocortisone 1 % Cream 1 application Externally Once a day Medication List reviewed and reconciled with the patientTaking BD Pen Needle Sofi U/F 32G X 4 MM Miscellaneous use to inject three times a day , Notes to Pharmacist: DX: E11.9 DiabetesTaking Gabapentin 300 MG Capsule 1 capsule Orally three times a day Taking Bethanechol Chloride 25 MG Tablet 1 tablet Orally Three times a day Taking Aspirin 81 MG Tablet Chewable 1 chewable Orally Once a day Taking Klor-Con 10 10 MEQ Tablet Extended Release TAKE 1 TABLET BY MOUTH DAILY Oral once a day Taking Polyethylene Glycol 3350 17 GM/SCOOP Powder 1 scoop mixed with 8 ounces of fluid Orally Once a day Taking Flomax 0.4 MG Capsule 2 capsule Orally Once at night time Taking traMADol HCl 50 MG Tablet 1 tablet Orally twice a day as needed for moderate or severe pain Taking Senna 8.6 MG Tablet 2 tablets in morning Orally Once a day Taking amLODIPine Besylate 10 MG Tablet 1 tablet Orally Once a day Taking Vitamin D3 250 MCG (99987 UT) Tablet 1 capsule Orally Once a day Taking Acetaminophen 325 MG Tablet 1 tablet as needed Orally every 4 hrs Taking Losartan Potassium 50 MG Tablet 1 tablet Orally Once a day Taking Ezetimibe 10 MG Tablet 1 tablet Orally Once a day Taking Docusate Sodium 100 MG Capsule TAKE 1 CAPSULE BY MOUTH EVERY DAY Oral Taking levETIRAcetam 750 MG Tablet 1 tablet Orally Twice a day Taking Ammonium Lactate 12 % Cream APPLY TO RIGHT LEG AT BEDTIME DAILY External Taking GaviLAX 17 GM/SCOOP Powder DISSOLVE 17 GRAMS (1 CAPFUL) INTO BEVERAGE & DRINK ONCE DAILY Oral Taking Lantus SoloStar 100 UNIT/ML Solution Pen-injector INJECT 30 UNITS SUBCUTANEOUS EVERY MORNING AND 7 UNITS EVERY NIGHT AT BEDTIME Subcutaneous Taking Florastor 250 MG Capsule as directed Orally Taking Hydrocortisone 1 % Cream 1 application Externally Once a day Medication List reviewed and reconciled with the patient * Allergies:?No Known Drug All ergyno[Allergies Verified] Objective: * Vitals:?Ht: 62, BP:138/60, H R:72, RR:16, Temp:97.1, Ht-cm: 157.48. * ???Past Orders: Lab:Hemoglobin A1c * Collection Date 02/03/2024 04/08/2022 01/13/2022 Collection Time 10:45 AM 08:17 AM 08:02 AM Order Date 02/03/2024 04/08/2022 01/13/2022 Hemoglobin A1c % 6.0 (Ref Range: <6.0 %) 12.0 (Ref Range: %) 9.8 (Ref Range: %) Estimated Average Glucose 126 (Ref Range: mg/dL) 298 (Ref Range: mg/dL) 235 (Ref Range: mg/dL) * Lab:Complete Blood Count Aut o Diff * Collection Date 02/03/2024 08/07/2023 08/06/2023 Collection Time 10:45 AM 06:20 AM 06:26 AM Order Date 02/03/2024 08/07/2023 08/06/2023 White Blood Count 7.8 (Ref Range: 4.8-10.8 X10*3/uL) 13.4?H (Ref Range: 4.8-10.8 X10*3/uL) 16.7?H (Ref Range: 4.8-10.8 X10*3/uL) Red Blood Count 3.91?L (Ref Range: 4.20-5.50 X10*6/uL) 3.38?L (Ref Range: 4.20-5.50 X10*6/uL) 3.78?L (Ref Range: 4.20-5.50 X10*6/uL) Hemoglobin 11.8?L (Ref Range: 12.0-16.0 g/dl) 10.4?L (Ref Range: 12.0-16.0 g/dl) 11.8?L (Ref Range: 12.0-16.0 g/dl) Hematocrit 35.6?L (Ref Range: 37.0-47.0 %) 30.7?L (Ref Range: 37.0-47.0 %) 35.4?L (Ref Range: 37.0-47.0 %) Mean Corpuscular Volume 91.0 (Ref Range: 80.0-98.0 fL) 90.8 (Ref Range: 80.0-98.0 fL) 93.7 (Ref Range: 80.0-98.0 fL) Mean Corpuscular Hemoglobin 30.2 (Ref Range: 27.0-33.0 pg) 30.8 (Ref Range: 27.0-33.0 pg) 31.2 (Ref Range: 27.0-33.0 pg) Mean Corpuscular HGB Conc 33.1 (Ref Range: 31.0-35.0 g/dl) 33.9 (Ref Range: 31.0-35.0 g/dl) 33.3 (Ref Range: 31.0-35.0 g/dl) Red Cell Distribution Width 12.3 (Ref Range: 11.0-16.0 %) 12.3 (Ref Range: 11.0-16.0 %) 12.9 (Ref Range: 11.0-16.0 %) Platelet Count 276 (Ref Range: 160-400 X10*3/uL) 271 (Ref Range: 160-400 X10*3/uL) 352 (Ref Range: 160-400 X10*3/uL) Mean Platelet Volume 9.8 (Ref Range: 9.4-12.3 fL) 9.8 (Ref Range: 9.4-12.3 fL) 10.3 (Ref Range: 9.4-12.3 fL) Neutrophils Percent Auto 52.8 (Ref Range: 45-73 %) 62.4 (Ref Range: 45-73 %) 72.8 (Ref Range: 45-73 %) Imm Gran Pct Auto 0.5?H (Ref Range: 0.0-0.4 %) 0.5?H (Ref Range: 0.0-0.4 %) 0.5?H (Ref Range: 0.0-0.4 %) Lymphocytes Percent Auto 26.3 (Ref Range: 20-40 %) 15.7?L (Ref Range: 20-40 %) 10.7?L (Ref Range: 20-40 %) Monocytes Percent Auto 7.6 (Ref Range: 2-11 %) 6.4 (Ref Range: 2-11 %) 6.2 (Ref Range: 2-11 %) Eosinophils Percent Auto 11.8?H (Ref Range: 0-4 %) 14.9?H (Ref Range: 0-4 %) 9.4?H (Ref Range: 0-4 %) Basophils Percent Auto 1.0 (Ref Range: 0-2 %) 0.1 (Ref Range: 0-2 %) 0.4 (Ref Range: 0-2 %) NRBC Pct Auto 0.0 (Ref Range: 0.0-0.2 /100WBC) 0.0 (Ref Range: 0.0-0.2 /100WBC) 0.0 (Ref Range: 0.0-0.2 /100WBC) Neutrophils Absolute Auto 4.1 (Ref Range: 2.0-8.3 x10*3/uL) 8.4?H (Ref Range: 2.0-8.3 x10*3/uL) 12.2?H (Ref Range: 2.0-8.3 x10*3/uL) Imm Gran Abs Auto 0.04?H (Ref Range: 0.00-0.03 X10*3/uL) 0.07?H (Ref Range: 0.00-0.03 X10*3/uL) 0.09?H (Ref Range: 0.00-0.03 X10*3/uL) Lymphocytes Absolute Auto 2.1 (Ref Range: 1.2-4.9 X10*3/uL) 2.1 (Ref Range: 1.2-4.9 X10*3/uL) 1.8 (Ref Range: 1.2-4.9 X10*3/uL) Monocytes Absolute Auto 0.6 (Ref Range: 0.1-1.2 X10*3/uL) 0.9 (Ref Range: 0.1-1.2 X10*3/uL) 1.0 (Ref Range: 0.1-1.2 X10*3/uL) Eosinophils Absolute Auto 0.9?H (Ref Range: 0.0-0.4 X10*3/uL) 2.0?H (Ref Range: 0.0-0.4 X10*3/uL) 1.6?H (Ref Range: 0.0-0.4 X10*3/uL) Basophils Absolute Auto 0.1 (Ref Range: 0.0-0.2 X10*3/uL) 0.0 (Ref Range: 0.0-0.2 X10*3/uL) 0.1 (Ref Range: 0.0-0.2 X10*3/uL) NRBC Abs Auto 0.000 (Ref Range: 0.0-0.012 X10*3/uL) 0.000 (Ref Range: 0.0-0.012 X10*3/uL) 0.000 (Ref Range: 0.0-0.012 X10*3/uL) * Lab:Terry Lima. Bridgett l Fast * Collection Date 02/03/2024 04/08/2022 01/13/2022 Collection Time 10:45 AM 08:17 AM 08:02 AM Order Date 02/03/2024 04/08/2022 01/13/2022 Sodium 141 (Ref Range: 135-145 mmol/L) 141 (Ref Range: 135-145 mmol/L) 138 (Ref Range: 135-145 mmol/L) Bilirubin Total 0.2 (Ref Range: 0.0-1.0 mg/dL) 0.4 (Ref Range: 0.0-1.0 mg/dL) 0.3 (Ref Range: 0.0-1.0 mg/dL) Aspartate Amino Transferase 19 (Ref Range: 5-31 U/L) 23 (Ref Range: 5-31 U/L) 20 (Ref Range: 5-31 U/L) Alanine Aminotransferase 20 (Ref Range: 0-31 U/L) 25 (Ref Range: 0-31 U/L) 22 (Ref Range: 0-31 U/L) Total Protein 7.2 (Ref Range: 6.5-8.0 g/dL) 6.4?L (Ref Range: 6.5-8.0 g/dL) 6.7 (Ref Range: 6.5-8.0 g/dL) Albumin Level 3.7 (Ref Range: 3.5-5.0 g/dL) 3.9 (Ref Range: 3.5-5.0 g/dL) 3.8 (Ref Range: 3.5-5.0 g/dL) Alkaline Phosphatase 98 (Ref Range: 39-117 U/L) 101 (Ref Range: 39-117 U/L) 115 (Ref Range: 39-117 U/L) Potassium 4.5 (Ref Range: 3.3-5.1 mmol/L) 4.0 (Ref Range: 3.3-5.1 mmol/L) 4.5 (Ref Range: 3.3-5.1 mmol/L) Chloride 109?H (Ref Range: 96-108 mmol/L) 104 (Ref Range: 96-108 mmol/L) 103 (Ref Range: 96-108 mmol/L) Carbon Dioxide 27 (Ref Range: 22-29 mmol/L) 25 (Ref Range: 22-29 mmol/L) 26 (Ref Range: 22-29 mmol/L) Anion Gap 10?L (Ref Range: 12-20) 16 (Ref Range: 12-20) 14 (Ref Range: 12-20) Blood Urea Nitrogen 27?H (Ref Range: 9-16 mg/dL) 31?H (Ref Range: 9-16 mg/dL) 27?H (Ref Range: 9-16 mg/dL) Creatinine 1.08 (Ref Range: 0.5-1.4 mg/dL) 1.27 (Ref Range: 0.5-1.4 mg/dL) 1.52?H (Ref Range: 0.5-1.4 mg/dL) Estimated Glomerular Filt Rate 50 42 34 Glucose Fasting 112?H (Ref Range: 60-99 mg/dL) 85 (Ref Range: 60-99 mg/dL) 185?H (Ref Range: 60-99 mg/dL) Calcium 10.4?H (Ref Range: 8.4-10.2 mg/dL) 9.7 (Ref Range: 8.4-10.2 mg/dL) 9.2 (Ref Range: 8.4-10.2 mg/dL) ???Lab:Cancelled Chem (Order Date - 02/03/2024) (Collection Date & Time - 02/03/2024 10:45 AM)?ValueReference Range?Cancelled ChemSEE NOTE- * Lab:Lipid Panel * Collection Date 02/03/2024 06/30/2022 11/12/2021 Collection Time 10:45 AM 05:26 AM 08:33 AM Order Date 02/03/2024 06/30/2022 11/12/2021 Triglycerides 143 (Ref Range: <150 mg/dL) 169 (Ref Range: mg/dL) 128 (Ref Range: mg/dL) Cholesterol 231?H (Ref Range: <200 mg/dL) 336 (Ref Range: mg/dL) 227 (Ref Range: mg/dL) LDL Cholesterol Calculated 167?H (Ref Range: <100 mg/dL) 256 (Ref Range: mg/dl) 155 (Ref Range: mg/dl) HDL Cholesterol 36?L (Ref Range: >40 mg/dL) 47 (Ref Range: mg/dL) 47 (Ref Range: mg/dL) ???Lab:Vitamin D 25-OH Total (Order Date - 02/03/2024) (Collection Date & Time - 02/03/2024 10:45 AM)?ValueReference Range?Vitamin D 25-OH Total 37.7>30 - ng/mL * Examination: ???General Examination: ?GENERAL APPEARANCE:?pleasant, well nourished, well developed, in no acute distress, calm and relaxed, obese, woman.?HEAD:?atraumatic, normocephalic.?EYES:?eomi, perrla, anicteric, conjugate.?EARS:?normal.?NOSE:?septum intact.?ORAL CAVITY:?normal, unremarkable.?NECK/THYROID:?no jugular venous distention, no carotid bruit, thyroid normal.?LYMPH NODES:?no enlarged lymph nodes,spleen normal.?SKIN:?no suspicious lesions, anicteric, No areas of skin breakdown noted.?HEART:?no clicks, gallops, murmurs, or rubs, regular rhythm, S1, S2 normal, no s3, or vascular bruits.?LUNGS:?clear to auscultation .?BREASTS:??no masses palpable bilaterally.?ABDOMEN:?bowel sounds normal, no ascites, no organomegaly, no mass.?RECTAL EXAM:?not examined.?MUSCULOSKELETAL:?Mild pain to range of motion of the shoulder which is becoming contracted.?PERIPHERAL PULSES:?normal.?NEUROLOGIC:?alert and oriented, cranial nerves 2-12 grossly intact, deep tendon reflexes 2+ symmetrical on the right 3+ on the left, motor strength normal upper and lower extremities on the right, left hemiplegia, sensory exam intact, Unable to walk or bear weight, bedbound.?PSYCH:?alert, oriented.? Assessment: * Assessment: 1.?Cerebrovascular accident (CVA) due to occlusion of right middle cerebral artery - I63.511 (Primary)???Notes :She is medically stable with a left hemiplegia. She denies any pain. She says she has had no skin breakdown. Her medications were continued. She will be seen periodically.She is coping well with the stroke sequela.???2.?Acquired hypothyroidism - E03.9???Notes :The thyroid function tests show that she is euthyroid. No change in her regimen was made today. She has been compliant with her medications and is free of thyroid symptoms.???3.?Type 2 diabetes mellitus without complication, unspecified whether intermediate card tender insulin use - E11.9???Notes :She was continued on current medication without change. She says her medicall condition and glucose levels have been stable.Her hemoglobin A1c is 6.0 and her fasting glucose 112.? Her glomerular filtration rate has increased from 40 to 50.???4.?Essential hypertension - I10???Notes :Her blood pressure today is 138/60. I recommended aggressive weight loss and sodium restriction, but made no change in her medications today.???5.?GERD without esophagitis - K21.9???Notes :Her heartburn has been well controlled with current medications. We reviewed her therapy and the options for lifestyle modification.???6.?History of asthma - Z87.09???Notes :She has had no wheezing recently. No change in her regimen was needed.???7.?Obesity (BMI 30- 39.9) - E66.9???Notes :She was encouraged to restrict calories. Her last weight was 183 pounds.? We are unable to weigh her as she comes in strapped into a stretcher due to her inability to bear weight.? She does not appear to have gained or lost significant weight.???8.?Mixed hyperlipidemia - E78.2???Notes :Her total cholesterol was 231.She is not taking a statin according to my records.? She has been prescribed rosuvastatin in the past.? Statin therapy is indicated.? The reason for this will be pursued and if she is able to take a statin I will prescribe 1.??? Plan: * Treatment: 2.?Others? Continue Gabapentin Capsule, 300 MG, 1 capsule, Orally, three times a day;?Continue Bethanechol Chloride Tablet, 25 MG, 1 tablet, Orally, Three times a day;?Continue Aspirin Tablet Chewable, 81 MG, 1 chewable, Orally, Once a day;?Continue Klor-Con 10 Tablet Extended Release, 10 MEQ, TAKE 1 TABLET BY MOUTH DAILY, Oral, once a day;?Continue Polyethylene Glycol 3350 Powder, 17 GM/SCOOP, 1 scoop mixed with 8 ounces of fluid, Orally, Once a day;?Continue Flomax Capsule, 0.4 MG, 2 capsule, Orally, Once at night time;?Continue traMADol HCl Tablet, 50 MG, 1 tablet, Orally, twice a day as needed for moderate or severe pain;?Continue Docusate Sodium Capsule, 100 MG, TAKE 1 CAPSULE BY MOUTH EVERY DAY, Oral;?Continue levETIRAcetam Tablet, 750 MG, 1 tablet, Orally, Twice a day;?Continue Ammonium Lactate Cream, 12 %, APPLY TO RIGHT LEG AT BEDTIME DAILY, External;?Continue GaviLAX Powder, 17 GM/SCOOP, DISSOLVE 17 GRAMS (1 CAPFUL) INTO BEVERAGE & DRINK ONCE DAILY, Oral.?? * Procedure Codes:? * Preventive Medicine:? ??Counseling:?Care goal follow-up plan:?Counseling for abnormal BMI given?Yes ?Above Normal BMI Follow-up?Dietary management education, guidance, and counseling, Dietary needs education, Exercise promotion: strength training, Exercise promotion: stretching, Feeding regime, Giving encouragement to exercise, Lifestyle education regarding diet, Nutrition / feeding management, Nutrition therapy, Prescribed activity/exercise education, Prescribed diet education, Prescribed dietary intake, Special diet education, Weight monitoring , Intervention, Order not done: Medical or Other reason not done ??DM Care Plan:?Patient Lifestyle Goals?Patient wants to be able to manage diabetes without too much effort.?Treatment Goals?Blood Sugars less than < 115, HbA1C < 7.0.?Barriers?no barriers.?Self-Managment Goals?Work on weight loss, with a goal of losing 1 lb per week.? * Follow Up:?4 Months (Reason: Office visit) * Images: * Sign off status: Completed true * Provider:?Mata Kelley MD Date:?06/2023 Generated for Margoth aggarwal/Denzel/eTransmitting on:?02/09/2024 01:38 AM EST History and Physical Notes * HPI (History of Present Illness) Category Sub-Category Detail Notes COVID-19 Screening Questions Have you expe rienced fever, chills, cough, sore throat, shortness of breath, difficulty breathing, muscle aches, loss of taste or smell?: No Have you been exposed to the virus withi n the last 10 days?: No Have you travelled internationally in [facility] last 10 days?: No Have you been exposed to COVID-19 in the past?: No Examination Category Sub-Category Detail Notes General Examination GENERAL APPEARANCE: pleasant , well nourished, well developed, in no acute distress, calm and relaxed, obese, woman HEAD: atraumatic, normocep halic EYES: eomi, perrla, anicte thelma, conjugate EARS: normal NOSE: septum intact NECK/THYROID: no jugular venous di stention, no carotid bruit, thyroid normal HEART: no clicks, gallops, murmurs, or rubs, regular rhythm, S1, S2 normal, no s3, or vascular bruits LUNGS: clear to auscultatio n ABDOMEN: bowel sounds normal, no ascites, no organomegaly, no mass NEUROLOGIC: alert and oriented, cranial nerves 2-12 grossly intact, deep tendon reflexes 2+ symmetrical on the right 3+ on the left, motor strength normal upper and lower extremities on the right, left hemiplegia, sensory exam intact, Unable to walk or bear weight, bedbound SKIN: no suspicious lesion s, anicteric, No areas of skin breakdown noted PERIPHERAL PULSES: normal BREASTS: no masses palpable b ilaterally MUSCULOSKELETAL: Mild pain to range o f motion of the shoulder which is becoming contracted LYMPH NODES: no enlarged lymph no adrienne,spleen normal RECTAL EXAM: not examined PSYCH: alert, oriented ORAL CAVITY: normal, unremarkable
--- OUTSIDE RECORDS SUMMARY | 2024-02-09 01:39 | XMS_ITS ---
Author Organization Mata Kelley III, MD Address [address] [place] [address] Care Team Providers Care Manufacturing Leader Name Role Phone Mata Kelley Primary Care Provider [phone] Allergies Allergen (clinical drug ingredient) Drug/Non Drug Allergy documented on EMR Reaction Allergy Type Onset Date Status No Known Drug Allergy Unknown Drug Allergy Active Reason For Referral Reason Consult and Treat In need of Transportation issues Diagnosis 1 Cerebral infarction due to unspecified occlusion or stenosis of right middle cerebral artery (I63.511) Referral Organization Mata Kelley III, MD Referring Provider First Name Mata Referring Provider Last Name Allie Referring Provider Speciality Internal M edicine Referred Organization [facility] dany Referred Provider Cassidy Cook Referred Address [address] [place] [address],[place], [id number], Referred Provider Specialty Nurse Melissa paul General Notes Nicole Alcocer 01/18/2024 10:27:42 AM > Faxed referral and progress note. Referral Priority Routine REASON FOR VISIT Telehealth Medications Medication SIG (Take, Route, Frequency, Duration) Notes Start Date End Date Status Hydrocortisone 1 % 1 application Externally Once a day 11/26/2023 Active Florastor 250 MG as directed Orally 09/14/2023 Active Lantus SoloStar 100 UNIT/ML INJECT 30 UNITS SUBCUTANEOUS EVERY MORNING AND 7 UNITS EVERY NIGHT AT BEDTIME Subcutaneous Active GaviLAX 17 GM/SCOOP DISSOLVE 17 GRAMS (1 CAPFUL) INTO BEVERAGE & DRINK ONCE DAILY Oral Active Ammonium Lactate 12 % APPLY TO RIGHT LEG AT BEDTIME DAILY External Active Losartan Potassium 50 MG 1 tablet Orally Once a day 08/30/2023 Active Acetaminophen 325 MG 1 tablet as needed Orally every 4 hrs 07/16/2022 Active Docusate Sodium 100 MG TAKE 1 CAPSULE BY MOUTH EVERY DAY Oral Active Ezetimibe 10 MG 1 tablet Orally Once a day 08/30/2023 Active levETIRAcetam 750 MG 1 tablet Orally Twice a day Active Vitamin D3 250 MCG (47524 UT) 1 capsule Orally Once a day Active amLODIPine Besylate 10 MG 1 tablet Orally Once a day Active Senna 8.6 MG 2 tablets in morning Orally Once a day Active traMADol HCl 50 MG 1 tablet Orally twice a day as needed for moderate or severe pain 08/09/2023 Active Flomax 0.4 MG 2 capsule Orally Once at night time Active Gabapentin 300 MG 1 capsule Orally three times a day Active Klor-Con 10 10 MEQ TAKE 1 TABLET BY MOUTH DAILY Oral once a day Active Aspirin 81 MG 1 chewable Orally Once a day Active Bethanechol Chloride 25 MG 1 tablet Orally Three times a day Active Polyethylene Glycol 3350 17 [...] nonsmoker Additional Findings: Tobacco Non-User Aggressive non-smoker Encounters Encounter Location Date Provider Diagnosis Mata Kelley III, MD [address] [place] [address] [place] [address] 01/07/2024 Mata Kelley Cerebrovascular acci dent (CVA) due to occlusion of right middle cerebral artery I63.511 ; Obesity (BMI 30-39.9) E66.9 ; Type 2 diabetes mellitus without complication, unspecified whether intermediate insulin use E11.9 and Vitamin D deficiency, unspecified E55.9 Assessments Encounter Date Diagnosis (ICD Code) Assessment Notes Treat ment Notes Treatment Clinical Notes 01/07/2024 Cerebrovascular accident (CVA) due to occlusion of right middle cerebral artery (ICD-10 - I63.511) She is medically stable with a left hemiplegia. She denies any pain. She says she has had no skin breakdown. Her medications were continued. She will be seen periodically.She is coping well with the stroke sequela. 01/07/2024 Obesity (BMI 30-39.9 ) (ICD-10 - E66.9) She was encouraged to restrict calories. She was given an appointment to come to the office after blood work in the near future to be weighed and have her vital signs measured. 01/07/2024 Type 2 diabetes mellitus without complication, unspecified whether intermediate insulin use (ICD-10 - E11.9) She was continued on current medication without change. She says her medicall condition and glucose levels have been stable. 01/07/2024 Vitamin D deficiency , unspecified (ICD-10 - E55.9) Continue her vitamin D supplements. Plan Of Treatment Medication Medication Name Sig Start Date Stop Date Notes Hydrocortisone 1 % 1 application Externally Once a day 11/26/2023 Florastor 250 MG as directed Orally 09/14/2023 Lantus SoloStar 100 UNIT/ML INJECT 30 UNITS SUBCUTANEOUS EVERY MORNING AND 7 UNITS EVERY NIGHT AT BEDTIME Subcutaneous GaviLAX 17 GM/SCOOP DISSOLVE 17 GRAMS (1 CAPFUL) INTO BEVERAGE & DRINK ONCE DAILY Oral Ammonium Lactate 12 % APPLY TO RIGHT LEG AT BEDTIME DAILY External Losartan Potassium 50 MG 1 tablet Orally Once a day 08/30/2023 Acetaminophen 325 MG 1 tablet as needed Orally every 4 hrs 07/16/2022 Docusate Sodium 100 MG TAKE 1 CAPSULE BY MOUTH EVERY DAY Oral Ezetimibe 10 MG 1 tablet Orally Once a day 08/30/2023 levETIRAcetam 750 MG 1 tablet Orally Twi ce a day Vitamin D3 250 MCG (81032 UT) 1 capsule Orally Once a day amLODIPine Besylate 10 MG 1 tablet Orally Once a day Senna 8.6 MG 2 tablets in morning Orally Once a day traMADol HCl 50 MG 1 tablet Orally twic e a day as needed for moderate or severe pain 08/09/2023 Flomax 0.4 MG 2 capsule Orally Onc e at night time Gabapentin 300 MG 1 capsule Orally thr ee times a day Klor-Con 10 10 MEQ TAKE 1 TABLET BY TOSIN TH DAILY Oral once a day Aspirin 81 MG 1 chewable Orally On ce a day Bethanechol Chloride 25 MG 1 tablet Orally Three times a day Polyethylene Glycol 3350 17 GM/SCOOP 1 scoop mixed with 8 ounces of fluid Orally Once a day 09/17/2023 BD Pen Needle Sofi U/F 32G X 4 MM use to inject three times a day DX: E11.9 Diabetes Pending Test Test Name Order Date PROFILE, FASTING (COMPREHENSIVE METABOLI C) 01/07/2024 CBC WITH AUTO DIFF 01/07/2024 Lipid Panel 01/07/2024 Vitamin D 25-OH Total 01/07/2024 Microalbumin, Random 01/07/2024 Hemoglobin A1c 01/07/2024 Referrals Referral Date Details 01/07/2024 01/07/2024, Consult and Treat In need of Transportation issues, Cassidy Cook, [address] [facility], [place], [place], [phone], Next Appt Details Follow Up: 4 Weeks, After Th anksgiving, Reason: OV, Blood work and general check-up Provider Name:Mata Kelley, 08/04/2024 09:30:00 AM, [address] [place] [address] [address], [address], [place], [address], Progress Notes * Kasey CARRILLO MDOB:1955 (68 yo F)Acc No.[id number]:01/07/2024 Patient:?Kasey CARRILLO Provider:?Mata Kelley MD :1955???Age:68 Y???Sex:Female D ate:01/07/2024 Address:[address] [place], [place] [id number] Subjective: * Chief Complaints: * ???Telehealth * HPI: ???:?Telehealth?Location of provider rendering services:?{...} [address] [place] [address] Drive [address] [facility] [address] ?Location of patient:?address listed in demographics for today's visit ?Patient identification confirmed using:?Name, ?Telehealth method:?Telephone only. Patient not visible to care provider. ?Consent:?Patient verbally consented to treatment, Patient verbally consented to billing insurance company, Patient informed of any privacy concerns related to method of visit ?Total time spent with patient (mins)?15 ?This telehealth visit took place over 15 minutes with the patient at home and me in my office.? She gave consent for billing. The patient, a 68-year-old female, has been feeling we[[ overall. She has been experiencing some weakness in her arm, which has not improved. She has no issues with her bowels or bladder, no fever, no bleeding, and no pain. She is diabetic and has not had any blood work done since August. She lives with a person named Diallo and is currently being taken care of by her daughter. She is on medication, which she has no trouble getting from the pharmacy.No recent blood work is available.? The last set of lab data was in July.? It has been ordered prior to her next visit which will be in the office. * ROS:?General/Constitutional:?Denies?pain,?only normal aches and pains.?Chills?denies.?Fatigue?admits.?Denies?Fever,?denies.?ENT:?Decreased hearing?denies.?Respiratory:?Cough?denies.?Cardiovascular:?Chest pain with exertion?denies.?Dyspnea on exertion?denies.?Shortness of breath?denies.?Gastrointestinal:?Constipation?occasional.?Decreased appetite?denies.?Diarrhea?denies.?Heartburn?denies.?Nausea?denies.?Rectal bleeding?denies.?Vomiting?denies.?Hematology:?bruising?denies.?petechiae?denies.?Swollen glands?none have been noted.?Genitourinary:?Frequent urination?at night.?Musculoskeletal:?Muscle aches?denies.?Painful joints?denies.?Sciatica?denies.?Weakness?Left arm and leg.?Skin:?Itching?denies.?Rash?denies.?Skin lesion(s)?denies.?Neurologic:?Difficulty speaking?denies.?Dizziness?denies.?Headache?denies.?Low back pain?denies.?Psychiatric:?Depressed mood?denies.? * Medical [...] Tobacco Non-User?Aggressive non-smoker ???She was born in [place] and has worked at [employer] in [place] for the last 36 years. She is with 1 daughter, Mary Ellen, and a son, Rudolph. She has 2 grandchildren. * Medications:?TakingGabapenti n 300 MG Capsule 1 capsule Orally three [...] Once a day Vitamin D3 250 MCG (36464 UT) Tablet 1 capsule Orally Once a [...] Cream 1 application Externally Once a day BD Pen Needle Sofi U/F 32G X [...] a day Taking Vitamin D3 250 MCG (66128 UT) Tablet 1 capsule Orally Once a [...] Cream 1 application Externally Once a day Taking BD Pen Needle Sofi U/F 32G X 4 MM Miscellaneous use to inject three times a day , Notes to Pharmacist: DX: E11.9 Diabetes * Allergies:?No Known Drug All ergyno[Allergies Verified] Objective: * Vitals:? Assessment: * Assessment: 1.?Cerebrovascular accident (CVA) due to occlusion of right middle cerebral artery - I63.511 (Primary)???Notes :She is medically stable with a left hemiplegia. She denies any pain. She says she has had no skin breakdown. Her medications were continued. She will be seen periodically.She is coping well with the stroke sequela.???2.?Obesity (BMI 30-39.9) - E66.9???Notes :She was encouraged to restrict calories.? She was given an appointment to come to the office after blood work in the near future to be weighed and have her vital signs measured.???3.?Type 2 diabetes mellitus without complication, unspecified whether intermediate insulin use - E11.9???Notes :She was continued on current medication without change.? She says her medicall condition and glucose levels have been stable.???4.?Vitamin D deficiency, unspecified - E55.9???Notes :Continue her vitamin D supplements.??? 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 Continue Gabapentin Capsule, 300 MG, 1 capsule, [...] CAPFUL) INTO BEVERAGE & DRINK ONCE DAILY, Oral.? Referral To:Cassidy Cook??Nurse Navigation ?Reason:Consult and Treat In need of Transportation issues * Procedure Codes:?79099 PHONE E/M BY PHYS 11-20 MIN * Preventive Medicine:? ??Counseling:?Care goal follow-up plan:?Counseling [...] to manage diabetes without too much effort.?Treatment Goals?HbA1C < 7.0, Blood Sugars less than < 115.?Barriers?no barriers.?Self-Managment Goals?Work on weight loss, with a goal of losing 1 lb per week.? * Follow Up:?4 Weeks, After Th anksgiving (Reason: OV, Blood work and general check-up) * Images: * Sign off status: Completed true * Provider:?Mata Kelley MD Date:?09/2023 Generated for Margoth aggarwal/Denzel/eTransmitting on:?02/09/2024 01:39 AM EST History and Physical Notes * HPI (History of Present Illness) Category Sub-Category Detail Notes Telehealth Location of [facility] rendering services:: {...} [address] [place] [address] Location of patient:: address listed in demographics for today's visit Patient identification confirmed using:: Name, Telehealth method:: Telephone only. Elza ent not visible to care provider. Consent:: Patient verbally c onsented to treatment, Patient verbally consented to billing insurance company, Patient informed of any privacy concerns related to method of visit Total time spent with patient (mins): 15 Consultation Request Notes Referral Date Referring Provider Referred Provider Not es 01/07/2024 Mata Kelley Laurie Consult an d Treat In need of Transportation issues
--- OUTSIDE RECORDS SUMMARY | 2024-02-09 01:39 | XMS_ITS ---
Author Organization Mata Kelley III, MD Address [address] [place] [address] Care Team Providers Care Molder Wax Ball Name Role Phone Mata Kelley Primary Care Provider [phone] REASON FOR VISIT Rx Refill Medications Medication SIG (Take, Route, Fr equency, Duration) Notes Start Date End Date Status Docusate Sodium 100 MG 1 Capsule Orally Once a day for 90 days Active Encounters Encounter Location Date Provider Diagnosis Mata Kelley III, MD [address] [place] [address] [place] [address] 02/04/2024 Mata Kelley Plan Of Treatment Medication Medication Name Sig Start Date Stop Date Notes Docusate Sodium 100 MG 1 Capsule Orally Once a day for 90 days Next Appt Details Provider Name:Mata Kelley, 08/04/2024 09:30:00 AM, [address] [place] [address] [place], [address], Progress Notes * Kasey CARRILLO MDOB:1955 (68 yo F)Acc No.[id number]:02/04/2024 Patient:?Kasey CARRILLO :1955???Age:68 Y???Sex:Female Address:[address] [place], [address] * Refills? Refill Docusate Sodium Capsule, 100 MG, Orally, 90 Capsule, 1 Capsule, Once a day, 90 days, Refills=3 * true * Date:? Generated for Garryi alessia/Denzel/eTransmitting on:?02/09/2024 01:38 AM EST
== END 2024-02-03 10:39 | disposition home or self-care (01) ==
LOC: HO.10HDL 10:38
PROVIDERS: Visit Provider Internal Medicine Medical Oncology
DX: I63.511 Cerebral infarction due to unspecified occlusion or stenosis of right middle cerebral artery (principal); E66.9 Obesity, unspecified; E11.9 Type 2 diabetes mellitus without complications; E55.9 Vitamin D deficiency, unspecified
CPT/HCPCS: 36415; 80053; 80061; 82306; 83036; 85025

== ENCOUNTER 2024-04-21 14:11 | Emergency (ER) | payer MEDICARE, MEDICAID, SELFPAY ==
--- NOTE | ~2024-04-21 | CT_ITS ---
CLINICAL HISTORY: Pneumonia ? Effusions? CT chest without contrast Comparison: None Findings: Heart is enlarged. Atherosclerosis calcification of the coronary artery and aorta. The visualized thyroid and mediastinum are unremarkable. No pleural effusion. Mild opacity of the lung base. The visualized upper abdomen is unremarkable. The bones are intact. IMPRESSION: No pleural effusion. Mild opacity of the lung base likely represents atelectasis. Clinical correlation is recommended to exclude infection. This document has been electronically signed by: Michael Quiles MD on 04/21/2024 20:44:02
--- NOTE | ~2024-04-21 | XR_ITS ---
EXAMINATION: XR CHEST CLINICAL INFORMATION: Pneumonia? Coughing COMPARISON: 08/04/2023, 06/29/2022. CT abdomen and pelvis 08/04/2023. TECHNIQUE: Frontal view of the chest was obtained. FINDINGS: There is leftward rotation. Elevated right hemidiaphragm, unchanged. There is cardiac enlargement. Mediastinal and hilar contours appear normal. Aortic mural calcification. Meniscus at the left cardiophrenic angle, possibly correlating with a prominent epicardial fat pad on prior CT exam. A small effusion cannot be excluded. Equivocal left basilar opacity. Right lung is clear. No pneumothorax. No focal osseous or soft tissue abnormality. Degenerative spinal changes. XR/XR chest 1V IMPRESSION: 1. Mild cardiac enlargement. 2. Stable right hemidiaphragmatic elevation. 3. Meniscus at the left cardiophrenic angle, questionably relating to a previously seen prominent epicardial fat pad, although appears dense enough to represent an effusion. Equivocal retrocardiac pulmonary opacity. A lateral view may be of benefit. Electronically signed by: Robert Major MD 04/21/2024 03:06 PM TIMOTHY
--- NOTE | ~2024-04-21 | CT_ITS ---
CLINICAL HISTORY: RUQ pain CT abdomen and pelvis without contrast Comparison: CT/OR - CT ABDOMEN PELVIS W IV CON - 08/04/23 13:58 EDT Findings: Examination is limited by without contrast. Lung bases are clear. No pleural effusion. Liver, Pancreas, Spleen and both adrenals show normal size, shape and attenuation on present unenhanced scan. No CBD dilatation. Cholecystectomy. Both kidneys reveal normal in size, shape, position and attenuation. No kidney stone. No hydronephrosis. The IVC, aorta and portal vein are within normal position and caliber. Atherosclerosis calcification of the aorta. No evidence of retroperitoneal lymphadenopathy or ascites. The visible parts of the bowel loops show no obvious mass lesions or wall thickening. No bowel obstruction. Colonic diverticulosis. Appendix is not visualized. Urinary bladder reveals normal lumen and liu. The pelvic organs are unremarkable. Calcifications of the pelvis are likely to be phleboliths. Visualized osseous structures appear unremarkable. No lytic or sclerotic bony lesion. IMPRESSION: No acute findings. Colonic diverticulosis with no evidence of acute diverticulitis. This document has been electronically signed by: Michael Quiles MD on 04/21/2024 20:34:51
[2024-04-21 14:24] VITALS: BP 128/78; PULSE 83; O2SAT 97
[2024-04-21 14:31] VITALS: BP 99/71; PULSE 83; RESP 18; O2SAT 98; BMI 35.8
--- NOTE | 2024-04-21 14:56 | ED.GENADULT ---
HPI - General Adult General Chief complaint: General Medical Stated complaint: N/V/D, BED BOUND FROM HOME PER EMS Time Seen by Provider: 04/21/24 14:28 Source: patient Mode of arrival: ambulatory Limitations: no limitations History of Present Illness ED Provider: Devyn Lee HPI narrative: 68 yold female with pmh of stroke with left sided weakness and is bed bound presents to the ED for fever, chills, nausea, vomitting, dry cough, diarrhea, and RUQ abdominal pain. Patient denies any chest pain or shortness of breath Related Data Home Medications ?Medication ?Instructions ?Recorded ?Confirmed ammonium lactate 12 % topical cream 1 appl topical BEDTIME 08/04/23 08/04/23 bethanechol chloride 25 mg tablet 25 mg PO TID 08/04/23 08/04/23 ezetimibe 10 mg tablet (Zetia) 10 mg PO DAILY 08/04/23 08/04/23 gabapentin 300 mg capsule 300 mg PO TID 08/04/23 08/04/23 insulin glargine 100 unit/mL (3 See Rx Instructions .Route .COMPLEX 08/04/23 08/04/23 mL) subcutaneous pen (Lantus Solostar U-100 Insulin) levetiracetam 750 mg tablet 750 mg PO BID 08/04/23 08/04/23 losartan 50 mg tablet 50 mg PO DAILY 08/04/23 08/04/23 potassium chloride 10 mEq 10 meq PO DAILY 08/04/23 08/04/23 tablet,extended release (Klor-Con) tamsulosin 0.4 mg capsule (Flomax) 0.8 mg PO DAILY 08/04/23 08/04/23 tramadol 50 mg tablet 50 mg PO BID PRN Pain 08/04/23 08/04/23 Previous Rx's ?Medication ?Instructions ?Recorded amlodipine 10 mg tablet 10 mg PO DAILY #30 tabs 07/04/22 aspirin 81 mg tablet,delayed 81 mg PO DAILY #30 tabs 07/04/22 release docusate sodium 100 mg capsule 100 mg PO DAILY #30 caps 08/07/23 (Colace) polyethylene glycol 3350 17 17 g PO DAILY #238 grams 08/07/23 gram/dose oral powder (Miralax) sennosides 8.6 mg capsule (senna) 17.2 mg (2 x 8.6 mg) PO DAILY #60 08/07/23 caps cefuroxime axetil 250 mg tablet 250 mg PO Q12H 7 days #14 tabs 04/21/24 ondansetron 4 mg disintegrating 4 mg PO Q8H PRN nausea and 04/21/24 tablet vomiting #20 tabs Allergies Allergy/AdvReac Type Severity Reaction Status Date / Time No Known Allergies Allergy Verified 04/21/24 14:33 Review of Systems Review of Systems: fever, vomitting, diarrhea, chilss, nuasea, coughing Yes all other systems are reviewed and are negative [facility]LY [facility] Past Medical History Medical History Cerebrovascular accident Appendicitis Asthma HTN (hypertension) High cholesterol Diabetes Surgical History History of appendectomy Hx of appendectomy Social History Social History Household Members: Children Household Members Other:: Son [facility] Do you presently have visiting nurse or other home services: No Unable to assess alcohol history related to: Unknown Alcohol intake: never Patient Tobacco Use Status: Never used Tobacco Use of substances other than those prescribed or required for medical reasons: Unknown Advance Directives: No Advance Directives Information Provided: Yes Do you have a plan to hurt others: No Plan service: No Current occupational status: unemployed Physical Exam ED Vital Signs: Vital Signs - 24 hr 04/21/24 14:31 04/21/24 16:00 04/21/24 19:22 Temperature 97.1 F 97.6 F Pulse Rate 83 88 90 Respiratory Rate 18 14 18 Blood Pressure 99/71 157/73 H 143/88 H Pulse Oximetry 98 100 98 Oxygen Delivery Method Room Air Room Air Room Air 04/21/24 22:42 Temperature 97.9 F Pulse Rate 85 Respiratory Rate 22 H Blood Pressure 148/94 H Pulse Oximetry 96 Oxygen Delivery Method Room Air BMI result Body Mass Index 35.8 Const General: cooperative, healthy appearing, comfortable, no acute distress, well developed, alert, awake and Physically active Orientation/consciousness: patient oriented x3 HENMT Head: Yes normal to inspection, Yes No palpable skull fracture present, Yes normocephalic and Yes atraumatic Throat: Yes posterior oropharynx normal, Yes tonsils normal and Yes uvula midline Eyes General: appearance normal, both eyes and all related structures Neck Neck: Yes normal visual inspection, Yes full ROM, Yes no lymphadenopathy, Yes trachea midline, Yes supple, No anterior neck swelling and No tender Chest Chest palpation & inspection: normal inspection of the chest and normal palpation of entire chest wall Resp Effort & Inspection: normal respiratory effort and able to speak in complete sentences Auscultation: clear to auscultation bilaterally Cardio Jugular venous distension: no JVD Heart sounds: S1 normal heart sound present and S2 normal heart sound present GI Inspection: Yes normal to inspection Palpation (GI): Soft to palpation, not firm, nontender, no guarding and not rigid General: Yes no CVA tenderness Back/Spine/Pelvis Back: no CVA tenderness, No ecchymosis and No back tenderness Skin General skin exam: no rashes or lesions noted, elasticity normal and turgor normal Neuro Other: Bed-bound. Chronic left upper left lower extremity weakness due to stroke General: patient oriented x3 Psych Appearance: grossly normal, well kempt and not disheveled Course Reevaluation(s) Reevaluation #1: Patient received in sign-out at change of shift pending imaging and repeat lactic acid. The patient's lactic acid improved to 1.9 with IV fluids. She reports she feels much better, imaging did not show any acute findings. I discussed this with the patient. She reports that she feels much better. We will discharge the patient home with treatment for UTI Time: 22:53 Medications Administered Discontinued Medications Generic Name Dose Route Start Last Admin Trade Name Freq PRN Reason Stop Dose Admin Ceftriaxone Sodium 1 gm 04/21/24 16:41 04/21/24 18:08 Ceftriaxone Sodium 1 Gm Vial IVPUSH 04/21/24 16:42 1 gm ONCE ONE Administration Sodium Chloride 1,000 mls @ 999 mls/hr 04/21/24 14:33 04/21/24 18:10 Ns IV 04/21/24 15:33 Infused .Q1H1M STA Infusion Sodium Chloride 1,000 mls @ 999 mls/hr 04/21/24 19:34 04/21/24 23:50 Ns IV 04/21/24 20:34 Infused .Q1H1M STA Infusion Medical Decision Making Medical Decision Making MDM Narrative: 5-year-old female presents to ED for nausea vomiting diarrhea right upper quadrant abdominal pain fever chills and cough. Started today. Last chest x-ray fluid SARs ordered. 6:31pm: Patient urine shows UTI. Patient has slight white blood cell count. Chest x-ray shows opacity versus effusion. Patient has no abdominal tenderness no shortness of breath. Will start on ceftriaxone. Chest CT abdominal CT scan ordered. 7:36pm: Lactic acid 2.9 probably due to patient being diabetic we will give fluids and repeat. Signed out to ERIKA CAMARA Differential Diagnosis Differential Diagnoses: The differential diagnosis associated with the presentation includes Admission/Observation Consideration of admission/observation: Escalation of care including admission/observation considered Lab Data [facility] Lab Attestation statement: I reviewed the patient's lab results. 04/21/24 15:20 04/21/24 15:20 Labs: Lab Results 04/21/24 04/21/24 04/21/24 Range/Units 15:04 15:20 15:44 WBC 12.8 H (4.8-10.8) X10*3/uL RBC 4.22 (4.20-5.50) X10*6/uL Hgb 12.8 (12.0-16.0) g/dl Hct 38.6 (37.0-47.0) % MCV 91.5 (80.0-98.0) fL MCH 30.3 (27.0-33.0) pg MCHC 33.2 (31.0-35.0) g/dl RDW 12.2 (11.0-16.0) % Plt Count 265 (160-400) X10*3/uL MPV 10.1 (9.4-12.3) fL Immature Gran % (Auto) 0.5 H (0.0-0.4) % Neut % (Auto) 76.4 H (45-73) % Lymph % (Auto) 13.6 L (20-40) % Thomas % (Auto) 6.4 (2-11) % Eos % (Auto) 2.6 (0-4) % Baso % (Auto) 0.5 (0-2) % Lymph # (Auto) 1.8 (1.2-4.9) X10*3/uL Thomas # (Auto) 0.8 (0.1-1.2) X10*3/uL Eos # (Auto) 0.3 (0.0-0.4) X10*3/uL Baso # (Auto) 0.1 (0.0-0.2) X10*3/uL Abs Immat Gran (auto) 0.06 H (0.00-0.03) X10*3/uL Absolute Neuts (auto) 9.8 H (2.0-8.3) x10*3/uL Absolute Nucleated RBC 0.000 (0.0-0.012) X10*3/uL Nucleated RBC % (auto) 0.0 (0.0-0.2) /100WBC Sodium 144 (135-145) mmol/L Potassium 4.5 (3.3-5.1) mmol/L Chloride 112 H (96-108) mmol/L Carbon Dioxide 20 L (22-29) mmol/L Anion Gap 17 (12-20) BUN 32 H (9-16) mg/dL Creatinine 1.27 (0.5-1.4) mg/dL Estim Creat Clear Calc 41.0 Estimated GFR 42 POC Glucose 133 H (60-115) mg/dL Random Glucose 135 H (60-115) mg/dL Lactic Acid (0.5-2.0) mmol/L Lactic Acid F/U @ 2Hr (0.5-2.0) mmol/L Calcium 11.0 H (8.4-10.2) mg/dL Total Bilirubin 0.3 (0.0-1.0) mg/dL AST 21 (5-31) U/L ALT 19 (0-31) U/L Alkaline Phosphatase 121 H (39-117) U/L Total Protein 8.5 H (6.5-8.0) g/dL Albumin 4.1 (3.5-5.0) g/dL Lipase 32 (8-78) U/L Urine Color Dark Yellow Urine Appearance Turbid Urine pH 5.0 (5.0-9.0) Ur Specific [place] 1.020 (1.005-1.025) Urine Protein 100 (2+) H (Neg-Trace) mg/dL Urine Glucose (UA) Negative (Negative) mg/dL Urine Ketones Trace (Negative) mg/dL Urine Blood Moderate (2+) H (Negative) Urine Nitrite Negative (Negative) Ur Leukocyte Esterase Large (3+) H (Negative) Urine RBC 0-2 (0-2) /HPF Urine WBC >50 H (0-5) /HPF Ur Squamous Epith Cells 3-5 (0-2) /HPF Urine Bacteria 4+ (None Seen) Hyaline Casts 3-5 (0-2) /LPF Influenza Type A (PCR) NEGATIVE (Negative) Influenza Type B (PCR) NEGATIVE (Negative) RSV RNA Qual (PCR) NEGATIVE (Negative) SARS-CoV-2 RNA (RT-PCR) NEGATIVE (Negative) 04/21/24 04/21/24 Range/Units 18:07 21:56 WBC (4.8-10.8) X10*3/uL RBC (4.20-5.50) X10*6/uL Hgb (12.0-16.0) g/dl Hct (37.0-47.0) % MCV (80.0-98.0) fL MCH (27.0-33.0) pg MCHC (31.0-35.0) g/dl RDW (11.0-16.0) % Plt Count (160-400) X10*3/uL MPV (9.4-12.3) fL Immature Gran % (Auto) (0.0-0.4) % Neut % (Auto) (45-73) % Lymph % (Auto) (20-40) % Thomas % (Auto) (2-11) % Eos % (Auto) (0-4) % Baso % (Auto) (0-2) % Lymph # (Auto) (1.2-4.9) X10*3/uL Thomas # (Auto) (0.1-1.2) X10*3/uL Eos # (Auto) (0.0-0.4) X10*3/uL Baso # (Auto) (0.0-0.2) X10*3/uL Abs Immat Gran (auto) (0.00-0.03) X10*3/uL Absolute Neuts (auto) (2.0-8.3) x10*3/uL Absolute Nucleated RBC (0.0-0.012) X10*3/uL Nucleated RBC % (auto) (0.0-0.2) /100WBC Sodium (135-145) mmol/L Potassium (3.3-5.1) mmol/L Chloride (96-108) mmol/L Carbon Dioxide (22-29) mmol/L Anion Gap (12-20) BUN (9-16) mg/dL Creatinine (0.5-1.4) mg/dL Estim Creat Clear Calc Estimated GFR POC Glucose (60-115) mg/dL Random Glucose (60-115) mg/dL Lactic Acid 2.9 H* (0.5-2.0) mmol/L Lactic Acid F/U @ 2Hr 1.9 (0.5-2.0) mmol/L Calcium (8.4-10.2) mg/dL Total Bilirubin (0.0-1.0) mg/dL AST (5-31) U/L ALT (0-31) U/L Alkaline Phosphatase (39-117) U/L Total Protein (6.5-8.0) g/dL Albumin (3.5-5.0) g/dL Lipase (8-78) U/L Urine Color Urine Appearance Urine pH (5.0-9.0) Ur Specific [place] (1.005-1.025) Urine Protein (Neg-Trace) mg/dL Urine Glucose (UA) (Negative) mg/dL Urine Ketones (Negative) mg/dL Urine Blood (Negative) Urine Nitrite (Negative) Ur Leukocyte Esterase (Negative) Urine RBC (0-2) /HPF Urine WBC (0-5) /HPF Ur Squamous Epith Cells (0-2) /HPF Urine Bacteria (None Seen) Hyaline Casts (0-2) /LPF Influenza Type A (PCR) (Negative) Influenza Type B (PCR) (Negative) RSV RNA Qual (PCR) (Negative) SARS-CoV-2 RNA (RT-PCR) (Negative) Independent Historian Clinical information obtained from an independent historian. History obtained from or confirmed by: Other (Patient) Discharge Plan Discharge Clinical Impression: Acute UTI Patient Disposition: Home, Self-Care Instructions: Urinary Tract Infection in Women (ED) Additional Instructions: Your workup in the ER today was reassuring. Take cefuroxime twice daily for 7 days to treat UTI. You may use Zofran as needed for nausea and vomiting Follow-up with your primary doctor, return for new or worsening symptoms Prescriptions: New cefuroxime axetil 250 mg tablet 250 mg PO Q12H 7 Days Qty: 14 0RF ondansetron 4 mg tablet,disintegrating 4 mg PO Q8H PRN (Reason: nausea and vomiting) Qty: 20 0RF No Action aspirin 81 mg Tablet,Delayed Release (Dr/Ec) 81 mg PO DAILY Qty: 30 0RF amlodipine 10 mg Tablet 10 mg PO DAILY Qty: 30 0RF Protocol: Hold for SBP< HOLD for SBP < : 90 insulin glargine [Lantus Solostar U-100 Insulin] 100 unit/mL (3 mL) insulin pen See Rx Instructions .ROUTE .COMPLEX Rx Instructions: INJECT 30 UNITS SUBCUTANEOUS EVERY MORNING AND 7 UNITS EVERY NIGHT AT BEDTIME losartan 50 mg tablet 50 mg PO DAILY potassium chloride [Klor-Con 10] 10 mEq tablet extended release 10 meq PO DAILY tramadol 50 mg tablet 50 mg PO BID PRN (Reason: Pain) bethanechol chloride 25 mg tablet 25 mg PO TID tamsulosin [Flomax] 0.4 mg capsule 0.8 mg PO DAILY gabapentin 300 mg capsule 300 mg PO TID ammonium lactate 12 % cream 1 appl TOPICAL BEDTIME levetiracetam 750 mg tablet 750 mg PO BID ezetimibe [Zetia] 10 mg tablet 10 mg PO DAILY polyethylene glycol 3350 [Miralax] 17 gram/dose powder 17 g PO DAILY Qty: 238 2RF senna 8.6 mg capsule 17.2 mg PO DAILY Qty: 60 2RF docusate sodium [Colace] 100 mg capsule 100 mg PO DAILY Qty: 30 2RF Interventions: ED Discharge Assessment Last Done: 04/21/24 23:55 Discharge Date/Time: 04/21/24 23:55 Print Language: Hungarian
--- OUTSIDE RECORDS SUMMARY | 2024-04-21 15:01 | XMS_ITS ---
Author Organization Mata Kelley III, MD Address [address] [address] Care Team Providers Care An/Ssn 2 4 Operator Name Role Phone Mata Kelley Primary Care Provider [phone] REASON FOR VISIT Rx Request Medications Medication SIG (Take, Route, Frequency, Duration) Notes Start Date End Date Status Lancets 28G Use 3 times a day fo r 90 days E11.9 Type 2 diabetes mellitus 02/25/2024 Active Encounters Encounter Location Date Provider Diagnosis Mata Kelley III, MD [address] [place] [address] [place] [address] 02/24/2024 Mata Kelley Plan Of Treatment Medication Medication Name Sig Start Date Stop Date Notes Lancets 28G Use 3 times a day fo r 90 days 02/25/2024 E11.9 Type 2 diabete s mellitus Next Appt Details Provider Name:Mata Kelley, 08/04/2024 09:30:00 AM, [address] [place] [address] [place], [address], Progress Notes * Kasey CARRILLO MDOB:1955 (68 yo F)Acc No.[id number]:02/24/2024 Patient:?Kasey CARRILLO :1955???Age:68 Y???Sex:Female Address:[address] [place], [address] * Refills? Start Lancets 28G, 270 Lancet, Use 3 times a day, 90 days, Refills=3 * true * Date:? Generated for Printi ng/Faxing/eTransmitting on:?04/21/2024 03:01 PM EST
--- OUTSIDE RECORDS SUMMARY | 2024-04-21 15:01 | XMS_ITS ---
Author Organization [facility] Address Unknown Problems Problem Status Start Date End Date CEREBRAL INFARCTION DUE TO U NSPECIFIED OCCLUSION OR STENOSIS OF RIGHT MIDDLE CEREBRAL ARTERY (Primary) (I63.511 - ICD-10-CM) ACTIVE 07/07/2022 HEMIPLEGIA AND HEMIPARESIS F OLLOWING CEREBRAL INFARCTION AFFECTING LEFT NON-DOMINANT SIDE (I69.354 - ICD-10-CM) ACTIVE 07/07 UNSPECIFIED ASTHMA, UNCOMPLICATED (J45.909 - ICD-10-CM ) ACTIVE 07/07/2022 DIABETES MELLITUS DUE TO UND ERLYING CONDITION WITHOUT COMPLICATIONS (E08.9 - ICD-10-CM) ACTIVE 07/07/2022 UNSPECIFIED ACUTE APPENDICITIS (K35.80 - ICD-10-CM) AC TIVE 07/07/2022 ESSENTIAL (PRIMARY) HYPERTENSION (I10 - ICD-10-CM) ACT SHAKIRA 07/07/2022 HYPERLIPIDEMIA, UNSPECIFIED (E78.5 - ICD-10-CM) ACTIVE 07/07/2022 GROUP HOME (CURRENT) USE OF INSULIN (Z79.4 - ICD-10-CM) ACTIVE 07/07/2022 CEREBROVASCULAR DISEASE, UNSPECIFIED (I67.9 - ICD-10-C M) ACTIVE 07/07/2022 OTHER RETENTION OF URINE (R33.8 - ICD-10-CM) ACTIVE 07/10/2022 ENCOUNTER FOR FITTING AND AD JUSTMENT OF URINARY DEVICE (Z46.6 - ICD-10-CM) ACTIVE 07/10/2022 Encounters Encounter Performer Performer Role Encounter Diagnoses Location Date Leave - [facility] 07/07/2022 04:20 pm EDT - 07/23/2022 01:50 pm EDT Discharge - Discharged / Transferred to SNF - [facility]way [facility] 07/23/2022 10:42 pm EDT - 07/28/2022 03:39 pm EDT Reason For Referral Contacts unable to be removed from eye Immunizations Vaccine Date TB 1 Step Mantoux (PPD) 07/21/2022 12:00 pm EDT TD Diphtheria/Tetanus 08/18/2021 12:00 a m EDT Influenza (vial) 01/12/2022 12:00 am EST COVID-19 Vaccine Dose 1 02/28/2020 12:00 am EST COVID-19 Vaccine Dose 2 03/20/2020 12:00 am EST COVID-19 Vaccine Additional Dose/Booster 01/12/2022 12:00 am EST COVID-19 Vaccine Additional Dose/Booster 01/06/2021 12:00 am EST Social History
--- OUTSIDE RECORDS SUMMARY | 2024-04-21 15:01 | XMS_ITS ---
Author Organization Mata Kelley III, MD Address [address] [place] [address] Care Team Providers Care Shirrer Name Role Phone Mata Kelley Primary Care [...] a day Active Vitamin D3 250 MCG (95710 UT) 1 capsule Orally Once a day [...] 02/03/2024 Encounters Encounter Location Date Provider Diagnosis aMta Kelley III, MD [address] [place] [address] [place] [address] 02/03/2024 Mata Kelley Cerebrovascular acci dent (CVA) due to occlusion of right middle cerebral artery I63.511 ; Acquired hypothyroidism E03.9 ; Type 2 diabetes mellitus without complication, unspecified whether retirement insulin use E11.9 ; Essential hypertension I10 [...] 2 diabetes mellitus without complication, 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 (ICD-10 - E11.9) She was [...] Once a day Vitamin D3 250 MCG (13342 UT) 1 capsule Orally Once a day [...] visit Provider Name:Mata Kelley, 08/04/2024 09:30:00 AM, [address] [place] [address] , [place] [address], [place], [address], Progress Notes * Kasey CARRILLO MDOB:1955 (68 yo F)Acc No.[id number]:02/03/2024 Progress Notes Patient:?Kasey CARRILLO Provider:?Mata Kelley MD :1955???Age:68 Y???Sex:Female D ate:02/03/2024 [address] [place] Subjective: * Chief Complaints: * ???Left hemiplegiaRight [...] History:?tubal liga tion 05/1990appendectomy colonoscopy, Dr. Aguilar, [facility] 2007No history * Hospitalization/Major Diagno stic Procedure:?No [...] Tobacco Non-User?Aggressive non-smoker ???She was born in [place] and has worked at [employer] in [place] for the last 36 years. 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
--- OUTSIDE RECORDS SUMMARY | 2024-04-21 15:02 | XMS_ITS ---
Author Organization Mata Kelley III, MD Address [address] [address] Care Team Providers Care Automobile Inspector Name Role Phone Mata Kelley Primary Care Provider [phone] REASON FOR VISIT Rx Refill Medications Medication SIG (Take, Route, Fr equency, Duration) Notes Start Date End Date Status Docusate Sodium 100 MG 1 Capsule Orally Once a day for 90 days Active Encounters Encounter Location Date Provider Diagnosis Mata Kelley III, MD [address] [place] [address] [place] [address] 02/04/2024 Mata Kelley Plan Of Treatment Medication Medication Name Sig Start Date Stop Date Notes Docusate Sodium 100 MG 1 Capsule Orally Once a day for 90 days Next Appt Details Provider Name:Mata Kelley, 08/04/2024 09:30:00 AM, [address] [place] [address] [place], [address], Progress Notes * Kasey CARRILLO MDOB:1955 (68 yo F)Acc No.[id number]:02/04/2024 Patient:?Kasey CARRILLO :1955???Age:68 Y???Sex:Female Address:[address] [place], [address] * Refills? Refill Docusate Sodium Capsule, 100 MG, Orally, 90 Capsule, 1 Capsule, Once a day, 90 days, Refills=3 * true * Date:? Generated for Garryi alessia/Denzel/eTransmitting on:?04/21/2024 03:01 PM EST
--- OUTSIDE RECORDS SUMMARY | 2024-04-21 15:02 | XMS_ITS ---
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 (Primary) (I63.511 - ICD-10-CM) ACTIVE 07/28/2022 HEMIPLEGIA AND HEMIPARESIS F OLLOWING CEREBRAL INFARCTION AFFECTING LEFT NON-DOMINANT SIDE (I69.354 - ICD-10-CM) ACTIVE 07/28/2022 ENCOUNTER FOR SURGICAL AFTER CARE FOLLOWING SURGERY ON THE DIGESTIVE SYSTEM (Z48.815 - ICD-10-CM) ACTIVE 06/14/2023 CALCULUS OF GALLBLADDER WITH ACUTE CHOLECYSTITIS WITH OBSTRUCTION (K80.01 - ICD-10-CM) ACTIVE 06/14/2023 OTHER RETENTION OF URINE (R33.8 - ICD-10-CM) ACTIVE 01/13/2023 URINARY TRACT INFECTION, SIT E NOT SPECIFIED (N39.0 - ICD-10-CM) RESOLVED 07/28/2022 01/11/2023 HYPOGLYCEMIA, UNSPECIFIED (E16.2 - ICD-10-CM) ACTIVE 11/01/2022 TOXIC LIVER DISEASE WITH CHO LESTASIS (K71.0 - ICD-10-CM) ACTIVE 11/01/2022 DYSPHAGIA FOLLOWING CEREBRAL INFARCTION (I69.391 - ICD-10-CM) ACTIVE 07/28/2022 TYPE 2 DIABETES MELLITUS WIT HOUT COMPLICATIONS (E11.9 - ICD-10-CM) ACTIVE 07/28/2022 TYPE 2 DIABETES MELLITUS WIT H OTHER CIRCULATORY COMPLICATIONS (E11.59 - ICD-10-CM) ACTIVE 07/28/2022 UNSPECIFIED ASTHMA, UNCOMPLI CATED (J45.909 - ICD-10-CM) ACTIVE 07/28/2022 DYSPHAGIA, UNSPECIFIED (R13.10 - ICD-10-CM) ACTIVE 07/28/2022 MORBID (SEVERE) OBESITY DUE TO EXCESS CALORIES (E66.01 - ICD-10-CM) ACTIVE 07/28/2022 ESSENTIAL (PRIMARY) HYPERTENSION (I10 - ICD-10-CM) ACT SHAKIRA 07/28/2022 HYPERLIPIDEMIA, UNSPECIFIED (E78.5 - ICD-10-CM) ACTIVE 07/28/2022 [employer]ER (CURRENT) USE OF INSULIN (Z79.4 - ICD-10-CM) ACTIVE 07/28/2022 ENCOUNTER FOR FITTING AND AD JUSTMENT OF URINARY DEVICE (Z46.6 - ICD-10-CM) RESOLVED 07/28/2022 01/11/2023 DYSPHAGIA, OROPHARYNGEAL PHASE (R13.12 - ICD-10-CM) AC TIVE 01/19/2023 Results * Individual Tests: COVID Screening Performed by: [facility] Component Value Range Date SARS coronavirus 2 Ag Negative 2023 08:00 am EDT * Individual Tests: COVID Screening Performed by: Point [facility] Care Testing Component Value Range Date SARS coronavirus 2 Ag Negative 2023 08:00 am EDT * Individual Tests: COVID Screening Performed by: Point of Care Testing Component Value Range Date SARS coronavirus 2 Ag Negative 2023 08:00 am EDT * Individual Tests: COVID Screening Performed by: Point of Care Testing Component Value Range Date SARS coronavirus 2 Ag Positive 2023 08:00 am EDT * Individual Tests: COVID Screening Performed by: Point of Care Testing Component Value Range Date SARS coronavirus 2 Ag Negative 2023 08:00 am EDT * Individual Tests: COVID Screening Performed by: Point of Care Testing Component Value Range Date SARS coronavirus 2 Ag Negative 2023 07:00 am EST * Individual Tests: COVID Screening Performed by: Point of Care Testing Component Value Range Date SARS coronavirus 2 Ag Negative 2023 07:00 am EST * Individual Tests: COVID Screening Performed by: Point of Care Testing Component Value Range Date SARS coronavirus 2 Ag Negative 2023 07:00 am EST * Individual Tests: COVID Screening Performed by: Point of Care Testing Component Value Range Date SARS coronavirus 2 Ag Negative 2023 07:00 am EST * Individual Tests: COVID Screening Performed by: Point of Care Testing Component Value Range Date SARS coronavirus 2 Ag Negative 2023 07:00 am EST * Individual Tests: COVID Screening Performed by: Point of Care Testing Component Value Range Date SARS coronavirus 2 Ag Negative 2023 07:00 am EST * Individual Tests: COVID Screening Performed by: Point of Care Testing Component Value Range Date SARS coronavirus 2 Ag Negative 2023 07:00 am EST * Individual Tests: COVID Screening Performed by: Point of Care Testing Component Value Range Date SARS coronavirus 2 Ag Negative 2022 07:00 am EST * Individual Tests: COVID Screening Performed by: Point of Care Testing Component Value Range Date SARS coronavirus 2 Ag Negative 2022 07:00 am EST * Individual Tests: COVID Screening Performed by: Point of Care Testing Component Value Range Date SARS coronavirus 2 Ag Negative 2022 07:00 am EST * Individual Tests: COVID Screening Performed by: Point of Care Testing Component Value Range Date SARS coronavirus 2 Ag Negative 2022 07:00 am EST * Individual Tests: COVID Screening Performed by: Point of Care Testing Component Value Range Date SARS coronavirus 2 Ag Negative 2022 07:00 am EST * Individual Tests: COVID Screening Performed by: Point of Care Testing Component Value Range Date SARS coronavirus 2 Ag Negative 2022 07:00 am EST * Individual Tests: COVID Screening Performed by: Point of Care Testing Component Value Range Date SARS coronavirus 2 Ag Negative 2022 07:00 am EST * Individual Tests: COVID Screening Performed by: Point of Care Testing Component Value Range SARS coronavirus 2 Ag Negative 2022 07:00 am EST * Individual Tests: COVID Screening Performed by: Point of Care Testing Component Value Range Date SARS coronavirus 2 Ag Negative 2022 08:00 am EDT * Individual Tests: COVID Screening Performed by: Point of Care Testing Component Value Range Date SARS coronavirus 2 Ag Negative 2022 08:00 am EDT * Individual Tests: COVID Screening Performed by: Point of Care Testing Component Value Range Date SARS coronavirus 2 Ag Negative 2022 08:00 am EDT * Individual Tests: COVID Screening Performed by: Point of Care Testing Component Value Range Date SARS coronavirus 2 Ag Negative 2022 08:00 am EDT * Individual Tests: COVID Screening Performed by: Point of Care Testing Component Value Range Date SARS coronavirus 2 Ag Negative 2022 08:00 am EDT * Individual Tests: COVID Screening Performed by: Point of Care Testing Component Value Range Date SARS coronavirus 2 Ag Negative 2022 08:00 am EDT * Individual Tests: COVID Screening Performed by: Point of Care Testing Component Value Range Date SARS coronavirus 2 Ag Negative 2022 08:00 am EDT * Individual Tests: COVID Screening Performed by: Point of Care Testing Component Value Range Date SARS coronavirus 2 Ag Negative 2022 08:00 am EDT * Individual Tests: COVID Screening Performed by: Point of Care Testing Component Value Range Date SARS coronavirus 2 Ag Negative 2022 08:00 am EDT * Individual Tests: COVID Screening Performed by: Point of Care Testing Component Value Range Date SARS coronavirus 2 Ag Negative 2022 08:00 am EDT * Individual Tests: COVID Screening Performed by: Point of Care Testing Component Value Range Date SARS coronavirus 2 Ag Negative 2022 08:00 am EDT * Individual Tests: COVID Screening Performed by: Point of Care Testing Component Value Range Date SARS coronavirus 2 Ag Negative 2022 08:00 am EDT * Individual Tests: COVID Screening Performed by: Point of Care Testing Component Value Range Date SARS coronavirus 2 Ag Negative 2022 08:00 am EDT * Individual Tests: COVID Screening Performed by: Point of Care Testing Component Value Range Date SARS coronavirus 2 Ag Negative 2022 08:00 am EDT * Individual Tests: COVID Screening Performed by: Point of Care Testing Component Value Range Date SARS coronavirus 2 Ag Negative 2022 08:00 am EDT * Individual Tests: COVID Screening Performed by: Point of Care Testing Component Value Range Date SARS coronavirus 2 Ag Negative 2022 08:00 am EDT * Individual Tests: COVID Screening Performed by: Point of Care Testing Component Value Range Date SARS coronavirus 2 Ag Negative 2022 08:00 am EDT * Individual Tests: COVID Screening Performed by: Point of Care Testing Component Value Range Date SARS coronavirus 2 Ag Negative 2022 08:00 am EDT * Individual Tests: COVID Screening Performed by: Point of Care Testing Component Value Range Date SARS coronavirus 2 Ag Negative 2022 08:00 am EDT * Individual Tests: COVID Screening Performed by: Point of Care Testing Component Value Range Date SARS coronavirus 2 Ag Negative 2022 08:00 am EDT * Individual Tests: COVID Screening Performed by: Point of Care Testing Component Value Range Date SARS coronavirus 2 Ag Negative 2022 08:00 am EDT * HIP UNI W OR W/O PELVIS 2-3 V Performed by: [employer] Component Value Range Date HIP UNI W OR W/O PELVIS 2-3 V HIP UNI W OR W/O PELVIS 2-3 V, LEFTFINDINGS: No acute fracture or dislocation. The osseous structures appear intact. Modest joint space narrowing. Soft tissues are unremarkable.CONCLUSION: No acute osseous findings. Recommend a repeat multi-view imaging in 1 week or sooner if clinically warranted especially if symptoms continue to persist or progress.ELECTRONICALLY SIGNED BY EUSEBIA BERTRAND M.D. 06/23/2023 3:54:33 PM EDT.Reason for Study: M25.50 PAIN IN UNSPECIFIED JOINTPrincipal Result Equipment Specialist: EUSEBIA BERTRAND ([id number])Brake Liner: HOLLY DRAPER (HCIROMEO)Community Health Education Coordinator Brake Liner: ELIZABETH 06/23/2023 03:55 pm EDT * SHOULDER COMPLETE, MIN 2V Performed by: [employer] Component Value Range Date SHOULDER COMPLETE, MIN 2V SHOULDER COMPL ETE, MIN 2V, LEFTSee NoteFINDINGS: The glenohumeral joint is in alignment, but there is narrowing of the joint space and bony hypertrophy due to degenerative changes. Acromioclavicular joint has degenerative changes. 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 09/16/2022 10:16:58 AM EDT.Reason for Study: R52 PAIN, UNSPECIFIEDPrincipal Result Equipment Specialist: JACOB VEGA ([id number])Brake Liner: HOLLY DRAPER (DCONDROMEO)Community Health Education Coordinator Brake Liner: ELIZABETH 09/16/2022 10:17 am EDT Encounters Encounter Performer Performer Role Encounter Diagnoses Location Date Leave - [facility] 07/28/2022 04:44 pm EDT - 10/25/2022 09:52 am EDT Leave - [facility] 11/01/2022 05:11 pm EDT - 01/04/2023 04:10 pm EST Leave - [facility] [place] 01/05/2023 12:20 am EST - 06/11/2023 07:15 am EDT Discharge - Discharged / Transferred to home under care of organized home health service organization - [facility] - Private home/apt. with home health services [facility] 06/14/2023 03:24 pm EDT - 07/08/2023 04:30 pm EDT Reason For Referral Nausea/vomiting Immunizations Vaccine Date TD Diphtheria/Tetanus 08/18/2021 12:00 a m EDT Influenza (vial) 01/12/2022 12:00 am EST COVID-19 Vaccine Dose 1 02/28/2020 12:00 am EST COVID-19 Vaccine Dose 2 03/20/2020 12:00 am EST COVID-19 Vaccine Additional Dose/Booster 01/12/2022 12:00 am EST COVID-19 Vaccine Additional Dose/Booster 01/06/2021 12:00 am EST PCV (Prevnar) 20 01/28/2023 12:00 am EST Influenza Fluzone High Dose 0.7ML dose ( CVX 197) 01/20/2023 12:00 am EST RSV-Respiratory syncytial virus,recombin ant CVX 303 03/05/2023 12:00 am EST Comirnaty (pfizer) COVID19 CVX 309 01/28/2023 12:00 am EST SpikeVax (moderna) COVID19 CVX 312 06/29/2023 03:00 pm EDT Social History
[2024-04-21 15:08] LABS: Glucose, Whole Blood 133 mg/dL (60-115)
[2024-04-21] MEDS: 0.9 % Sodium Chloride 1,000 ML 999 ML IV ×2 (15:10→20:10)
[2024-04-21 15:24] LABS: MANUAL DIFF FLAG NO
[2024-04-21 15:29] LABS: Basophils Absolute Auto 0.1 X10*3/uL (0.0-0.2); Basophils Percent Auto 0.5 % (0-2); Eosinophils Absolute Auto 0.3 X10*3/uL (0.0-0.4); Eosinophils Percent Auto 2.6 % (0-4); Hematocrit 38.6 % (37.0-47.0); Hemoglobin 12.8 g/dl (12.0-16.0); Imm Gran Abs Auto 0.06 X10*3/uL (0.00-0.03); Imm Gran Pct Auto 0.5 % (0.0-0.4); Lymphocytes Absolute Auto 1.8 X10*3/uL (1.2-4.9); Lymphocytes Percent Auto 13.6 % (20-40); Mean Corpuscular HGB Conc 33.2 g/dl (31.0-35.0); Mean Corpuscular Hemoglobin 30.3 pg (27.0-33.0); Mean Corpuscular Volume 91.5 fL (80.0-98.0); Mean Platelet Volume 10.1 fL (9.4-12.3); Monocytes Absolute Auto 0.8 X10*3/uL (0.1-1.2); Monocytes Percent Auto 6.4 % (2-11); Neutrophils Absolute Auto 9.8 x10*3/uL (2.0-8.3); Neutrophils Percent Auto 76.4 % (45-73); Platelet Count 265 X10*3/uL (160-400); Red Blood Count 4.22 X10*6/uL (4.20-5.50); Red Cell Distribution Width 12.2 % (11.0-16.0); White Blood Count 12.8 X10*3/uL (4.8-10.8)
[2024-04-21 15:44] LABS: Alanine Aminotransferase 19 U/L (0-31); Albumin Level 4.1 g/dL (3.5-5.0); Alkaline Phosphatase 121 U/L (39-117); Anion Gap 17 (12-20); Aspartate Amino Transferase 21 U/L (5-31); Bilirubin Total 0.3 mg/dL (0.0-1.0); Blood Urea Nitrogen 32 mg/dL (9-16); Carbon Dioxide 20 mmol/L (22-29); Chloride 112 mmol/L (96-108); Estimated Glomerular Filt Rate 42; Glucose Random 135 mg/dL (60-115); Lipase 32 U/L (8-78); Potassium 4.5 mmol/L (3.3-5.1); Sodium 144 mmol/L (135-145); Total Protein 8.5 g/dL (6.5-8.0)
[2024-04-21 15:54] LABS: Appearance Urine Turbid; Color Urine Dark Yellow; Glucose Urine UA Negative (Negative); Leukocyte Esterase Urine Large (3+) (Negative); Nitrite Urine Negative (Negative); UMIC TRIGGER UACC YES; Urine Blood Moderate (2+) (Negative); Urine Ketones Trace mg/dL (Negative); Urine Protein 100 (2+) mg/dL (Neg-Trace)
[2024-04-21 16:00] VITALS: BP 157/73; PULSE 88; RESP 14; TEMP 36.2; O2SAT 100
[2024-04-21 16:16] LABS: Influenza A PCR NEGATIVE (Negative); Influenza B PCR NEGATIVE (Negative); Resp Syncy Virus RNA Qual PCR NEGATIVE (Negative); SARS COV2 PCR INHOUSE NEGATIVE (Negative)
[2024-04-21 16:22] LABS: Bacteria Urine 4+ (None Seen); RBC Urine 0-2 /HPF (0-2); UACC Culture Trigger YES; WBC Urine >50 /HPF (0-5)
[2024-04-21] MEDS: cefTRIAXone sodium 1 GM VIAL IVPUSH (18:08)
--- NOTE | 2024-04-21 18:09 | PC.NURSE ---
Delay of Abx due to difficulty obtaining IV access and blood work access after first IV infiltrated.
--- NOTE | 2024-04-21 18:45 | PC.NURSE ---
2.9 Critical Value from Lab provider Jake Notified.
[2024-04-21 18:50] LABS: Lactic Acid 2.9 mmol/L (0.5-2.0)
[2024-04-21 19:22] VITALS: BP 143/88; PULSE 90; RESP 18; TEMP 36.4; O2SAT 98
[2024-04-21 20:16] LABS: Reflex Lactate? Lactic Acid Added
--- NOTE | 2024-04-21 21:11 | MHC.EDTECH ---
delay in blood draw due to fluids not finished.
[2024-04-21 22:18] LABS: ~Lactic Acid-LAB USE ONLY 1.9 mmol/L (0.5-2.0)
[2024-04-21 22:42] VITALS: BP 148/94; PULSE 85; RESP 22; TEMP 36.6; O2SAT 96
[2024-04-21 23:55] VITALS: BP 148/94; PULSE 85; RESP 22; TEMP 36.6; O2SAT 96
== END 2024-04-21 23:55 | disposition home or self-care (01) ==
PROVIDERS: Physician Assistant; Emergency Provider Emergency Medicine; PCP Internal Medicine Medical Oncology
DX: N39.0 Urinary tract infection, site not specified (principal); R11.2 Nausea with vomiting, unspecified; R50.9 Fever, unspecified; R07.89 Other chest pain; R10.11 Right upper quadrant pain; E11.9 Type 2 diabetes mellitus without complications; Z79.4 Long term (current) use of insulin; Z79.899 Other long term (current) drug therapy; Z03.818 Encounter for observation for suspected exposure to other biological agents ruled out
CPT/HCPCS: 0241U; 36415; 71045; 71250; 74176; 80053; 81001; 82947; 83605; 83690; 85025; 87040; 87086; 87088; 87186; 96361; 96374; 99284; 99285; J0696

== ENCOUNTER → 2024-04-21 14:33 | Outpatient (BNV) | payer MEDICARE, MEDICAID, SELFPAY | PROVIDERS: Emergency Provider Emergency Medicine; PCP Internal Medicine Medical Oncology; Visit Provider Radiology Diagnostic Radiology | DX: R05.9 Cough, unspecified (principal); J98.11 Atelectasis; K57.30 Diverticulosis of large intestine without perforation or abscess without bleeding | CPT/HCPCS: 71045; 71250; 74176 ==